=== PATIENT | male | born 1965 | race Caucasian/White ===

== ENCOUNTER 2020-02-28 12:19 | Emergency (ER) | payer OTHER, SELFPAY ==
[2020-02-28] VITALS (7 sets, daily range): BP systolic 107–130; BP diastolic 48–63; PULSE 60–90; RESP 18–24; TEMP 37.4–39.4; O2SAT 91–95; BMI 14.3
--- NOTE | 2020-02-28 12:35 | XR_ITS ---
EXAMINATION: XR CHEST CLINICAL INFORMATION: Covid symptoms. Evaluate for pneumonia. COMPARISON: Prior chest radiographs from 06/17/2018 through 05/22/2019 TECHNIQUE: Frontal view of the chest was obtained. FINDINGS: The cardiomediastinal and hilar contours are within normal limits. The patient is slightly rotated. There is a subtle opacity at the base of the left lung. The pulmonary vasculature is prominent. There is no effusion or pneumothorax. XR/XR chest 1V IMPRESSION: Subtle opacity at the base of the left lung could represent pneumonia in the appropriate clinical setting. No large effusion or pneumothorax.
--- NOTE | 2020-02-28 12:56 | ED.FEVER ---
HPI - Fever General Chief Complaint: Fever Stated Complaint: covid symptoms Time Seen by Provider: 02/28/20 12:32 Source: family Mode of arrival: ambulatory Limitations: language barrier History of Present Illness HPI Narrative: 54 y/o male with history of TBI, epilepsy (last seizure 4-6 weeks ago), presents with his mother with fevers as high as 103 over the the last 2 day. History obtained from his mother - she reports after a small family gathering at their house last weekend patient and mother started developing fevers, cough, headache and fatigue. She states her son's symptoms have been worse than hers. He has had decreased PO intake but no nausea, vomiting or diarrhea. She gave him Advil for his fevers and they would come down. He has not had difficulty breathing but has a junky cough. MD elicited complaint: fever Onset (ago): day(s) (2) Measured temperature: 103 F Context: sick contacts and other(s) with similar symptoms Exacerbating factors: nothing Relieving factors: ibuprofen Associated symptoms: chills, myalgias, headache, nasal congestion and cough Treatments prior to arrival fever: none Related Data Allergies Allergy/AdvReac Type Severity Reaction Status Date / Time No Known Allergies Allergy Unverified 12/27/19 16:42 Review of Systems Review of Systems: Constitutional: + Fever, + Chills ENT/Mouth: No sore throat, No Rhinorrhea, No Swallowing Difficulty Eyes: No Eye Pain, No Swelling, No Redness Cardiovascular: No Chest Pain, No SOB, No Orthopnea, No Edema Respiratory: + Cough, No Sputum, No Wheezing, No dyspnea Gastrointestinal: No Nausea, No Vomiting, No Diarrhea, No abdominal Pain Genitourinary: No Dysuria, No Urinary Frequency, No Hematuria Musculoskeletal: No joint pain, + Myalgias Skin: No Skin Lesions, No rash Neuro: + Weakness, No Numbness, No Dizziness, + Headache Psych: No Anxiety/Panic, No Depression Heme/Lymph: No Bruising, No Lymphadenopathy Endocrine: No Polyuria, No Polydipsia PMFSH Past Medical History Attestation statement: The following information was validated with the patient. Source: unable to obtain Medical History (Updated 02/28/20 @ 20:04 by PEDRO PABLO Navarro) Depressed Epilepsia TBI (traumatic brain injury) Social History Social History Alcohol intake: unknown Smoking Status: Unknown if ever smoked Use of substances other than those prescribed or required for medical reasons: No Advance Directives: No Advance Directives Information Provided: Yes Physical Exam Vital Signs: Vital Signs: Last Vital Signs Temp 99.4 F 02/28/20 16:24 Pulse 60 02/28/20 19:34 Resp 20 02/28/20 19:34 BP 107/48 L 02/28/20 19:34 Pulse Ox 92 02/28/20 19:34 Body Mass Index 14.3 Appearance: Alert. No acute distress. Right arm contracted. Eyes: Pupils equal, round and reactive to light. ENT: Pharynx normal. Neck: Normal inspection. Neck supple. CVS: Normal heart rate and rhythm. Pulses normal. Respiratory: No respiratory distress. Breath sounds coarse throughout. Abdomen: Soft and nontender. +BS x4 Skin: Skin warm and dry. Normal skin color. Normal skin turgor. No rashes. Extremities: No lower extremity edema. Neuro: right sided UE contracture, generalized weakness R>L, follows simple commands Course Course Course Narrative: 54 y/o male with Hx TBI and epilepsy presenting with fever, cough, malaise. Febrile on arrival 101.2 with RR 24. Concerned for sepsis due to COVID-19 infection vs influenza vs CAP. Panculture, IVF bolus, Tylenol ordered as well as inflammatory marker labs for COVID-19. SpO2 93-94% on room air at this time. Will monitor closely. Dispo pending results and improvement. Reevaluation(s) Reevaluation #1: CXR with possible LLL opacity - will cover for CAP with Rocephin and Azithromycin. IVF infusing. Hemodynamically stable and temp improved to 99.3 with Tylenol. Reevaluation #2: Lactic acid 4.7 consistent with organ dysfunction and severe sepsis. IVF bolus was ordered on arrival 30cc/kg. Repeat lactic after IVF resuscitation. SPO2 92-95 on room air, placed on 2L NC for comfort. Reevaluation #3: COVID positive. Spo2 97% on 1L NC. will wean off and monitor on room air. Repeat lactic acid pending. Additional Reevaluation(s): Repeat lactic acid now normal at 0.9. On room air SpO2 remains 92-97%. No respiratory distress. Remains hemodynamically stable. Only ambualtory for very short distances with assist device at home due to TBI and contractures. He does not meet inpatient criteria at this time. He is stable for discharge to the care of his family with strict return precautions if any SOB or difficulty breathing were to ensue. MDM - Fever MDM Narrative Medical decision making narrative: most likely COVID/viral infection Differential Diagnosis Differential diagnosis: Likely cellulitis, fever of unknown origin, community acquired pneumonia, pyelonephritis, viral infection and sepsis Lab Data Result diagrams: 02/28/20 13:24 02/28/20 13:24 Labs: Lab Results 02/28/20 02/28/20 02/28/20 Range/Units 13:23 13:24 13:24 WBC 4.7 L (4.8-10.8) X10*3/uL RBC 4.35 L (4.60-5.80) X10*6/uL Hgb 13.4 L (14.0-18.0) g/dl Hct 40.7 L (42-52) % MCV 93.6 (80-98) fL MCH 30.8 (27.0-33.0) pg MCHC 32.9 (31.0-36.0) g/dl RDW 11.9 (11.0-16.0) % Plt Count 82 L (160-400) X10*3/uL MPV 13.1 H (9.4-12.4) fL Immature Gran % (Auto) 0.2 (0.0-0.4) % Neut % (Auto) 53.7 (45-73) % Lymph % (Auto) 31.1 (20-40) % [place] % (Auto) 15.0 H (2-11) % Eos % (Auto) 0.0 (0-4) % Baso % (Auto) 0.0 (0-2) % Lymph # (Auto) 1.5 (1.2-4.9) X10*3/uL [place] # (Auto) 0.7 (0.1-1.2) X10*3/uL Eos # (Auto) 0.0 (0.0-0.4) X10*3/uL Baso # (Auto) 0.0 (0.0-0.2) X10*3/uL Abs Immat Gran (auto) 0.01 (0.00-0.03) X10*3/uL Absolute Neuts (auto) 2.5 (2.0-8.3) X10*3/uL Absolute Nucleated RBC 0.000 (0.0-0.012) X10*3/uL Nucleated RBC % (auto) 0.0 (0.0-0.2) /100WBC D-Dimer < 200 NG/ML Hold Blue Top SEE NOTE Sodium (135-145) mmol/L Potassium (3.3-5.1) mmol/l Chloride (96-108) mmol/L Carbon Dioxide (22-29) mmol/L Anion Gap (12-20) BUN (9-16) mg/dL Creatinine (0.5-1.4) mg/dL Estim Creat Clear Calc Estimated GFR Random Glucose (60-115) mg/dL Lactic Acid (0.5-2.0) mmol/L Lactic Acid Fup @ 2Hr (0.5-2.0) mmol/L Calcium (8.4-10.2) mg/dL Magnesium (1.6-2.6) mg/dL Total Bilirubin (0.0-1.0) mg/dL Direct Bilirubin (0.0-0.5) mg/dL AST (5-37) U/L ALT (0-40) U/L Alkaline Phosphatase (39-117) U/L Lactate Dehydrogenase (118-273) U/L C-Reactive Protein (< or = 0.50) mg/dL Total Protein (6.5-8.0) g/dL Albumin (3.5-5.0) g/dL Procalcitonin ng/mL Urine Color YELLOW Urine Appearance HAZY Urine pH 5.5 (5.0-8.0) Ur Specific [place] >= 1.030 H (1.005-1.025) Urine Protein NEG (NEG-TRACE) MG/DL Urine Glucose (UA) NEG (NEG) MG/DL Urine Ketones NEG (NEG) MG/DL Urine Blood TRACE (NEG) Urine Nitrite NEG (NEG) Ur Leukocyte Esterase NEG (NEG) Urine RBC 0-2 (0) /HPF Urine WBC 0-2 (0-4) /HPF Ur Squamous Epith Cells NONE /LPF Urine Bacteria NONE /LPF Urine Mucus TRACE /LPF Coronavirus (PCR) (Negative) Influenza Type A (PCR) (Negative) Influenza Type B (PCR) (Negative) RSV RNA Qual (PCR) (Negative) 02/28/20 02/28/20 02/28/20 Range/Units 13:24 13:24 13:25 WBC (4.8-10.8) X10*3/uL RBC (4.60-5.80) X10*6/uL Hgb (14.0-18.0) g/dl Hct (42-52) % MCV (80-98) fL MCH (27.0-33.0) pg MCHC (31.0-36.0) g/dl RDW (11.0-16.0) % Plt Count (160-400) X10*3/uL MPV (9.4-12.4) fL Immature Gran % (Auto) (0.0-0.4) % Neut % (Auto) (45-73) % Lymph % (Auto) (20-40) % [place] % (Auto) (2-11) % Eos % (Auto) (0-4) % Baso % (Auto) (0-2) % Lymph # (Auto) (1.2-4.9) X10*3/uL [place] # (Auto) (0.1-1.2) X10*3/uL Eos # (Auto) (0.0-0.4) X10*3/uL Baso # (Auto) (0.0-0.2) X10*3/uL Abs Immat Gran (auto) (0.00-0.03) X10*3/uL Absolute Neuts (auto) (2.0-8.3) X10*3/uL Absolute Nucleated RBC (0.0-0.012) X10*3/uL Nucleated RBC % (auto) (0.0-0.2) /100WBC D-Dimer NG/ML Hold Blue Top Sodium 142 (135-145) mmol/L Potassium 4.2 (3.3-5.1) mmol/l Chloride 102 (96-108) mmol/L Carbon Dioxide 28 (22-29) mmol/L Anion Gap 16 (12-20) BUN 11 (9-16) mg/dL Creatinine 0.74 (0.5-1.4) mg/dL Estim Creat Clear Calc 70.7 Estimated GFR > 60 Random Glucose 117 H (60-115) mg/dL Lactic Acid 4.7 H* (0.5-2.0) mmol/L Lactic Acid Fup @ 2Hr (0.5-2.0) mmol/L Calcium 8.4 (8.4-10.2) mg/dL Magnesium 1.6 (1.6-2.6) mg/dL Total Bilirubin 0.4 (0.0-1.0) mg/dL Direct Bilirubin < 0.2 (0.0-0.5) mg/dL AST 27 (5-37) U/L ALT 18 (0-40) U/L Alkaline Phosphatase 53 (39-117) U/L Lactate Dehydrogenase 252 (118-273) U/L C-Reactive Protein 3.55 H (< or = 0.50) mg/dL Total Protein 6.3 L (6.5-8.0) g/dL Albumin 3.6 (3.5-5.0) g/dL Procalcitonin 0.04 ng/mL Urine Color Urine Appearance Urine pH (5.0-8.0) Ur Specific [place] (1.005-1.025) Urine Protein (NEG-TRACE) MG/DL Urine Glucose (UA) (NEG) MG/DL Urine Ketones (NEG) MG/DL Urine Blood (NEG) Urine Nitrite (NEG) Ur Leukocyte Esterase (NEG) Urine RBC (0) /HPF Urine WBC (0-4) /HPF Ur Squamous Epith Cells /LPF Urine Bacteria /LPF Urine Mucus /LPF Coronavirus (PCR) (Negative) Influenza Type A (PCR) (Negative) Influenza Type B (PCR) (Negative) RSV RNA Qual (PCR) (Negative) 02/28/20 02/28/20 Range/Units 14:42 18:30 WBC (4.8-10.8) X10*3/uL RBC (4.60-5.80) X10*6/uL Hgb (14.0-18.0) g/dl Hct (42-52) % MCV (80-98) fL MCH (27.0-33.0) pg MCHC (31.0-36.0) g/dl RDW (11.0-16.0) % Plt Count (160-400) X10*3/uL MPV (9.4-12.4) fL Immature Gran % (Auto) (0.0-0.4) % Neut % (Auto) (45-73) % Lymph % (Auto) (20-40) % [place] % (Auto) (2-11) % Eos % (Auto) (0-4) % Baso % (Auto) (0-2) % Lymph # (Auto) (1.2-4.9) X10*3/uL [place] # (Auto) (0.1-1.2) X10*3/uL Eos # (Auto) (0.0-0.4) X10*3/uL Baso # (Auto) (0.0-0.2) X10*3/uL Abs Immat Gran (auto) (0.00-0.03) X10*3/uL Absolute Neuts (auto) (2.0-8.3) X10*3/uL Absolute Nucleated RBC (0.0-0.012) X10*3/uL Nucleated RBC % (auto) (0.0-0.2) /100WBC D-Dimer NG/ML Hold Blue Top Sodium (135-145) mmol/L Potassium (3.3-5.1) mmol/l Chloride (96-108) mmol/L Carbon Dioxide (22-29) mmol/L Anion Gap (12-20) BUN (9-16) mg/dL Creatinine (0.5-1.4) mg/dL Estim Creat Clear Calc Estimated GFR Random Glucose (60-115) mg/dL Lactic Acid (0.5-2.0) mmol/L Lactic Acid Fup @ 2Hr 0.9 (0.5-2.0) mmol/L Calcium (8.4-10.2) mg/dL Magnesium (1.6-2.6) mg/dL Total Bilirubin (0.0-1.0) mg/dL Direct Bilirubin (0.0-0.5) mg/dL AST (5-37) U/L ALT (0-40) U/L Alkaline Phosphatase (39-117) U/L Lactate Dehydrogenase (118-273) U/L C-Reactive Protein (< or = 0.50) mg/dL Total Protein (6.5-8.0) g/dL Albumin (3.5-5.0) g/dL Procalcitonin ng/mL Urine Color Urine Appearance Urine pH (5.0-8.0) Ur Specific [place] (1.005-1.025) Urine Protein (NEG-TRACE) MG/DL Urine Glucose (UA) (NEG) MG/DL Urine Ketones (NEG) MG/DL Urine Blood (NEG) Urine Nitrite (NEG) Ur Leukocyte Esterase (NEG) Urine RBC (0) /HPF Urine WBC (0-4) /HPF Ur Squamous Epith Cells /LPF Urine Bacteria /LPF Urine Mucus /LPF Coronavirus (PCR) POSITIVE A (Negative) Influenza Type A (PCR) NEGATIVE (Negative) Influenza Type B (PCR) NEGATIVE (Negative) RSV RNA Qual (PCR) NEGATIVE (Negative) Critical Care Time Critical Care Time Critical Care Time: Yes Total Critical Care Time: 45 Attestation: I attest to critical care time spent with this patient - frequent bedside re-evaluation. Discharge Plan Discharge Clinical Impression: COVID-19, Severe sepsis Patient Disposition: Home, Self-Care Instructions: COVID-19 (Coronavirus Disease 2019) (ED) Additional Instructions: Your COVID test was POSITIVE today. You had a fever while in the ER but it improved with Tylenol and Ibuprofen. Your other vital signs remained stable. Recommend continued close monitoring of temperature at home and continue to take Tylenol and/or Motrin as needed for fevers. Stay hydrated. Drink plenty of fluids. Take over the counter cold/flu medications as needed for your symptoms. If you develop difficulty breathing, respiratory distress, shortness of breath, chest pain or fever that does not improve with medication call 911 or come back to the ER for further evaluation. Follow up with your doctor next week. Print Language: [place]
[2020-02-28 13:37] LABS: Mean Corpuscular Hemoglobin 30.8 pg (27.0-33.0); Red Cell Distribution Width 11.9 % (11.0-16.0); SCAN SMEAR FLAG 1
[2020-02-28 13:38] LABS: MANUAL DIFF FLAG NO
[2020-02-28 13:39] LABS: Glucose Urine UA NEG (NEG); Leukocyte Esterase Urine NEG (NEG); Nitrite Urine NEG (NEG); PH 5.5 (5.0-8.0); Specific Gravity - Urine >= 1.030 (1.005-1.025); Urine Blood TRACE (NEG); Urine Ketones NEG (NEG); Urine Protein NEG (NEG-TRACE)
[2020-02-28 13:39] LABS: Hematocrit 40.7 % (42-52); Hemoglobin 13.4 g/dl (14.0-18.0); Imm Gran Abs Auto 0.01 X10*3/uL (0.00-0.03); Imm Gran Pct Auto 0.2 % (0.0-0.4); Lymphocytes Absolute Auto 1.5 X10*3/uL (1.2-4.9); Lymphocytes Percent Auto 31.1 % (20-40); Mean Corpuscular HGB Conc 32.9 g/dl (31.0-36.0); Mean Corpuscular Volume 93.6 fL (80-98); Mean Platelet Volume 13.1 fL (9.4-12.4); Monocytes Absolute Auto 0.7 X10*3/uL (0.1-1.2); Neutrophils Absolute Auto 2.5 X10*3/uL (2.0-8.3); Neutrophils Percent Auto 53.7 % (45-73); Red Blood Count 4.35 X10*6/uL (4.60-5.80); White Blood Count 4.7 X10*3/uL (4.8-10.8)
[2020-02-28 13:40] LABS: Appearance Urine HAZY; Color Urine YELLOW
[2020-02-28 13:43] LABS: Platelet Count 82 X10*3/uL (160-400)
[2020-02-28] MEDS: Acetaminophen 325 MG TABLET 975 MG PO (13:43)
[2020-02-28 13:44] LABS: PLT ABN DIST 1
[2020-02-28 13:45] LABS: Mucus Urine TRACE /LPF; RBC Urine 0-2 /HPF (0); WBC Urine 0-2 /HPF (0-4)
[2020-02-28 13:46] LABS: D Dimer < 200 NG/ML
[2020-02-28] MEDS: cefTRIAXone sodium 1 GM in 0.9 % Sodium Chloride 50 ML IV (13:59)
[2020-02-28 14:08] LABS: Alanine Aminotransferase 18 U/L (0-40); Albumin Level 3.6 g/dL (3.5-5.0); Alkaline Phosphatase 53 U/L (39-117); Anion Gap 16 (12-20); Aspartate Amino Transferase 27 U/L (5-37); Bilirubin Direct < 0.2 mg/dL (0.0-0.5); Bilirubin Total 0.4 mg/dL (0.0-1.0); Blood Urea Nitrogen 11 mg/dL (9-16); C Reactive Protein 3.55 mg/dL (< or = 0.50); Calcium 8.4 mg/dL (8.4-10.2); Carbon Dioxide 28 mmol/L (22-29); Chloride 102 mmol/L (96-108); Creatinine Clr Calc Pharmacy 70.7; Estimated Glomerular Filt Rate > 60; Glucose Random 117 mg/dL (60-115); Lactate Dehydrogenase 252 U/L (118-273); Magnesium 1.6 mg/dL (1.6-2.6); Potassium 4.2 mmol/l (3.3-5.1); Sodium 142 mmol/L (135-145); Total Protein 6.3 g/dL (6.5-8.0)
[2020-02-28 14:11] LABS: Lactic Acid 4.7 mmol/L (0.5-2.0)
[2020-02-28 14:23] LABS: Procalcitonin 0.04 ng/mL
[2020-02-28] MEDS: Azithromycin 500 MG in 0.9 % Sodium Chloride 250 ML 125 MG IV (14:30)
[2020-02-28 15:34] LABS: Reflex Lactate? Lactic Acid Added
[2020-02-28] MEDS: Ibuprofen 600 MG TABLET PO (17:33)
[2020-02-28] MEDS: 0.9 % Sodium Chloride 1,000 ML 999 ML IVCONT ×2 (17:33)
[2020-02-28 18:26] LABS: Influenza A PCR NEGATIVE (Negative); Influenza B PCR NEGATIVE (Negative); Resp Syncy Virus RNA Qual PCR NEGATIVE (Negative); SARS COV2 PCR INHOUSE POSITIVE (Negative)
[2020-02-28 18:55] LABS: ~Lactic Acid-LAB USE ONLY 0.9 mmol/L (0.5-2.0)
== END 2020-02-28 20:35 | disposition home or self-care (01) ==
PROVIDERS: Physician Assistant; Emergency Provider Emergency Medicine
DX: U07.1 COVID-19 (principal); R50.9 Fever, unspecified; A41.9 Sepsis, unspecified organism; R65.20 Severe sepsis without septic shock
CPT/HCPCS: 0241U; 36415; 71045; 80048; 80076; 81001; 83605; 83615; 83735; 84145; 85025; 85379; 86140; 87040; 96361; 96365; 96375; 99284; 99291; J0456; J0696

== ENCOUNTER 2020-02-29 18:38 | Inpatient (IN) | payer OTHER, SELFPAY ==
[2020-02-29 18:49] VITALS: BP 115/60; PULSE 79; RESP 12; TEMP 39.3; O2SAT 97; BMI 30.9
--- NOTE | 2020-02-29 19:06 | XR_ITS ---
EXAMINATION: XR CHEST CLINICAL INFORMATION: Shortness of breath COMPARISON: Chest x-ray 02/28/2020 TECHNIQUE: Frontal view of the chest was obtained. FINDINGS: Cardiac silhouette is normal in size. Lungs are adequately aerated. There is no lobar consolidation. No pleural effusion. No pneumothorax. Subtle opacity previously visualized within the left lung base is not replicated on today's radiographs. XR/XR chest 1V IMPRESSION: No lobar consolidation.
--- NOTE | 2020-02-29 19:38 | ED.GENADULT ---
HPI - General Adult General Chief complaint: General Medical Stated complaint: COVID Time Seen by Provider: 02/29/20 19:04 Source: patient, family and EMS Mode of arrival: EMS Limitations: no limitations History of Present Illness HPI narrative: This is a 54-year-old male who brought in by ambulance for difficulty breathing, patient was in the emergency department yesterday and was diagnosed with COVID-19 positive, patient returns today for difficulty breathing and initially found to be hypoxic at 84% on room air and febrile, patient has exposed to COVID positive contact recently. Patient otherwise declined chest pain. In the emergency department patient was placed on non-rebreather mask which improved his O2 saturation into 96%. Related Data Allergies Allergy/AdvReac Type Severity Reaction Status Date / Time No Known Allergies Allergy Unverified 12/27/19 16:42 Review of Systems Review of Systems: All other systems are reviewed and are negative Constitutional: Reports as per HPI and Reports no additional constitutional complaints Eyes: Reports as per HPI and Reports no additional eye complaints Reports system reviewed and no additional complaints, except as documented Cardiovascular: Reports as per HPI and Reports no additional cardiovascular complaints Respiratory: Reports as per HPI and Reports no additional respiratory complaints Gastrointestinal: Reports as per HPI and Reports no additional gastrointestinal complaints Genitourinary: Reports no additional female genitourinary complaints Musculoskeletal: Reports no additional musculoskeletal complaints Skin/Breast: Reports system reviewed and no additional complaints, except as docu Psychiatric: Reports no additional psychiatric complaints Endocrine: Reports no additional endocrine complaints Hematologic/Lymphatic: Reports no additional hematologic/lymphatic complaints Allergic/Immunologic: Reports no additional allergic/immunologic complaints Reports system reviewed and no additional complaints, except as documented and Reports Abnormal speech present FOR[facility] Past Medical History Medical History Coronavirus infection Depressed Epilepsia TBI (traumatic brain injury) Social History Social History Alcohol intake: unknown Smoking Status: Unknown if ever smoked Advance Directives: No Advance Directives Information Provided: Yes Physical Exam Vital Signs: Vital Signs: Last Vital Signs Temp 102.7 F H 02/29/20 18:49 Pulse 79 02/29/20 18:49 Resp 12 02/29/20 18:49 BP 115/60 02/29/20 18:49 Pulse Ox 97 02/29/20 18:49 Body Mass Index 30.9 Vital signs have been reviewed as normal and appeared to be correct. Blood pressure normal. Heart rate normal. Respiration rate normal. Febrile. Hypoxic on room air 84%, improved to 97% with non-rebreather mask.. Appearance: Alert. Oriented X3. No acute distress. Head: Normal external exam. Normocephalic. Atraumatic. No [place] signs noted. No raccoon eyes noted Eyes: PERRLA. EOMI. Conjunctiva and sclera normal. Eyelids normal. ENT: EAC normal. TM's Normal. Pharynx normal. Uvula midline. Moist mucous membranes. No trismus noted. No drooling noted. No muffled voice noted. Neck: Normal inspection. Neck supple. FROM. No adenopathy. Thyroid Normal. No meningeal signs. No neck mass noted. CVS: Normal heart rate and rhythm. Heart sound normal. No murmurs noted. Pulses normal throughout. Respiratory: No respiratory distress. Painless inspiration. Breath sounds normal. No wheezes/rales/rhonchi noted. Chest nontender. No accessory muscle usage noted or decreased air movement noted. Abdomen: Soft and nontender. Bowel sounds normal in all 4 quadrants. No distention noted. No organomegaly noted. No visible injury noted. Back: No CVA tenderness. Full range of motion noted. Skin: Skin warm and dry. Normal skin color. Normal skin turgor. No rashes/lesions/lacerations noted. Extremities: No lower extremity edema. Extremities exhibit normal range of motion. Extremities nontender. Neuro: Oriented X 3. No motor deficit. No sensory deficit. Reflexes normal. Medical Decision Making MDM Narrative Medical decision making narrative: 54-year-old male return to the emergency department for difficulty breathing and becoming hypoxic and febrile, patient was diagnosed yesterday with COVID-19, initially patient had 84% that improved with supplemental oxygen via non-rebreather mask, chest x-ray is not showing additional bacterial pneumonia. Patient requires hospitalization for supplemental oxygenation. Imaging Data Chest x-ray: Radiologist's impression: No lobar consolidation.
[2020-02-29 20:00] VITALS: BP 110/50; PULSE 79; RESP 16
[2020-02-29 20:05] LABS: MANUAL DIFF FLAG NO
[2020-02-29 20:14] LABS: Hematocrit 36.7 % (42-52); Hemoglobin 12.1 g/dl (14.0-18.0); Imm Gran Abs Auto 0.02 X10*3/uL (0.00-0.03); Imm Gran Pct Auto 0.5 % (0.0-0.4); Lymphocytes Absolute Auto 0.9 X10*3/uL (1.2-4.9); Lymphocytes Percent Auto 21.4 % (20-40); Mean Corpuscular Hemoglobin 30.7 pg (27.0-33.0); Mean Corpuscular Volume 93.1 fL (80-98); Mean Platelet Volume 13.9 fL (9.4-12.4); Monocytes Absolute Auto 0.6 X10*3/uL (0.1-1.2); Monocytes Percent Auto 12.9 % (2-11); Neutrophils Absolute Auto 2.8 X10*3/uL (2.0-8.3); Neutrophils Percent Auto 65.2 % (45-73); Red Blood Count 3.94 X10*6/uL (4.60-5.80); Red Cell Distribution Width 11.9 % (11.0-16.0); White Blood Count 4.3 X10*3/uL (4.8-10.8)
[2020-02-29 20:39] LABS: Anion Gap 14 (12-20); Blood Urea Nitrogen 7 mg/dL (9-16); Calcium 7.9 mg/dL (8.4-10.2); Carbon Dioxide 30 mmol/L (22-29); Chloride 100 mmol/L (96-108); Creatinine Clr Calc Pharmacy 134.6; Estimated Glomerular Filt Rate > 60; Glucose Random 112 mg/dL (60-115); Potassium 4.3 mmol/l (3.3-5.1); Sodium 140 mmol/L (135-145)
[2020-02-29 20:43] LABS: Platelet Count 79 X10*3/uL (160-400)
[2020-02-29 21:08] LABS: B Type Natriuretic Peptide 14 pg/mL (<100)
[2020-02-29] MEDS: Acetaminophen 325 MG TABLET 650 MG PO (21:11)
[2020-02-29] MEDS: 0.9 % Sodium Chloride 500 ML 1000 ML IV (21:20)
[2020-02-29 22:00] VITALS: BP 116/57; PULSE 79; RESP 16
--- NOTE | 2020-02-29 23:07 | PC.NURSE ---
PT C/O PAIN TO ABD AREA. AWARE AND MEDICATED PT PER EMAR.
[2020-02-29] MEDS: Morphine Sulfate 2 MG/ML CARTRIDGE 1 MG IVPUSH (23:47)
--- NOTE | 2020-02-29 23:48 | PC.NURSE ---
PT'S IV NEEDED TO BE RE-INSERTED. PT MEDICATED FOR PAIN RATED 8/10.
[2020-03-01] VITALS (11 sets, daily range): BP systolic 99–120; BP diastolic 50–65; PULSE 57–89; RESP 16–20; TEMP 36–38.1; O2SAT 91–100; BMI 29.2
--- NOTE | 2020-03-01 00:54 | PC.NURSE ---
PT RESTING IN STRETCHER, WAKES TO VERBAL STIMULI, RESPIRATIONS EASY, N/L. SKIN W/D. PT ON MONITOR WITH HR 66. PT ON NRB WITH PO 97%. PT DENIES ANY COMPLAINTS AT THIS TIME. PT URINATING IN URINAL WITHOUT DIFFICULTY. PT AWAITING BED ASIGNMENT.
--- NOTE | 2020-03-01 01:45 | PM.IMHP ---
History of Present Illness Date of Service: 03/01/20 Chief Complaint: SOB 54 y/o male with extensive PMHX who presented from home due to SOB. Patient is a poor historian, reports that for the past 2 days has been having worsening difficulty breathing which has been associated with a dry cough. On presentation to the ED patient was noted to spike multiple episodes of fever 101-102, tachypneic, BP 104/52 adn HR of 64. WNC of 4.3, platelet of 79, lactate of 4.7 which normalized after hydration in the ED, CRP of 3.55, covid +. UA pending. Decision for admission given. Patient seen and evaluated at the bedside, laying down in bed in no acute distress. ROS as above otherwise negative. Physical exam positive for RU/RLE contracted, rest of the exam unremarkable. PMHX: 1- biliary pancreatitis 2-Hypoxic respiratory failure 3-cholithiasis 4- seizure disorder 5-TBI with rigth hemiplegia 6-nephrolithiasis 7-Decubitus ulcer 8-Depression 9- Wheelchair bound 10- DJD Psx: cholecystectomy Toxic habits: No hx of alcohol abuse, smoking or IVDA Review of Systems Cardiovascular: Cardiovascular: Reports dyspnea Respiratory: Respiratory: Reports cough and Reports dyspnea PMFSH Medical History Coronavirus infection Depressed Epilepsia TBI (traumatic brain injury) Functional capacity: wheelchair bound Social History Alcohol intake: unknown Smoking Status: Unknown if ever smoked Advance Directives: No Advance Directives Information Provided: Yes Meds Allergies Allergy/AdvReac Type Severity Reaction Status Date / Time No Known Allergies Allergy Unverified 12/27/19 16:42 Home Medications Medication Instructions Recorded Confirmed Type atorvastatin 40 mg PO BEDTIME 02/29/20 02/29/20 History citalopram 20 mg PO QAM 02/29/20 02/29/20 History divalproex 500 mg PO BID 02/29/20 02/29/20 History ergocalciferol (vitamin D2) 1,250 mcg PO QWEEK 02/29/20 02/29/20 History levetiracetam 1,000 mg PO BID 02/29/20 02/29/20 History levetiracetam 250 mg PO BID 02/29/20 02/29/20 History lorazepam 0.5 mg PO DAILY PRN 02/29/20 02/29/20 History zolpidem 0.5 - 1 tab PO BEDTIME PRN 02/29/20 02/29/20 History Physical Exam Vital Signs and Narrative: Vital Signs: Last Vital Signs Temp 102.7 F H 02/29/20 18:49 Pulse 64 03/01/20 00:00 Resp 16 03/01/20 00:00 BP 104/52 L 03/01/20 00:00 Pulse Ox 97 03/01/20 00:00 Body Mass Index 30.9 Const: General: cooperative, comfortable and no acute distress Orientation/consciousness: oriented to person, oriented to place and oriented to time HENMT: Head: Yes normal to inspection Eyes: General: appearance normal, both eyes and all related structures Neck: Yes normal visual inspection Chest: Chest palpation & inspection: normal inspection of the chest Resp: Effort & Inspection: normal respiratory effort Cardio: Jugular venous distension: no JVD Rhythm: regular rhythm Heart sounds: S1 normal heart sound present and S2 normal heart sound present GI: Inspection: Yes normal to inspection Skin: General skin exam: no rashes or lesions noted Neuro: General: oriented to person, oriented to place and oriented to time Results Labs CBC and Chem 7: 02/29/20 19:35 02/29/20 19:35 Labs: Laboratory Results - last 24 hr 02/29/20 02/29/20 02/29/20 19:35 19:35 19:35 MCV 93.1 MCH 30.7 MCHC 33.0 RDW 11.9 Plt Count 79 L MPV 13.9 H Immature Gran % (Auto) 0.5 H Neut % (Auto) 65.2 Lymph % (Auto) 21.4 [place] % (Auto) 12.9 H Eos % (Auto) 0.0 Baso % (Auto) 0.0 Lymph # (Auto) 0.9 L [place] # (Auto) 0.6 Eos # (Auto) 0.0 Baso # (Auto) 0.0 Abs Immat Gran (auto) 0.02 Absolute Neuts (auto) 2.8 Absolute Nucleated RBC 0.000 Nucleated RBC % (auto) 0.0 Anion Gap 14 Estim Creat Clear Calc 134.6 Estimated GFR > 60 Random Glucose 112 Lactic Acid 2.0 Calcium 7.9 L B-Natriuretic Peptide 02/29/20 19:35 MCV MCH MCHC RDW Plt Count MPV Immature Gran % (Auto) Neut % (Auto) Lymph % (Auto) [place] % (Auto) Eos % (Auto) Baso % (Auto) Lymph # (Auto) [place] # (Auto) Eos # (Auto) Baso # (Auto) Abs Immat Gran (auto) Absolute Neuts (auto) Absolute Nucleated RBC Nucleated RBC % (auto) Anion Gap Estim Creat Clear Calc Estimated GFR Random Glucose Lactic Acid Calcium B-Natriuretic Peptide 14 Imaging Radiologist's Impressions: Impressions Chest X-Ray 02/29/20 19:06 IMPRESSION: No lobar consolidation. Assessment and Plan (1) Sepsis: Status: Acute Keep MAP >65 mmHg Continue with IV hydration Continue with O2 therapy as ordered inhaler as needed will not start antbx as there is no other source of infection at present Follow up UA infectious disease consult (2) COVID-19: Status: Acute plan as above (3) Hypoxia: Status: Acute as above (4) Epilepsia: Status: Acute conitnue with AED's as ordered (5) TBI (traumatic brain injury): Status: Acute stable (6) Depressed: Status: Acute continue with escitalopram home dose (7) Hyperlipidemia: Status: Acute continue with statin home dose
--- NOTE | 2020-03-01 01:53 | PC.NURSE ---
HOSPITALIST IN ROOM FOR EVAL. URINE SAMPLE SENT TO LAB FOR EVAL.
[2020-03-01 02:03] LABS: Glucose Urine UA NEG (NEG); Leukocyte Esterase Urine NEG (NEG); Nitrite Urine NEG (NEG); Specific Gravity - Urine 1.015 (1.005-1.025); Urine Blood NEG (NEG); Urine Ketones NEG (NEG); Urine Protein NEG (NEG-TRACE)
[2020-03-01 02:04] LABS: Appearance Urine CLEAR; Color Urine YELLOW
--- NOTE | 2020-03-01 02:41 | PC.NURSE ---
pt resting quietly. PT REMAINS ON MONITOR WITH HR 57. PT DENIES ANY COMPLAINTS AND REQUESTING CAN I GO HOME? PT VERBALIZED UNDERSTANDING OF IMPORTANCE OF STAYING IN THE HOSPITAL. PT IS NO LONGER NAUSEA AND WITHOUT VOMITING IN THE ED. PT REMAINS ON NRB WITH PO 100%. PT IN NAD. PT DENIES ANY COMPLAINTS AND AWAITING TRANSPORT TO THE FLOOR. AWAITING FOR [facility] TO TAKE REPORT.
--- NOTE | 2020-03-01 02:48 | PC.NURSE ---
REPORT GIVEN TO RONDA ACOSTA C. PT AWAITING TRANSPORT TO FLOOR.
[2020-03-01] MEDS: 0.9 % Sodium Chloride 1,000 ML 75 ML IVCONT ×2 (03:47→15:10)
[2020-03-01] MEDS: Heparin Sodium,Porcine 5,000 UNIT/ML VIAL 5000 UNIT SUBCUT ×3 (05:40→21:56)
[2020-03-01 07:41] LABS: MANUAL DIFF FLAG SCAN; Mean Corpuscular HGB Conc 33.3 g/dl (31.0-36.0); Mean Corpuscular Hemoglobin 30.9 pg (27.0-33.0); Mean Corpuscular Volume 92.6 fL (80-98); Neutrophils Percent Auto 33.8 % (45-73); SCAN SMEAR FLAG 1
[2020-03-01 07:43] LABS: Basophils Percent Auto 0.3 % (0-2); Hematocrit 35.1 % (42-52); Hemoglobin 11.7 g/dl (14.0-18.0); Lymphocytes Absolute Auto 2.1 X10*3/uL (1.2-4.9); Lymphocytes Percent Auto 52.7 % (20-40); Mean Platelet Volume 14.1 fL (9.4-12.4); Monocytes Absolute Auto 0.5 X10*3/uL (0.1-1.2); Monocytes Percent Auto 13.2 % (2-11); Neutrophils Absolute Auto 1.3 X10*3/uL (2.0-8.3); Red Blood Count 3.79 X10*6/uL (4.60-5.80)
[2020-03-01 07:57] LABS: PLT ABN DIST 1; Platelet Count 73 X10*3/uL (160-400)
[2020-03-01] MEDS: levETIRAcetam 250 MG TABLET PO ×2 (08:15→21:57)
[2020-03-01] MEDS: 0.9 % Sodium Chloride Flush 3 ML SYRINGE IVFLUSH (08:15)
[2020-03-01] MEDS: levETIRAcetam 1,000 MG TABLET 1000 MG PO ×2 (08:15→21:57)
[2020-03-01] MEDS: Escitalopram Oxalate 10 MG TABLET PO (08:15)
[2020-03-01] MEDS: Divalproex Sodium ER 500 MG TAB.ER.24H PO ×2 (08:15→21:57)
[2020-03-01 08:24] LABS: Anion Gap 11 (12-20); Blood Urea Nitrogen 6 mg/dL (9-16); Calcium 7.8 mg/dL (8.4-10.2); Carbon Dioxide 30 mmol/L (22-29); Chloride 103 mmol/L (96-108); Creatinine Clr Calc Pharmacy 136.9; Estimated Glomerular Filt Rate > 60; Glucose Random 83 mg/dL (60-115); Potassium 3.8 mmol/l (3.3-5.1); Sodium 140 mmol/L (135-145)
--- NOTE | 2020-03-01 13:59 | PC.NURSE ---
1150 PATIENT PLACED ON 15L OXYMIZER. PT DESAT TO 85%. PT PLACED BACK ON NRB NOW SATING 92%
--- NOTE | 2020-03-01 15:03 | W.PM.IDCN ---
History of Present Illness Data of Consult Service Date: 03/01/20 Requesting physician: Morris Decker Primary Care Provider: Unknown Physician HPI Reason for consult: COVID He comes in brought by family He was at a family gathering one week ago and developed cough as well as fever to 103 He tests positive for COVID He is on room air Review of Systems Review of Systems: Yes Unobtainable due to mental condition PMFSH Past Medical History Medical History Coronavirus infection Depressed Epilepsia TBI (traumatic brain injury) Functional capacity: wheelchair bound Social History Social History Household Members: None Housing: House Alcohol intake: unknown Smoking Status: Current every day smoker Tobacco Type: Cigarette Use of substances other than those prescribed or required for medical reasons: No Currently Displaying Signs/Symptoms of Drug Intoxication Withdrawal: No Have you been hit, kicked, punched, or otherwise hurt by someone within the past year? If so, by whom?: No Do you feel safe in your current relationship?: Yes Is there a partner from a previous relationship who is making you feel unsafe now?: No Are you made to feel afraid or neglected: No Advance Directives: No Advance Directives Information Provided: Yes Do you have thoughts of harming others: None Do you have a plan to hurt others: No Plan Recently lost weight without trying: No Meds Allergies Allergy/AdvReac Type Severity Reaction Status Date / Time No Known Allergies Allergy Unverified 12/27/19 16:42 Home Medications Medication Instructions Recorded Confirmed Type atorvastatin 40 mg PO BEDTIME 02/29/20 02/29/20 History citalopram 20 mg PO QAM 02/29/20 02/29/20 History divalproex 500 mg PO BID 02/29/20 02/29/20 History ergocalciferol (vitamin D2) 1,250 mcg PO QWEEK 02/29/20 02/29/20 History levetiracetam 1,000 mg PO BID 02/29/20 02/29/20 History levetiracetam 250 mg PO BID 02/29/20 02/29/20 History lorazepam 0.5 mg PO DAILY PRN 02/29/20 02/29/20 History zolpidem 0.5 - 1 tab PO BEDTIME PRN 02/29/20 02/29/20 History Physical Exam Vital Signs: Vital Signs: Last Vital Signs Temp 99.0 F 03/01/20 12:00 Pulse 72 03/01/20 12:00 Resp 20 03/01/20 12:00 BP 99/62 03/01/20 12:00 Pulse Ox 94 03/01/20 12:00 Body Mass Index 29.2 Const: General: cooperative HENMT: Head: Yes normal to inspection Eyes: General: appearance normal, both eyes and all related structures Resp: Effort & Inspection: normal respiratory effort Cardio: Rate: regular rate Rhythm: regular rhythm GI: Palpation (GI): nontender Extrem: General: Yes normal to inspection Assessment and Plan (1) COVID-19: Start date: 02/23/20 Problem details: He has shortness of breath and saturation 84% with fever but now has saturation of 92-97% on RA today He had episode of hypoxia with fever in ER and had come to ER two days in row so now is admitted Status: Acute No Remdesivir or steroids Monitor If develops oxygen need consider steroids Results Labs CBC & Chem 7: 03/01/20 06:18 03/01/20 06:18 Labs: Short CBC 02/29/20 03/01/20 Range/Units 19:35 06:18 WBC 4.3 L 4.0 L (4.8-10.8) X10*3/uL Hgb 12.1 L 11.7 L (14.0-18.0) g/dl Hct 36.7 L 35.1 L (42-52) % Plt Count 79 L 73 L (160-400) X10*3/uL BMP 02/29/20 03/01/20 19:35 06:18 Sodium 140 140 Potassium 4.3 3.8 Chloride 100 103 Carbon Dioxide 30 H 30 H BUN 7 L 6 L Creatinine 0.73 0.70 Calcium 7.9 L 7.8 L Urine 03/01/20 Range/Units 01:58 Urine Color YELLOW Urine Appearance CLEAR Urine pH 7.0 (5.0-8.0) Ur Specific [place] 1.015 (1.005-1.025) Urine Protein NEG (NEG-TRACE) MG/DL Urine Glucose (UA) NEG (NEG) MG/DL
--- NOTE | 2020-03-01 16:23 | MHC.CM.PN ---
CM spoke to pts mother/HCP, Arely Henriquez ([phone]) via t/c using [employer] (#[id number]). Arely reports the pt lives with her and has [employer] services daily. She reports he is wheel chair bound at baseline. Arely is his HCP and a copy is on file. Arely reports the pt does not have a PCP at this time because she tried to change it and has not been able to get an appt with a new provider. Arely expresses concern that the pt not DC home too soon as she is not feeling well and is his primary rn dermatology. CM assured her she would be contacted when DC was close to discuss any concerns. Arely also reports worrying that the pt is not eating because he told her he was hungry on the phone, she reports someone has to be there when he eats. CM passed concern on to pts nurse. IMM delivered current DC plan is home with resumption of [employer] pending pts mothers ability to care for him Pts mother typically transports him as well but can not if she is not feeling better, he may require ambulance transport
[2020-03-01] MEDS: Acetaminophen 325 MG TABLET 650 MG PO (19:53)
[2020-03-01] MEDS: Atorvastatin Calcium 40 MG TABLET PO (21:57)
[2020-03-02] VITALS (8 sets, daily range): BP systolic 111–143; BP diastolic 56–79; PULSE 87–102; RESP 18–20; TEMP 35.9–38.6; O2SAT 88–96
[2020-03-02] MEDS: 0.9 % Sodium Chloride 1,000 ML 75 ML IVCONT (04:38)
[2020-03-02] MEDS: Heparin Sodium,Porcine 5,000 UNIT/ML VIAL 5000 UNIT SUBCUT (06:22)
[2020-03-02] MEDS: levETIRAcetam 1,000 MG TABLET 1000 MG PO ×2 (07:56→20:05)
[2020-03-02] MEDS: Divalproex Sodium ER 500 MG TAB.ER.24H PO ×2 (07:56→20:05)
[2020-03-02] MEDS: Escitalopram Oxalate 10 MG TABLET PO (07:57)
[2020-03-02] MEDS: 0.9 % Sodium Chloride Flush 3 ML SYRINGE IVFLUSH ×3 (07:57→20:05)
[2020-03-02] MEDS: levETIRAcetam 250 MG TABLET PO ×2 (07:57→20:05)
--- NOTE | 2020-03-02 12:39 | HO.PM.IMPN ---
Subjective Subjective Date of Service: 03/02/20 Interval History: Seen in f/u for covid infection with hypoxia. Still hypoxic but overall better ROS: no fever, no resp distress Physical Exam Vital Signs: Vital Signs: Last Vital Signs Temp 97.8 F 03/02/20 12:00 Pulse 102 H 03/02/20 12:00 Resp 20 03/02/20 12:00 BP 136/66 03/02/20 12:00 Pulse Ox 90 L 03/02/20 12:00 Body Mass Index 29.2 General: Alert Resp: normal resp effort CVS: regular Skin: No rash Neuro: motor grossly intact Psych: flat affect Objective Data Current Medications Generic Name Dose Route Start Last Admin Trade Name Freq PRN Reason Stop Dose Admin Acetaminophen 650 mg 03/01/20 19:36 03/01/20 19:53 Acetaminophen 325 Mg Tablet PO 650 mg Q6H PRN Administration Pain and Fever Atorvastatin Calcium 40 mg 03/01/20 21:00 03/01/20 21:57 Atorvastatin Calcium 40 Mg Tablet PO 40 mg BEDTIME FRANKIE Administration Divalproex Sodium 500 mg 03/01/20 09:00 03/02/20 07:56 Divalproex Sodium Er 500 Mg Tab.Er.24h PO 500 mg BID FRANKIE Administration Ergocalciferol 1,250 mcg 03/08/20 09:00 Ergocalciferol (Vitamin D2) 1,250 Mcg Capsule PO Q7D FRANKIE Escitalopram Oxalate 10 mg 03/01/20 09:00 03/02/20 07:57 Escitalopram Oxalate 10 Mg Tablet PO 10 mg DAILY FRANKIE Administration Heparin Sodium (Porcine) 5,000 unit 03/01/20 06:00 03/02/20 06:22 Heparin Sodium,Porcine 5,000 Unit/Ml Vial SUBCUT 5,000 unit Q8H FRANKIE Administration Levetiracetam 1,000 mg 03/01/20 09:00 03/02/20 07:56 Levetiracetam 1,000 Mg Tablet PO 1,000 mg BID FRANKIE Administration Levetiracetam 250 mg 03/01/20 09:00 03/02/20 07:57 Levetiracetam 250 Mg Tablet PO 250 mg BID FRANKIE Administration Sodium Chloride 3 ml 03/01/20 08:00 03/02/20 07:57 0.9 % Sodium Chloride Flush 3 Ml Syringe IVFLUSH 3 ml QSHIFT FRANKIE Administration Labs CBC & Chem 7: 03/01/20 06:18 03/01/20 06:18 Microbiology Microbiology Results: Microbiology 02/29/20 19:35 Blood - Venous Blood Culture - Preliminary No growth after 24 hours. 02/29/20 19:35 Blood - Venous Blood Culture - Preliminary No growth after 24 hours. Assessment and Plan (1) Sepsis: Status: Acute (2) COVID-19: Problem details: He has shortness of breath and saturation 84% with fever but now has saturation of 92-97% on RA today He had episode of hypoxia with fever in ER and had come to ER two days in row so now is admitted Status: Acute (3) Hypoxia: Status: Acute (4) Epilepsia: Status: Acute (5) TBI (traumatic brain injury): Status: Acute (6) Depressed: Status: Acute (7) Hyperlipidemia: Status: Acute Assessment and Plan: 54/m with TBI, HLD, Epilepsy here with covid with hypoxia. -Add Dexamethasone due to developping hypoxia -Oxgyen as needed, titrate to sat of 90 or greater HLD--Lipitor Epilepsys--Tee Pizarro
[2020-03-02] MEDS: dexAMETHasone sod phosphate 10 MG/ML VIAL 6 MG IVPUSH (15:02)
[2020-03-02] MEDS: Acetaminophen 325 MG TABLET 650 MG PO (15:38)
[2020-03-02] MEDS: Atorvastatin Calcium 40 MG TABLET PO (20:05)
[2020-03-03] VITALS (7 sets, daily range): BP systolic 99–169; BP diastolic 55–74; PULSE 62–108; RESP 18–20; TEMP 36.6–37.4; O2SAT 91–96
--- NOTE | 2020-03-03 | XR_ITS ---
EXAMINATION: XR CHEST CLINICAL INFORMATION: Hypoxia. Question Covid. COMPARISON: None TECHNIQUE: Frontal view of the chest was obtained. FINDINGS: The lungs are well-expanded without acute pneumonic process. Heart size and pulmonary vascularity is normal. No gross bony abnormality seen. XR/XR chest 1V IMPRESSION: Unremarkable chest exam. No change from 02/29/2020
[2020-03-03 07:02] LABS: Hematocrit 35.9 % (42-52); Hemoglobin 11.9 g/dl (14.0-18.0); Mean Corpuscular HGB Conc 33.1 g/dl (31.0-36.0); Mean Corpuscular Hemoglobin 30.6 pg (27.0-33.0); Mean Corpuscular Volume 92.3 fL (80-98); Mean Platelet Volume 13.5 fL (9.4-12.4); Red Blood Count 3.89 X10*6/uL (4.60-5.80); White Blood Count 2.9 X10*3/uL (4.8-10.8)
[2020-03-03 07:03] LABS: Platelet Count 80 X10*3/uL (160-400)
[2020-03-03] MEDS: LORazepam 0.5 MG TABLET PO (07:06)
[2020-03-03] MEDS: Escitalopram Oxalate 10 MG TABLET PO (07:49)
[2020-03-03] MEDS: Divalproex Sodium ER 500 MG TAB.ER.24H PO ×2 (07:49→20:13)
[2020-03-03] MEDS: levETIRAcetam 250 MG TABLET PO ×2 (07:49→20:13)
[2020-03-03] MEDS: 0.9 % Sodium Chloride Flush 3 ML SYRINGE IVFLUSH ×2 (07:49→18:09)
[2020-03-03] MEDS: levETIRAcetam 1,000 MG TABLET 1000 MG PO ×2 (07:49→20:13)
--- NOTE | 2020-03-03 09:03 | MHC.CM.PN ---
Addendum entered by Alesia Silver 03/03/20 13:41: This newspaper writer called the phone # provided. No action is required. Probation will follow up after discharge. Original Note: David received from Jada BOND. Patient is wearing an ankle bracelet. [phone] WANTS CALL BACK@ DC AND WHEN ANKLE BRACELET NEEDS BATTERIES
--- NOTE | 2020-03-03 10:04 | MHC.CM.PN ---
DP DC to Home resumption of [employer] services. Family will transport. If family unable to care for Pt at DC, STR may be required, prior to going home. CM will follow.
--- NOTE | 2020-03-03 10:12 | HO.PM.IMPN ---
Subjective Subjective Date of Service: 03/03/20 Interval History: Seen in f/u for covid infection with hypoxia. Has a temp of 101, this morning and O2 from 85 to 82 on 4 liters, earlier today was 90 to 92 on room air. He looks comfortable with no complaint. ROS: no fever, no resp distress Physical Exam Vital Signs: Vital Signs: Last Vital Signs Temp 98.0 F 03/03/20 07:36 Pulse 74 03/03/20 07:36 Resp 18 03/03/20 07:36 BP 99/56 L 03/03/20 07:36 Pulse Ox 92 03/03/20 07:36 Body Mass Index 29.2 General: Alert, comfortable Resp: normal resp effort CVS: regular Skin: No rash Neuro: motor grossly intact Psych: flat affect Objective Data Current Medications Generic Name Dose Route Start Last Admin Trade Name Freq PRN Reason Stop Dose Admin Acetaminophen 650 mg 03/01/20 19:36 03/02/20 15:38 Acetaminophen 325 Mg Tablet PO 650 mg Q6H PRN Administration Pain and Fever Atorvastatin Calcium 40 mg 03/01/20 21:00 03/02/20 20:05 Atorvastatin Calcium 40 Mg Tablet PO 40 mg BEDTIME FRANKIE Administration Divalproex Sodium 500 mg 03/01/20 09:00 03/03/20 07:49 Divalproex Sodium Er 500 Mg Tab.Er.24h PO 500 mg BID FRANKIE Administration Ergocalciferol 1,250 mcg 03/08/20 09:00 Ergocalciferol (Vitamin D2) 1,250 Mcg Capsule PO Q7D FRANKIE Escitalopram Oxalate 10 mg 03/01/20 09:00 03/03/20 07:49 Escitalopram Oxalate 10 Mg Tablet PO 10 mg DAILY FRANKIE Administration Levetiracetam 1,000 mg 03/01/20 09:00 03/03/20 07:49 Levetiracetam 1,000 Mg Tablet PO 1,000 mg BID FRANKIE Administration Levetiracetam 250 mg 03/01/20 09:00 03/03/20 07:49 Levetiracetam 250 Mg Tablet PO 250 mg BID FRANKIE Administration Lorazepam 0.5 mg 03/03/20 06:34 03/03/20 07:06 Lorazepam 0.5 Mg Tablet PO 0.5 mg DAILY PRN Administration Anxiety Sodium Chloride 3 ml 03/01/20 08:00 03/03/20 07:49 0.9 % Sodium Chloride Flush 3 Ml Syringe IVFLUSH 3 ml QSHIFT FRANKIE Administration Labs CBC & Chem 7: 03/03/20 05:53 03/01/20 06:18 Microbiology Microbiology Results: Microbiology 02/29/20 19:35 Blood - Venous Blood Culture - Preliminary No growth after 48 hours. 02/29/20 19:35 Blood - Venous Blood Culture - Preliminary No growth after 48 hours. Assessment and Plan (1) Sepsis: Status: Acute (2) COVID-19: Status: Acute (3) Hypoxia: Status: Acute (4) Epilepsia: Status: Acute (5) TBI (traumatic brain injury): Status: Acute (6) Depressed: Status: Acute (7) Hyperlipidemia: Status: Acute Assessment and Plan: \54/m with TBI, HLD, Epilepsy here with covid since 02/27 and has persistent fever and now hypoxia. He likely contracted it from family gather aweek earlier -continue Dexamethasone due to developping hypoxia -Remdesevir unlikely to be beneficial nearly a week later--discussed with ID -Oxgyen as needed, titrate to sat of 90 or greater -Will discuss plasma with proxy -check BC, UA, CXR to rule out other sources of fever HLD--Lipitor Epilepsys--Tee Pizarro
[2020-03-03 11:08] LABS: Hematocrit 36.2 % (42-52); Hemoglobin 12.1 g/dl (14.0-18.0); Mean Corpuscular HGB Conc 33.4 g/dl (31.0-36.0); Mean Corpuscular Hemoglobin 30.6 pg (27.0-33.0); Mean Corpuscular Volume 91.4 fL (80-98); Mean Platelet Volume 13.5 fL (9.4-12.4); Red Blood Count 3.96 X10*6/uL (4.60-5.80); Red Cell Distribution Width 11.9 % (11.0-16.0); White Blood Count 3.4 X10*3/uL (4.8-10.8)
[2020-03-03 11:09] LABS: Platelet Count 87 X10*3/uL (160-400)
[2020-03-03 14:16] LABS: Glucose Urine UA NEG (NEG); Leukocyte Esterase Urine NEG (NEG); Nitrite Urine NEG (NEG); PH 6.5 (5.0-8.0); Urine Blood NEG (NEG); Urine Ketones NEG (NEG); Urine Protein NEG (NEG-TRACE)
[2020-03-03 14:18] LABS: Appearance Urine CLEAR; Color Urine YELLOW
[2020-03-03 14:34] LABS: Bacteria Urine TRACE /LPF; Mucus Urine 1+ /LPF; Squamous Epithelial Cell Urine TRACE /LPF
--- NOTE | 2020-03-03 16:39 | PM.IDPN ---
Subjective Subjective Date of Service: 03/03/20 Interval History: He requires more oxygen,now on 5liters suddenly Objective Data Labs CBC & Chem 7: 03/03/20 10:50 03/01/20 06:18 Labs: Laboratory Results - last 24 hr 03/03/20 03/03/20 03/03/20 05:53 10:50 13:57 WBC 2.9 L 3.4 L RBC 3.89 L 3.96 L Hgb 11.9 L 12.1 L Hct 35.9 L 36.2 L MCV 92.3 91.4 MCH 30.6 30.6 MCHC 33.1 33.4 RDW 12.0 11.9 Plt Count 80 L 87 L MPV 13.5 H 13.5 H Absolute Nucleated RBC 0.000 0.000 Nucleated RBC % (auto) 0.0 0.0 Urine Color YELLOW Urine Appearance CLEAR Urine pH 6.5 Ur Specific [place] 1.020 Urine Protein NEG Urine Glucose (UA) NEG Urine Ketones NEG Urine Blood NEG Urine Nitrite NEG Ur Leukocyte Esterase NEG Urine RBC 1-4 Urine WBC 1-4 Ur Squamous Epith Cells TRACE Urine Bacteria TRACE Urine Mucus 1+ Microbiology Microbiology Results: Microbiology 02/29/20 19:35 Blood - Venous Blood Culture - Preliminary No growth after 48 hours. 02/29/20 19:35 Blood - Venous Blood Culture - Preliminary No growth after 48 hours. Physical Exam Vital Signs: Vital Signs: Last Vital Signs Temp 98.7 F 03/03/20 15:36 Pulse 98 03/03/20 15:36 Resp 20 03/03/20 15:36 BP 120/65 03/03/20 15:36 Pulse Ox 94 03/03/20 15:36 Body Mass Index 29.2 Const: General: cooperative Resp: Effort & Inspection: normal respiratory effort Cardio: Rate: regular rate Rhythm: regular rhythm GI: Inspection: Yes normal to inspection Palpation (GI): nontender Assessment and Plan Assessment and plan (1) COVID-19: Status: Acute Assessment and Plan: Consider leg u/s ,r/o PE Time Spent With Patient Time: Total time spent is greater than 50% in coordination of care (as documented) at patient's floor/unit and/or counseling patient: Time with patient: 15 - 24 minutes
[2020-03-03] MEDS: Atorvastatin Calcium 40 MG TABLET PO (20:13)
[2020-03-04] VITALS (17 sets, daily range): BP systolic 90–131; BP diastolic 54–76; PULSE 79–145; RESP 18–20; TEMP 36.4–37.8; O2SAT 91–94
[2020-03-04] MEDS: 0.9 % Sodium Chloride Flush 3 ML SYRINGE IVFLUSH ×4 (00:53→21:06)
--- NOTE | 2020-03-04 06:24 | ECG_ITS ---
Test Reason : rhythm change Blood Pressure : / mmHG Vent. Rate : 119 BPM Atrial Rate : 133 BPM P-R Int : 000 ms QRS Dur : 090 ms QT Int : 292 ms P-R-T Axes : 000 057 -16 degrees QTc Int : 410 ms Atrial fibrillation with rapid ventricular response Nonspecific T wave abnormality Moderate voltage criteria for LVH, may be normal variant Abnormal ECG When compared with ECG of [id number] Atrial fibrillation is new Heart rate has increased Nonspecific T wave abnormality is new Referred By: Uday Womack Electronically Signed By:RAMIRO MARIE MD
[2020-03-04] MEDS: Metoprolol Tartrate 5 MG/5 ML VIAL 2.5 MG IVPUSH (06:46)
--- NOTE | 2020-03-04 06:58 | PC.NURSE ---
PT SINUS RHYTHM ALL NIGHT. NO HX AFIB. AFIB ON THE MONITOR AT 0615 W HR IN 110S, SPIKES TO 130S. EKG SHOWS AFIB W RVR. MD AWARE. 2.5MG IV LOPRESSOR GIVEN. HR DECREASED TO LOW 100S. BPS STABLE. PT IS CONTRACTED IN UPPER EXTREMITIES W TREMORS AT TIMES.
[2020-03-04] MEDS: levETIRAcetam 1,000 MG TABLET 1000 MG PO ×2 (08:36→21:05)
[2020-03-04] MEDS: Divalproex Sodium ER 500 MG TAB.ER.24H PO ×2 (08:36→21:05)
[2020-03-04] MEDS: Escitalopram Oxalate 10 MG TABLET PO (08:36)
[2020-03-04] MEDS: levETIRAcetam 250 MG TABLET PO ×2 (08:36→21:05)
[2020-03-04] MEDS: LORazepam 0.5 MG TABLET PO (09:07)
[2020-03-04] MEDS: dilTIAZem HCL 50 MG/10 ML VIAL IVPUSH (10:23)
[2020-03-04] MEDS: Apixaban 5 MG TABLET PO ×2 (10:36→21:05)
--- NOTE | 2020-03-04 10:38 | PC.NURSE ---
Pt in afib with HR ranging from 140's-160's. This RN notified Dr. Decker and gave 5mg Eliquis per MD order. Second RN, Elizabeth, administered 5mg of Cardizem IV push per MD order. Pt HR sitting in 110-120's and MD notified. IV Cardizem drip to be started per MD order.
[2020-03-04] MEDS: dilTIAZem HCL 125 MG in 0.9 % Sodium Chloride 100 ML IVCONT (11:10)
--- NOTE | 2020-03-04 11:30 | CA_ITS ---
Transthoracic Echocardiogram Patient (Last, First, Middle): Louis Wagoner, Gender: Male Date of : 1965 Age: 54 Procedure Date: 03/04/2020 Procedure Type: Transthoracic Echocardiogram Location: [facility] – [place], [place] Height: 175.26 cm Weight: 89.81 kg BSA: 2.06 m2 Heart Rate: bpm BP: 119 / 71 mmHg [employer] Supervisor: ALFREDO Referring MD: Morris Decker MD Symptoms: new afib Study Quality: Technically Difficult ECG Rhythm: Sinus Conclusions: - Normal left ventricular size and systolic function. - Normal right ventricular cavity size and systolic function. - Limited valvular assessment. Findings Left Ventricle Normal left ventricular size and systolic function. There is mildly increased left ventricular wall thickness. The visually estimated ejection fraction is between 60-65%. Regional wall motion abnormalities can not be excluded due to suboptimal endocardial definition. Diastolic function is normal for age. Right Ventricle Normal right ventricular cavity size and systolic function. Atria The left atrium is normal in size. Aortic Valve The aortic valve was not well visualized. There is no aortic valve stenosis. There is no aortic valve regurgitation. Mitral Valve The mitral valve was not well visualized. There is no mitral valve regurgitation. There is no mitral valve stenosis. Pulmonic Valve The pulmonic valve was not well visualized. Tricuspid Valve The tricuspid valve was not well visualized. There is trace tricuspid valve regurgitation. Tricuspid regurgitation envelope is inadequate for calculation of right ventricular systolic pressure. Great Vessels The aorta was not well visualized. The pulmonary artery was not well visualized. Venous The inferior vena cava was not well visualized. Pericardium/Pleural There is no evidence of pericardial effusion. Prior Study Comparison No significant change compared to prior study dated: 02/01/2015. Measurements 2D Linear Measurements IVSd: 1.10 0.6-0.9/0.6-1.0 cm LVIDd: 3.72 3.9-5.3/4.2-5.9 cm LVIDd Index: 1.81 2.4-3.2/2.2-3.1 cm/m2 LVIDs: 2.83 2.0-3.6 cm LVPWd: 1.14 0.7-1.1 cm LA Diam: 3.90 2.7-3.8/3.0-4.0 cm LAIDs Index: 1.89 1.5-2.3 cm/m2 LV Mass: 166.64 67-162/88-224 g LV Mass Index: 80.89 43-95/49-115 g/m2 Mitral Valve MV Pk E: 0.57 MV PK A: 0.41 MV Decel Time: 222.00 E/A: 1.40 E'Lateral: 9.67 E'Medial: 11.00 E/E' Med: 5.20 E/E' Lat: 5.90 PHT: 65.00 MVA PHT: 3.38 Decel [place]: 2.58 Aortic Valve AoV Pk Richard: 1.05 AoV Mn Richard: 0.78 AoV VTI: 0.21 AoV Pk Grad: 4.00 Aov Mn Grad: 3.00 LVOT LVOT Pk Richard: 0.86 LVOT Mn Richard: 0.56 LVOT VTI: 0.20 LVOT Pk Grad: 3.00 LVOT Mn Grad: 2.00 Diastolic Function MV Pk E: 0.57 MV Pk A: 0.41 E/A: 1.40 E'Medial: 11.00 E/E' Med: 5.20 E' Laterial: 9.67 E/E' Lat: 5.90 Tricuspid Valve TR Pk Richard: 1.46 TR Pk Grad: 9.00 RA Press: 3.00 Updated in Other Vendor System with Status of Final Freddy Lubin MD electronically signed on 03/04/2020 9:16:05 PM with status of Final
[2020-03-04] MEDS: Digoxin 0.5 MG/2 ML AMPUL 0.25 MG IVPUSH (12:27)
--- NOTE | 2020-03-04 13:07 | HO.PM.IMPN ---
Subjective Subjective Date of Service: 03/04/20 Interval History: Seen in f/u for covid related resp failure, this morning went into AFIB with RVR HR up to 140 and given Iv metoprolol. Hypoxia is better Review of Systems Review of Systems: Yes Unobtainable due to mental status Physical Exam Vital Signs: Vital Signs: Last Vital Signs Temp 97.6 F 03/04/20 12:00 Pulse 121 H 03/04/20 12:27 Resp 18 03/04/20 12:00 BP 97/56 L 03/04/20 12:00 Pulse Ox 92 03/04/20 12:00 Body Mass Index 29.2 General: AO, no acute distress Resp: normal resp effort CVS: ireg ireg GI: +BS, NT, no distention Skin: No rash Neuro: motor grossly intact Psych: flat Objective Data Current Medications Generic Name Dose Route Start Last Admin Trade Name Freq PRN Reason Stop Dose Admin Acetaminophen 650 mg 03/01/20 19:36 03/02/20 15:38 Acetaminophen 325 Mg Tablet PO 650 mg Q6H PRN Administration Pain and Fever Apixaban 5 mg 03/04/20 21:00 03/04/20 10:36 Apixaban 5 Mg Tablet PO 5 mg BID FRANKIE Administration Atorvastatin Calcium 40 mg 03/01/20 21:00 03/03/20 20:13 Atorvastatin Calcium 40 Mg Tablet PO 40 mg BEDTIME FRANKIE Administration Divalproex Sodium 500 mg 03/01/20 09:00 03/04/20 08:36 Divalproex Sodium Er 500 Mg Tab.Er.24h PO 500 mg BID FRANKIE Administration Ergocalciferol 1,250 mcg 03/08/20 09:00 Ergocalciferol (Vitamin D2) 1,250 Mcg Capsule PO Q7D FRANKIE Escitalopram Oxalate 10 mg 03/01/20 09:00 03/04/20 08:36 Escitalopram Oxalate 10 Mg Tablet PO 10 mg DAILY FRANKIE Administration Diltiazem HCl 125 mg/ Sodium 125 mls @ 0 mls/hr 03/04/20 10:15 03/04/20 12:09 Chloride IVCONT 7.5 mg/hr .Q0M FRANKIE 7.5 mls/hr Titration Protocol Per Protocol Levetiracetam 1,000 mg 03/01/20 09:00 03/04/20 08:36 Levetiracetam 1,000 Mg Tablet PO 1,000 mg BID FRANKIE Administration Levetiracetam 250 mg 03/01/20 09:00 03/04/20 08:36 Levetiracetam 250 Mg Tablet PO 250 mg BID FRANKIE Administration Lorazepam 0.5 mg 03/03/20 06:34 03/04/20 09:07 Lorazepam 0.5 Mg Tablet PO 0.5 mg DAILY PRN Administration Anxiety Sodium Chloride 3 ml 03/01/20 08:00 03/04/20 08:36 0.9 % Sodium Chloride Flush 3 Ml Syringe IVFLUSH 3 ml QSHIFT FRANKIE Administration Labs CBC & Chem 7: 03/03/20 10:50 03/01/20 06:18 Microbiology Microbiology Results: Microbiology 03/03/20 10:50 Blood - Venous Blood Culture - Preliminary No growth after 24 hours. 03/03/20 10:50 Blood - Venous Blood Culture - Preliminary No growth after 24 hours. 02/29/20 19:35 Blood - Venous Blood Culture - Preliminary No growth after 48 hours. 02/29/20 19:35 Blood - Venous Blood Culture - Preliminary No growth after 48 hours. 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 He likely contracted it from family gather a week earlier -continue Dexamethasone -Remdesevir unlikely to be beneficial nearly a week later--discussed with ID -Received plasma on 03/03 -Oxgyen as needed, titrate to sat of 90 or greater -Discussed with mother on 03/03 New AFIB with RVR--on IV cardizem, add digoxin, cardiology eval, may need echo, check tsh eliquis Thrombocytopenia--? related to covid, stable, monitor HLD--Lipitor Epilepsys--Tee Pizarro
--- NOTE | 2020-03-04 13:52 | PM.CNCAR ---
History of Present Illness History of Present Illness Date of Service: 03/04/20 Requesting physician: Morris Decker Consult reason: atrial fibrillation Chief complaint: COVID/SOB Narrative: 54-year-old gentleman with background of hyperlipidemia, depression, traumatic brain injury and epilepsy who is presenting with COVID-19. He is on treatment for that. We have been consulted for atrial fibrillation with rapid ventricular response. No meaningful history was possible from the patient. he denied any pain but history was very limited. His telemetry is showing atrial fibrillation with rapid ventricular response. He is on Cardizem drip and received digoxin IV dose recently. Review of Systems Review of Systems: Limited [facility] Past Medical History Medical History Coronavirus infection Depressed Epilepsia TBI (traumatic brain injury) Functional capacity: wheelchair bound Social History Social History Household Members: None Housing: House Alcohol intake: unknown Smoking Status: Current every day smoker Tobacco Type: Cigarette Use of substances other than those prescribed or required for medical reasons: No Currently Displaying Signs/Symptoms of Drug Intoxication Withdrawal: No Have you been hit, kicked, punched, or otherwise hurt by someone within the past year? If so, by whom?: No Do you feel safe in your current relationship?: Yes Is there a partner from a previous relationship who is making you feel unsafe now?: No Are you made to feel afraid or neglected: No Advance Directives: No Advance Directives Information Provided: Yes Do you have thoughts of harming others: None Do you have a plan to hurt others: No Plan Recently lost weight without trying: No service: No Current occupational status: disabled Meds Allergies Allergy/AdvReac Type Severity Reaction Status Date / Time No Known Allergies Allergy Unverified 12/27/19 16:42 Home Medications Medication Instructions Recorded Confirmed Type atorvastatin 40 mg PO BEDTIME 02/29/20 02/29/20 History citalopram 20 mg PO QAM 02/29/20 02/29/20 History divalproex 500 mg PO BID 02/29/20 02/29/20 History ergocalciferol (vitamin D2) 1,250 mcg PO QWEEK 02/29/20 02/29/20 History levetiracetam 1,000 mg PO BID 02/29/20 02/29/20 History levetiracetam 250 mg PO BID 02/29/20 02/29/20 History lorazepam 0.5 mg PO DAILY PRN 02/29/20 02/29/20 History zolpidem 0.5 - 1 tab PO BEDTIME PRN 02/29/20 02/29/20 History Physical Exam Vital Signs: Vital Signs: Last Vital Signs Temp 97.6 F 03/04/20 12:00 Pulse 121 H 03/04/20 12:27 Resp 18 03/04/20 12:00 BP 97/56 L 03/04/20 12:00 Pulse Ox 92 03/04/20 12:00 Body Mass Index 29.2 GENERAL APPEARANCE: in no acute distress. HEENT: unremarkable. HEAD: normocephalic, atraumatic. NECK/THYROID: no jugular venous distention. SKIN: no suspicious lesions, warm and dry. HEART: no murmurs, irregular rhythm, tachycardia, S1, S2 normal. LUNGS: clear to auscultation anteriorly. Auscultation was quite difficult due to negative pressure room and significant noise in the room ABDOMEN: normal, bowel sounds present, soft, nontender, nondistended. EXTREMITIES: no edema. PERIPHERAL PULSES: equal. NEUROLOGIC: awake, following simple commands. Results Labs and Meds Result diagrams: 03/03/20 10:50 03/01/20 06:18 Lab results: Laboratory Results - last 24 hr 03/03/20 03/03/20 13:57 20:29 Urine Color YELLOW Urine Appearance CLEAR Urine pH 6.5 Ur Specific [place] 1.020 Urine Protein NEG Urine Glucose (UA) NEG Urine Ketones NEG Urine Blood NEG Urine Nitrite NEG Ur Leukocyte Esterase NEG Urine RBC 1-4 Urine WBC 1-4 Ur Squamous Epith Cells TRACE Urine Bacteria TRACE Urine Mucus 1+ Blood Type A Negative Antibody Screen NEGATIVE Assessment and Plan (1) COVID-19: Problem details: He has no signs of pneumonia,CXR neg He has worsening hypoxia,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 AFib is probably driven by sepsis and infection at this point. His blood pressures are low and are likely low due to sepsis. I will give him some IV fluids. If he has rapid ventricular response then I would load him with 1 mg total of digoxin 250 mcg at a time. He has already received 250 mcg on digoxin. I will continue the Cardizem drip. If he reverts back to sinus rhythm then I will hold his Cardizem and digoxin for now. I would leave on anticoagulation for now. Please check a D-dimer level on him. If his D-dimer is significantly elevated at COVID-19 then I will leave him on anticoagulation for now. Thank you for allowing me to participate in the care of your patient. Please feel free to contact me if you have any questions.
[2020-03-04] MEDS: 0.9 % Sodium Chloride 500 ML IV (14:03)
--- NOTE | 2020-03-04 14:37 | PC.NURSE ---
PATIENTS ASYMPTOMATIC - HR AFIB 120s-130s THIS AM AND STARTED ON CARDIZEM DRIP AT 5MG/HR AT 1110 WITH BP 124/59. AT 1128 PT HR IN 110S WITH BP 90/54. MD MADE AWARE AND ORDERS RECEIVED TO KEEP ON DRIP AT 5MG/HR. AT 1147 PT BP 97/56 WITH HR IN THE 140S, CARDIZEM DRIP TITRATED TO 10MG/HR AND MD AWARE. RECHECK AT 1206 PT BP 91/60 AND HR IN THE 120S, ORDERS RECEIVED TO TITRATE THE CARDIZEM DRIP TO 7.5MG/HR AND TO GIVE IV PUSH DIGOXIN 0.25MG. IV DIGOXIN GIVEN AND PT MAINTAINED ON THE CARDIZEM DRIP. CARDIOLOGY AT BEDSIDE. AT 1354 PT CONVERTED TO NSR, HR IN THE 80S WITH BP OF 96/54, ORDERS RECEIVED TO D/C CARDIZEM DRIP AND BOLUS NS 500ML. WILL CONTINUE TO MONITOR AT THIS TIME.
[2020-03-04 18:13] LABS: D Dimer 327 NG/ML
[2020-03-04] MEDS: Atorvastatin Calcium 40 MG TABLET PO (21:05)
[2020-03-05] VITALS: BP 127/58; PULSE 105; RESP 20; TEMP 37.7; O2SAT 94
[2020-03-05] MEDS: Acetaminophen 325 MG TABLET 650 MG PO ×2 (01:06→17:38)
[2020-03-05 03:06] VITALS: BP 122/58; PULSE 96; RESP 20; TEMP 36.5; O2SAT 96
[2020-03-05] MEDS: levETIRAcetam 1,000 MG TABLET 1000 MG PO ×2 (07:54→20:18)
[2020-03-05] MEDS: Divalproex Sodium ER 500 MG TAB.ER.24H PO ×2 (07:54→20:18)
[2020-03-05] MEDS: Escitalopram Oxalate 10 MG TABLET PO (07:54)
[2020-03-05] MEDS: 0.9 % Sodium Chloride Flush 3 ML SYRINGE IVFLUSH ×3 (07:54→20:18)
[2020-03-05] MEDS: Apixaban 5 MG TABLET PO ×2 (07:54→20:18)
[2020-03-05] MEDS: levETIRAcetam 250 MG TABLET PO ×2 (07:54→20:18)
[2020-03-05 08:00] VITALS: BP 118/77; PULSE 89; RESP 20; TEMP 36.2; O2SAT 93
--- NOTE | 2020-03-05 10:48 | HO.PM.IMPN ---
Subjective Subjective Date of Service: 03/05/20 Interval History: Seen in follow up for covid related resp failure, hypoxia, and AFIB with RVR. He is is sinus rythm, no fever. Oxygen saturation is improving. ROS: no fever, no sob, no cough Physical Exam Vital Signs: Vital Signs: Last Vital Signs Temp 97.2 F 03/05/20 08:00 Pulse 89 03/05/20 08:00 Resp 20 03/05/20 08:00 BP 118/77 03/05/20 08:00 Pulse Ox 93 03/05/20 08:00 Body Mass Index 29.2 General: AO, no acute distress Resp: normal resp effort CVS: ireg ireg GI: +BS, NT, no distention Skin: No rash Neuro: motor grossly intact Psych: flat Objective Data Current Medications Generic Name Dose Route Start Last Admin Trade Name Freq PRN Reason Stop Dose Admin Acetaminophen 650 mg 03/01/20 19:36 03/05/20 01:06 Acetaminophen 325 Mg Tablet PO 650 mg Q6H PRN Administration Pain and Fever Apixaban 5 mg 03/04/20 21:00 03/05/20 07:54 Apixaban 5 Mg Tablet PO 5 mg BID FRANKIE Administration Atorvastatin Calcium 40 mg 03/01/20 21:00 03/04/20 21:05 Atorvastatin Calcium 40 Mg Tablet PO 40 mg BEDTIME FRANKIE Administration Divalproex Sodium 500 mg 03/01/20 09:00 03/05/20 07:54 Divalproex Sodium Er 500 Mg Tab.Er.24h PO 500 mg BID FRANKIE Administration Ergocalciferol 1,250 mcg 03/08/20 09:00 Ergocalciferol (Vitamin D2) 1,250 Mcg Capsule PO Q7D FRANKIE Escitalopram Oxalate 10 mg 03/01/20 09:00 03/05/20 07:54 Escitalopram Oxalate 10 Mg Tablet PO 10 mg DAILY FRANKIE Administration Levetiracetam 1,000 mg 03/01/20 09:00 03/05/20 07:54 Levetiracetam 1,000 Mg Tablet PO 1,000 mg BID FRANKIE Administration Levetiracetam 250 mg 03/01/20 09:00 03/05/20 07:54 Levetiracetam 250 Mg Tablet PO 250 mg BID FRANKIE Administration Lorazepam 0.5 mg 03/03/20 06:34 03/04/20 09:07 Lorazepam 0.5 Mg Tablet PO 0.5 mg DAILY PRN Administration Anxiety Sodium Chloride 3 ml 03/01/20 08:00 03/05/20 07:54 0.9 % Sodium Chloride Flush 3 Ml Syringe IVFLUSH 3 ml QSHIFT FRANKIE Administration Labs CBC & Chem 7: 03/03/20 10:50 03/01/20 06:18 Microbiology Microbiology Results: Microbiology 03/03/20 10:50 Blood - Venous Blood Culture - Preliminary No growth after 24 hours. 03/03/20 10:50 Blood - Venous Blood Culture - Preliminary No growth after 24 hours. 02/29/20 19:35 Blood - Venous Blood Culture - Preliminary No growth after 48 hours. 02/29/20 19:35 Blood - Venous Blood Culture - Preliminary No growth after 48 hours. 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 He likely contracted it from family gather a week earlier -continue Dexamethasone for 10 days total -Remdesevir unlikely to be beneficial nearly a week later--discussed with ID -Received plasma on 03/03 -Oxgyen as needed, titrate to sat of 90 or greater--better today -Discuss with mother on routine basis New AFIB with RVR--on 03/04.. treated with IV cardizem, a dose of dig, then converted to sinus and remain so..Cardiology advises no anticoagulation due to minial CHADs score, so will dc eliquis Thrombocytopenia--? related to covid, stable, monitor HLD--Lipitor Epilepsys--Tee Pizarro
--- NOTE | 2020-03-05 11:36 | MHC.CM.PN ---
Per ROUNDS discussion, Patient is not yet medically cleared for dc (Covid (+). The goal is for Patient to return home with his Mother and [employer] services. CM will continue to follow for dc planning and to monitor for need to adjust dc plan.
[2020-03-05 11:45] VITALS: BP 118/65; PULSE 95; RESP 22; TEMP 36.2; O2SAT 93
[2020-03-05 15:20] VITALS: BP 109/61; PULSE 100; RESP 18; TEMP 37.2; O2SAT 94
[2020-03-05 20:00] VITALS: BP 119/56; PULSE 101; RESP 20; TEMP 37.3; O2SAT 95
[2020-03-05] MEDS: Atorvastatin Calcium 40 MG TABLET PO (20:18)
[2020-03-06] VITALS (7 sets, daily range): BP systolic 98–124; BP diastolic 55–61; PULSE 74–105; RESP 16–22; TEMP 35.9–37.4; O2SAT 90–94
[2020-03-06] MEDS: levETIRAcetam 250 MG TABLET PO ×2 (08:07→20:57)
[2020-03-06] MEDS: Apixaban 5 MG TABLET PO (08:07)
[2020-03-06] MEDS: Divalproex Sodium ER 500 MG TAB.ER.24H PO ×2 (08:07→20:57)
[2020-03-06] MEDS: Escitalopram Oxalate 10 MG TABLET PO (08:08)
[2020-03-06] MEDS: levETIRAcetam 1,000 MG TABLET 1000 MG PO ×2 (08:08→20:57)
[2020-03-06] MEDS: 0.9 % Sodium Chloride Flush 3 ML SYRINGE IVFLUSH ×3 (08:08→20:57)
--- NOTE | 2020-03-06 11:26 | HO.PM.IMPN ---
Subjective Subjective Date of Service: 03/06/20 Interval History: sob Cardiovascular Cardiovascular: Reports no additional cardiovascular complaints Gastrointestinal Gastrointestinal: Reports no additional gastrointestinal complaints Physical Exam Vital Signs: Vital Signs: Last Vital Signs Temp 97 F 03/06/20 03:15 Pulse 83 03/06/20 08:00 Resp 20 03/06/20 08:00 BP 98/55 L 03/06/20 08:00 Pulse Ox 94 03/06/20 08:00 Body Mass Index 29.2 General: lethargic, no acute distress Resp: CTA bilateral CVS: S1,S2,RRR GI: soft, non tender, non distended Neuro: motor grossly intact Psych: appropriate affect Objective Data Current Medications Generic Name Dose Route Start Last Admin Trade Name Freq PRN Reason Stop Dose Admin Acetaminophen 650 mg 03/01/20 19:36 03/05/20 17:38 Acetaminophen 325 Mg Tablet PO 650 mg Q6H PRN Administration Pain and Fever Atorvastatin Calcium 40 mg 03/01/20 21:00 03/05/20 20:18 Atorvastatin Calcium 40 Mg Tablet PO 40 mg BEDTIME FRANKIE Administration Divalproex Sodium 500 mg 03/01/20 09:00 03/06/20 08:07 Divalproex Sodium Er 500 Mg Tab.Er.24h PO 500 mg BID FRANKIE Administration Ergocalciferol 1,250 mcg 03/08/20 09:00 Ergocalciferol (Vitamin D2) 1,250 Mcg Capsule PO Q7D [facility] Escitalopram Oxalate 10 mg 03/01/20 09:00 03/06/20 08:08 Escitalopram Oxalate 10 Mg Tablet PO 10 mg DAILY FRANKIE Administration Levetiracetam 1,000 mg 03/01/20 09:00 03/06/20 08:08 Levetiracetam 1,000 Mg Tablet PO 1,000 mg BID FRANKIE Administration Levetiracetam 250 mg 03/01/20 09:00 03/06/20 08:07 Levetiracetam 250 Mg Tablet PO 250 mg BID FRANKIE Administration Lorazepam 0.5 mg 03/03/20 06:34 03/04/20 09:07 Lorazepam 0.5 Mg Tablet PO 0.5 mg DAILY PRN Administration Anxiety Sodium Chloride 3 ml 03/01/20 08:00 03/06/20 08:08 0.9 % Sodium Chloride Flush 3 Ml Syringe IVFLUSH 3 ml QSHIFT FRANKIE Administration Labs CBC & Chem 7: 03/03/20 10:50 03/01/20 06:18 Microbiology Microbiology Results: Microbiology 02/29/20 19:35 Blood - Venous Blood Culture - Final No growth after 5 days. 02/29/20 19:35 Blood - Venous Blood Culture - Final No growth after 5 days. 03/03/20 10:50 Blood - Venous Blood Culture - Preliminary No growth after 48 hours. 03/03/20 10:50 Blood - Venous Blood Culture - Preliminary No growth after 48 hours. 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 He likely contracted it from family gather a week earlier -continue Dexamethasone for 10 days total -Remdesevir unlikely to be beneficial nearly a week later--discussed with ID -Received plasma on 03/03 -Oxgyen as needed, titrate to sat of 90 or greater New AFIB with RVR--on 03/04.. treated with IV cardizem, a dose of dig, then converted to sinus and remain so..Cardiology advises no anticoagulation due to minial CHADs score, will dc eliquis Thrombocytopenia--? related to covid, stable, monitor, has baseline low plts, maybe med related HLD--Lipitor Epilepsys--Tee Pizarro
[2020-03-06] MEDS: Atorvastatin Calcium 40 MG TABLET PO (20:57)
[2020-03-06] MEDS: LORazepam 0.5 MG TABLET PO (23:03)
[2020-03-07] VITALS (7 sets, daily range): BP systolic 96–119; BP diastolic 51–61; PULSE 78–91; RESP 18–20; TEMP 36.1–37.2; O2SAT 92–96
[2020-03-07] MEDS: dexAMETHasone sod phosphate 4 MG/ML VIAL 6 MG IVPUSH (08:39)
[2020-03-07] MEDS: levETIRAcetam 1,000 MG TABLET 1000 MG PO ×2 (08:40→20:37)
[2020-03-07] MEDS: Divalproex Sodium ER 500 MG TAB.ER.24H PO ×2 (08:40→20:37)
[2020-03-07] MEDS: levETIRAcetam 250 MG TABLET PO ×2 (08:40→20:37)
[2020-03-07] MEDS: 0.9 % Sodium Chloride Flush 3 ML SYRINGE IVFLUSH ×3 (08:40→20:37)
[2020-03-07] MEDS: Escitalopram Oxalate 10 MG TABLET PO (08:40)
--- NOTE | 2020-03-07 10:31 | HO.PM.IMPN ---
Subjective Subjective Date of Service: 03/07/20 Interval History: no new complaints Cardiovascular Cardiovascular: Reports no additional cardiovascular complaints Respiratory Respiratory: Reports no additional respiratory complaints Physical Exam Vital Signs: Vital Signs: Last Vital Signs Temp 97.9 F 03/07/20 07:47 Pulse 78 03/07/20 07:47 Resp 18 03/07/20 07:47 BP 111/59 L 03/07/20 07:47 Pulse Ox 93 03/07/20 07:47 Body Mass Index 29.2 General: no acute distress Resp: CTA bilateral CVS: S1,S2,RRR GI: soft, non tender, non distended Neuro: motor grossly intact Psych: impaired insight Objective Data Current Medications Generic Name Dose Route Start Last Admin Trade Name Freq PRN Reason Stop Dose Admin Acetaminophen 650 mg 03/01/20 19:36 03/05/20 17:38 Acetaminophen 325 Mg Tablet PO 650 mg Q6H PRN Administration Pain and Fever Atorvastatin Calcium 40 mg 03/01/20 21:00 03/06/20 20:57 Atorvastatin Calcium 40 Mg Tablet PO 40 mg BEDTIME FRANKIE Administration Dexamethasone Sodium Phosphate 6 mg 03/07/20 09:00 03/07/20 08:39 Dexamethasone Sod Phosphate 4 Mg/Ml Vial IVPUSH 6 mg DAILY FRANKIE Administration Divalproex Sodium 500 mg 03/01/20 09:00 03/07/20 08:40 Divalproex Sodium Er 500 Mg Tab.Er.24h PO 500 mg BID FRANKIE Administration Ergocalciferol 1,250 mcg 03/08/20 09:00 Ergocalciferol (Vitamin D2) 1,250 Mcg Capsule PO Q7D FRANKIE Escitalopram Oxalate 10 mg 03/01/20 09:00 03/07/20 08:40 Escitalopram Oxalate 10 Mg Tablet PO 10 mg DAILY FRANKIE Administration Levetiracetam 1,000 mg 03/01/20 09:00 03/07/20 08:40 Levetiracetam 1,000 Mg Tablet PO 1,000 mg BID FRANKIE Administration Levetiracetam 250 mg 03/01/20 09:00 03/07/20 08:40 Levetiracetam 250 Mg Tablet PO 250 mg BID FRANKIE Administration Lorazepam 0.5 mg 03/03/20 06:34 03/06/20 23:03 Lorazepam 0.5 Mg Tablet PO 0.5 mg DAILY PRN Administration Anxiety Sodium Chloride 3 ml 03/01/20 08:00 03/07/20 08:40 0.9 % Sodium Chloride Flush 3 Ml Syringe IVFLUSH 3 ml QSHIFT FRANKIE Administration Labs CBC & Chem 7: 03/03/20 10:50 03/01/20 06:18 Microbiology Microbiology Results: Microbiology 02/29/20 19:35 Blood - Venous Blood Culture - Final No growth after 5 days. 02/29/20 19:35 Blood - Venous Blood Culture - Final No growth after 5 days. 03/03/20 10:50 Blood - Venous Blood Culture - Preliminary No growth after 48 hours. 03/03/20 10:50 Blood - Venous Blood Culture - Preliminary No growth after 48 hours. 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 He likely contracted it from family gather a week earlier -continue Dexamethasone for 10 days total, today is day 2 -Remdesevir unlikely to be beneficial nearly a week later--discussed with ID -Received plasma on 03/03 -Oxgyen as needed, titrate to sat of 90 or greater New AFIB with RVR--on 03/04.. treated with IV cardizem, a dose of dig, then converted to sinus and remain so..Cardiology advises no anticoagulation due to minial CHADs score, will dc eliquis Thrombocytopenia--? related to covid, stable, monitor, has baseline low plts, maybe med related HLD--Lipitor Epilepsys--Tee Pizarro
--- NOTE | 2020-03-07 13:01 | MHC.CM.PN ---
Per ROUNDS discussion, Patient may be ready for dc over the weekend. Patient lives with his Mother/Subscription Agent and he has a FINISH PAINTER, both of whom are experiencing illness themselves.It is important to Patient/Mother to go to [facility] in the [place] area and they are in agreement to SNF referrals being made in this area. IMM addressed and CM will continue to follow for dc planning.
[2020-03-07] MEDS: LORazepam 0.5 MG TABLET PO (20:37)
[2020-03-07] MEDS: Atorvastatin Calcium 40 MG TABLET PO (20:37)
[2020-03-08] MEDS: Acetaminophen 325 MG TABLET 650 MG PO ×2 (02:42→11:00)
[2020-03-08 04:00] VITALS: BP 114/58; PULSE 62; RESP 18; TEMP 36.8; O2SAT 93
[2020-03-08] MEDS: Escitalopram Oxalate 10 MG TABLET PO (07:50)
[2020-03-08] MEDS: dexAMETHasone sod phosphate 4 MG/ML VIAL 6 MG IVPUSH (07:50)
[2020-03-08] MEDS: 0.9 % Sodium Chloride Flush 3 ML SYRINGE IVFLUSH ×3 (07:50→20:12)
[2020-03-08] MEDS: Divalproex Sodium ER 500 MG TAB.ER.24H PO ×2 (07:50→20:12)
[2020-03-08] MEDS: levETIRAcetam 250 MG TABLET PO ×2 (07:50→20:12)
[2020-03-08] MEDS: levETIRAcetam 1,000 MG TABLET 1000 MG PO ×2 (07:50→20:12)
[2020-03-08] MEDS: Ergocalciferol (Vitamin D2) 1,250 MCG CAPSULE 1250 MCG PO (07:52)
[2020-03-08 08:00] VITALS: BP 123/59; PULSE 74; RESP 18; TEMP 36.5; O2SAT 97
--- NOTE | 2020-03-08 10:13 | HO.PM.IMPN ---
Subjective Subjective Date of Service: 03/08/20 Interval History: no complaints Cardiovascular Cardiovascular: Reports no additional cardiovascular complaints Gastrointestinal Gastrointestinal: Reports no additional gastrointestinal complaints Physical Exam Vital Signs: Vital Signs: Last Vital Signs Temp 97.7 F 03/08/20 08:00 Pulse 74 03/08/20 08:00 Resp 18 03/08/20 08:00 BP 123/59 L 03/08/20 08:00 Pulse Ox 97 03/08/20 08:00 Body Mass Index 29.2 General: Alert, no acute distress Resp: CTA bilateral CVS: S1,S2,RRR GI: soft, non tender, non distended Neuro: motor grossly intact Psych: impaired insight Objective Data Current Medications Generic Name Dose Route Start Last Admin Trade Name Freq PRN Reason Stop Dose Admin Acetaminophen 650 mg 03/01/20 19:36 03/08/20 02:42 Acetaminophen 325 Mg Tablet PO 650 mg Q6H PRN Administration Pain and Fever Atorvastatin Calcium 40 mg 03/01/20 21:00 03/07/20 20:37 Atorvastatin Calcium 40 Mg Tablet PO 40 mg BEDTIME FRANKIE Administration Dexamethasone Sodium Phosphate 6 mg 03/07/20 09:00 03/08/20 07:50 Dexamethasone Sod Phosphate 4 Mg/Ml Vial IVPUSH 6 mg DAILY FRANKIE Administration Divalproex Sodium 500 mg 03/01/20 09:00 03/08/20 07:50 Divalproex Sodium Er 500 Mg Tab.Er.24h PO 500 mg BID FRANKIE Administration Ergocalciferol 1,250 mcg 03/08/20 09:00 03/08/20 07:52 Ergocalciferol (Vitamin D2) 1,250 Mcg Capsule PO 1,250 mcg Q7D FRANKIE Administration Escitalopram Oxalate 10 mg 03/01/20 09:00 03/08/20 07:50 Escitalopram Oxalate 10 Mg Tablet PO 10 mg DAILY FRANKIE Administration Levetiracetam 1,000 mg 03/01/20 09:00 03/08/20 07:50 Levetiracetam 1,000 Mg Tablet PO 1,000 mg BID FRANKIE Administration Levetiracetam 250 mg 03/01/20 09:00 03/08/20 07:50 Levetiracetam 250 Mg Tablet PO 250 mg BID FRANKIE Administration Sodium Chloride 3 ml 03/01/20 08:00 03/08/20 07:50 0.9 % Sodium Chloride Flush 3 Ml Syringe IVFLUSH 3 ml QSHIFT FRANKIE Administration Labs CBC & Chem 7: 03/03/20 10:50 03/01/20 06:18 Microbiology Microbiology Results: Microbiology 02/29/20 19:35 Blood - Venous Blood Culture - Final No growth after 5 days. 02/29/20 19:35 Blood - Venous Blood Culture - Final No growth after 5 days. 03/03/20 10:50 Blood - Venous Blood Culture - Preliminary No growth after 48 hours. 03/03/20 10:50 Blood - Venous Blood Culture - Preliminary No growth after 48 hours. 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 He likely contracted it from family gather a week earlier -continue Dexamethasone for 10 days total, today is day 3 -Remdesevir unlikely to be beneficial nearly a week later--discussed with ID -Received plasma on 03/03 -Oxgyen as needed, titrate to sat of 90 or greater New AFIB with RVR--on 03/04.. treated with IV cardizem, a dose of dig, then converted to sinus and remain so..Cardiology advises no anticoagulation due to minial CHADs score, dced eliquis Thrombocytopenia--? related to covid, stable, monitor, has baseline low plts, maybe med related HLD--Lipitor Epilepsys--Tee Pizarro
[2020-03-08 11:33] VITALS: BP 117/64; PULSE 75; RESP 18; TEMP 36.4; O2SAT 94
[2020-03-08 16:00] VITALS: BP 145/70; PULSE 115; RESP 18; TEMP 36.5; O2SAT 95
[2020-03-08 20:00] VITALS: BP 143/58; PULSE 73; RESP 18; TEMP 36.6; O2SAT 90
[2020-03-08] MEDS: Atorvastatin Calcium 40 MG TABLET PO (20:12)
[2020-03-08] MEDS: LORazepam 2 MG/ML VIAL 1 MG IVPUSH (22:05)
[2020-03-09] VITALS (7 sets, daily range): BP systolic 104–140; BP diastolic 52–84; PULSE 67–88; RESP 16–20; TEMP 36.1–36.9; O2SAT 91–96
[2020-03-09 07:37] LABS: Glucose, Whole Blood 110 mg/dL (60-115)
[2020-03-09] MEDS: Divalproex Sodium ER 500 MG TAB.ER.24H PO ×2 (09:58→20:05)
[2020-03-09] MEDS: levETIRAcetam 250 MG TABLET PO ×2 (09:58→20:06)
[2020-03-09] MEDS: Escitalopram Oxalate 10 MG TABLET PO (09:58)
[2020-03-09] MEDS: 0.9 % Sodium Chloride Flush 3 ML SYRINGE IVFLUSH ×3 (09:58→20:06)
[2020-03-09] MEDS: dexAMETHasone sod phosphate 4 MG/ML VIAL 6 MG IVPUSH (09:58)
[2020-03-09] MEDS: levETIRAcetam 1,000 MG TABLET 1000 MG PO ×2 (09:58→20:05)
[2020-03-09 11:09] LABS: Glucose, Whole Blood 114 mg/dL (60-115)
--- NOTE | 2020-03-09 12:23 | HO.PM.IMPN ---
Subjective Subjective Date of Service: 03/09/20 Interval History: improved Cardiovascular Cardiovascular: Reports no additional cardiovascular complaints Respiratory Respiratory: Reports no additional respiratory complaints Physical Exam Vital Signs: Vital Signs: Last Vital Signs Temp 96.9 F 03/09/20 08:00 Pulse 88 03/09/20 08:00 Resp 18 03/09/20 08:00 BP 104/64 03/09/20 08:00 Pulse Ox 91 L 03/09/20 08:00 Body Mass Index 29.2 General: Alert, no acute distress Resp: CTA bilateral CVS: S1,S2,RRR GI: soft, non tender, non distended Neuro: motor grossly intact Psych: appropriate affect Objective Data Current Medications Generic Name Dose Route Start Last Admin Trade Name Freq PRN Reason Stop Dose Admin Acetaminophen 650 mg 03/01/20 19:36 03/08/20 11:00 Acetaminophen 325 Mg Tablet PO 650 mg Q6H PRN Administration Pain and Fever Atorvastatin Calcium 40 mg 03/01/20 21:00 03/08/20 20:12 Atorvastatin Calcium 40 Mg Tablet PO 40 mg BEDTIME FRANKIE Administration Dexamethasone Sodium Phosphate 6 mg 03/07/20 09:00 03/09/20 09:58 Dexamethasone Sod Phosphate 4 Mg/Ml Vial IVPUSH 6 mg DAILY FRANKIE Administration Divalproex Sodium 500 mg 03/01/20 09:00 03/09/20 09:58 Divalproex Sodium Er 500 Mg Tab.Er.24h PO 500 mg BID FRANKIE Administration Ergocalciferol 1,250 mcg 03/08/20 09:00 03/08/20 07:52 Ergocalciferol (Vitamin D2) 1,250 Mcg Capsule PO 1,250 mcg Q7D FRANKIE Administration Escitalopram Oxalate 10 mg 03/01/20 09:00 03/09/20 09:58 Escitalopram Oxalate 10 Mg Tablet PO 10 mg DAILY FRANKIE Administration Levetiracetam 1,000 mg 03/01/20 09:00 03/09/20 09:58 Levetiracetam 1,000 Mg Tablet PO 1,000 mg BID FRANKIE Administration Levetiracetam 250 mg 03/01/20 09:00 03/09/20 09:58 Levetiracetam 250 Mg Tablet PO 250 mg BID FRANKIE Administration Sodium Chloride 3 ml 03/01/20 08:00 03/09/20 09:58 0.9 % Sodium Chloride Flush 3 Ml Syringe IVFLUSH 3 ml QSHIFT FRANKIE Administration Labs CBC & Chem 7: 03/03/20 10:50 03/01/20 06:18 Microbiology Microbiology Results: Microbiology 03/03/20 10:50 Blood - Venous Blood Culture - Final No growth after 5 days. 03/03/20 10:50 Blood - Venous Blood Culture - Final No growth after 5 days. 02/29/20 19:35 Blood - Venous Blood Culture - Final No growth after 5 days. 02/29/20 19:35 Blood - Venous Blood Culture - Final No growth after 5 days. 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 He likely contracted it from family gather a week earlier -continue Dexamethasone for 10 days total, today is day 4 now on room air, planning for dc snf vs home New AFIB with RVR--on 03/04.. treated with IV cardizem, a dose of dig, then converted to sinus and remain so..Cardiology advises no anticoagulation due to minial CHADs score, dced eliquis Thrombocytopenia--? related to covid, stable, monitor, has baseline low plts, maybe med related HLD--Lipitor Epilepsys--Tee Pizarro
--- NOTE | 2020-03-09 13:03 | MHC.CM.PN ---
Per progress notes, pts mother and MELT ROOM OPERATOR are both ill. Pts mother requesting that pt go to a [facility] in the [facility]. Referrals were sent to all local SNFs contracted with pts insurance however all have declined the referral. CM attempted to contact pts mother, Arely ([phone]) to discuss broadening the search area. Call was placed with the assistance of [employer] truck driving instructor (#[id number]) however call goes to . CM will continue to try to reach Arely to discuss referrals,
--- NOTE | 2020-03-09 14:04 | MHC.CM.PN ---
CM attempted to contact pts mother, Arely ([phone]), call to . CM will continue to try to reach her. Several more referrals placed for STR based on pts insurance, thus far no bed offers, search area broadened further.
[2020-03-09 15:42] LABS: Glucose, Whole Blood 171 mg/dL (60-115)
[2020-03-09] MEDS: Atorvastatin Calcium 40 MG TABLET PO (20:05)
[2020-03-10] VITALS (7 sets, daily range): BP systolic 100–146; BP diastolic 55–75; PULSE 55–100; RESP 16–20; TEMP 36.6–37.3; O2SAT 91–95
[2020-03-10] MEDS: dexAMETHasone sod phosphate 4 MG/ML VIAL 6 MG IVPUSH (08:15)
[2020-03-10] MEDS: Escitalopram Oxalate 10 MG TABLET PO (08:15)
[2020-03-10] MEDS: Divalproex Sodium ER 500 MG TAB.ER.24H PO ×2 (08:15→20:14)
[2020-03-10] MEDS: levETIRAcetam 250 MG TABLET PO ×2 (08:15→20:14)
[2020-03-10] MEDS: levETIRAcetam 1,000 MG TABLET 1000 MG PO ×2 (08:15→20:14)
[2020-03-10] MEDS: 0.9 % Sodium Chloride Flush 3 ML SYRINGE IVFLUSH ×3 (08:16→20:15)
--- NOTE | 2020-03-10 11:38 | MHC.CM.PN ---
STR that appears likely to turn into LTC is the goal for dc.Ongoing SNF search has produced 26 denials thus far. CM will continue the SNF search (many snfs have admission freezes).
--- NOTE | 2020-03-10 14:10 | HO.PM.IMPN ---
Subjective Subjective Date of Service: 03/10/20 Interval History: seen and examined no new events ROS gen - denies pain respiratory - no distress Physical Exam Vital Signs: Vital Signs: Last Vital Signs Temp 97.8 F 03/10/20 12:00 Pulse 77 03/10/20 12:00 Resp 18 03/10/20 12:00 BP 107/55 L 03/10/20 12:00 Pulse Ox 91 L 03/10/20 12:00 Body Mass Index 29.2 General - no acute distress, appears comfortable Cardiovascular - regular rate and rhythm, S1-S2 Lungs - normal respiratory effort, clear to auscultation bilaterally, no wheezing Abdomen - soft, nontender, no rebound or guarding Extremities - no edema bilaterally Neuro - awake and alert, Objective Data Current Medications Generic Name Dose Route Start Last Admin Trade Name Freq PRN Reason Stop Dose Admin Acetaminophen 650 mg 03/01/20 19:36 03/08/20 11:00 Acetaminophen 325 Mg Tablet PO 650 mg Q6H PRN Administration Pain and Fever Atorvastatin Calcium 40 mg 03/01/20 21:00 03/09/20 20:05 Atorvastatin Calcium 40 Mg Tablet PO 40 mg BEDTIME FRANKIE Administration Dexamethasone Sodium Phosphate 6 mg 03/07/20 09:00 03/10/20 08:15 Dexamethasone Sod Phosphate 4 Mg/Ml Vial IVPUSH 6 mg DAILY FRANKIE Administration Divalproex Sodium 500 mg 03/01/20 09:00 03/10/20 08:15 Divalproex Sodium Er 500 Mg Tab.Er.24h PO 500 mg BID FRANKIE Administration Ergocalciferol 1,250 mcg 03/08/20 09:00 03/08/20 07:52 Ergocalciferol (Vitamin D2) 1,250 Mcg Capsule PO 1,250 mcg Q7D FRANKIE Administration Escitalopram Oxalate 10 mg 03/01/20 09:00 03/10/20 08:15 Escitalopram Oxalate 10 Mg Tablet PO 10 mg DAILY FRANKIE Administration Levetiracetam 1,000 mg 03/01/20 09:00 03/10/20 08:15 Levetiracetam 1,000 Mg Tablet PO 1,000 mg BID FRANKEI Administration Levetiracetam 250 mg 03/01/20 09:00 03/10/20 08:15 Levetiracetam 250 Mg Tablet PO 250 mg BID FRANKIE Administration Sodium Chloride 3 ml 03/01/20 08:00 03/10/20 08:16 0.9 % Sodium Chloride Flush 3 Ml Syringe IVFLUSH 3 ml QSHIFT FRANKIE Administration Labs CBC & Chem 7: 03/03/20 10:50 03/01/20 06:18 Microbiology Microbiology Results: Microbiology 03/03/20 10:50 Blood - Venous Blood Culture - Final No growth after 5 days. 03/03/20 10:50 Blood - Venous Blood Culture - Final No growth after 5 days. 02/29/20 19:35 Blood - Venous Blood Culture - Final No growth after 5 days. 02/29/20 19:35 Blood - Venous Blood Culture - Final No growth after 5 days. Assessment and Plan (1) COVID-19: Status: Acute Assessment and Plan: This is a 54 yo M with a history of TBI who is admitted for: 1. COVID 19 causing acute resp. failure with hypoxia hypoxia, now resolved complete 10 d course of decadron -- currently / completed plasma remdesisivr deemed unlikely to benefit ID on board 2. New on set A. Fib rvr treated with cardizem gtt + dig and converted to NSR was initially on oac, but this was stopped per cardiology recommendations 3. 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 Seizures continue depakote / keppra Full Code DVT pptx, mechanical due to thrombcytoepnia Medically clear for discharge - pending placement
[2020-03-10] MEDS: Atorvastatin Calcium 40 MG TABLET PO (20:14)
[2020-03-11] VITALS (8 sets, daily range): BP systolic 94–155; BP diastolic 58–94; PULSE 67–90; RESP 16–19; TEMP 36.1–37.3; O2SAT 92–96
[2020-03-11] MEDS: levETIRAcetam 1,000 MG TABLET 1000 MG PO ×2 (07:32→20:54)
[2020-03-11] MEDS: Divalproex Sodium ER 500 MG TAB.ER.24H PO ×2 (07:32→20:54)
[2020-03-11] MEDS: levETIRAcetam 250 MG TABLET PO ×2 (07:32→20:54)
[2020-03-11] MEDS: dexAMETHasone sod phosphate 4 MG/ML VIAL 6 MG IVPUSH (07:33)
[2020-03-11] MEDS: Escitalopram Oxalate 10 MG TABLET PO (07:33)
[2020-03-11] MEDS: 0.9 % Sodium Chloride Flush 3 ML SYRINGE IVFLUSH ×2 (07:35→16:21)
--- NOTE | 2020-03-11 13:04 | MHC.CM.PN ---
SNF bed search has been extended out 50 miles and CM will continue to follow for dc planning.
--- NOTE | 2020-03-11 15:26 | HO.PM.IMPN ---
Subjective Subjective Date of Service: 03/11/20 Interval History: seen and examined no new events reported pending placement ROS gen - denies pain respiratory - no distress Physical Exam Vital Signs: Vital Signs: Last Vital Signs Temp 98.1 F 03/11/20 12:00 Pulse 85 03/11/20 12:12 Resp 19 03/11/20 12:00 BP 117/64 03/11/20 12:12 Pulse Ox 92 03/11/20 12:12 Body Mass Index 29.2 Const: Other: General - no acute distress, appears comfortable Cardiovascular - regular rate and rhythm, S1-S2 Lungs - normal respiratory effort, clear to auscultation bilaterally, no wheezing Abdomen - soft, nontender, no rebound or guarding Extremities - no edema bilaterally Neuro - awake and alert Objective Data Current Medications Generic Name Dose Route Start Last Admin Trade Name Freq PRN Reason Stop Dose Admin Acetaminophen 650 mg 03/01/20 19:36 03/08/20 11:00 Acetaminophen 325 Mg Tablet PO 650 mg Q6H PRN Administration Pain and Fever Atorvastatin Calcium 40 mg 03/01/20 21:00 03/10/20 20:14 Atorvastatin Calcium 40 Mg Tablet PO 40 mg BEDTIME FRANKIE Administration Dexamethasone Sodium Phosphate 6 mg 03/07/20 09:00 03/11/20 07:33 Dexamethasone Sod Phosphate 4 Mg/Ml Vial IVPUSH 03/16/20 09:01 6 mg DAILY FRANKIE Administration Divalproex Sodium 500 mg 03/01/20 09:00 03/11/20 07:32 Divalproex Sodium Er 500 Mg Tab.Er.24h PO 500 mg BID FRANKIE Administration Ergocalciferol 1,250 mcg 03/08/20 09:00 03/08/20 07:52 Ergocalciferol (Vitamin D2) 1,250 Mcg Capsule PO 1,250 mcg Q7D FRANKIE Administration Escitalopram Oxalate 10 mg 03/01/20 09:00 03/11/20 07:33 Escitalopram Oxalate 10 Mg Tablet PO 10 mg DAILY FRANKIE Administration Levetiracetam 1,000 mg 03/01/20 09:00 03/11/20 07:32 Levetiracetam 1,000 Mg Tablet PO 1,000 mg BID FRANKIE Administration Levetiracetam 250 mg 03/01/20 09:00 03/11/20 07:32 Levetiracetam 250 Mg Tablet PO 250 mg BID FRANKIE Administration Sodium Chloride 3 ml 03/01/20 08:00 03/11/20 07:35 0.9 % Sodium Chloride Flush 3 Ml Syringe IVFLUSH 3 ml QSHIFT FRANKIE Administration Labs CBC & Chem 7: 03/03/20 10:50 03/01/20 06:18 Microbiology Microbiology Results: Microbiology 03/03/20 10:50 Blood - Venous Blood Culture - Final No growth after 5 days. 03/03/20 10:50 Blood - Venous Blood Culture - Final No growth after 5 days. 02/29/20 19:35 Blood - Venous Blood Culture - Final No growth after 5 days. 02/29/20 19:35 Blood - Venous Blood Culture - Final No growth after 5 days. Assessment and Plan (1) COVID-19: Status: Acute Assessment and Plan: This is a 54 yo M with a history of TBI who is admitted for: 1. COVID 19 causing acute resp. failure with hypoxia hypoxia resolved complete 10 d course of decadron -- currently 08/18 completed plasma remdesisivr deemed unlikely to benefit ID on board remains stabloe 2. New on set A. Fib rvr treated with cardizem gtt + dig and converted to NSR was initially on oac, but this was stopped per cardiology recommendations 3. 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 Seizures continue depakote / keppra Full Code DVT pptx, mechanical due to thrombcytoepnia Medically clear for discharge - pending placement (family unable to care for him at home at this time).
[2020-03-11] MEDS: Atorvastatin Calcium 40 MG TABLET PO (20:53)
[2020-03-12] VITALS (7 sets, daily range): BP systolic 99–117; BP diastolic 55–85; PULSE 76–105; RESP 17–18; TEMP 36.2–37.4; O2SAT 91–98
[2020-03-12] MEDS: 0.9 % Sodium Chloride Flush 3 ML SYRINGE IVFLUSH ×4 (00:50→23:46)
[2020-03-12] MEDS: levETIRAcetam 250 MG TABLET PO ×2 (08:18→20:22)
[2020-03-12] MEDS: Divalproex Sodium ER 500 MG TAB.ER.24H PO ×2 (08:18→20:22)
[2020-03-12] MEDS: levETIRAcetam 1,000 MG TABLET 1000 MG PO ×2 (08:18→20:22)
[2020-03-12] MEDS: Escitalopram Oxalate 10 MG TABLET PO (08:18)
[2020-03-12] MEDS: dexAMETHasone sod phosphate 4 MG/ML VIAL 6 MG IVPUSH (08:18)
--- NOTE | 2020-03-12 14:08 | MHC.CM.PN ---
currently there are no bed offers. an additional ref. was made to [facility] today. there are also several referrals sent yesterday that are a farther distance that have not yet responded in allscripts.
--- NOTE | 2020-03-12 14:32 | MHC.CM.PN ---
currently there are no bed offers. an additional ref. was made to [facility] today. there are also several referrals sent yesterday that are a farther distance that have not yet responded in allscripts. lastly, a call was made to [facility] in an effort to speak c a critical care clinical nurse specialist (community navigation person). at this time i am waiting for a call back. cm to cont. to follow.
--- NOTE | 2020-03-12 15:51 | HO.PM.IMPN ---
Subjective Subjective Date of Service: 03/12/20 Interval History: seen and examined no new issues reported Physical Exam Vital Signs: Vital Signs: Last Vital Signs Temp 99.4 F 03/12/20 11:59 Pulse 96 03/12/20 11:59 Resp 18 03/12/20 11:59 BP 105/77 03/12/20 11:59 Pulse Ox 91 L 03/12/20 11:59 Body Mass Index 29.2 Const: Other: General - no acute distress, appears comfortable Cardiovascular - regular rate and rhythm, S1-S2 Lungs - normal respiratory effort, clear to auscultation bilaterally, no wheezing Abdomen - soft, nontender, no rebound or guarding Extremities - no edema bilaterally Neuro - awake and alert Objective Data Current Medications Generic Name Dose Route Start Last Admin Trade Name Freq PRN Reason Stop Dose Admin Acetaminophen 650 mg 03/01/20 19:36 03/08/20 11:00 Acetaminophen 325 Mg Tablet PO 650 mg Q6H PRN Administration Pain and Fever Atorvastatin Calcium 40 mg 03/01/20 21:00 03/11/20 20:53 Atorvastatin Calcium 40 Mg Tablet PO 40 mg BEDTIME FRANKIE Administration Dexamethasone Sodium Phosphate 6 mg 03/07/20 09:00 03/12/20 08:18 Dexamethasone Sod Phosphate 4 Mg/Ml Vial IVPUSH 03/16/20 09:01 6 mg DAILY FRANKIE Administration Divalproex Sodium 500 mg 03/01/20 09:00 03/12/20 08:18 Divalproex Sodium Er 500 Mg Tab.Er.24h PO 500 mg BID FRANKIE Administration Ergocalciferol 1,250 mcg 03/08/20 09:00 03/08/20 07:52 Ergocalciferol (Vitamin D2) 1,250 Mcg Capsule PO 1,250 mcg Q7D FRANKIE Administration Escitalopram Oxalate 10 mg 03/01/20 09:00 03/12/20 08:18 Escitalopram Oxalate 10 Mg Tablet PO 10 mg DAILY FRANKIE Administration Levetiracetam 1,000 mg 03/01/20 09:00 03/12/20 08:18 Levetiracetam 1,000 Mg Tablet PO 1,000 mg BID FRANKIE Administration Levetiracetam 250 mg 03/01/20 09:00 03/12/20 08:18 Levetiracetam 250 Mg Tablet PO 250 mg BID FRANKIE Administration Sodium Chloride 3 ml 03/01/20 08:00 12/02/20 08:19 0.9 % Sodium Chloride Flush 3 Ml Syringe IVFLUSH 3 ml QSHIFT FRANKIE Administration Labs CBC & Chem 7: 03/03/20 10:50 03/01/20 06:18 Microbiology Microbiology Results: Microbiology 03/03/20 10:50 Blood - Venous Blood Culture - Final No growth after 5 days. 03/03/20 10:50 Blood - Venous Blood Culture - Final No growth after 5 days. 02/29/20 19:35 Blood - Venous Blood Culture - Final No growth after 5 days. 02/29/20 19:35 Blood - Venous Blood Culture - Final No growth after 5 days. Assessment and Plan (1) COVID-19: Status: Acute Assessment and Plan: This is a 54 yo M with a history of TBI who is admitted for: 1. COVID 19 causing acute resp. failure with hypoxia hypoxia resolved complete 10 d course of decadron -- currently 09/18 completed plasma remdesisivr deemed unlikely to benefit ID on board remains stable 2. New on set A. Fib rvr treated with cardizem gtt + dig and converted to NSR was initially on oac, but this was stopped per cardiology recommendations 3. 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 Seizures continue depakote / keppra Full Code DVT pptx, mechanical due to thrombcytoepnia Medically clear for discharge - pending placement (family unable to care for him at home at this time).
[2020-03-12] MEDS: Atorvastatin Calcium 40 MG TABLET PO (20:22)
[2020-03-13 03:00] VITALS: BP 116/64; PULSE 74; RESP 17; TEMP 37.2; O2SAT 97
[2020-03-13 07:40] VITALS: BP 116/58; PULSE 78; RESP 18; TEMP 36.4; O2SAT 98
[2020-03-13] MEDS: 0.9 % Sodium Chloride Flush 3 ML SYRINGE IVFLUSH ×3 (09:19→22:06)
[2020-03-13] MEDS: dexAMETHasone sod phosphate 4 MG/ML VIAL 6 MG IVPUSH (09:19)
[2020-03-13] MEDS: Divalproex Sodium ER 500 MG TAB.ER.24H PO ×2 (09:19→22:06)
[2020-03-13] MEDS: levETIRAcetam 1,000 MG TABLET 1000 MG PO ×2 (09:19→22:06)
[2020-03-13] MEDS: Escitalopram Oxalate 10 MG TABLET PO (09:19)
[2020-03-13] MEDS: levETIRAcetam 250 MG TABLET PO ×2 (09:19→22:06)
[2020-03-13 12:00] VITALS: BP 132/55; PULSE 92; RESP 18; TEMP 36.2; O2SAT 92
--- NOTE | 2020-03-13 14:45 | MHC.CM.PN ---
SILVIO received a call from pts [facility] reproductive healthcare assistant, Daliaye Arredondo this morning asking for an update on pts dispo plan. CM explained barriers to placement. Dalia reported she would reach out to her team members to determine if they had any facilities to recommend. She indicated she would call this lyric writer back. Nuris from [facility] ([phone]) was updated on pts disposition and challenges with placement. SILVIO returned a call to pts commanding officer homicide squad, SAM Austin ([phone]) and updated her on pts dispo plan and explained that a facility has not yet been found. SAM Austin asks that she be updated when a SNF is found as pt is supposed to be on GPS monitoring that has been suspended while he is hospitalized. pts referral extended to a 200 mile radius.
[2020-03-13 16:00] VITALS: BP 125/55; PULSE 85; RESP 17; TEMP 37.1; O2SAT 94
--- NOTE | 2020-03-13 18:21 | P.PNIM_ITS ---
Subjective Subjective Date of Service: 03/13/20 Interval History: seen and examined eating breakfast, denies any complaints Physical Exam 2 Vital Signs: Vital Signs: Last Vital Signs Temp 98.8 F 03/13/20 16:00 Pulse 85 03/13/20 16:00 Resp 17 03/13/20 16:00 BP 125/55 L 03/13/20 16:00 Pulse Ox 94 03/13/20 16:00 Body Mass Index 29.2 Const: Other: General - no acute distress, appears comfortable Cardiovascular - regular rate and rhythm, S1-S2 Lungs - normal respiratory effort, clear to auscultation bilaterally, no wheezing Abdomen - soft, nontender, no rebound or guarding Extremities - no edema bilaterally Neuro - awake and alert Objective Data Current Medications Generic Name Dose Route Start Last Admin Trade Name Freq PRN Reason Stop Dose Admin Acetaminophen 650 mg 03/01/20 19:36 03/08/20 11:00 Acetaminophen 325 Mg Tablet PO 650 mg Q6H PRN Administration Pain and Fever Atorvastatin Calcium 40 mg 03/01/20 21:00 03/12/20 20:22 Atorvastatin Calcium 40 Mg Tablet PO 40 mg BEDTIME FRANKIE Administration Dexamethasone Sodium Phosphate 6 mg 03/07/20 09:00 03/13/20 09:19 Dexamethasone Sod Phosphate 4 Mg/Ml Vial IVPUSH 03/16/20 09:01 6 mg DAILY FRANKIE Administration Divalproex Sodium 500 mg 03/01/20 09:00 03/13/20 09:19 Divalproex Sodium Er 500 Mg Tab.Er.24h PO 500 mg BID FRANKIE Administration Ergocalciferol 1,250 mcg 03/08/20 09:00 03/08/20 07:52 Ergocalciferol (Vitamin D2) 1,250 Mcg Capsule PO 1,250 mcg Q7D FRANKIE Administration Escitalopram Oxalate 10 mg 03/01/20 09:00 03/13/20 09:19 Escitalopram Oxalate 10 Mg Tablet PO 10 mg DAILY FRANKIE Administration Levetiracetam 1,000 mg 03/01/20 09:00 03/13/20 09:19 Levetiracetam 1,000 Mg Tablet PO 1,000 mg BID FRANKIE Administration Levetiracetam 250 mg 03/01/20 09:00 03/13/20 09:19 Levetiracetam 250 Mg Tablet PO 250 mg BID FRANKIE Administration Sodium Chloride 3 ml 03/01/20 08:00 03/13/20 16:06 0.9 % Sodium Chloride Flush 3 Ml Syringe IVFLUSH 3 ml QSHIFT FRANKIE Administration Labs CBC & Chem 7: 03/03/20 10:50 03/01/20 06:18 Microbiology Microbiology Results: Microbiology 03/03/20 10:50 Blood - Venous Blood Culture - Final No growth after 5 days. 03/03/20 10:50 Blood - Venous Blood Culture - Final No growth after 5 days. 02/29/20 19:35 Blood - Venous Blood Culture - Final No growth after 5 days. 02/29/20 19:35 Blood - Venous Blood Culture - Final No growth after 5 days. Assessment and Plan (1) COVID-19: Status: Acute Assessment and Plan: This is a 54 yo M with a history of TBI who is admitted for: 1. COVID 19 causing acute resp. failure with hypoxia hypoxia resolved complete 10 d course of decadron -- currently 10/18 completed plasma remdesisivr deemed unlikely to benefit ID on board remains stable 2. New on set A. Fib rvr treated with cardizem gtt + dig and converted to NSR was initially on oac, but this was stopped per cardiology recommendations 3. 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 Seizures continue depakote / keppra Full Code DVT pptx, mechanical due to thrombcytoepnia Medically clear for discharge - pending placement (family unable to care for him at home at this time).
[2020-03-13 19:45] VITALS: BP 107/55; PULSE 81; RESP 18; TEMP 37.5; O2SAT 93
[2020-03-13] MEDS: Atorvastatin Calcium 40 MG TABLET PO (22:06)
[2020-03-14] VITALS (7 sets, daily range): BP systolic 100–123; BP diastolic 50–75; PULSE 68–94; RESP 18; TEMP 36.2–37.3; O2SAT 93–97
[2020-03-14] MEDS: levETIRAcetam 250 MG TABLET PO ×2 (09:46→20:30)
[2020-03-14] MEDS: Divalproex Sodium ER 500 MG TAB.ER.24H PO ×2 (09:46→20:30)
[2020-03-14] MEDS: Escitalopram Oxalate 10 MG TABLET PO (09:46)
[2020-03-14] MEDS: levETIRAcetam 1,000 MG TABLET 1000 MG PO ×2 (09:46→20:30)
[2020-03-14] MEDS: dexAMETHasone sod phosphate 4 MG/ML VIAL 6 MG IVPUSH (09:46)
[2020-03-14] MEDS: 0.9 % Sodium Chloride Flush 3 ML SYRINGE IVFLUSH ×3 (09:47→20:30)
--- NOTE | 2020-03-14 16:59 | HO.PM.IMPN ---
Subjective Subjective Date of Service: 03/14/20 Interval History: seen and examined no issues Physical Exam Vital Signs: Vital Signs: Last Vital Signs Temp 98.4 F 03/14/20 15:56 Pulse 84 03/14/20 15:56 Resp 18 03/14/20 15:56 BP 100/50 L 03/14/20 15:56 Pulse Ox 93 03/14/20 15:56 Body Mass Index 29.2 Const: Other: General - no acute distress, appears comfortable Cardiovascular - regular rate and rhythm, S1-S2 Lungs - normal respiratory effort, clear to auscultation bilaterally, no wheezing Abdomen - soft, nontender, no rebound or guarding Extremities - no edema bilaterally Neuro - awake and alert Objective Data Current Medications Generic Name Dose Route Start Last Admin Trade Name Freq PRN Reason Stop Dose Admin Acetaminophen 650 mg 03/01/20 19:36 03/08/20 11:00 Acetaminophen 325 Mg Tablet PO 650 mg Q6H PRN Administration Pain and Fever Atorvastatin Calcium 40 mg 03/01/20 21:00 03/13/20 22:06 Atorvastatin Calcium 40 Mg Tablet PO 40 mg BEDTIME FRANKIE Administration Dexamethasone Sodium Phosphate 6 mg 03/07/20 09:00 03/14/20 09:46 Dexamethasone Sod Phosphate 4 Mg/Ml Vial IVPUSH 03/16/20 09:01 6 mg DAILY FRANKIE Administration Divalproex Sodium 500 mg 03/01/20 09:00 03/14/20 09:46 Divalproex Sodium Er 500 Mg Tab.Er.24h PO 500 mg BID FRANKIE Administration Ergocalciferol 1,250 mcg 03/08/20 09:00 03/08/20 07:52 Ergocalciferol (Vitamin D2) 1,250 Mcg Capsule PO 1,250 mcg Q7D FRANKIE Administration Escitalopram Oxalate 10 mg 03/01/20 09:00 03/14/20 09:46 Escitalopram Oxalate 10 Mg Tablet PO 10 mg DAILY FRANKIE Administration Levetiracetam 1,000 mg 03/01/20 09:00 03/14/20 09:46 Levetiracetam 1,000 Mg Tablet PO 1,000 mg BID FRANKIE Administration Levetiracetam 250 mg 03/01/20 09:00 03/14/20 09:46 Levetiracetam 250 Mg Tablet PO 250 mg BID FRANKIE Administration Sodium Chloride 3 ml 03/01/20 08:00 03/14/20 09:47 0.9 % Sodium Chloride Flush 3 Ml Syringe IVFLUSH 3 ml QSHIFT FRANKIE Administration Labs CBC & Chem 7: 03/03/20 10:50 03/01/20 06:18 Microbiology Microbiology Results: Microbiology 03/03/20 10:50 Blood - Venous Blood Culture - Final No growth after 5 days. 03/03/20 10:50 Blood - Venous Blood Culture - Final No growth after 5 days. 02/29/20 19:35 Blood - Venous Blood Culture - Final No growth after 5 days. 02/29/20 19:35 Blood - Venous Blood Culture - Final No growth after 5 days. Assessment and Plan (1) COVID-19: Status: Acute Assessment and Plan: This is a 54 yo M with a history of TBI who is admitted for: 1. COVID 19 causing acute resp. failure with hypoxia hypoxia resolved complete 10 d course of decadron -- currently 11/18 completed plasma remdesisivr deemed unlikely to benefit ID on board remains stable 2. New on set A. Fib rvr treated with cardizem gtt + dig and converted to NSR was initially on oac, but this was stopped per cardiology recommendations 3. 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 Seizures continue depakote / keppra Full Code DVT pptx, mechanical due to thrombcytoepnia Medically clear for discharge - pending placement (family unable to care for him at home at this time).
[2020-03-14] MEDS: Atorvastatin Calcium 40 MG TABLET PO (20:30)
[2020-03-15] VITALS: BP 136/90; PULSE 70; RESP 16; TEMP 36.5; O2SAT 93
[2020-03-15 03:44] VITALS: BP 139/63; PULSE 76; RESP 18; TEMP 36.6; O2SAT 95
[2020-03-15 07:31] VITALS: BP 127/65; PULSE 80; RESP 18; TEMP 36.7; O2SAT 96
[2020-03-15] MEDS: dexAMETHasone sod phosphate 4 MG/ML VIAL 6 MG IVPUSH (07:55)
[2020-03-15] MEDS: levETIRAcetam 250 MG TABLET PO (07:55)
[2020-03-15] MEDS: Escitalopram Oxalate 10 MG TABLET PO (07:55)
[2020-03-15] MEDS: levETIRAcetam 1,000 MG TABLET 1000 MG PO (07:55)
[2020-03-15] MEDS: Divalproex Sodium ER 500 MG TAB.ER.24H PO (07:56)
[2020-03-15] MEDS: 0.9 % Sodium Chloride Flush 3 ML SYRINGE IVFLUSH (07:56)
[2020-03-15] MEDS: Ergocalciferol (Vitamin D2) 1,250 MCG CAPSULE 1250 MCG PO (07:57)
[2020-03-15 11:07] VITALS: BP 113/53; PULSE 90; RESP 20; TEMP 37.1; O2SAT 94
--- NOTE | 2020-03-15 11:25 | MHC.CM.PN ---
CM received a T/C from pts mother and niece. pts mother, Arely, reported she was told the pt was going to a STR in [place] and he cannot because he will get into trouble with his intelligence officer. Cm explained that the SNF was in [place] and that the PO had been in contact and was agreeable to the placement. She reported she still wanted to take him home as she and the pts SANDING MACHINE OPERATOR were both feeling better and would be able to provide his care. DC tiime of 1500 hours was agreed upon and pt will be transported home via [facility]. CM message left for PO Austin [phone] as well as CCA [phone]
--- NOTE | 2020-03-15 13:31 | P.DS_ITS ---
DS: Providers Provider Date of admission: 03/01/20 01:44 Primary care physician: Unknown Physician Consults: 03/01/20 01:56 Consult to Infectious Diseases Routine Consulting Provider: Infectious Disease Reason for consultation: covid 19 Has provider been notified: No 03/04/20 06:39 Consult to Cardiology Routine Consulting Provider: Rony Tucker Reason for consultation: a fib Has provider been notified: No DS: Diagnosis Discharge Diagnosis (1) COVID-19: Status: Acute (2) PAF (paroxysmal atrial fibrillation): Status: Acute (3) Acute respiratory failure with hypoxia: Status: Acute DS: Medications Discharge Medications Home Medications: Home Medications Medication Instructions Recorded Confirmed atorvastatin 40 mg PO BEDTIME 02/29/20 02/29/20 citalopram 20 mg PO QAM 02/29/20 02/29/20 divalproex 500 mg PO BID 02/29/20 02/29/20 ergocalciferol (vitamin D2) 1,250 mcg PO QWEEK 02/29/20 02/29/20 levetiracetam 1,000 mg PO BID 02/29/20 02/29/20 levetiracetam 250 mg PO BID 02/29/20 02/29/20 lorazepam 0.5 mg PO DAILY PRN 02/29/20 02/29/20 zolpidem 0.5 - 1 tab PO BEDTIME PRN 02/29/20 02/29/20 DS: Summary Hospital Course Hospital Course: Patient was started on supplemental oxygen and Decadron for his COVID-19 pneumonia. Id was consulted and he was deemed not to have any benefit from remdesivir. Fortunately patient is condition improved quickly and he was off oxygen rather fast. He will be discharged home to complete few more days of Decadron at home. His hospital course was further complicated by new onset atrial fibrillation with rapid ventricular response. Fortunately this was short-lived and quickly he went into normal sinus rhythm with Cardizem plus digoxin. Cardiology was consulted and his anticoagulation was discontinued due to a low Kartik Vasc score and short duration of atrial fibrillation rapid ventricular response. Initially the plan was for the patient to go to short-term rehab as he was unable to care for him at home but ultimately family decided upon taking him with home with services. Time Spent with Patient Time attestation: Total time spent providing and/or coordinating discharge services: Physical Exam Vital Signs: Vital Signs: Last Vital Signs Temp 98.8 F 03/15/20 11:07 Pulse 90 03/15/20 11:07 Resp 20 03/15/20 11:07 BP 113/53 L 03/15/20 11:07 Pulse Ox 94 03/15/20 11:07 Body Mass Index 29.2 Const: Other: General - no acute distress, appears comfortable Cardiovascular - regular rate and rhythm, S1-S2 Lungs - normal respiratory effort, clear to auscultation bilaterally, no wheezing Abdomen - soft, nontender, no rebound or guarding Extremities - no edema bilaterally Neuro - awake and alert DS: Data Data Completed and Pending Labs on day of discharge: Laboratory Last Values WBC 3.4 X10*3/uL (4.8-10.8) L 03/03/20 10:50 RBC 3.96 X10*6/uL (4.60-5.80) L 03/03/20 10:50 Hgb 12.1 g/dl (14.0-18.0) L 03/03/20 10:50 Hct 36.2 % (42-52) L 03/03/20 10:50 MCV 91.4 fL (80-98) 03/03/20 10:50 MCH 30.6 pg (27.0-33.0) 03/03/20 10:50 MCHC 33.4 g/dl (31.0-36.0) 03/03/20 10:50 RDW 11.9 % (11.0-16.0) 03/03/20 10:50 Plt Count 87 X10*3/uL (160-400) L 03/03/20 10:50 MPV 13.5 fL (9.4-12.4) H 03/03/20 10:50 Immature Gran % (Auto) 0.0 % (0.0-0.4) 03/01/20 06:18 Neut % (Auto) 33.8 % (45-73) L 03/01/20 06:18 Lymph % (Auto) 52.7 % (20-40) H 03/01/20 06:18 [place] % (Auto) 13.2 % (2-11) H 03/01/20 06:18 Eos % (Auto) 0.0 % (0-4) 03/01/20 06:18 Baso % (Auto) 0.3 % (0-2) 03/01/20 06:18 Lymph # (Auto) 2.1 X10*3/uL (1.2-4.9) 03/01/20 06:18 [place] # (Auto) 0.5 X10*3/uL (0.1-1.2) 03/01/20 06:18 Eos # (Auto) 0.0 X10*3/uL (0.0-0.4) 03/01/20 06:18 Baso # (Auto) 0.0 X10*3/uL (0.0-0.2) 03/01/20 06:18 Abs Immat Gran (auto) 0.00 X10*3/uL (0.00-0.03) 03/01/20 06:18 Absolute Neuts (auto) 1.3 X10*3/uL (2.0-8.3) L 03/01/20 06:18 Absolute Nucleated RBC 0.000 X10*3/uL (0.0-0.012) 03/03/20 10:50 Nucleated RBC % (auto) 0.0 /100WBC (0.0-0.2) 03/03/20 10:50 Smear Tech's Comments Not Reportable 03/01/20 06:18 D-Dimer 327 NG/ML 03/04/20 17:32 Sodium 140 mmol/L (135-145) 03/01/20 06:18 Potassium 3.8 mmol/l (3.3-5.1) 03/01/20 06:18 Chloride 103 mmol/L (96-108) 03/01/20 06:18 Carbon Dioxide 30 mmol/L (22-29) H 03/01/20 06:18 Anion Gap 11 (12-20) L 03/01/20 06:18 BUN 6 mg/dL (9-16) L 03/01/20 06:18 Creatinine 0.70 mg/dL (0.5-1.4) 03/01/20 06:18 Estim Creat Clear Calc 136.9 03/01/20 06:18 Estimated GFR > 60 03/01/20 06:18 POC Glucose 171 mg/dL (60-115) H 03/09/20 15:34 Random Glucose 83 mg/dL (60-115) 03/01/20 06:18 Lactic Acid 2.0 mmol/L (0.5-2.0) 02/29/20 19:35 Calcium 7.8 mg/dL (8.4-10.2) L 03/01/20 06:18 B-Natriuretic Peptide 14 pg/mL (<100) 02/29/20 19:35 Urine Color YELLOW 03/03/20 13:57 Urine Appearance CLEAR 03/03/20 13:57 Urine pH 6.5 (5.0-8.0) 03/03/20 13:57 Ur Specific [place] 1.020 (1.005-1.025) 03/03/20 13:57 Urine Protein NEG MG/DL (NEG-TRACE) 03/03/20 13:57 Urine Glucose (UA) NEG MG/DL (NEG) 03/03/20 13:57 Urine Ketones NEG MG/DL (NEG) 03/03/20 13:57 Urine Blood NEG (NEG) 03/03/20 13:57 Urine Nitrite NEG (NEG) 03/03/20 13:57 Ur Leukocyte Esterase NEG (NEG) 03/03/20 13:57 Urine RBC 1-4 /HPF (0) 03/03/20 13:57 Urine WBC 1-4 /HPF (0-4) 03/03/20 13:57 Ur Squamous Epith Cells TRACE /LPF 03/03/20 13:57 Urine Bacteria TRACE /LPF 03/03/20 13:57 Urine Mucus 1+ /LPF 03/03/20 13:57 Blood Type A Negative 03/03/20 20:29 Antibody Screen NEGATIVE 03/03/20 20:29 Discharge Plan Discharge Patient Disposition: Home Health Service Referrals: Physician,Unknown [Primary Care Provider] - Discharge Medications: Continued atorvastatin 40 mg tablet 40 mg PO BEDTIME RF: 0 citalopram 20 mg tablet 20 mg PO QAM RF: 0 lorazepam 0.5 mg tablet 0.5 mg PO DAILY PRN (Reason: Anxiety) RF: 0 levetiracetam 250 mg tablet 250 mg PO BID RF: 0 divalproex 500 mg tablet extended release 24 hr 500 mg PO BID RF: 0 ergocalciferol (vitamin D2) 1,250 mcg (50,000 unit) capsule 1,250 mcg PO QWEEK RF: 0 zolpidem 10 mg tablet 0.5 - 1 tab PO BEDTIME PRN (Reason: Insomnia) RF: 0 levetiracetam 1,000 mg tablet 1,000 mg PO BID RF: 0 Discharge Orders: Discharge Order (Routine); Ordered 03/15/20 Ordered By: Archie Cedeño Diet: advance to usual diet Activity on Discharge: As tolerated Discharge Date/Time: 03/15/20 16:01 Visit Report Forms: Patient Portal Discharge page Care Plan Goals: To stay healthy and out of the hospital. Health Concerns: COVID 19 Plan of Treatment: Completed treatement in hospital
[2020-03-15 15:24] VITALS: BP 124/61; PULSE 79; RESP 18; TEMP 36.2; O2SAT 93
== END 2020-03-15 16:01 | disposition home health service (06) | DRG 871 ==
LOC: HO.ED 19:46 → HO.IMC 03-01 02:08
PROVIDERS: Internal Medicine; Admitting Provider Internal Medicine; Emergency Provider Emergency Medicine; Visit Provider Family Medicine
DX: A41.9 Sepsis, unspecified organism (principal); U07.1 COVID-19; J96.01 Acute respiratory failure with hypoxia; G40.109 Localization-related (focal) (partial) symptomatic epilepsy and epileptic syndromes with simple partial seizures, not intractable, without status epilepticus; F17.210 Nicotine dependence, cigarettes, uncomplicated; Z71.6 Tobacco abuse counseling; F32.9 Major depressive disorder, single episode, unspecified; I48.0 Paroxysmal atrial fibrillation; E78.5 Hyperlipidemia, unspecified; D69.6 Thrombocytopenia, unspecified; Z87.820 Personal history of traumatic brain injury; Z79.899 Other long term (current) drug therapy
CPT/HCPCS: 0241U; 36415; 71045; 80048; 80076; 81001; 81003; 82947; 83605; 83615; 83735; 83880; 84145; 85025; 85027; 85379; 86140; 86850; 86900; 86901; 87040; 93005; 93306; 96361; 96365; 96374; 96375; 97110; 97163; 97530; 99284; 99285; 99291; J0456; J0696; J1100; J1160; J2060; J2270

== ENCOUNTER 2020-07-09 10:48 | Outpatient (REF) | payer OTHER, SELFPAY ==
--- NOTE | ~2020-07-09 | XR_ITS ---
EXAMINATION: XR KNEE, LEFT CLINICAL INFORMATION: Pain in the left knee COMPARISON: None TECHNIQUE: Three views of the left knee. FINDINGS: No fracture or subluxation. Mild medial compartment joint space narrowing. Patella cyrus. Tricompartmental marginal osteophytes are present, most prominent at the medial and lateral compartments. There are multiple intra-articular bodies identified. Adjacent to the medial femoral condyle there is a 1.2 cm calcified density. Along the posterior joint line medially there is a 1.4 cm calcified density. There is also likely a smaller density more inferiorly. No joint effusion. XR/XR knee LT 3V IMPRESSION: No acute abnormality. Moderate tricompartmental degenerative changes. Multiple intra-articular bodies.
[2020-07-13 15:06] LABS: Levetiracetam Keppra 11.4 mcg/mL (12.0-46.0)
== END 2020-07-09 10:49 | disposition home or self-care (01) ==
LOC: HO.LAB 10:48
PROVIDERS: PCP Internal Medicine; Visit Provider Internal Medicine
DX: E55.9 Vitamin D deficiency, unspecified (principal); M25.562 Pain in left knee; E78.00 Pure hypercholesterolemia, unspecified; I10 Essential (primary) hypertension; G40.909 Epilepsy, unspecified, not intractable, without status epilepticus
CPT/HCPCS: 36415; 73562; 80177

== ENCOUNTER 2020-08-04 08:11 | Outpatient (REF) | payer OTHER, SELFPAY ==
--- NOTE | ~2020-08-04 | XR_ITS ---
EXAMINATION: XR KNEE AP STANDING CLINICAL INFORMATION: Pain COMPARISON: Previous left knee x-ray June 2020 and right knee x-ray January 2017 TECHNIQUE: AP bilateral standing view of the knees was obtained. FINDINGS: Right: Bone alignment is normal. There is medial femoral tibial joint space narrowing. Left: There is valgus angulation. The left patella appears higher than the right. There is arthritis at the femoral tibial joints with joint space narrowing and osteophyte formation. There are ossifications projecting over the medial knee joint questionable for intra-articular loose bodies. XR/XR knee standing BI IMPRESSION: Bilateral knee arthritis, left greater than right.
== END 2020-08-04 08:12 | disposition home or self-care (01) ==
LOC: HO.HOSX 08:11
PROVIDERS: Visit Provider Orthopaedic Surgery
DX: M17.12 Unilateral primary osteoarthritis, left knee (principal); M25.562 Pain in left knee; Z87.820 Personal history of traumatic brain injury
CPT/HCPCS: 20610; 73565; 99202; J1100

== ENCOUNTER 2021-01-15 07:44 | Outpatient (REF) | payer OTHER, SELFPAY ==
[2021-01-15 08:08] LABS: MANUAL DIFF FLAG NO
[2021-01-15 08:58] LABS: Basophils Absolute Auto 0.1 X10*3/uL (0.0-0.2); Basophils Percent Auto 0.7 % (0-2); Eosinophils Absolute Auto 0.1 X10*3/uL (0.0-0.4); Eosinophils Percent Auto 0.9 % (0-4); Hematocrit 40.3 % (42-52); Hemoglobin 13.3 g/dl (14.0-18.0); Imm Gran Abs Auto 0.02 X10*3/uL (0.00-0.03); Imm Gran Pct Auto 0.3 % (0.0-0.4); Lymphocytes Absolute Auto 3.4 X10*3/uL (1.2-4.9); Lymphocytes Percent Auto 50.6 % (20-40); Mean Corpuscular Hemoglobin 30.1 pg (27.0-33.0); Mean Corpuscular Volume 91.2 fL (80-98); Mean Platelet Volume 12.6 fL (9.4-12.4); Monocytes Absolute Auto 0.6 X10*3/uL (0.1-1.2); Monocytes Percent Auto 9.5 % (2-11); Neutrophils Absolute Auto 2.6 X10*3/uL (2.0-8.3); Platelet Count 169 X10*3/uL (160-400); Red Blood Count 4.42 X10*6/uL (4.60-5.80); Red Cell Distribution Width 12.2 % (11.0-16.0); White Blood Count 6.8 X10*3/uL (4.8-10.8)
[2021-01-15 09:22] LABS: Appearance Urine CLEAR; Color Urine YELLOW; Glucose Urine UA NEG (NEG); Leukocyte Esterase Urine NEG (NEG); Nitrite Urine NEG (NEG); Specific Gravity - Urine 1.025 (1.005-1.025); Urine Blood NEG (NEG); Urine Ketones 5 MG/DL (NEG); Urine Protein NEG (NEG-TRACE)
[2021-01-15 09:27] LABS: Valproate 84.5 mcg/mL (50.0-100.0)
[2021-01-15 09:30] LABS: Alanine Aminotransferase 14 U/L (0-40); Albumin Level 3.7 g/dL (3.5-5.0); Alkaline Phosphatase 68 U/L (39-117); Anion Gap 9 (12-20); Aspartate Amino Transferase 14 U/L (5-37); Bilirubin Total 0.4 mg/dL (0.0-1.0); Blood Urea Nitrogen 14 mg/dL (9-16); Calcium 8.9 mg/dL (8.4-10.2); Carbon Dioxide 29 mmol/L (22-29); Chloride 107 mmol/L (96-108); Cholesterol 162 mg/dL; Estimated Glomerular Filt Rate > 60; Glucose Fasting 122 mg/dL (60-99); HDL Cholesterol 40 mg/dL; LDL Cholesterol Calculated 80 mg/dl; Potassium 3.8 mmol/L (3.3-5.1); Sodium 141 mmol/L (135-145); Total Protein 6.2 g/dL (6.5-8.0); Triglycerides 210 mg/dL
[2021-01-15 09:38] LABS: TSH reflex Free T4 2.52 uIU/mL (0.32-4.0); Vitamin D 25-OH Total 29.4 ng/mL (>30)
== END 2021-01-15 07:45 | disposition home or self-care (01) ==
LOC: HO.LAB 07:44
PROVIDERS: PCP Internal Medicine; Visit Provider Internal Medicine
DX: I10 Essential (primary) hypertension (principal); E78.00 Pure hypercholesterolemia, unspecified; G40.909 Epilepsy, unspecified, not intractable, without status epilepticus; E55.9 Vitamin D deficiency, unspecified
CPT/HCPCS: 36415; 80053; 80061; 80164; 80177; 81003; 82306; 84443; 85025

== ENCOUNTER 2021-03-26 12:00 | Outpatient (RCR) | payer OTHER, SELFPAY ==
--- NOTE | 2021-02-24 16:12 | MHC.PT.EP ---
[facility] [place] Office [place] Office [place] Office [address] Keri Haddad [address] [phone] F: [phone] F: [phone] F: [phone] F: [phone] Physical Therapy Plan of Care Date of Evaluation: Date of Surgery: Diagnosis: unilateral primary OA, L knee Assessment: 55 y/o referred to PT with primary OA of L knee. Of note, pt has PMH significant for TBI, CVA with R hemiparesis, and epilepsy. At baseline, he has been w/c dependent for one year of insidious onset due to unsteadiness/balance and pain. 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 CUrrently reports knee pain limiting ability for transfers and ADL's. Examination shows tone of B HS, decreased R hip flexor/quad/hip ER strength, decreased knee extension B (due to tight HS and ?tone), min A bed mobility, poor standing balance, impulsive, and pain. Recommend PT 2x/week for 5 weeks to address impairments, implement HEP, and optimize functional mobility. Frequency and Duration: The patient will be seen 2x/week for 5 weeks Short Term Goals: 1. I with HEP 2. Demonstrate stativ standing balnace to 30 sec 3. Improve L knee extension to 10 degrees Corrosion Control Engineer Goals: 5 weeks 1. I with HEP and self management of sx 2. Demonstrate CGA for transfers 3. Ambulate with min A for >300' with knee pain < 3/10 Treatment Plan: Modalities to reduce pain, spasms and effusion. Manual therapy to restore motion and function. Therapeutic exercise to improve strength and flexibility. Neuromuscular re-education for posture and balance. Therapeutic activities to return to functional activities of daily living. Electronically signed by: Rossy Berg PT Please sign and return to therapist. Thank you for your referral.
--- NOTE | 2021-04-14 09:24 | MHC.PT.DC ---
[facility] [place] Office [place] [employer] Office [place] Office [address]addad [address] [phone] F: [phone] F: [phone] F: [phone] F: [phone] Physical Therapy Discharge Report Diagnosis: unilateral primary OA, L knee Date of Surgery: Date of Evaluation: 02/24/21 Date of Discharge: 04/14/21 Treatments to Date: 6 Cancellations to Date: 0 No Shows to Date: 0 Discharge Status: Independent with HEP Discharge Summary: D/c to I HEP with assistance from EPIC MANAGER. He has made some progress with improved standing balance and ambulating 139' with RW showing improved endrance as well, however he does require close spv. Electronically signed by: Rossy Berg PT Please sign and return to therapist. Thank you for your referral.
== END 2021-04-14 09:26 | disposition home or self-care (01) ==
LOC: HO.PT 12:00
PROVIDERS: PCP Internal Medicine; Visit Provider Internal Medicine
DX: M17.12 Unilateral primary osteoarthritis, left knee (principal)
CPT/HCPCS: 97110; 97112; 97116; 97162; 97530

== ENCOUNTER 2021-08-21 17:10 | Inpatient (IN) | payer OTHER, SELFPAY ==
--- NOTE | ~2021-08-21 | XR_ITS ---
EXAMINATION: XR CHEST CLINICAL INFORMATION: Shortness of breath, COVID positive. COMPARISON: 03/03/2020 chest radiograph. TECHNIQUE: 2 views of the chest were obtained. FINDINGS: No significant abnormality is noted involving the heart, lungs, mediastinum, bony thorax or soft tissues. XR/XR chest 2V IMPRESSION: No acute cardiopulmonary process.
[2021-08-21 17:24] VITALS: BP 133/77; PULSE 110; RESP 22; TEMP 36.6; O2SAT 97; BMI 28.1
[2021-08-21 21:27] VITALS: BP 113/57; PULSE 97; RESP 18; TEMP 37.2; O2SAT 92
--- NOTE | 2021-08-21 21:44 | ECG_ITS ---
Test Reason : SOB Blood Pressure : / mmHG Vent. Rate : 089 BPM Atrial Rate : 089 BPM P-R Int : 144 ms QRS Dur : 076 ms QT Int : 350 ms P-R-T Axes : 067 053 028 degrees QTc Int : 425 ms Normal sinus rhythm Normal ECG When compared with ECG of 04-MAR-2020 06:28, Sinus rhythm has replaced Atrial fibrillation Nonspecific T wave abnormality, improved in Inferior leads Nonspecific T wave abnormality no longer evident in Anterior leads Referred By: Katarina Walls Electronically Signed By:ERIC SR MD
--- NOTE | 2021-08-21 21:53 | ED.URI ---
HPI - URI/Sore Throat General Chief Complaint: Upper Respiratory Symptoms Stated Complaint: COVID + Time Seen by Provider: 08/21/21 21:44 Source: patient, family (Mother) and production tech Mode of arrival: ambulatory History of Present Illness HPI Narrative: 55-year-old male with 2 days of cough, fever and shortness of breath and noted to be COVID-19 positive home. Otherwise patient denies any nausea, vomiting, diarrhea has no other acute complaints. Related Data Home Medications Medication Instructions Recorded Confirmed citalopram 20 mg tablet 20 mg PO QAM 02/29/20 05/18/21 divalproex 500 mg tablet,extended 500 mg PO BID 02/29/20 05/18/21 release 24 hr levetiracetam 1,000 mg tablet 1,000 mg PO BID 02/29/20 05/18/21 levetiracetam 250 mg tablet 250 mg PO BID 02/29/20 05/18/21 lorazepam 0.5 mg tablet 0.5 mg PO DAILY PRN 02/29/20 05/18/21 zolpidem 10 mg tablet 0.5 - 1 tab PO BEDTIME PRN 02/29/20 05/18/21 ofloxacin 0.3 % eye drops 1 drp OPHTHALMIC (EYE) QID ml 07/16/20 05/18/21 prednisolone acetate 1 % eye 1 drp OPHTHALMIC (EYE) QID ml 07/16/20 05/18/21 drops,suspension miscellaneous medical supply ea MISCELLANEOUS 07/18/20 05/18/21 Previous Rx's Medication Instructions Recorded WHEELCHAIR #1 ea 07/22/20 ergocalciferol (vitamin D2) 1,250 1,250 mcg PO QWEEK 90 Days #13 cap 10/14/20 mcg (50,000 unit) capsule WHEELCHAIR #1 ea 01/14/21 [facility] Bed #1 ea 01/22/21 chair, wheel (Wheel chair) #1 ea 02/23/21 atorvastatin 40 mg tablet 40 mg PO BEDTIME 90 Days #90 tab 04/08/21 dextromethorphan-guaifenesin 10 10 ml PO Q6H PRN 30 Days #1200 ml 05/18/21 mg-100 mg/5 mL oral liquid loratadine 10 mg tablet 10 mg PO DAILY PRN 30 Days #30 tab 05/18/21 Allergies Allergy/AdvReac Type Severity Reaction Status Date / Time No Known Allergies Allergy Verified 05/18/21 13:38 Review of Systems Review of Systems: Pertinent positives and negatives as stated in HPI 10 point review of systems otherwise negative PMFSH Past Medical History Source: nursing notes reviewed Medical History Anxiety Coronavirus infection Depression Epilepsy History of traumatic brain injury Insomnia Left knee pain Postsurgical retinal scar of left eye Primary osteoarthritis of left knee Pure hypercholesterolemia TBI (traumatic brain injury) Vitamin D deficiency Family History Family History Mother Seizures Other No significant past surgical history Social History Social History Household Members: None Housing: House Alcohol intake: never Patient Tobacco Use Status: Former Tobacco user Second Hand Smoke Exposure: Yes Advance Directives: No Advance Directives Information Provided: Yes service: No Current occupational status: disabled Physical Exam Vital Signs: Vital Signs: Last Vital Signs Temp 98.9 F 08/21/21 21:27 Pulse 97 08/21/21 21:27 Resp 18 08/21/21 21:27 BP 113/57 L 08/21/21 21:27 Pulse Ox 90 L 08/21/21 22:00 BMI result Body Mass Index 28.1 VITAL SIGNS: Reviewed. GENERAL: Well developed, well nourished, in no acute distress. HEAD: Normocephalic/atraumatic EYES: PERRLA, EOMI EARS: Ext canals without abnormality, TMs non-bulging and non-erythematous NOSE: Nares patent bilateral OROPHARYNX: no oral lesions noted, posterior pharynx clear and non-erythematous without noted tonsillar enlargement/erythema/exudates NECK: Supple, no adenopathy LUNGS: Normal breath sounds, no wheeze/rhonchi/rales, no tachypnea. SpO2<90> range appears to 90-92% maximum. CARDIOVASCULAR: Regular rate and rhythm without noted murmurs, no JVD or lower extremity edema. ABDOMEN: Soft, non-tender, non-distended with bowel sounds. SKIN: Inspection of the skin reveals no rashes NEUROLOGIC: Alert and oriented x3. Strength and sensation to light touch were grossly intact x 4. Course Course Course Narrative: 55-year-old male with history and clinical presentation most consistent with viral syndrome and noted be COVID-19 positive. Patient is also noted to be mildly hypoxic and no evidence to suggest asthma exacerbation as a contributing factor. Review of chest x-ray without acute abnormalities, will obtain basic labs, EKG and discuss the case with inpatient hospitalist who accepts admission. MDM - URI/Sore Throat Lab Data Result diagrams: 08/21/21 22:49 08/21/21 22:49 Labs: Lab Results 08/21/21 08/21/21 08/21/21 Range/Units 22:49 22:49 22:49 WBC 7.9 (4.8-10.8) X10*3/uL RBC 4.19 L (4.60-5.80) X10*6/uL Hgb 12.8 L (14.0-18.0) g/dl Hct 37.6 L (42.0-52.0) % MCV 89.7 (80.0-98.0) fL MCH 30.5 (27.0-33.0) pg MCHC 34.0 (31.0-36.0) g/dl RDW 12.8 (11.0-16.0) % Plt Count 152 L (160-400) X10*3/uL MPV 11.9 (9.4-12.4) fL Immature Gran % (Auto) 0.3 (0.0-0.4) % Neut % (Auto) 44.1 L (45-73) % Lymph % (Auto) 37.8 (20-40) % [place] % (Auto) 16.6 H (2-11) % Eos % (Auto) 0.8 (0-4) % Baso % (Auto) 0.4 (0-2) % Lymph # (Auto) 3.0 (1.2-4.9) X10*3/uL [place] # (Auto) 1.3 H (0.1-1.2) X10*3/uL Eos # (Auto) 0.1 (0.0-0.4) X10*3/uL Baso # (Auto) 0.0 (0.0-0.2) X10*3/uL Abs Immat Gran (auto) 0.02 (0.00-0.03) X10*3/uL Absolute Neuts (auto) 3.5 (2.0-8.3) x10*3/uL Absolute Nucleated RBC 0.000 (0.0-0.012) X10*3/uL Nucleated RBC % (auto) 0.0 (0.0-0.2) /100WBC PT 12.2 (9.9-13.0) SEC INR 1.1 (0.9-1.1) Sodium 138 (135-145) mmol/L Potassium 4.2 (3.3-5.1) mmol/L Chloride 101 (96-108) mmol/L Carbon Dioxide 30 H (22-29) mmol/L Anion Gap 11 L (12-20) BUN 12 (9-16) mg/dL Creatinine 0.80 (0.5-1.4) mg/dL Estim Creat Clear Calc 112.6 Estimated GFR > 60 Random Glucose 108 (60-115) mg/dL Calcium 9.2 (8.4-10.2) mg/dL Total Bilirubin 0.4 (0.0-1.0) mg/dL AST 28 D (5-37) U/L ALT 22 (0-40) U/L Alkaline Phosphatase 70 (39-117) U/L Total Protein 6.6 (6.5-8.0) g/dL Albumin 3.6 (3.5-5.0) g/dL ECG Data Attestation: I personally reviewed and interpreted this ECG as follows: Prior ECG tracings: available for review Interpretation: NSR, HR-89, no STEMI, SC/QRS/QTC are within normal limits. Discharge Plan Discharge Clinical Impression: Lab test positive for detection of COVID-19 virus, PAF (paroxysmal atrial fibrillation), Epilepsy, TBI (traumatic brain injury), Hypoxia Patient Disposition: Admitted As Inpatient
[2021-08-21 22:00] VITALS: O2SAT 90
--- NOTE | 2021-08-21 22:16 | PC.NURSE ---
Moved Pt from EMC1 to ED Bed 16. Per , plan for admission. Placed on monitor technician, pulse oximeter, and oxygen via nasal cannula at 2lpm. Room air saturation at 90-92%. COVID+ per production helper. Louis is greek speaking, and has baseline difficulty answering some questions. Pt's mother is also a patient in the ED at this time and is coherent and able to speak for this patient as needed. aware of this. Call prudence within reach, Joe BOND to resume care of patient.
[2021-08-21 22:54] LABS: MANUAL DIFF FLAG NO
[2021-08-21 22:55] LABS: Basophils Percent Auto 0.4 % (0-2); Eosinophils Absolute Auto 0.1 X10*3/uL (0.0-0.4); Eosinophils Percent Auto 0.8 % (0-4); Hematocrit 37.6 % (42.0-52.0); Hemoglobin 12.8 g/dl (14.0-18.0); Imm Gran Abs Auto 0.02 X10*3/uL (0.00-0.03); Imm Gran Pct Auto 0.3 % (0.0-0.4); Lymphocytes Percent Auto 37.8 % (20-40); Mean Corpuscular Hemoglobin 30.5 pg (27.0-33.0); Mean Corpuscular Volume 89.7 fL (80.0-98.0); Mean Platelet Volume 11.9 fL (9.4-12.4); Monocytes Absolute Auto 1.3 X10*3/uL (0.1-1.2); Monocytes Percent Auto 16.6 % (2-11); Neutrophils Absolute Auto 3.5 x10*3/uL (2.0-8.3); Neutrophils Percent Auto 44.1 % (45-73); Platelet Count 152 X10*3/uL (160-400); Red Blood Count 4.19 X10*6/uL (4.60-5.80); Red Cell Distribution Width 12.8 % (11.0-16.0); White Blood Count 7.9 X10*3/uL (4.8-10.8)
[2021-08-21 23:00] LABS: INTERNATIONAL NORM RATIO 1.1 (0.9-1.1); Prothrombin Time 12.2 SEC (9.9-13.0)
[2021-08-21 23:16] LABS: Alanine Aminotransferase 22 U/L (0-40); Albumin Level 3.6 g/dL (3.5-5.0); Alkaline Phosphatase 70 U/L (39-117); Anion Gap 11 (12-20); Aspartate Amino Transferase 28 U/L (5-37); Bilirubin Total 0.4 mg/dL (0.0-1.0); Blood Urea Nitrogen 12 mg/dL (9-16); Calcium 9.2 mg/dL (8.4-10.2); Carbon Dioxide 30 mmol/L (22-29); Chloride 101 mmol/L (96-108); Creatinine Clr Calc Pharmacy 112.6; Estimated Glomerular Filt Rate > 60; Glucose Random 108 mg/dL (60-115); Potassium 4.2 mmol/L (3.3-5.1); Sodium 138 mmol/L (135-145); Total Protein 6.6 g/dL (6.5-8.0)
--- NOTE | 2021-08-21 23:43 | P.HPHOSP_ITS ---
History of Present Illness Date of Service: 08/21/21 Chief Complaint: SOB 55-year-old male with a past medical history of anxiety, depression, history of traumatic brain injury, epilepsy, knee osteoarthritis, vitamin D deficiency presented to the hospital with a chief complaint of fever and shortness of breath. Patient is a poor historian. Will be response to the commands. Most of the history obtained from the records and ER staff. I tried to reach the patient's mother but unable to reach over the phone. Reportedly patient has been having cough and fever associated shortness of breath for 2 days at home. Denies any sputum production. Noted to be COVID-19 positive. ; subsequently brought into the hospital for further evaluation. Patient lying in the bed comfortably, spoke to the RN at bedside; Review of all other systems is limited ER course: Per ER team patient noted to be COVID-19 positive. Saturating 90% on room air; chest x-ray showed no acute findings; placed on supplemental oxygen. Admitted to the hospital for further management. [facility] Medical History Anxiety Coronavirus infection Depression Epilepsy History of traumatic brain injury Insomnia Left knee pain Postsurgical retinal scar of left eye Primary osteoarthritis of left knee Pure hypercholesterolemia TBI (traumatic brain injury) Vitamin D deficiency Family History Mother Seizures Other No significant past surgical history Social History Household Members: None Housing: House Alcohol intake: never Patient Tobacco Use Status: Former Tobacco user Second Hand Smoke Exposure: Yes Advance Directives: No Advance Directives Information Provided: Yes service: No Current occupational status: disabled Meds Allergies Allergy/AdvReac Type Severity Reaction Status Date / Time No Known Allergies Allergy Verified 05/18/21 13:38 Home Medications Medication Instructions Recorded Confirmed Last Taken Type citalopram 20 mg tablet 20 mg PO QAM 02/29/20 05/18/21 Unknown History divalproex 500 mg tablet,extended 500 mg PO BID 02/29/20 05/18/21 Unknown History release 24 hr levetiracetam 1,000 mg tablet 1,000 mg PO BID 02/29/20 05/18/21 Unknown History levetiracetam 250 mg tablet 250 mg PO BID 02/29/20 05/18/21 Unknown History lorazepam 0.5 mg tablet 0.5 mg PO DAILY PRN 02/29/20 05/18/21 Unknown History zolpidem 10 mg tablet 0.5 - 1 tab PO BEDTIME PRN 02/29/20 05/18/21 Unknown History ofloxacin 0.3 % eye drops 1 drp OPHTHALMIC (EYE) QID ml 07/16/20 05/18/21 Unknown History prednisolone acetate 1 % eye 1 drp OPHTHALMIC (EYE) QID ml 07/16/20 05/18/21 Unknown History drops,suspension miscellaneous medical supply ea MISCELLANEOUS 07/18/20 05/18/21 Unknown History Physical Exam Vital Signs and Narrative: Vital Signs: Last Vital Signs Temp 98.9 F 08/21/21 21:27 Pulse 97 08/21/21 21:27 Resp 18 08/21/21 21:27 BP 113/57 L 08/21/21 21:27 Pulse Ox 90 L 08/21/21 22:00 BMI result Body Mass Index 28.1 Gen: Appears be in no acute distress HEENT: NCAT, Moist mucosa. Pulmonary: Coarse breath sounds CVS: Normal S1-S2 Abdomen: BS+, Soft, Nontender Extremities: Warm well perfused Neuro: Alert and awake. Results Labs CBC and Chem 7: 08/21/21 22:49 08/21/21 22:49 Labs: Laboratory Results - last 24 hr 08/21/21 08/21/21 08/21/21 22:49 22:49 22:49 MCV 89.7 MCH 30.5 MCHC 34.0 RDW 12.8 Plt Count 152 L MPV 11.9 Immature Gran % (Auto) 0.3 Neut % (Auto) 44.1 L Lymph % (Auto) 37.8 [place] % (Auto) 16.6 H Eos % (Auto) 0.8 Baso % (Auto) 0.4 Lymph # (Auto) 3.0 [place] # (Auto) 1.3 H Eos # (Auto) 0.1 Baso # (Auto) 0.0 Abs Immat Gran (auto) 0.02 Absolute Neuts (auto) 3.5 Absolute Nucleated RBC 0.000 Nucleated RBC % (auto) 0.0 PT 12.2 INR 1.1 Anion Gap 11 L Estim Creat Clear Calc 112.6 Estimated GFR > 60 Random Glucose 108 Calcium 9.2 Total Bilirubin 0.4 AST 28 D ALT 22 Alkaline Phosphatase 70 Total Protein 6.6 Albumin 3.6 Imaging Radiologist's Impressions: Impressions Chest X-Ray 08/21/21 17:47 IMPRESSION: No acute cardiopulmonary process. Assessment and Plan (1) Lab test positive for detection of COVID-19 virus: Status: Acute (2) Hypoxia: Status: Acute Plan 55-year-old male with a past medical history of anxiety, depression, history of traumatic brain injury, epilepsy, knee osteoarthritis, vitamin D deficiency presented to the hospital with a chief complaint of fever and shortness of breath. Noted to have following COVID-19 positive: Patient was mildly hypoxic to 90% on room air. Placed on supplemental oxygen. Decadron. ID consult. History of hyperlipidemia: Continue home statin History of seizures: Continue home Depakote, Keppra History of anxiety/depression: Continue home Ativan/citalopram DVT prophylaxis: Lovenox Code status: Presumed full code. I tried to reach the patient's mother-not reachable. Left voice message. Quality Stroke Does the patient have a stroke diagnosis?: No VTE Prior VTE?: No VTE Risk Level:: Medical - moderate - high VTE Device Contraindication: Treatment Not Indicated VTE Drug Contraindication: N/A - Med Ordered
[2021-08-22] VITALS (9 sets, daily range): BP systolic 95–116; BP diastolic 54–69; PULSE 75–91; RESP 12–20; TEMP 36.7; O2SAT 89–99
[2021-08-22] MEDS: Enoxaparin Sodium 40 MG/0.4 ML SYRINGE SUBCUT (03:08)
[2021-08-22 06:56] LABS: MANUAL DIFF FLAG NO
[2021-08-22 07:03] LABS: Basophils Percent Auto 0.5 % (0-2); Eosinophils Absolute Auto 0.1 X10*3/uL (0.0-0.4); Eosinophils Percent Auto 0.9 % (0-4); Hematocrit 38.3 % (42.0-52.0); Hemoglobin 12.8 g/dl (14.0-18.0); Imm Gran Abs Auto 0.01 X10*3/uL (0.00-0.03); Imm Gran Pct Auto 0.2 % (0.0-0.4); Lymphocytes Absolute Auto 2.4 X10*3/uL (1.2-4.9); Lymphocytes Percent Auto 42.9 % (20-40); Mean Corpuscular HGB Conc 33.4 g/dl (31.0-36.0); Mean Corpuscular Hemoglobin 30.2 pg (27.0-33.0); Mean Corpuscular Volume 90.3 fL (80.0-98.0); Mean Platelet Volume 12.3 fL (9.4-12.4); Monocytes Absolute Auto 0.9 X10*3/uL (0.1-1.2); Monocytes Percent Auto 16.1 % (2-11); Neutrophils Absolute Auto 2.2 x10*3/uL (2.0-8.3); Neutrophils Percent Auto 39.4 % (45-73); Platelet Count 147 X10*3/uL (160-400); Red Blood Count 4.24 X10*6/uL (4.60-5.80); Red Cell Distribution Width 12.8 % (11.0-16.0); White Blood Count 5.7 X10*3/uL (4.8-10.8)
[2021-08-22 07:24] LABS: Glucose, Whole Blood 102 mg/dL (60-115)
[2021-08-22 07:32] LABS: Anion Gap 12 (12-20); Blood Urea Nitrogen 11 mg/dL (9-16); Calcium 9.1 mg/dL (8.4-10.2); Carbon Dioxide 30 mmol/L (22-29); Chloride 105 mmol/L (96-108); Creatinine Clr Calc Pharmacy 128.7; Estimated Glomerular Filt Rate > 60; Glucose Random 114 mg/dL (60-115); Potassium 3.8 mmol/L (3.3-5.1); Sodium 143 mmol/L (135-145)
[2021-08-22] MEDS: 0.9 % Sodium Chloride Flush 3 ML SYRINGE IVFLUSH ×2 (08:27→18:02)
[2021-08-22 08:35] LABS: COVID-19 Test Positive (Negative)
--- NOTE | 2021-08-22 09:35 | P.PNIM_ITS ---
Subjective Subjective Date of Service: 08/22/21 Interval History: cc: sob interval history:no changes Cardiovascular Cardiovascular: Reports no additional cardiovascular complaints Gastrointestinal Gastrointestinal: Reports no additional gastrointestinal complaints Physical Exam Vital Signs: Vital Signs: Last Vital Signs Temp 98.9 F 08/21/21 21:27 Pulse 75 08/22/21 08:25 Resp 20 08/22/21 08:25 BP 100/65 08/22/21 08:25 Pulse Ox 98 08/22/21 08:25 BMI result Body Mass Index 28.1 General: no acute distress Resp: Crackles bilateral, no accessory muscles used CVS: S1,S2,RRR GI: soft, non tender, non distended Neuro: motor grossly intact, alert Psych: impaired insight Objective Data Active Medications Acetaminophen (Acetaminophen 325 Mg Tablet) 650 mg PO Q6H PRN PRN Reason: Pain, Mild (Pain Scale 1-3) Dexamethasone Sodium Phosphate (Dexamethasone Sod Phosphate 4 Mg/Ml Vial) 6 mg IVPUSH DAILY [facility] Divalproex Sodium (Divalproex Sodium Er 500 Mg Tab.Er.24h) 500 mg PO DAILY [facility] Divalproex Sodium (Divalproex Sodium Er 500 Mg Tab.Er.24h) 1,000 mg PO BEDTIME [facility] Enoxaparin Sodium (Enoxaparin Sodium 40 Mg/0.4 Ml Syringe) 40 mg SUBCUT Q24H [facility] Last Admin: 08/22/21 03:08 Dose: 40 mg Documented by: WESLEY Levetiracetam (Levetiracetam 1,000 Mg Tablet) 1,000 mg PO BID [facility] Melatonin (Melatonin 3 Mg Tablet) 6 mg PO BEDTIME PRN PRN Reason: Insomnia Morphine Sulfate (Morphine Sulfate 4 Mg/Ml Cartridge) 1 mg IVPUSH Q4H PRN; Protocol PRN Reason: Pain, SOB Senna (Sennosides 8.6 Mg Tablet) 17.2 mg PO BEDTIME PRN PRN Reason: Constipation Sodium Chloride (0.9 % Sodium Chloride Flush 3 Ml Syringe) 3 ml IVFLUSH QSHIFT [facility] Last Admin: 08/22/21 08:27 Dose: 3 ml Documented by: ROGE Labs CBC & Chem 7: 08/22/21 06:39 08/22/21 06:39 Labs: Laboratory Results - last 24 hr 05/13/22 05/13/22 05/13/22 22:49 22:49 22:49 MCV 89.7 MCH 30.5 MCHC 34.0 RDW 12.8 Plt Count 152 L MPV 11.9 Immature Gran % (Auto) 0.3 Neut % (Auto) 44.1 L Lymph % (Auto) 37.8 Real % (Auto) 16.6 H Eos % (Auto) 0.8 Baso % (Auto) 0.4 Lymph # (Auto) 3.0 Real # (Auto) 1.3 H Eos # (Auto) 0.1 Baso # (Auto) 0.0 Abs Immat Gran (auto) 0.02 Absolute Neuts (auto) 3.5 Absolute Nucleated RBC 0.000 Nucleated RBC % (auto) 0.0 PT 12.2 INR 1.1 Anion Gap 11 L Estim Creat Clear Calc 112.6 Estimated GFR > 60 POC Glucose Random Glucose 108 Calcium 9.2 Total Bilirubin 0.4 AST 28 D ALT 22 Alkaline Phosphatase 70 Total Protein 6.6 Albumin 3.6 COVID-19 (JODY) COVID-19 [employer] 08/22/21 08/22/21 08/22/21 06:39 06:39 07:20 MCV 90.3 MCH 30.2 MCHC 33.4 RDW 12.8 Plt Count 147 L MPV 12.3 Immature Gran % (Auto) 0.2 Neut % (Auto) 39.4 L Lymph % (Auto) 42.9 H Real % (Auto) 16.1 H Eos % (Auto) 0.9 Baso % (Auto) 0.5 Lymph # (Auto) 2.4 Real # (Auto) 0.9 Eos # (Auto) 0.1 Baso # (Auto) 0.0 Abs Immat Gran (auto) 0.01 Absolute Neuts (auto) 2.2 Absolute Nucleated RBC 0.000 Nucleated RBC % (auto) 0.0 PT INR Anion Gap 12 Estim Creat Clear Calc 128.7 Estimated GFR > 60 POC Glucose 102 Random Glucose 114 Calcium 9.1 Total Bilirubin AST ALT Alkaline Phosphatase Total Protein Albumin COVID-19 (JODY) COVID-19 [employer] 08/22/21 08:23 MCV MCH MCHC RDW Plt Count MPV Immature Gran % (Auto) Neut % (Auto) Lymph % (Auto) Real % (Auto) Eos % (Auto) Baso % (Auto) Lymph # (Auto) Real # (Auto) Eos # (Auto) Baso # (Auto) Abs Immat Gran (auto) Absolute Neuts (auto) Absolute Nucleated RBC Nucleated RBC % (auto) PT INR Anion Gap Estim Creat Clear Calc Estimated GFR POC Glucose Random Glucose Calcium Total Bilirubin AST ALT Alkaline Phosphatase Total Protein Albumin COVID-19 (JODY) Positive A COVID-19 Clin Com See Note Assessment and Plan (1) Hypoxia: Status: Acute Plan 55M presented with sob acute hypoxic respiratory failure due to covid infection wean o2 as tolerated decadron day 2 ID eval 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
[2021-08-22] MEDS: dexAMETHasone sod phosphate 4 MG/ML VIAL 6 MG IVPUSH (10:29)
--- NOTE | 2021-08-22 10:32 | PC.NURSE ---
pt difficult to understand with garbled speech. currently resting in bed with eyes closed. pt with no complaints, NAD at this time. pt medicated per MAR
[2021-08-22] MEDS: Divalproex Sodium ER 500 MG TAB.ER.24H PO (11:48)
[2021-08-22] MEDS: levETIRAcetam 1,000 MG TABLET 1000 MG PO ×2 (11:49→20:23)
[2021-08-22] MEDS: Escitalopram Oxalate 10 MG TABLET PO (11:49)
--- NOTE | 2021-08-22 11:53 | PC.NURSE ---
spoke with pts mother with [facility] sole stapler welt. mother is liberian speaking only. per mother, pt takes his pills whole with water/juice but needs the pills to be placed in his mouth one at a time. medicated pt with AM medication without difficulty
--- NOTE | 2021-08-22 15:09 | MHC.CM.PN ---
pt in ed with yuli called with ian and spoke with his marley groves with whom he lives she explins that he has diabetes nurse hrs his nephew is his diabetes nurse and will be theone transporting him home he is vax with j&j no booster he has [facility] quartewrly visits with an rn..she does not believe he has a hcp pts pcp is neftali
--- NOTE | 2021-08-22 16:04 | PC.NURSE ---
[place] cath placed on pt
--- NOTE | 2021-08-22 17:38 | PC.NURSE ---
MILTON MCCLURE will be pts ride home when ready for D/C
--- NOTE | 2021-08-22 17:55 | PC.NURSE ---
pt incontinent of large amount of liquid and semi-formed stool. pts cleaned up, bed linens changed.
--- NOTE | 2021-08-22 17:56 | PC.NURSE ---
PT WITH ANKLE MONITOR pts nephew dropped off station cashier for ankle monitor which magnetically attaches to the bottom of the monitor. if light red- needs charging, if light green, fully charged.
[2021-08-22] MEDS: levETIRAcetam 250 MG TABLET PO (20:23)
[2021-08-22] MEDS: Atorvastatin Calcium 40 MG TABLET PO (20:23)
[2021-08-22] MEDS: Divalproex Sodium ER 500 MG TAB.ER.24H 1000 MG PO (20:23)
--- NOTE | 2021-08-22 20:59 | PC.NURSE ---
I assumed nursing care of Louis at 1900. Since that time he has been awake, alert, sitting upright in bed. He makes eye contact with RN and is able to indicate yes or no verbally when asked questions. I assisted Louis with his PM PO meds. He requires assistance putting one pill at a time in his mouth and assistance with water to swallow the pill. He did this without difficulty. He denies pain. Respirations are non-labored, no cyanosis, room air sats are WNL. Skin pink/warm/dry. Louis is awaiting a bed assignment and nods yes that he understands this. We will continue to monitor Louis.
--- NOTE | 2021-08-22 23:21 | P.CNID_ITS ---
History of Present Illness Data of Consult Service Date: 08/22/21 Requesting physician: Ja Mora Primary Care Provider: Unknown Physician HPI Reason for consult: COVID He presents to hospital with shortness of breath and cough for last two days. He has oxygen 92 percent and now on 2 liters. He is positive for COVID. Review of Systems Review of Systems: Yes all other systems are reviewed and are negative PMFSH Past Medical History Medical History Anxiety Coronavirus infection Depression Epilepsy History of traumatic brain injury Insomnia Left knee pain Postsurgical retinal scar of left eye Primary osteoarthritis of left knee Pure hypercholesterolemia TBI (traumatic brain injury) Vitamin D deficiency Family History Family History Mother Seizures Other No significant past surgical history Family history: reviewed and not pertinent Social History Social History Household Members: Unknown / Unable to assess Housing: Unknown / Unable to assess Unable to assess alcohol history related to: Unable to respond Alcohol intake: never Patient Tobacco Use Status: Former Tobacco user Second Hand Smoke Exposure: Yes service: No Current occupational status: disabled Meds Allergies Allergy/AdvReac Type Severity Reaction Status Date / Time No Known Allergies Allergy Verified 05/18/21 13:38 Active Medications: Current Medications Acetaminophen (Acetaminophen 325 Mg Tablet) 650 mg PO Q6H PRN PRN Reason: Pain, Mild (Pain Scale 1-3) Atorvastatin Calcium (Atorvastatin Calcium 40 Mg Tablet) 40 mg PO BEDTIME [facility] Last Admin: 08/22/21 20:23 Dose: 40 mg Documented by: Dexamethasone Sodium Phosphate (Dexamethasone Sod Phosphate 4 Mg/Ml Vial) 6 mg IVPUSH DAILY [facility] Last Admin: 08/22/21 10:29 Dose: 6 mg Documented by: Divalproex Sodium (Divalproex Sodium Er 500 Mg Tab.Er.24h) 500 mg PO DAILY [facility] Last Admin: 08/22/21 11:48 Dose: 500 mg Documented by: Divalproex Sodium (Divalproex Sodium Er 500 Mg Tab.Er.24h) 1,000 mg PO BEDTIME [facility] Last Admin: 08/22/21 20:23 Dose: 1,000 mg Documented by: Enoxaparin Sodium (Enoxaparin Sodium 40 Mg/0.4 Ml Syringe) 40 mg SUBCUT Q24H [facility] Last Admin: 08/22/21 03:08 Dose: 40 mg Documented by: Ergocalciferol (Ergocalciferol (Vitamin D2) 1,250 Mcg Capsule) 1,250 mcg PO Fr [facility] Escitalopram Oxalate (Escitalopram Oxalate 10 Mg Tablet) 10 mg PO DAILY [facility] Last Admin: 08/22/21 11:49 Dose: 10 mg Documented by: Levetiracetam (Levetiracetam 250 Mg Tablet) 250 mg PO BEDTIME [facility] Last Admin: 08/22/21 20:23 Dose: 250 mg Documented by: Levetiracetam (Levetiracetam 1,000 Mg Tablet) 1,000 mg PO BID [facility] Last Admin: 08/22/21 20:23 Dose: 1,000 mg Documented by: Levetiracetam (Levetiracetam 500 Mg Tablet) 500 mg PO DAILY [facility] Loratadine (Loratadine 10 Mg Tablet) 10 mg PO DAILY PRN PRN Reason: allergy symptoms/cough Morphine Sulfate (Morphine Sulfate 4 Mg/Ml Cartridge) 1 mg IVPUSH Q4H PRN; Protocol PRN Reason: Pain, SOB Senna (Sennosides 8.6 Mg Tablet) 17.2 mg PO BEDTIME PRN PRN Reason: Constipation Sodium Chloride (0.9 % Sodium Chloride Flush 3 Ml Syringe) 3 ml IVFLUSH QSHIFT [facility] Last Admin: 08/22/21 18:02 Dose: 3 ml Documented by: Zolpidem Tartrate (Zolpidem Tartrate 5 Mg Tablet) 5 - 10 mg PO BEDTIME PRN PRN Reason: Insomnia Home Medications Medication Instructions Recorded Confirmed Last Taken Type citalopram 20 mg tablet 20 mg PO QAM 02/29/20 08/22/21 Unknown History divalproex 500 mg tablet,extended 500 mg PO DAILY 02/29/20 08/22/21 Unknown History release 24 hr levetiracetam 1,000 mg tablet 1,000 mg PO BID 02/29/20 08/22/21 Unknown History levetiracetam 250 mg tablet 250 mg PO BEDTIME 02/29/20 08/22/21 Unknown History zolpidem 10 mg tablet 0.5 - 1 tab PO BEDTIME PRN 02/29/20 08/22/21 Unknown History ofloxacin 0.3 % eye drops 1 drp OPHTHALMIC (EYE) QID ml 07/16/20 08/22/21 Unknown History divalproex 500 mg tablet,extended 1,000 mg PO BEDTIME 08/22/21 08/22/21 Unknown History release 24 hr levetiracetam 250 mg tablet 500 mg PO DAILY 08/22/21 08/22/21 Unknown History Physical Exam Vital Signs: Vital Signs: Last Vital Signs Temp 98.1 F 08/22/21 21:17 Pulse 90 08/22/21 21:17 Resp 16 08/22/21 21:17 BP 112/61 08/22/21 21:17 Pulse Ox 92 08/22/21 21:17 BMI result Body Mass Index 28.1 Const: General: cooperative HEENT: Head: Yes normal to inspection Resp: Effort & Inspection: normal respiratory effort Cardio: Rate: regular rate Rhythm: regular rhythm GI: Palpation (GI): Soft to palpation and nontender Results Labs CBC & Chem 7: 08/25/21 06:44 08/25/21 06:44 Labs: Short CBC 08/22/21 Range/Units 06:39 WBC 5.7 (4.8-10.8) X10*3/uL Hgb 12.8 L (14.0-18.0) g/dl Hct 38.3 L (42.0-52.0) % Plt Count 147 L (160-400) X10*3/uL BMP 08/22/21 06:39 Sodium 143 Potassium 3.8 Chloride 105 Carbon Dioxide 30 H BUN 11 Creatinine 0.70 Calcium 9.1 Assessment and Plan (1) Lab test positive for detection of COVID-19 virus: Status: Acute (2) Hypoxia: Status: Acute He has illness 2-3 days He has hypoxia Plan Remdesivir until no longer hypoxic. Dexamethaosne Oxygen as needed
[2021-08-23] VITALS (9 sets, daily range): BP systolic 85–130; BP diastolic 56–81; PULSE 66–81; RESP 9–20; TEMP 35.6–37.1; O2SAT 92–98
[2021-08-23] MEDS: Enoxaparin Sodium 40 MG/0.4 ML SYRINGE SUBCUT (00:16)
[2021-08-23 07:10] LABS: Hematocrit 39.9 % (42.0-52.0); Hemoglobin 13.3 g/dl (14.0-18.0); Mean Corpuscular HGB Conc 33.3 g/dl (31.0-36.0); Mean Corpuscular Volume 89.9 fL (80.0-98.0); Mean Platelet Volume 12.8 fL (9.4-12.4); Platelet Count 166 X10*3/uL (160-400); Red Blood Count 4.44 X10*6/uL (4.60-5.80); Red Cell Distribution Width 12.1 % (11.0-16.0); White Blood Count 6.3 X10*3/uL (4.8-10.8)
[2021-08-23 07:38] LABS: Anion Gap 12 (12-20); Blood Urea Nitrogen 17 mg/dL (9-16); C Reactive Protein 3.33 mg/dL (< or = 0.50); Calcium 9.3 mg/dL (8.4-10.2); Carbon Dioxide 29 mmol/L (22-29); Chloride 103 mmol/L (96-108); Creatinine Clr Calc Pharmacy 132.5; Estimated Glomerular Filt Rate > 60; Glucose Fasting 126 mg/dL (60-99); Potassium 4.4 mmol/L (3.3-5.1); Sodium 140 mmol/L (135-145)
[2021-08-23] MEDS: Divalproex Sodium ER 500 MG TAB.ER.24H PO (09:56)
[2021-08-23] MEDS: levETIRAcetam 1,000 MG TABLET 1000 MG PO ×2 (09:56→21:15)
[2021-08-23] MEDS: dexAMETHasone sod phosphate 4 MG/ML VIAL 6 MG IVPUSH (09:56)
[2021-08-23] MEDS: Escitalopram Oxalate 10 MG TABLET PO (09:56)
[2021-08-23] MEDS: 0.9 % Sodium Chloride Flush 3 ML SYRINGE IVFLUSH (09:57)
--- NOTE | 2021-08-23 10:05 | HO.PM.IMPN ---
Subjective Subjective Date of Service: 08/23/21 Interval History: cc: sob interval history: cough, sob, not too bad Cardiovascular Cardiovascular: Reports no additional cardiovascular complaints Respiratory Respiratory: Reports no additional respiratory complaints Physical Exam Vital Signs: Vital Signs: Last Vital Signs Temp 97.5 F 08/23/21 07:22 Pulse 78 08/23/21 07:22 Resp 9 L 08/23/21 07:22 BP 99/66 08/23/21 07:22 Pulse Ox 93 08/23/21 07:22 BMI result Body Mass Index 28.1 General:? no acute distress Resp:? Crackles bilateral, no accessory muscles used CVS: S1,S2,RRR GI: soft, non tender, non distended Neuro:? motor grossly intact, alert Psych: impaired insight? Objective Data Active Medications Acetaminophen (Acetaminophen 325 Mg Tablet) 650 mg PO Q6H PRN PRN Reason: Pain, Mild (Pain Scale 1-3) Atorvastatin Calcium (Atorvastatin Calcium 40 Mg Tablet) 40 mg PO BEDTIME [facility] Last Admin: 08/22/21 20:23 Dose: 40 mg Documented by: LAUREL Dexamethasone Sodium Phosphate (Dexamethasone Sod Phosphate 4 Mg/Ml Vial) 6 mg IVPUSH DAILY [facility] Last Admin: 08/23/21 09:56 Dose: 6 mg Documented by: JAMAL Divalproex Sodium (Divalproex Sodium Er 500 Mg Tab.Er.24h) 500 mg PO DAILY [facility] Last Admin: 08/23/21 09:56 Dose: 500 mg Documented by: JAMAL Divalproex Sodium (Divalproex Sodium Er 500 Mg Tab.Er.24h) 1,000 mg PO BEDTIME [facility] Last Admin: 08/22/21 20:23 Dose: 1,000 mg Documented by: LAUREL Enoxaparin Sodium (Enoxaparin Sodium 40 Mg/0.4 Ml Syringe) 40 mg SUBCUT Q24H [facility] Last Admin: 08/23/21 00:16 Dose: 40 mg Documented by: VICENTE Ergocalciferol (Ergocalciferol (Vitamin D2) 1,250 Mcg Capsule) 1,250 mcg PO [facility] Escitalopram Oxalate (Escitalopram Oxalate 10 Mg Tablet) 10 mg PO DAILY [facility] Last Admin: 08/23/21 09:56 Dose: 10 mg Documented by: JAMAL Levetiracetam (Levetiracetam 250 Mg Tablet) 250 mg PO BEDTIME [facility] Last Admin: 08/22/21 20:23 Dose: 250 mg Documented by: LAUREL Levetiracetam (Levetiracetam 1,000 Mg Tablet) 1,000 mg PO BID [facility] Last Admin: 08/23/21 09:56 Dose: 1,000 mg Documented by: JAMAL Levetiracetam (Levetiracetam 500 Mg Tablet) 500 mg PO DAILY [facility] Loratadine (Loratadine 10 Mg Tablet) 10 mg PO DAILY PRN PRN Reason: allergy symptoms/cough Morphine Sulfate (Morphine Sulfate 4 Mg/Ml Cartridge) 1 mg IVPUSH Q4H PRN; Protocol PRN Reason: Pain, SOB Senna (Sennosides 8.6 Mg Tablet) 17.2 mg PO BEDTIME PRN PRN Reason: Constipation Sodium Chloride (0.9 % Sodium Chloride Flush 3 Ml Syringe) 3 ml IVFLUSH QSHIFT [facility] Last Admin: 08/23/21 09:57 Dose: 3 ml Documented by: JAMAL Zolpidem Tartrate (Zolpidem Tartrate 5 Mg Tablet) 5 - 10 mg PO BEDTIME PRN PRN Reason: Insomnia Labs CBC & Chem 7: 08/23/21 05:32 08/23/21 05:32 Labs: Laboratory Results - last 24 hr 08/23/21 08/23/21 05:32 05:32 MCV 89.9 MCH 30.0 MCHC 33.3 RDW 12.1 Plt Count 166 MPV 12.8 H Absolute Nucleated RBC 0.000 Nucleated RBC % (auto) 0.0 Anion Gap 12 Estim Creat Clear Calc 132.5 Estimated GFR > 60 Fasting Glucose 126 H Calcium 9.3 C-Reactive Protein 3.33 H Assessment and Plan (1) Hypoxia: Status: Acute Plan 55M presented with sob acute hypoxic respiratory failure due to covid infection wean o2 as tolerated decadron day 3 ID appreciated, added remdisivir day 1 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
[2021-08-23] MEDS: Remdesivir 200 MG in 0.9 % Sodium Chloride 210 ML 105 MG IV (11:49)
--- NOTE | 2021-08-23 12:20 | PC.NURSE ---
pt arrives to overflow. pt has court ordered ankle bracelet on- placed on telex operator and security notified. pt has antiviral running and external cath in place. pt denies complaints at this time. awaiting pulse ox wires from main ed
[2021-08-23 12:45] LABS: Glucose, Whole Blood 166 mg/dL (60-115)
[2021-08-23] MEDS: levETIRAcetam 500 MG TABLET PO (13:27)
[2021-08-23 18:15] LABS: Glucose, Whole Blood 204 mg/dL (60-115)
[2021-08-23 21:00] LABS: Glucose, Whole Blood 160 mg/dL (60-115)
[2021-08-23] MEDS: Divalproex Sodium ER 500 MG TAB.ER.24H 1000 MG PO (21:14)
[2021-08-23] MEDS: Atorvastatin Calcium 40 MG TABLET PO (21:15)
[2021-08-23] MEDS: levETIRAcetam 250 MG TABLET PO (21:15)
[2021-08-24 00:02] VITALS: BP 110/52; PULSE 78; RESP 12; O2SAT 92
[2021-08-24] MEDS: 0.9 % Sodium Chloride Flush 3 ML SYRINGE IVFLUSH ×4 (00:26→22:55)
[2021-08-24] MEDS: Enoxaparin Sodium 40 MG/0.4 ML SYRINGE SUBCUT ×2 (00:28→22:52)
[2021-08-24 02:00] VITALS: O2SAT 91
[2021-08-24 04:08] VITALS: BP 103/49; PULSE 65; RESP 13; TEMP 36.4; O2SAT 93
--- NOTE | 2021-08-24 05:15 | PC.NURSE ---
Shift eval - 11p-5a - Patient alert, calm, denies pain. Answers simple questions - slow/delayed speech. Vitals stable, denies SOB. Weaned oxygen off patient. 02sat maintaining around 90-91%. Patient using urinal. Tolerated snack - assist feed.
--- NOTE | 2021-08-24 07:56 | PC.NURSE ---
Assumed care 11p-5a - Patient tolerating NG tube - suction canister marked at 11pm - 200ml green output noted & documented. Patient denies abd pain or nausea. Vitals stable. HR 70's - SR. IV fluids infusing as ordered. Patient A & O X4
[2021-08-24] MEDS: levETIRAcetam 500 MG TABLET PO (08:38)
[2021-08-24] MEDS: dexAMETHasone sod phosphate 4 MG/ML VIAL 6 MG IVPUSH (08:38)
[2021-08-24] MEDS: levETIRAcetam 1,000 MG TABLET 1000 MG PO ×2 (08:38→22:53)
[2021-08-24] MEDS: Escitalopram Oxalate 10 MG TABLET PO (08:38)
[2021-08-24] MEDS: Divalproex Sodium ER 500 MG TAB.ER.24H PO (08:39)
--- NOTE | 2021-08-24 11:34 | HO.PM.IMPN ---
Subjective Subjective Date of Service: 08/24/21 Interval History: cc: sob interval history:no complaints Cardiovascular Cardiovascular: Reports no additional cardiovascular complaints Respiratory Respiratory: Reports no additional respiratory complaints Physical Exam Vital Signs: Vital Signs: Last Vital Signs Temp 97.5 F 08/24/21 04:08 Pulse 65 08/24/21 04:08 Resp 13 08/24/21 04:08 BP 103/49 L 08/24/21 04:08 Pulse Ox 93 08/24/21 04:08 BMI result Body Mass Index 28.1 General:? no acute distress Resp:? Crackles bilateral, no accessory muscles used CVS: S1,S2,RRR GI: soft, non tender, non distended Neuro:? motor grossly intact, alert Psych: impaired insight? Objective Data Active Medications Acetaminophen (Acetaminophen 325 Mg Tablet) 650 mg PO Q6H PRN PRN Reason: Pain, Mild (Pain Scale 1-3) Atorvastatin Calcium (Atorvastatin Calcium 40 Mg Tablet) 40 mg PO BEDTIME [facility] Last Admin: 08/23/21 21:15 Dose: 40 mg Documented by: OLGA Dexamethasone Sodium Phosphate (Dexamethasone Sod Phosphate 4 Mg/Ml Vial) 6 mg IVPUSH DAILY [facility] Last Admin: 08/24/21 08:38 Dose: 6 mg Documented by: TRISHA Divalproex Sodium (Divalproex Sodium Er 500 Mg Tab.Er.24h) 500 mg PO DAILY [facility] Last Admin: 08/24/21 08:39 Dose: 500 mg Documented by: TRISHA Divalproex Sodium (Divalproex Sodium Er 500 Mg Tab.Er.24h) 1,000 mg PO BEDTIME [facility] Last Admin: 08/23/21 21:14 Dose: 1,000 mg Documented by: OLGA Enoxaparin Sodium (Enoxaparin Sodium 40 Mg/0.4 Ml Syringe) 40 mg SUBCUT Q24H [facility] Last Admin: 08/24/21 00:28 Dose: 40 mg Documented by: RAMAN Ergocalciferol (Ergocalciferol (Vitamin D2) 1,250 Mcg Capsule) 1,250 mcg PO [facility] Escitalopram Oxalate (Escitalopram Oxalate 10 Mg Tablet) 10 mg PO DAILY [facility] Last Admin: 08/24/21 08:38 Dose: 10 mg Documented by: TRISHA Remdesivir 100 mg/ Sodium (Chloride) 230 mls @ 115 mls/hr IV Q24H [facility] Stop: 08/27/21 12:59 Levetiracetam (Levetiracetam 250 Mg Tablet) 250 mg PO BEDTIME [facility] Last Admin: 08/23/21 21:15 Dose: 250 mg Documented by: OLGA Levetiracetam (Levetiracetam 1,000 Mg Tablet) 1,000 mg PO BID [facility] Last Admin: 08/24/21 08:38 Dose: 1,000 mg Documented by: TRISHA Levetiracetam (Levetiracetam 500 Mg Tablet) 500 mg PO DAILY [facility] Last Admin: 08/24/21 08:38 Dose: 500 mg Documented by: TRISHA Loratadine (Loratadine 10 Mg Tablet) 10 mg PO DAILY PRN PRN Reason: allergy symptoms/cough Morphine Sulfate (Morphine Sulfate 4 Mg/Ml Cartridge) 1 mg IVPUSH Q4H PRN; Protocol PRN Reason: Pain, SOB Senna (Sennosides 8.6 Mg Tablet) 17.2 mg PO BEDTIME PRN PRN Reason: Constipation Sodium Chloride (0.9 % Sodium Chloride Flush 3 Ml Syringe) 3 ml IVFLUSH QSHIFT [facility] Last Admin: 08/24/21 08:39 Dose: 3 ml Documented by: TRISHA Zolpidem Tartrate (Zolpidem Tartrate 5 Mg Tablet) 5 - 10 mg PO BEDTIME PRN PRN Reason: Insomnia Labs CBC & Chem 7: 08/23/21 05:32 08/23/21 05:32 Labs: Laboratory Results - last 24 hr 08/23/21 08/23/21 08/23/21 12:42 18:11 20:53 POC Glucose 166 H 204 H 160 H Assessment and Plan (1) Hypoxia: Status: Acute Plan 55M presented with sob acute hypoxic respiratory failure due to covid infection now on room air decadron day 4 ID appreciated, remdisivir day 2 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
--- NOTE | 2021-08-24 12:04 | MHC.SL.SWA ---
Speech Pathologist Impression: Oropharyngeal dysphagia Risk of Aspiration Due to: Neurological Condition History of Pneumonia Dysphasia Diet Status: Downgrade solids to chopped consistency Liquid Consistency and Strategies for Safe Swallow: Liquid Intake Recommendation: Thin Liquid Intake Strategies: Small Sips No Straws Solid Food Consistency: Dietary Recommendations: Chopped/Advanced (NDD3) Additional Modifications to Solid Foods: Patient seen for bedside dysphagia evaluation while in the ED overflow area. No clinical signs of aspiration with trials of solids and liquids. Recommend CHOPPED/ADVANCED (NDD3) solids for ease of mastication and THIN liquids (NO STRAWS). As previously noted by RN, patient takes pills whole with liquid, one at a time placed in his mouth and swallowed. Patient requires total 1:1 assistance feeding for all PO intake. Aspiration precautions. MESH WORKER will continue to follow. Updated MD, RN, RD via [employer] Message. Diet order in [employer] updated by MESH WORKER. Oral Medication Intake: Whole with Liquid Please contact the pharmacy regarding appropriate crushable or liquid drug formulations that are available whenever modified delivery is recommended. Compensatory Strategies and Precautions to be Taken for Safe Swallow: Sitting Upright (90 deg) No Straw Small Bites and Sips Alternate Liquids/Solids Rate of Ingestion Change Oral Check Avoid Specific Foods Supervision While Eating and Drinking for Safe Swallow: Total Assistance (1:1) Foods to Avoid: Tough, difficult to chew solids Swallowing Recommended Treatments: Compens. Strategy Educat. Recommendation for Speech: Inpatient Speech Therapy Comment: Patient w/ hx dysphagia. MESH WORKER will continue to follow. Frequency/Duration: M-F while inpatient Date Range for Service Req: Timeline to reassess: Education Teacher Clinican/Clinical Fellow: No Supervisory Statement: I have reviewed and agree with the student/clinical fellow's documentation: N/A Speech Language Pathologist: Laurita Fitzpatrick M.A., CCC-MESH WORKER
[2021-08-24] MEDS: Remdesivir 100 MG in 0.9 % Sodium Chloride 230 ML 115 MG IV (13:36)
[2021-08-24 18:25] VITALS: PULSE 72; RESP 14; TEMP 36.4; O2SAT 94
[2021-08-24 20:00] VITALS: BP 135/72; PULSE 76; RESP 18; TEMP 37.4; O2SAT 92
[2021-08-24] MEDS: Atorvastatin Calcium 40 MG TABLET PO (20:55)
[2021-08-24] MEDS: levETIRAcetam 250 MG TABLET PO (22:53)
[2021-08-24] MEDS: Divalproex Sodium ER 500 MG TAB.ER.24H 1000 MG PO (22:53)
[2021-08-25] VITALS (7 sets, daily range): BP systolic 94–132; BP diastolic 54–69; PULSE 70–81; RESP 18–20; TEMP 36.1–37.3; O2SAT 92–97; BMI 28.6
[2021-08-25 07:26] LABS: Hematocrit 38.2 % (42.0-52.0); Hemoglobin 12.7 g/dl (14.0-18.0); Mean Corpuscular HGB Conc 33.2 g/dl (31.0-36.0); Mean Corpuscular Volume 90.1 fL (80.0-98.0); Mean Platelet Volume 12.9 fL (9.4-12.4); Platelet Count 211 X10*3/uL (160-400); Red Blood Count 4.24 X10*6/uL (4.60-5.80); Red Cell Distribution Width 12.3 % (11.0-16.0); White Blood Count 9.7 X10*3/uL (4.8-10.8)
[2021-08-25 07:46] LABS: Alanine Aminotransferase 22 U/L (0-40); Albumin Level 3.3 g/dL (3.5-5.0); Alkaline Phosphatase 60 U/L (39-117); Anion Gap 12 (12-20); Aspartate Amino Transferase 17 U/L (5-37); Bilirubin Direct < 0.2 mg/dL (0.0-0.5); Bilirubin Total 0.3 mg/dL (0.0-1.0); Blood Urea Nitrogen 17 mg/dL (9-16); Carbon Dioxide 27 mmol/L (22-29); Chloride 107 mmol/L (96-108); Creatinine Clr Calc Pharmacy 137.6; Estimated Glomerular Filt Rate > 60; Glucose Fasting 106 mg/dL (60-99); Sodium 142 mmol/L (135-145); Total Protein 5.9 g/dL (6.5-8.0)
[2021-08-25] MEDS: Remdesivir 100 MG in 0.9 % Sodium Chloride 230 ML 115 MG IV (09:37)
[2021-08-25] MEDS: 0.9 % Sodium Chloride Flush 3 ML SYRINGE IVFLUSH (09:38)
[2021-08-25] MEDS: Divalproex Sodium ER 500 MG TAB.ER.24H PO (09:39)
[2021-08-25] MEDS: dexAMETHasone sod phosphate 4 MG/ML VIAL 6 MG IVPUSH (09:39)
[2021-08-25] MEDS: levETIRAcetam 1,000 MG TABLET 1000 MG PO (09:39)
[2021-08-25] MEDS: levETIRAcetam 500 MG TABLET PO (09:39)
[2021-08-25] MEDS: Escitalopram Oxalate 10 MG TABLET PO (09:39)
--- NOTE | 2021-08-25 10:47 | P.PNIM_ITS ---
Subjective Subjective Date of Service: 08/25/21 Interval History: cc: sob interval history:no complaints Cardiovascular Cardiovascular: Reports no additional cardiovascular complaints Respiratory Respiratory: Reports no additional respiratory complaints Physical Exam Vital Signs: Vital Signs: Last Vital Signs Temp 97.0 F 08/25/21 08:00 Pulse 70 08/25/21 08:00 Resp 19 08/25/21 08:00 BP 127/62 08/25/21 08:00 Pulse Ox 94 08/25/21 08:00 BMI result Body Mass Index 28.6 General:? no acute distress Resp:? Crackles bilateral, no accessory muscles used CVS: S1,S2,RRR GI: soft, non tender, non distended Neuro:? motor grossly intact, alert Psych: impaired insight? Objective Data Active Medications Acetaminophen (Acetaminophen 325 Mg Tablet) 650 mg PO Q6H PRN PRN Reason: Pain, Mild (Pain Scale 1-3) Atorvastatin Calcium (Atorvastatin Calcium 40 Mg Tablet) 40 mg PO BEDTIME [facility] Last Admin: 08/24/21 20:55 Dose: 40 mg Documented by: SABINE Dexamethasone Sodium Phosphate (Dexamethasone Sod Phosphate 4 Mg/Ml Vial) 6 mg IVPUSH DAILY [facility] Last Admin: 08/25/21 09:39 Dose: 6 mg Documented by: ROHIT Divalproex Sodium (Divalproex Sodium Er 500 Mg Tab.Er.24h) 500 mg PO DAILY [facility] Last Admin: 08/25/21 09:39 Dose: 500 mg Documented by: ROHIT Divalproex Sodium (Divalproex Sodium Er 500 Mg Tab.Er.24h) 1,000 mg PO BEDTIME [facility] Last Admin: 08/24/21 22:53 Dose: 1,000 mg Documented by: SABINE Enoxaparin Sodium (Enoxaparin Sodium 40 Mg/0.4 Ml Syringe) 40 mg SUBCUT Q24H [facility] Last Admin: 08/24/21 22:52 Dose: 40 mg Documented by: OVIDIO Ergocalciferol (Ergocalciferol (Vitamin D2) 1,250 Mcg Capsule) 1,250 mcg PO [facility] Escitalopram Oxalate (Escitalopram Oxalate 10 Mg Tablet) 10 mg PO DAILY [facility] Last Admin: 08/25/21 09:39 Dose: 10 mg Documented by: ROHIT Remdesivir 100 mg/ Sodium (Chloride) 230 mls @ 115 mls/hr IV Q24H [facility] Stop: 08/27/21 12:59 Last Admin: 08/25/21 09:37 Dose: 115 mls/hr Documented by: ROHIT Levetiracetam (Levetiracetam 250 Mg Tablet) 250 mg PO BEDTIME [facility] Last Admin: 08/24/21 22:53 Dose: 250 mg Documented by: SABINE Levetiracetam (Levetiracetam 1,000 Mg Tablet) 1,000 mg PO BID [facility] Last Admin: 08/25/21 09:39 Dose: 1,000 mg Documented by: ROHIT Levetiracetam (Levetiracetam 500 Mg Tablet) 500 mg PO DAILY [facility] Last Admin: 08/25/21 09:39 Dose: 500 mg Documented by: ROHIT Loratadine (Loratadine 10 Mg Tablet) 10 mg PO DAILY PRN PRN Reason: allergy symptoms/cough Morphine Sulfate (Morphine Sulfate 4 Mg/Ml Cartridge) 1 mg IVPUSH Q4H PRN; Protocol PRN Reason: Pain, SOB Senna (Sennosides 8.6 Mg Tablet) 17.2 mg PO BEDTIME PRN PRN Reason: Constipation Sodium Chloride (0.9 % Sodium Chloride Flush 3 Ml Syringe) 3 ml IVFLUSH QSHIFT [facility] Last Admin: 08/25/21 09:38 Dose: 3 ml Documented by: ROHIT Zolpidem Tartrate (Zolpidem Tartrate 5 Mg Tablet) 5 - 10 mg PO BEDTIME PRN PRN Reason: Insomnia Labs CBC & Chem 7: 08/25/21 06:44 08/25/21 06:44 Labs: Laboratory Results - last 24 hr 08/25/21 08/25/21 06:44 06:44 MCV 90.1 MCH 30.0 MCHC 33.2 RDW 12.3 Plt Count 211 D MPV 12.9 H Absolute Nucleated RBC 0.000 Nucleated RBC % (auto) 0.0 Anion Gap 12 Estim Creat Clear Calc 137.6 Estimated GFR > 60 Fasting Glucose 106 H Calcium 9.0 Total Bilirubin 0.3 Direct Bilirubin < 0.2 AST 17 ALT 22 Alkaline Phosphatase 60 Total Protein 5.9 L Albumin 3.3 L Assessment and Plan (1) Hypoxia: Status: Acute Plan 55M presented with sob acute hypoxic respiratory failure due to covid infection now on room air decadron day 5 ID appreciated, remdisivir day 3 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
[2021-08-25] MEDS: levETIRAcetam Oral Soln 500 MG/5 ML 1000 MG PO (21:23)
[2021-08-25] MEDS: Divalproex Sodium Sprinkles 125 MG CAP.DR.SPR 1000 MG PO (21:24)
[2021-08-25] MEDS: Atorvastatin Calcium 40 MG TABLET PO (21:26)
[2021-08-25] MEDS: Enoxaparin Sodium 40 MG/0.4 ML SYRINGE SUBCUT (23:29)
[2021-08-26 04:00] VITALS: BP 122/61; PULSE 76; RESP 18; TEMP 37.1; O2SAT 94
[2021-08-26 07:13] LABS: Hematocrit 39.3 % (42.0-52.0); Hemoglobin 13.4 g/dl (14.0-18.0); Mean Corpuscular HGB Conc 34.1 g/dl (31.0-36.0); Mean Corpuscular Hemoglobin 30.2 pg (27.0-33.0); Mean Corpuscular Volume 88.7 fL (80.0-98.0); Mean Platelet Volume 12.7 fL (9.4-12.4); Platelet Count 220 X10*3/uL (160-400); Red Blood Count 4.43 X10*6/uL (4.60-5.80); Red Cell Distribution Width 12.6 % (11.0-16.0); White Blood Count 11.9 X10*3/uL (4.8-10.8)
[2021-08-26 07:44] LABS: Anion Gap 13 (12-20); Blood Urea Nitrogen 19 mg/dL (9-16); C Reactive Protein 0.44 mg/dL (< or = 0.50); Calcium 9.4 mg/dL (8.4-10.2); Carbon Dioxide 29 mmol/L (22-29); Chloride 104 mmol/L (96-108); Creatinine Clr Calc Pharmacy 124.4; Estimated Glomerular Filt Rate > 60; Glucose Fasting 109 mg/dL (60-99); Potassium 4.3 mmol/L (3.3-5.1); Sodium 142 mmol/L (135-145)
[2021-08-26 07:47] VITALS: BP 135/74; PULSE 78; RESP 18; TEMP 37.1; O2SAT 98
[2021-08-26] MEDS: Escitalopram Oxalate 10 MG TABLET PO (08:13)
[2021-08-26] MEDS: Divalproex Sodium Sprinkles 125 MG CAP.DR.SPR 500 MG PO (08:14)
[2021-08-26] MEDS: levETIRAcetam Oral Soln 500 MG/5 ML PO (08:18)
[2021-08-26] MEDS: levETIRAcetam Oral Soln 500 MG/5 ML 1000 MG PO (08:18)
[2021-08-26 11:22] VITALS: BP 118/63; PULSE 74; RESP 18; TEMP 36.7; O2SAT 96
--- NOTE | 2021-08-26 12:24 | MHC.CM.PN ---
Addendum entered by Alesia Silver 08/26/21 15:26: [facility] will provide Home PT. [facility] has authorized the home PT. Mandeep/ALVERTO was called to provide transportation. He will come in to receive the discharge instructions at 5:30pm. Pts nurse has been notified of the 5:30pm belt picker. Original Note: IMM 08/26/21 DX Covid+ He will discharge today to home. has ordered a PT eval. Spoke with Patients Mother Arely VIA PHONE using [employer]. She was told that the patient will discharge later today. PT eval will assess safety. If patient qualifies for services, CM will set up. She verbalized understanding of messege. She provided contact info for Mandeep/nephew/MANNEQUIN MOLDER. Mandeep will provide transportation home.
--- NOTE | 2021-08-26 12:32 | MHC.SL.SWA ---
Speech Pathologist Impression: Oropharyngeal dysphagia Risk of Aspiration Due to: Neurological Condition History of Pneumonia Dysphasia Diet Status: Patient w/ hx dysphagia. Liquid Consistency and Strategies for Safe Swallow: Liquid Intake Recommendation: Thin Liquid Intake Strategies: Small Sips Solid Food Consistency: Dietary Recommendations: Chopped/Advanced (NDD3) Additional Modifications to Solid Foods: Pt requires assistance during all meals, monitor Pt for impulsivity if drinking from straw. Do not leave Pt with straw and drinks due to impulsivity, risk of aspiration. Oral Medication Intake: Whole with Liquid Please contact the pharmacy regarding appropriate crushable or liquid drug formulations that are available whenever modified delivery is recommended. Compensatory Strategies and Precautions to be Taken for Safe Swallow: Sitting Upright (90 deg) Liquids from Spoon Small Bites and Sips Alternate Liquids/Solids Supervision While Eating and Drinking for Safe Swallow: Total Assistance (1:1) Foods to Avoid: Tough, difficult to chew solids Swallowing Recommended Treatments: Compens. Strategy Educat. Recommendation for Speech: Inpatient Speech Therapy Comment: Patient requires total 1:1 assistance feeding and aspiration precautions. Frequency/Duration: M-F while inpatient Date Range for Service Req: Timeline to reassess: Lehr Operator Clinican/Clinical Fellow: No Supervisory Statement: I have reviewed and agree with the student/clinical fellow's documentation: N/A Speech Language Pathologist: Laurita Fitzpatrick M.A., CCC-FAMILY SUPPORT SPECIALIST
--- NOTE | 2021-08-26 12:47 | P.DS_ITS ---
DS: Providers Provider Date of Service: 08/26/21 Date of admission: 08/21/21 23:40 Primary care physician: Juan Garcia MD Consults: 08/22/21 05:47 Consult to Infectious Diseases Routine Consulting Provider: Estelita Sue Reason for consultation: covid positive DS: Diagnosis Discharge Diagnosis (1) Lab test positive for detection of COVID-19 virus: Status: Acute (2) Acute respiratory failure with hypoxia: Status: Acute DS: Summary Hospital Course Hospital Course: Admission note HPI 55-year-old male with a past medical history of anxiety, depression, history of traumatic brain injury, epilepsy, knee osteoarthritis, vitamin D deficiency presented to the hospital with a chief complaint of fever and shortness of breath.? Patient is a poor historian.? Will be response to the commands.? Most of the history obtained from the records and ER staff.? I tried to reach the patient's mother but unable to reach over the phone.? Reportedly patient has been having cough and fever associated shortness of breath for 2 days at home.? Denies any sputum production.? Noted to be COVID-19 positive. ; subsequently brought into the hospital for fur ther evaluation. Per ER team patient noted to be COVID-19 positive.? Saturating 90% on room air; chest x-ray showed no acute findings; placed on supplemental oxygen.? Admitted to the hospital for further management. Hospital course The patient was admitted for hypoxia and positive COVID testing. Treated with IV steroids and evaluated by infectious disease specialist who recommended starting IV remdesivir. The patient improved significantly over the course of hospital stay as he was weaned off the oxygen and participated with physical therapy. Evaluated by speech therapist as well who recommended chopped advanced diet and assistance during all meals. Continue dexamethasone for 5 more days Chopped NDD 3 diet with clear liquids and full assistance with the food. Time Spent with Patient Time attestation: Total time spent providing and/or coordinating discharge services: Discharge coordination time: Greater than 30 minutes Quality: Safe Use of Opioids Does Pt have an Active Cancer Diagnosis on the Problem List?: No Quality: Stroke Does the patient have a stroke diagnosis?: No Physical Exam Vital Signs: Vital Signs: Last Vital Signs Temp 98.1 F 08/26/21 11:22 Pulse 74 08/26/21 11:22 Resp 18 05/18/22 11:22 BP 118/63 08/26/21 11:22 Pulse Ox 96 08/26/21 11:22 BMI result Body Mass Index 28.6 Const: Other: Constitutional : Alert, not in distress Neck : Normal inspection, Supple Cardiovascular : RRR, no JVP, no lower extremity edema Respiratory : fair bilateral air entry, no crackles, wheezes or rhonchi Gastrointestinal: soft, lax, Normal bowel sounds, Non tender Skin : Warm, Dry Neurological : Alert ,No focal deficit , CN 2-12 within normal DS: Data Data Completed and Pending Completed studies during hospitalization [Text1]: Procedures Transfusion of Nonautologous Frozen Plasma into Peripheral Vein, Percutaneous Approach (03/01/20) Labs on day of discharge: Laboratory Results - last 24 hr 08/26/21 08/26/21 06:45 06:45 WBC 11.9 H RBC 4.43 L Hgb 13.4 L Hct 39.3 L MCV 88.7 MCH 30.2 MCHC 34.1 RDW 12.6 Plt Count 220 MPV 12.7 H Absolute Nucleated RBC 0.000 Nucleated RBC % (auto) 0.0 Sodium 142 Potassium 4.3 Chloride 104 Carbon Dioxide 29 Anion Gap 13 BUN 19 H Creatinine 0.73 Estim Creat Clear Calc 124.4 Estimated GFR > 60 Fasting Glucose 109 H Calcium 9.4 C-Reactive Protein 0.44 Discharge Plan Discharge Patient Disposition: Home Health Service Discharge Diagnosis: COVID-19 infection Referrals: [facility] [Outside] - 1 Week Juan Garcia MD [Primary Care Provider] - 1 Week Discharge Medications: New dexamethasone 6 mg tablet 6 mg PO DAILY Qty: 5 0RF Continued (DME) WHEELCHAIR See Rx Instructions .Route .MEDSUPPLY Qty: 1 0RF Rx Instructions: As directed (DME) Electric Hospital Bed See Rx Instructions .Route .MEDSUPPLY Qty: 1 0RF Rx Instructions: As directed (DME) Wheel chair Kit See Rx Instructions .Route Qty: 1 0RF Rx Instructions: As directed; needs large 20' wheel chair, put on 20 lbs. atorvastatin 40 mg tablet 40 mg PO BEDTIME 90 Days Qty: 90 1RF citalopram 20 mg tablet 20 mg PO QAM 0RF levetiracetam 250 mg tablet 250 mg PO BEDTIME 0RF divalproex 500 mg tablet extended release 24 hr 500 mg PO DAILY 0RF zolpidem 10 mg tablet 0.5 - 1 tab PO BEDTIME PRN (Reason: Insomnia) 0RF levetiracetam 1,000 mg tablet 1,000 mg PO BID 0RF levetiracetam 250 mg tablet 500 mg PO DAILY 0RF divalproex 500 mg tablet extended release 24 hr 1,000 mg PO BEDTIME 0RF (DME) WHEELCHAIR large See Rx Instructions .Route .MEDSUPPLY Qty: 1 0RF Rx Instructions: As directed ergocalciferol (vitamin D2) 1,250 mcg (50,000 unit) capsule 1,250 mcg PO QWEEK 90 Days Qty: 13 3RF ofloxacin 0.3 % drops 1 drp ophthalmic (eye) QID 0RF loratadine 10 mg tablet 10 mg PO DAILY PRN (Reason: allergy symptoms/cough) 30 Days Qty: 30 5RF Discharge Orders: Discharge Order (Routine); Ordered 08/26/21 Ordered By: Juliet Noland Diet: advance to usual diet Activity on Discharge: As tolerated Stand Alone Forms: Patient Portal Discharge page Care Plan Goals: Read below Health Concerns: Read below Plan of Treatment: Read below Assessment: you were admitted to the hospital for evaluation of difficulty breathing found to have COVID-19 infection with low oxygen level. Evaluated by infectious disease specialist and treated with IV steroids and antiviral medication rem desivir with good response as you were weaned off the oxygen. Evaluated by physical therapy team. Continue dexamethasone for 5 more days.
[2021-08-26 13:05] VITALS: BP 118/63; PULSE 74; O2SAT 96
--- NOTE | 2021-08-26 13:58 | P.F2F_ITS ---
Service Date Service Date: 08/26/21 Encounter Date of encounter: 08/26/21 Reasons for Services Signs and symptoms assessed: physical deconditioning Reason for physical therapy: home safety and mobility and therapeutic exercises Homebound: Leaving the home is medically contraindicated at this time without the asist of a device and/or another person due th the listed conditions above and below. Reason homebound: unsteady gait / fall risk Certification: Based on the above findings, I certify that this patient is confined to the home and needs intermittent intermediate care, physical therapy and/or speech therapy, or continues to need occupational therapy. The patient is under my care, and I have initiated the establishment of the plan of care. The patient will be followed by a physician who will periodically review the plan of care.
[2021-08-26 15:08] VITALS: BP 125/66; PULSE 91; RESP 17; TEMP 36.3; O2SAT 95
== END 2021-08-26 18:00 | disposition home health service (06) | DRG 179 ==
LOC: HO.ED 21:58 → HO.EDOVER 23:46 → HO.IMC 08-24 18:23
PROVIDERS: Internal Medicine; Admitting Provider Hospitalist; Emergency Provider Student in an Organized Health Care Education/Training Program; PCP Internal Medicine; Visit Provider Student in an Organized Health Care Education/Training Program
DX: U07.1 COVID-19 (principal); I48.0 Paroxysmal atrial fibrillation; G40.909 Epilepsy, unspecified, not intractable, without status epilepticus; E78.5 Hyperlipidemia, unspecified; F41.9 Anxiety disorder, unspecified; F32.A Depression, unspecified; Z87.820 Personal history of traumatic brain injury; Z87.891 Personal history of nicotine dependence; Z79.899 Other long term (current) drug therapy
CPT/HCPCS: 36415; 71046; 80048; 80053; 80076; 82947; 85025; 85027; 85610; 86140; 87635; 92526; 92610; 93005; 97162; 99284; 99291; J0248; J1100; J1650

== ENCOUNTER 2022-05-12 07:58 | Outpatient (REF) | payer OTHER, SELFPAY ==
[2022-05-12 08:09] LABS: MANUAL DIFF FLAG NO
[2022-05-12 08:37] LABS: Basophils Absolute Auto 0.1 X10*3/uL (0.0-0.2); Basophils Percent Auto 0.7 % (0-2); Eosinophils Absolute Auto 0.1 X10*3/uL (0.0-0.4); Hematocrit 39.4 % (42.0-52.0); Hemoglobin 13.3 g/dl (14.0-18.0); Imm Gran Abs Auto 0.03 X10*3/uL (0.00-0.03); Imm Gran Pct Auto 0.4 % (0.0-0.4); Lymphocytes Absolute Auto 4.6 X10*3/uL (1.2-4.9); Lymphocytes Percent Auto 55.5 % (20-40); Mean Corpuscular HGB Conc 33.8 g/dl (31.0-36.0); Mean Corpuscular Hemoglobin 30.2 pg (27.0-33.0); Mean Corpuscular Volume 89.5 fL (80.0-98.0); Mean Platelet Volume 12.1 fL (9.4-12.4); Monocytes Absolute Auto 0.8 X10*3/uL (0.1-1.2); Neutrophils Absolute Auto 2.8 x10*3/uL (2.0-8.3); Neutrophils Percent Auto 33.4 % (45-73); Platelet Count 176 X10*3/uL (160-400); Red Cell Distribution Width 12.1 % (11.0-16.0); White Blood Count 8.3 X10*3/uL (4.8-10.8)
[2022-05-12 08:52] LABS: Valproate 90.4 mcg/mL (50.0-100.0)
[2022-05-12 09:06] LABS: Alanine Aminotransferase 19 U/L (0-40); Albumin Level 3.6 g/dL (3.5-5.0); Alkaline Phosphatase 65 U/L (39-117); Anion Gap 14 (12-20); Aspartate Amino Transferase 17 U/L (5-37); Bilirubin Total 0.4 mg/dL (0.0-1.0); Blood Urea Nitrogen 20 mg/dL (9-16); Carbon Dioxide 25 mmol/L (22-29); Chloride 108 mmol/L (96-108); Cholesterol 145 mg/dL; Estimated Glomerular Filt Rate > 60; Glucose Fasting 111 mg/dL (60-99); HDL Cholesterol 37 mg/dL; LDL Cholesterol Calculated 77 mg/dl; Potassium 4.2 mmol/L (3.3-5.1); Sodium 143 mmol/L (135-145); Total Protein 5.9 g/dL (6.5-8.0); Triglycerides 156 mg/dL
[2022-05-12 09:22] LABS: TSH reflex Free T4 3.39 uIU/mL (0.32-4.0); Vitamin D 25-OH Total 28.4 ng/mL (>30)
[2022-05-16 19:29] LABS: Levetiracetam Keppra 26.2 mcg/mL (6.0-46.0)
== END 2022-05-12 07:59 | disposition home or self-care (01) ==
LOC: HO.LAB 07:58
PROVIDERS: Visit Provider Internal Medicine
DX: G40.909 Epilepsy, unspecified, not intractable, without status epilepticus (principal); E55.9 Vitamin D deficiency, unspecified; E78.00 Pure hypercholesterolemia, unspecified; I10 Essential (primary) hypertension; Z79.899 Other long term (current) drug therapy
CPT/HCPCS: 36415; 80053; 80061; 80164; 80177; 82306; 84443; 85025

== ENCOUNTER 2022-09-14 08:52 | Outpatient (REF) | payer OTHER, SELFPAY ==
[2022-09-14 09:44] LABS: Estimated Average Glucose 126 mg/dL
[2022-09-14 09:46] LABS: Valproate 82.3 mcg/mL (50.0-100.0)
[2022-09-14 09:50] LABS: Alanine Aminotransferase 27 U/L (0-40); Albumin Level 3.8 g/dL (3.5-5.0); Alkaline Phosphatase 64 U/L (39-117); Anion Gap 11 (12-20); Aspartate Amino Transferase 25 U/L (5-37); Bilirubin Total 0.4 mg/dL (0.0-1.0); Blood Urea Nitrogen 16 mg/dL (9-16); Calcium 9.4 mg/dL (8.4-10.2); Carbon Dioxide 30 mmol/L (22-29); Chloride 107 mmol/L (96-108); Cholesterol 162 mg/dL; Estimated Glomerular Filt Rate > 60; Glucose Fasting 109 mg/dL (60-99); HDL Cholesterol 41 mg/dL; LDL Cholesterol Calculated 68 mg/dl; Potassium 4.4 mmol/L (3.3-5.1); Sodium 144 mmol/L (135-145); Total Protein 6.3 g/dL (6.5-8.0); Triglycerides 268 mg/dL
== END 2022-09-14 08:53 | disposition home or self-care (01) ==
LOC: HO.LAB 08:52
PROVIDERS: PCP Internal Medicine; Visit Provider Internal Medicine
DX: G40.909 Epilepsy, unspecified, not intractable, without status epilepticus (principal); R73.9 Hyperglycemia, unspecified; E78.00 Pure hypercholesterolemia, unspecified; Z79.899 Other long term (current) drug therapy
CPT/HCPCS: 36415; 80053; 80061; 80164; 80177; 83036

== ENCOUNTER 2022-12-06 18:19 | Emergency (ER) | payer OTHER, SELFPAY ==
--- NOTE | ~2022-12-06 | CT_ITS ---
EXAMINATION: CT ABDOMEN AND PELVIS WITHOUT CONTRAST CLINICAL INFORMATION: Right lower quadrant pain COMPARISON: None available. TECHNIQUE: Multidetector volumetric imaging was performed from the superior aspect of the liver through the pubic symphysis. Sagittal and coronal reformatted images were obtained on the technologist's workstation. This CT examination was performed using dose optimization techniques as appropriate, variously including the following: *Automated exposure control *Adjustment of mA and/or kV according to patient size (this includes techniques or standardized protocols for targeted exams where dose is matched to indication/reason for exam; i.e. extremities or head) *Use of iterative reconstruction technique DLP: 991 mGy-cm FINDINGS: LUNG BASES: The visualized lung bases are unremarkable. LIVER, GALLBLADDER, AND BILIARY TREE: The liver is normal in size, shape, and attenuation. No focal hepatic lesion or biliary ductal dilatation is present. The gallbladder is unremarkable with no evidence of radiopaque gallstones, gallbladder wall thickening, or obvious pericholecystic inflammatory changes. PANCREAS: Unremarkable. SPLEEN: Unremarkable. ADRENAL GLANDS: Unremarkable. KIDNEYS AND URETERS: Duplicated right collecting system. Several nonobstructive small stones lower pole the left kidney. The renal stones are similar in size and number to the CAT scan of 05/22/2019. Largest stone measuring about 4 mm. No ureteral calculi and no hydronephrosis. BLADDER: Unremarkable. GASTROINTESTINAL TRACT: The small and large bowel are unremarkable. The appendix is nonvisualized. ABDOMINAL WALL: No significant hernia is appreciated. LYMPH NODES: Normal. VASCULAR: Unremarkable. PELVIC VISCERA: Unremarkable. OSSEOUS STRUCTURES: Unremarkable. CT/CT abdomen pelvis wo IV con IMPRESSION: 1. No acute findings in the abdomen or pelvis. 2. Duplicated right collecting system. Several nonobstructive small stones lower pole the left kidney. No ureteral calculi and no hydronephrosis. Fleischner guidelines were followed.
--- NOTE | ~2022-12-06 | XR_ITS ---
EXAMINATION: PORTABLE CHEST 1 VIEW CLINICAL INFORMATION: low o2. COMPARISON: 08/21/2021. TECHNIQUE: Portable frontal view of the chest was obtained. FINDINGS: The lungs are well expanded. No focal infiltrate, effusion, edema, or pneumothorax. Cardiac and mediastinal silhouettes are within normal limits for technique. No acute bony abnormality seen with chronic deformity to the left clavicle again noted. XR/XR chest 1V IMPRESSION: No evidence of acute disease.
--- NOTE | 2022-12-06 18:20 | ED.GENADULT ---
HPI - General Adult General Chief complaint: Abdominal Pain Stated complaint: abdominal pain Time Seen by Provider: 12/06/22 20:31 Source: patient and family Mode of arrival: ambulatory History of Present Illness HPI narrative: 56-year-old male presents with 2 days mid abdominal/suprapubic pain this been associated with dysuria but he denies any nausea, vomiting, fever, chills this continued to have bowel movements. Related Data Home Medications Medication Instructions Recorded Confirmed divalproex 500 mg tablet,extended 500 mg PO DAILY 02/29/20 09/29/22 release 24 hr levetiracetam 1,000 mg tablet 1,000 mg PO BID 02/29/20 09/29/22 levetiracetam 250 mg tablet 250 mg PO BEDTIME 02/29/20 09/29/22 zolpidem 10 mg tablet 0.5 - 1 tab PO BEDTIME PRN Insomnia 02/29/20 09/29/22 divalproex 500 mg tablet,extended 1,000 mg PO BEDTIME 08/22/21 09/29/22 release 24 hr levetiracetam 250 mg tablet 500 mg PO DAILY 08/22/21 09/29/22 pyridoxine (vitamin B6) 100 mg 100 mg PO DAILY 01/25/22 09/29/22 tablet Previous Rx's Medication Instructions Recorded WHEELCHAIR #1 ea 07/22/20 WHEELCHAIR #1 ea 01/14/21 [facility] Bed #1 ea 01/22/21 chair, wheel (Wheel chair) #1 ea 02/23/21 dexamethasone 6 mg tablet 6 mg PO DAILY #5 tabs 08/26/21 sennosides 8.6 mg tablet (Senna 8.6 mg PO BEDTIME PRN constipation 05/31/22 Lax) 90 days #90 tabs atorvastatin 40 mg tablet 40 mg PO BEDTIME 90 days #90 tabs 08/31/22 ergocalciferol (vitamin D2) 1,250 1,250 mcg PO QWEEK 90 days #13 caps 09/15/22 mcg (50,000 unit) capsule MANUAL WHEELCHAIR (large) #1 ea 09/29/22 loratadine 10 mg tablet 10 mg PO DAILY PRN allergy 11/19/22 symptoms/cough 30 days #30 tabs citalopram 20 mg tablet 20 mg PO QAM 90 days #90 tabs 11/29/22 phenazopyridine 100 mg tablet 100 mg PO TID 6 doses #6 tabs 12/06/22 Allergies Allergy/AdvReac Type Severity Reaction Status Date / Time No Known Allergies Allergy Verified 09/29/22 14:04 Review of Systems Review of Systems: Pertinent positives and negatives as stated in [facility] Past Medical History Source: nursing notes reviewed Medical History Anxiety Coronavirus infection Depression Epilepsy History of traumatic brain injury Impaired fasting glucose Insomnia Left knee pain Mixed hyperlipidemia PAF (paroxysmal atrial fibrillation) Postsurgical retinal scar of left eye Primary osteoarthritis of left knee Pure hypercholesterolemia TBI (traumatic brain injury) Vitamin D deficiency Family History Family History Mother Seizures Other No significant past surgical history Social History Social History Household Members: Unknown / Unable to assess Housing: Apartment Alcohol intake: current Alcohol intake frequency: does not drink Patient Tobacco Use Status: Current everyday Tobacco user Cigarettes Per Day: 3 Second Hand Smoke Exposure: Yes Advance Directives: No Advance Directives Information Provided: Yes service: No Current occupational status: disabled Cognitive needs: Yes Hearing needs: No Vision needs: Yes Physical Exam ED Vital Signs: Vital Signs - 24 hr 12/06/22 18:51 12/06/22 20:00 12/06/22 22:17 Temperature 98.3 F 98.4 F 98 F Pulse Rate 80 74 73 Respiratory Rate 16 18 20 Blood Pressure 102/65 101/71 126/66 Pulse Oximetry 91 L 96 97 Oxygen Delivery Method Room Air Nasal Cannula Nasal Cannula Oxygen Flow Rate 2 2 12/06/22 23:43 Temperature 98.2 F Pulse Rate 77 Respiratory Rate 18 Blood Pressure 124/67 Pulse Oximetry 97 Oxygen Delivery Method Room Air Oxygen Flow Rate BMI result Body Mass Index 30.1 VITAL SIGNS: Reviewed. GENERAL: Well developed, well nourished, in no acute distress. HEAD: Normocephalic/atraumatic EYES: PERRLA, EOMI EARS: Ext canals without abnormality NOSE: Nares patent bilateral OROPHARYNX: no oral lesions noted, posterior pharynx clear NECK: Supple, no adenopathy LUNGS: Normal breath sounds. No adventitious sounds or accessory muscle use. SpO2<96> CARDIOVASCULAR: Regular rate and rhythm without noted murmurs ABDOMEN: Soft, non-tender, non-distended with bowel sounds. MUSCULOSKELETAL: No tenderness, deformities, or effusions noted on gross inspection. EXTREMITIES: No cyanosis, clubbing or edema. SKIN: Inspection of the skin reveals no rashes NEUROLOGIC: Alert and oriented x 3. Strength and sensation to light touch were grossly intact x 4. Course Course Course Narrative: This is an RME: Additional HPI, ROS, PE not included below will be deferred to primary provider. 56 year old male presenting with abdominal pain and pain with urinary that began 5 days ago. Patient says pain is 11/10. Plan: labs, urine Medical Decision Making Medical Decision Making MDM Narrative: 56-year-old male with history and clinical presentation, DDX: UTI, urinary tension, renal colic felt to be less likely, have no concerns for SBO or diverticulitis. Patient was able to pass urine and bladder scan demonstrates a PVR of 162. However on review of the urinalysis there is no evidence of UTI or hematuria raising concerned that this may actually be more for renal colic or less likely appendicitis given the fact the patient is afebrile and there is no leukocytosis but will proceed with a noncontrast CT of the abdomen and pelvis. I have reviewed all other investigations, hematologic indices do not demonstrate any leukocytosis or left shift, platelet count although low is roughly similar to prior, there is no anemia. Chemistry indices are grossly within normal limits as there is no WALKER or electrolyte derangements. Liver enzymes are within normal limits with the exception of a mild bump in the AST. Chest x-ray negative for infiltrate and otherwise my interpretation is in agreement with radiology's impression. Signed out to Dr Bateman - CT scan (r/o renal colic or appendicitis) -I received sign-out from Dr. Walls -my interpretation of CT scan, no ureterolithiasis -patient does have renal stones. It is possible that patient may have passed a stone causing the pain. -patient complaining of ongoing pressure. Patient was bladder scanned again, patient has less than 130 mL of urine in the bladder. No need for straight cathing -for discomfort, patient will be going home with phenazopyridine Differential Diagnosis Differential Diagnoses: The differential diagnosis associated with the presentation includes Please see the discussion above Admission/Observation Consideration of admission/observation: Escalation of care including admission/observation considered Please see the discussion above Lab Data MDM Lab Attestation statement: I reviewed the patient's lab results. Please see the discussion above 12/06/22 18:36 12/06/22 18:36 Labs: Lab Results 12/06/22 12/06/22 12/06/22 Range/Units 18:36 18:36 19:35 WBC 7.8 (4.8-10.8) X10*3/uL RBC 4.61 (4.60-5.80) X10*6/uL Hgb 14.2 (14.0-18.0) g/dl Hct 41.4 L (42.0-52.0) % MCV 89.8 (80.0-98.0) fL MCH 30.8 (27.0-33.0) pg MCHC 34.3 (31.0-36.0) g/dl RDW 12.0 (11.0-16.0) % Plt Count 134 L (160-400) X10*3/uL MPV 13.3 H (9.4-12.4) fL Immature Gran % (Auto) 0.4 (0.0-0.4) % Neut % (Auto) 36.2 L (45-73) % Lymph % (Auto) 53.7 H (20-40) % [place] % (Auto) 7.7 (2-11) % Eos % (Auto) 1.0 (0-4) % Baso % (Auto) 1.0 (0-2) % Lymph # (Auto) 4.2 (1.2-4.9) X10*3/uL [place] # (Auto) 0.6 (0.1-1.2) X10*3/uL Eos # (Auto) 0.1 (0.0-0.4) X10*3/uL Baso # (Auto) 0.1 (0.0-0.2) X10*3/uL Abs Immat Gran (auto) 0.03 (0.00-0.03) X10*3/uL Absolute Neuts (auto) 2.8 (2.0-8.3) x10*3/uL Absolute Nucleated RBC 0.000 (0.0-0.012) X10*3/uL Nucleated RBC % (auto) 0.0 (0.0-0.2) /100WBC Smear Tech's Comments VERIFIED Sodium 141 (135-145) mmol/L Potassium 3.9 (3.3-5.1) mmol/L Chloride 106 (96-108) mmol/L Carbon Dioxide 25 (22-29) mmol/L Anion Gap 14 (12-20) BUN 9 (9-16) mg/dL Creatinine 0.79 (0.5-1.4) mg/dL Estim Creat Clear Calc 123.8 Estimated GFR > 60 Random Glucose 142 H (60-115) mg/dL Calcium 9.2 (8.4-10.2) mg/dL Magnesium 1.7 (1.6-2.6) mg/dL Total Bilirubin 0.3 (0.0-1.0) mg/dL AST 41 H (5-37) U/L ALT 31 (0-40) U/L Alkaline Phosphatase 66 (39-117) U/L Total Protein 6.9 (6.5-8.0) g/dL Albumin 3.8 (3.5-5.0) g/dL Urine Color Urine Appearance Urine pH (5.0-9.0) Ur Specific [place] (1.005-1.025) Urine Protein (Neg-Trace) mg/dL Urine Glucose (UA) (Negative) mg/dL Urine Ketones (Negative) mg/dL Urine Blood (Negative) Urine Nitrite (Negative) Ur Leukocyte Esterase (Negative) COVID-19 (JODY) Negative (Negative) COVID-19 Clin Com See Note 12/06/22 Range/Units 21:00 WBC (4.8-10.8) X10*3/uL RBC (4.60-5.80) X10*6/uL Hgb (14.0-18.0) g/dl Hct (42.0-52.0) % MCV (80.0-98.0) fL MCH (27.0-33.0) pg MCHC (31.0-36.0) g/dl RDW (11.0-16.0) % Plt Count (160-400) X10*3/uL MPV (9.4-12.4) fL Immature Gran % (Auto) (0.0-0.4) % Neut % (Auto) (45-73) % Lymph % (Auto) (20-40) % [place] % (Auto) (2-11) % Eos % (Auto) (0-4) % Baso % (Auto) (0-2) % Lymph # (Auto) (1.2-4.9) X10*3/uL [place] # (Auto) (0.1-1.2) X10*3/uL Eos # (Auto) (0.0-0.4) X10*3/uL Baso # (Auto) (0.0-0.2) X10*3/uL Abs Immat Gran (auto) (0.00-0.03) X10*3/uL Absolute Neuts (auto) (2.0-8.3) x10*3/uL Absolute Nucleated RBC (0.0-0.012) X10*3/uL Nucleated RBC % (auto) (0.0-0.2) /100WBC Smear Tech's Comments Sodium (135-145) mmol/L Potassium (3.3-5.1) mmol/L Chloride (96-108) mmol/L Carbon Dioxide (22-29) mmol/L Anion Gap (12-20) BUN (9-16) mg/dL Creatinine (0.5-1.4) mg/dL Estim Creat Clear Calc Estimated GFR Random Glucose (60-115) mg/dL Calcium (8.4-10.2) mg/dL Magnesium (1.6-2.6) mg/dL Total Bilirubin (0.0-1.0) mg/dL AST (5-37) U/L ALT (0-40) U/L Alkaline Phosphatase (39-117) U/L Total Protein (6.5-8.0) g/dL Albumin (3.5-5.0) g/dL Urine Color Yellow Urine Appearance Clear Urine pH 7.5 (5.0-9.0) Ur Specific [place] 1.010 (1.005-1.025) Urine Protein Negative (Neg-Trace) mg/dL Urine Glucose (UA) Negative (Negative) mg/dL Urine Ketones Negative (Negative) mg/dL Urine Blood Negative (Negative) Urine Nitrite Negative (Negative) Ur Leukocyte Esterase Negative (Negative) COVID-19 (JODY) (Negative) COVID-19 Clin Com Radiology Impression Discussion of test interpretation with radiology: I have reviewed the radiologist's reading. Radiologist Impression: Please see the discussion above FINDINGS: LUNG BASES: The visualized lung bases are unremarkable.? LIVER, GALLBLADDER, AND BILIARY TREE: The liver is normal in size, shape, and attenuation. No focal hepatic lesion or biliary ductal dilatation is present. The gallbladder is unremarkable with no evidence of radiopaque gallstones, gallbladder wall thickening, or obvious pericholecystic inflammatory changes.? PANCREAS: Unremarkable.? SPLEEN: Unremarkable.? ADRENAL GLANDS: Unremarkable.? KIDNEYS AND URETERS: Duplicated right collecting system. Several nonobstructive small stones lower pole the left kidney. The renal stones are similar in size and number to the CAT scan of 05/22/2019. Largest stone measuring about 4 mm. No ureteral calculi and no hydronephrosis.? BLADDER: Unremarkable.? GASTROINTESTINAL TRACT: The small and large bowel are unremarkable. The appendix is nonvisualized.? ABDOMINAL WALL: No significant hernia is appreciated.? LYMPH NODES: Normal. VASCULAR: Unremarkable. PELVIC VISCERA: Unremarkable.? OSSEOUS STRUCTURES: Unremarkable.? CT/CT abdomen pelvis wo IV con IMPRESSION: 1.? No acute findings in the abdomen or pelvis. 2.? Duplicated right collecting system. Several nonobstructive small stones lower pole the left kidney. No ureteral calculi and no hydronephrosis. ? Fleischner guidelines were followed. External Record Review External record reviewed: Outpatient record, Prior outpatient labs and Prior outpatient radiology Discharge Plan Discharge Clinical Impression: Suprapubic pain, Dysuria Patient Disposition: Home, Self-Care Instructions: Enlarged Prostate (BPH) (ED) Additional Instructions: 1. Reanudar todos los medicamentos caseros seg?n lo recetado. 2. Le merrill remitido para un seguimiento con urolog?a debido a vera agrandamiento de la pr?stata. 3. Seguimiento con el proveedor de atenci?n primaria en los pr?ximos 1 o 2 d?as. Regrese a la kim de emergencias si los s?ntomas empeoran. 1. Resume all home medications as prescribed. 2. You have been given a referral to follow-up with urology regarding your enlarged prostate. 3. Follow-up with primary care provider in the next 1-2 days. Return to the ER for any worsening symptoms. Prescriptions: New phenazopyridine 100 mg tablet 100 mg PO TID Qty: 6 0RF No Action (DME) WHEELCHAIR See Rx Instructions .Route .MEDSUPPLY Qty: 1 0RF Rx Instructions: As directed (DME) Electric Hospital Bed See Rx Instructions .Route .MEDSUPPLY Qty: 1 0RF Rx Instructions: As directed (DME) Wheel chair Kit See Rx Instructions .Route Qty: 1 0RF Rx Instructions: As directed; needs large 20' wheel chair, put on 20 lbs. atorvastatin 40 mg tablet 40 mg PO BEDTIME 90 Days Qty: 90 1RF ergocalciferol (vitamin D2) 1,250 mcg (50,000 unit) capsule 1,250 mcg PO QWEEK 90 Days Qty: 13 3RF loratadine 10 mg tablet 10 mg PO DAILY PRN (Reason: allergy symptoms/cough) 30 Days Qty: 30 5RF citalopram 20 mg tablet 20 mg PO QAM 90 Days Qty: 90 1RF levetiracetam 250 mg tablet 250 mg PO BEDTIME divalproex 500 mg tablet extended release 24 hr 500 mg PO DAILY zolpidem 10 mg tablet 0.5 - 1 tab PO BEDTIME PRN (Reason: Insomnia) levetiracetam 1,000 mg tablet 1,000 mg PO BID levetiracetam 250 mg tablet 500 mg PO DAILY divalproex 500 mg tablet extended release 24 hr 1,000 mg PO BEDTIME dexamethasone 6 mg tablet 6 mg PO DAILY Qty: 5 0RF (DME) WHEELCHAIR large See Rx Instructions .Route .MEDSUPPLY Qty: 1 0RF Rx Instructions: As directed pyridoxine (vitamin B6) 100 mg tablet 100 mg PO DAILY sennosides [Senna Lax] 8.6 mg tablet 8.6 mg PO BEDTIME PRN (Reason: constipation) 90 Days Qty: 90 3RF (DME) MANUAL WHEELCHAIR (large) See Rx Instructions .Route .MEDSUPPLY Qty: 1 0RF Rx Instructions: As directed Referrals: Tyra Connelly MD [Physician] - Print Language: Trinidadian
[2022-12-06 18:51] VITALS: BP 102/65; PULSE 80; RESP 16; TEMP 36.8; O2SAT 91; BMI 30.1
[2022-12-06 19:04] LABS: Alanine Aminotransferase 31 U/L (0-40); Albumin Level 3.8 g/dL (3.5-5.0); Alkaline Phosphatase 66 U/L (39-117); Anion Gap 14 (12-20); Aspartate Amino Transferase 41 U/L (5-37); Bilirubin Total 0.3 mg/dL (0.0-1.0); Blood Urea Nitrogen 9 mg/dL (9-16); Calcium 9.2 mg/dL (8.4-10.2); Carbon Dioxide 25 mmol/L (22-29); Chloride 106 mmol/L (96-108); Creatinine Clr Calc Pharmacy 123.8; Estimated Glomerular Filt Rate > 60; Glucose Random 142 mg/dL (60-115); Magnesium 1.7 mg/dL (1.6-2.6); Potassium 3.9 mmol/L (3.3-5.1); Sodium 141 mmol/L (135-145); Total Protein 6.9 g/dL (6.5-8.0)
[2022-12-06 19:27] LABS: Basophils Absolute Auto 0.1 X10*3/uL (0.0-0.2); Eosinophils Absolute Auto 0.1 X10*3/uL (0.0-0.4); Hematocrit 41.4 % (42.0-52.0); Hemoglobin 14.2 g/dl (14.0-18.0); Imm Gran Abs Auto 0.03 X10*3/uL (0.00-0.03); Imm Gran Pct Auto 0.4 % (0.0-0.4); Lymphocytes Absolute Auto 4.2 X10*3/uL (1.2-4.9); Lymphocytes Percent Auto 53.7 % (20-40); MANUAL DIFF FLAG SCAN; Mean Corpuscular HGB Conc 34.3 g/dl (31.0-36.0); Mean Corpuscular Hemoglobin 30.8 pg (27.0-33.0); Mean Corpuscular Volume 89.8 fL (80.0-98.0); Mean Platelet Volume 13.3 fL (9.4-12.4); Monocytes Absolute Auto 0.6 X10*3/uL (0.1-1.2); Monocytes Percent Auto 7.7 % (2-11); Neutrophils Absolute Auto 2.8 x10*3/uL (2.0-8.3); Neutrophils Percent Auto 36.2 % (45-73); PLT CLUMP 1; Red Blood Count 4.61 X10*6/uL (4.60-5.80); SCAN SMEAR FLAG 1
[2022-12-06 19:31] LABS: Platelet Count 134 X10*3/uL (160-400); SLIDE REVIEW VERIFIED; White Blood Count 7.8 X10*3/uL (4.8-10.8)
[2022-12-06 20:00] VITALS: BP 101/71; PULSE 74; RESP 18; TEMP 36.9; O2SAT 96
[2022-12-06 20:07] LABS: COVID-19 Test Negative (Negative); IDNOW Serial# 08D9AD1C
[2022-12-06 21:13] LABS: Appearance Urine Clear; Color Urine Yellow; Glucose Urine UA Negative (Negative); Leukocyte Esterase Urine Negative (Negative); Nitrite Urine Negative (Negative); PH 7.5 (5.0-9.0); Urine Blood Negative (Negative); Urine Ketones Negative (Negative); Urine Protein Negative (Neg-Trace)
[2022-12-06 22:17] VITALS: BP 126/66; PULSE 73; RESP 20; TEMP 36.6; O2SAT 97
--- NOTE | 2022-12-06 22:51 | MHC.EDTECH ---
PATIENT WAS INCONTINENT OF URINE ,ALSO VOID IN THE URINAL 200 ML ,CARE GIVEN ,BEDDING CHANGE ,PT RESTING QUIETLY IN BED .
[2022-12-06 23:43] VITALS: BP 124/67; PULSE 77; RESP 18; TEMP 36.8; O2SAT 97
== END 2022-12-07 00:30 | disposition home or self-care (01) ==
PROVIDERS: Physician Assistant; Emergency Provider Emergency Medicine
DX: R10.31 Right lower quadrant pain (principal); R30.0 Dysuria; F17.210 Nicotine dependence, cigarettes, uncomplicated; Z20.822 Contact with and (suspected) exposure to COVID-19; Z20.828 Contact with and (suspected) exposure to other viral communicable diseases; Z79.899 Other long term (current) drug therapy; Z71.6 Tobacco abuse counseling
CPT/HCPCS: 36415; 51798; 71045; 74176; 80053; 81003; 83735; 85025; 87635; 99284

== ENCOUNTER 2023-03-08 13:47 | Outpatient (AMB) | payer OTHER, SELFPAY ==
--- NOTE | 2023-03-08 13:48 | MHC.PC.OV ---
Vital Signs 03/08/23 13:49 Height 5 ft 10 in BMI Reason not done Patient refused/unable BP 110/62 Blood Pressure Location Lt brachial Position Sitting Pulse 87 Pulse Source Pulse Oximeter Pulse Oximetry (%) 94 Oxygen Delivery Method Room Air Intake Visit Reasons: 4M. F/U-Hyperlipidemia/Epilepsy Intake Note: Patient is here to follow up on hyperlipidemia/epilepsy Label Fuser Tender Required: No Allergies No Known Allergies Allergy (Verified 03/08/23 13:59) Medication List - Last Reconciled 03/08/23 by CHRIST Kahn atorvastatin 40 mg PO BEDTIME 90 days chair, wheel (Wheel chair) As directed; needs large 20' wheel chair, put on 20 lbs. citalopram 20 mg PO QAM 90 days dexamethasone 6 mg PO DAILY divalproex ER 500 mg PO DAILY divalproex ER 1,000 mg PO BEDTIME [Electric Hospital Bed As directed] ergocalciferol (vitamin D2) 1,250 mcg PO QWEEK 90 days levetiracetam 250 mg PO BEDTIME levetiracetam 1,000 mg PO BID levetiracetam 500 mg PO DAILY loratadine 10 mg PO DAILY PRN 30 days [MANUAL WHEELCHAIR (large) As directed] phenazopyridine 100 mg PO TID 6 doses pyridoxine (vitamin B6) 100 mg PO DAILY sennosides (Senna Lax) 8.6 mg PO BEDTIME PRN 90 days [WHEELCHAIR As directed] [WHEELCHAIR As directed] zolpidem 0.5 - 1 tabs PO BEDTIME PRN Tobacco use date assessed: 03/08/23 Dental Screening Dental Screen Date: 03/08/23 Did you have a dental visit in the last 12 months?: Yes Did you have a dental problem in the last 6 months where you did not have access to dental care?: No Was dental information given to patient?: Patient has dentist HPI 4M. F/U-Hyperlipidemia/Epilepsy HPI Details Patient is a 57-year-old male who presents today for a routine follow-up. Patient of Dr. Garcia, last visit 09/2022. Medical history significant for hyperlipidemia, insomnia, anxiety, depression, epilepsy-followed by [facility] Neurology-reports last seizure 1 month ago, impaired fasting glucose, dysphagia-patient reports intermittent cough with liquids and solid foods for long time now - he has referral for barium swallow and speech therapist-will follow-up on this-did not have this done. Reports compliance with medications. Patient was encouraged to complete his blood work that was ordered by his PCP at the last office visit. Patient is accompanied by his [id number] who helps with Iraqi interpretation. [facility] Medical History COVID-19 Impaired fasting glucose Mixed hyperlipidemia Postsurgical retinal scar of left eye Depression Anxiety Insomnia Vitamin D deficiency History of traumatic brain injury Primary osteoarthritis of left knee Left knee pain Epilepsy Pure hypercholesterolemia PAF (paroxysmal atrial fibrillation) Coronavirus infection TBI (traumatic brain injury) Family History Mother Seizures Other No significant past surgical history Social History Household Members: Unknown / Unable to assess Housing: Apartment Alcohol intake: current Alcohol intake frequency: does not drink Comment: PT SLEEPING Patient Tobacco Use Status: Current everyday Tobacco user Cigarettes Per Day: 3 Second Hand Smoke Exposure: Yes service: No Current occupational status: disabled Cognitive needs: Yes Hearing needs: No Vision needs: Yes Questionnaire Thrive Questionnaire Date Thrive assessed: 09/29/22 AUDIT C Alcohol Use Questionnaire (AUDIT-C) 1. How often do you have a drink containing alcohol?: Never 2. How many drinks containing alcohol do you have on a typical day when you are drinking?: 1 or 2 3. How often do you have six or more drinks on one occasion?: Never Total Score: 0 Score Reviewed/Action Taken: No GIBRAN-7 AMB Questionnaire GIBRAN-7 Date GIBRAN - 7 assessed: 09/29/22 Feeling nervous, anxious, or on edge: 0 = Not at all Not being able to stop or control worryin = Not at all Worrying too much about different things: 0 = Not at all Trouble relaxin = Not at all Being so restless that it is hard to sit still: 0 = Not at all Becoming easily annoyed or irritable: 0 = Not at all Feeling afraid as if something awful might happen: 0 = Not at all Total GIBRAN-7 score (0-4 normal; 5-9 mild; 10-14 moderate; 15-21 severe): 0 Source: Developed by Drs. Nelson Krueger, Aida Lance, Bernardo Palma and colleagues, with an educational farida from [employer]. GIBRAN-7 Assessment Billing GIBRAN-7 Assessment Tool: GIBRAN-7 Assessment 94125 Review of Systems Const Reports as per HPI, Denies body aches, Denies chills, Denies fever(s) and Denies headache(s) ENT Denies dizziness, Denies otalgia, Denies headache(s), Denies nasal discharge, Denies sinus pain and Denies sore throat Card Denies chest pain, Denies edema, Denies lightheadedness and Denies dyspnea Resp Reports as per HPI, Reports cough, Denies dyspnea and Denies wheezing GI Denies abdominal pain Musc Denies myalgias Neuro Denies dizziness and Denies headache(s) Aller/Immun Denies wheezing Physical exam (Primary Care) Vital Signs: Last Vital Signs Pulse 87 03/08/23 13:49 BP 110/62 03/08/23 13:49 Pulse Ox 94 03/08/23 13:49 Oxygen Delivery Method Room Air 03/08/23 13:49 Tobacco/Smoking Status: Tobacco use Status Tobacco use date assessed 03/08/23 03/08/23 13:57 Patient Tobacco Use Status Current everyday Tobacco 03/08/23 13:57 Thrive Assessment: Date of Thrive Assessment Date Thrive assessed 09/29/22 03/08/23 13:57 Const Other: In wheelchair General: cooperative and no acute distress HENMT Head: Yes normocephalic and Yes atraumatic Throat: Yes posterior oropharynx normal Eyes General: appearance normal, both eyes and all related structures Neck Neck: Yes normal visual inspection and Yes full ROM Resp Effort & Inspection: normal respiratory effort and able to speak in complete sentences Auscultation: clear to auscultation bilaterally, no crackles, no rales, no rhonchi and no wheezes Cardio Rate: regular rate Rhythm: regular rhythm Heart sounds: S1 normal heart sound present and S2 normal heart sound present GI Auscultation: normal bowel sounds Neuro Other: Right-sided hemiparesis Extrem General: Yes full ROM and No edema Office Procedures Flu Questionnaire Does the patient have a severe egg allergy?: No Does the patient have severe life threatening allergies?: No Does the patient have a fever or illness today?: No Has the patient ever had Guillain-[place] Syndrome?: No Has the patient ever had any past reaction to a flu shot?: No Immunizations flu vacc [id number] 6mos up(PF) 60 mcg(15 mcgx4)/0.5 mL IM syringe Performing Provider: CHRIST Khan Performing Location: [facility] Administered by: AMAYA Huynh on 03/08/23 14:25 Dose Route Admin Location Dispensed Lot Number Expiration Date NDC Security Flex Utility Officer 0.5 mL IM Left Deltoid 0.5 mL [id number] 10/09/23 03696-831-18 [employer] VIS Given Date VIS Provided VIS Publication Date 03/08/23 Single Vaccine 20 Eligibility Eligibility Date Funding Source Not [facility] Eligible 03/08/23 Private Assessment and Plan Assessment & Plan (1) Impaired fasting glucose: Code(s): R73.01 - Impaired fasting glucose Plan: A1c 6.0 09/2022 Continue low-carbohydrate diet Patient has A1c blood work ordered by his PCP (2) Dysphagia: Code(s): R13.10 - Dysphagia, unspecified Qualifiers: Dysphagia type: unspecified Qualified Code(s): R13.10 - Dysphagia, unspecified Plan: Will follow-up on barium swallow and speech therapy referral (3) Mixed hyperlipidemia: Code(s): E78.2 - Mixed hyperlipidemia Plan: LDL 68, triglycerides 268 09/2022 Continue atorvastatin Patient was encouraged to complete his blood work Low-cholesterol diet (4) Epilepsy: Code(s): G40.909 - Epilepsy, unspecified, not intractable, without status epilepticus Qualifiers: Epilepsy type: unspecified Intractability: not intractable Status epilepticus: without status epilepticus Qualified Code(s): G40.909 - Epilepsy, unspecified, not intractable, without status epilepticus Plan: Continue to follow-up with [facility]rology Continue current treatment as prescribed by Neurology Patient was encouraged to complete his blood work Plan Follow-up with PCP in 4 months Orders: Orders Influenza [id number] Immunization Today Z23 - Encounter for immunization Coding Level of Care Code Est Pt Level 3 (52016) Diagnoses Impaired fasting glucose R73.01 Dysphagia, unspecified type R13.10 Dysphagia type: unspecified Mixed hyperlipidemia E78.2 Nonintractable epilepsy without status epilepticus, unspecified epilepsy type G40.909 Epilepsy type: unspecified Intractability: not intractable Status epilepticus: without status epilepticus Additional Codes GIBRAN-7 Assessment Billing - GIBRAN-7 Assessment Tool: GIBRAN-7 Assessment 65698 ([id number])
[2023-03-08 13:49] VITALS: BP 110/62; PULSE 87; O2SAT 94
== END 2023-03-08 14:19 | disposition home or self-care (01) ==
PROVIDERS: Visit Provider Nurse Practitioner Family
DX: R73.01 Impaired fasting glucose (principal); R13.10 Dysphagia, unspecified; E78.2 Mixed hyperlipidemia; G40.909 Epilepsy, unspecified, not intractable, without status epilepticus; Z23 Encounter for immunization
CPT/HCPCS: 90471; 90686; 99213

== ENCOUNTER 2023-03-11 09:02 | Outpatient (REF) | payer OTHER, SELFPAY ==
[2023-03-11 09:43] LABS: MANUAL DIFF FLAG NO
[2023-03-11 09:50] LABS: Basophils Absolute Auto 0.1 X10*3/uL (0.0-0.2); Basophils Percent Auto 0.7 % (0-2); Eosinophils Absolute Auto 0.1 X10*3/uL (0.0-0.4); Eosinophils Percent Auto 1.6 % (0-4); Hematocrit 42.6 % (42.0-52.0); Hemoglobin 14.2 g/dl (14.0-18.0); Imm Gran Abs Auto 0.03 X10*3/uL (0.00-0.03); Imm Gran Pct Auto 0.4 % (0.0-0.4); Lymphocytes Absolute Auto 3.8 X10*3/uL (1.2-4.9); Lymphocytes Percent Auto 51.4 % (20-40); Mean Corpuscular HGB Conc 33.3 g/dl (31.0-36.0); Mean Corpuscular Hemoglobin 30.6 pg (27.0-33.0); Mean Corpuscular Volume 91.8 fL (80.0-98.0); Mean Platelet Volume 12.4 fL (9.4-12.4); Monocytes Absolute Auto 0.6 X10*3/uL (0.1-1.2); Monocytes Percent Auto 8.6 % (2-11); Neutrophils Absolute Auto 2.8 x10*3/uL (2.0-8.3); Neutrophils Percent Auto 37.3 % (45-73); Platelet Count 169 X10*3/uL (160-400); Red Blood Count 4.64 X10*6/uL (4.60-5.80); Red Cell Distribution Width 12.5 % (11.0-16.0); White Blood Count 7.4 X10*3/uL (4.8-10.8)
[2023-03-11 10:02] LABS: Estimated Average Glucose 126 mg/dL
[2023-03-11 10:53] LABS: Appearance Urine Clear; Color Urine Dark Yellow; Glucose Urine UA Negative (Negative); Leukocyte Esterase Urine Negative (Negative); Nitrite Urine Negative (Negative); PH 5.5 (5.0-9.0); Specific Gravity - Urine 1.025 (1.005-1.025); Urine Blood Negative (Negative); Urine Ketones Trace mg/dL (Negative); Urine Protein Negative (Neg-Trace)
[2023-03-11 10:54] LABS: Alanine Aminotransferase 26 U/L (0-40); Albumin Level 3.8 g/dL (3.5-5.0); Alkaline Phosphatase 66 U/L (39-117); Anion Gap 10 (12-20); Aspartate Amino Transferase 25 U/L (5-37); Bilirubin Total 0.4 mg/dL (0.0-1.0); Blood Urea Nitrogen 13 mg/dL (9-16); Calcium 9.3 mg/dL (8.4-10.2); Carbon Dioxide 30 mmol/L (22-29); Chloride 107 mmol/L (96-108); Cholesterol 156 mg/dL (<200); Estimated Glomerular Filt Rate > 60; Glucose Fasting 114 mg/dL (60-99); HDL Cholesterol 44 mg/dL (>40); LDL Cholesterol Calculated 61 mg/dL (<100); Potassium 4.6 mmol/L (3.3-5.1); Sodium 142 mmol/L (135-145); Total Protein 6.6 g/dL (6.5-8.0); Triglycerides 255 mg/dL (<150)
[2023-03-11 11:00] LABS: TSH reflex Free T4 3.93 uIU/mL (0.32-4.0); Vitamin D 25-OH Total 33.4 ng/mL (>30)
[2023-03-11 11:17] LABS: Creatinine Urine 219.81 mg/dL; Microalbum/Creatinine Ratio Ur 6.8 ug/mg cr (<30)
[2023-03-14 20:13] LABS: Levetiracetam Keppra 23.3 mcg/mL (6.0-46.0)
== END 2023-03-11 09:03 | disposition home or self-care (01) ==
LOC: HO.LAB 09:02
PROVIDERS: PCP Internal Medicine; Visit Provider Internal Medicine
DX: I10 Essential (primary) hypertension (principal); R30.0 Dysuria; E55.9 Vitamin D deficiency, unspecified; E78.00 Pure hypercholesterolemia, unspecified; G40.909 Epilepsy, unspecified, not intractable, without status epilepticus; E11.9 Type 2 diabetes mellitus without complications; Z79.899 Other long term (current) drug therapy
CPT/HCPCS: 36415; 80053; 80061; 80164; 80177; 81003; 82043; 82306; 82570; 83036; 84443; 85025

== ENCOUNTER 2023-04-27 14:28 | Outpatient (REF) | payer OTHER, SELFPAY ==
--- NOTE | ~2023-04-27 | FL_ITS ---
EXAMINATION: Modified Barium Swallows CLINICAL INFORMATION: Dysphagia COMPARISON: None TECHNIQUE: Modified barium swallow was performed under lateral fluoroscopy with patient in standing position. Different consistency of barium was administered by the speech therapist. Examination was recorded in the fluoroscopy department. FINDINGS: Aspiration was seen with thin and nectar thick liquids. No aspiration or penetration was seen with honey thick liquid and regular texture solid. FLUOROSCOPY TIME: 2 minutes 9 seconds Number of Spot Images: 1 DOSE AREA PRODUCT: 1290 uGy-m2 (microgray-meter squared) FL/FL barium swallow modified IMPRESSION: Aspiration was seen with thin and nectar thick liquids. No aspiration or penetration was seen with honey thick liquid and regular texture solid. Refer to the dedicated speech therapy report for further clarification This procedure was performed by Abdulaziz Avery PA-C, and supervised by Dr. Roberts
--- NOTE | 2023-05-09 13:50 | MHC.SL.IMP ---
Date of Plan of Treatment: 04/27/23 Onset of Symptoms/Illness: 04/27/14 Date Treatment Started: 04/27/23 Admitting Diagnosis: R13.10 Dysphagia, unspecified Primary Speech & Language Diagnosis: R13.12 Oropharyngeal Phase Dysphagia Reason for Today's Visit: 15043 Modified Barium Swallow Study Pre-evaluation Dietary Consistencies: Regular Pre-evaluation Liquid Consistency: Thin Pre-evaluation Medication Administration: Whole with Liquid Medical History: Reason for Study: Hx dysphagia Referring Physician: Juan Garcia MD Evaluating Clinician: Laurita Fitzpatrick MA, CCC-CLINIC PHYSICIAN Study Number: 1 Patient Name: Louis Wagoner Status: Outpatient, Wheelchair Age: 57 Gender: Male Medical History Medical History COVID-19 Impaired fasting glucose Mixed hyperlipidemia Postsurgical retinal scar of left eye Depression Anxiety Insomnia Vitamin D deficiency History of traumatic brain injury Primary osteoarthritis of left knee Left knee pain Epilepsy Pure hypercholesterolemia PAF (paroxysmal atrial fibrillation) Coronavirus infection TBI (traumatic brain injury) Current (pre-evaluation) Intake/Diet: Route: PO Diet Grade: Regular Liquid Consistencies: Thin Pre-Study Functional Oral Intake Scale (FOIS): 7- Total oral intake with no restrictions Pain: None reported at time of study SUBJECTIVE: Pt is a 57 year old male with past medical history significant for traumatic brain injury and epilepsy. Pt complains of having trouble swallowing. Pt describes ?feeling like something is stuck? in his throat and reports having an intermittent cough with both solids and liquids. He has extensive history of dysphagia and had been seen by a speech pathologist when previously hospitalized in August 2021 for acute hypoxic respiratory failure due to COVID19 infection. At the time the speech pathologist noted prolonged oral phase and recommended a chopped diet with thin liquids. Pt was seen by speech pathologists prior to this years ago in 2014 and was recommended thickened liquids. Pt is here today for a modified barium swallow study to evaluate the extent of his dysphagia and to provide dietary recommendations. Food and Liquid Trials: Oral Impairment: Lip Closure: Did not test Oral Impairment: Tongue Control During Bolus Hold: Did not test Oral Impairment: Bolus Preparation/Mastication: 2=Disorganized chewing/mashing with solid pieces of bolus Oral Impairment: Bolus Transport/Lingual Motion: 2=Slowed tongue motion Oral Impairment: Oral Residue: 2=Residue collection on oral structures Oral Impairment:Initiation of Pharyngeal Swallow: 3=Bolus head in pyriforms Pharyngeal Impairment: Soft Palate Elevation: 0=No bolus between soft palate (SP)/pharyngeal wall (PW) Pharyngeal Impairment: Laryngeal Elevation: 1=Partial thyroid cartilage/arytenoids to epiglottic petiole movement Pharyngeal Impairment: Anterior Hyoid Excursion: 1=Partial anterior movement Pharyngeal Impairment: Epiglottic Movement: 1=Partial inversion Pharyngeal Impairment: Laryngeal Vestibular Closure:: 2=None: No inversion Pharyngeal Impairment: Pharyngeal Stripping Wave: 0=Present: complete Pharyngeal Impairment: Pharyngeal Contraction: Did not test Pharyngeal Impairment: Pharyngoesophageal Segment Openin=Partial distention/partial duration: partial obstruction of flow Pharyngeal Impairment: Tongue Base (TB) Retraction: 2=Narrow column of contrast/air between TB and posterior PW Pharyngeal Impairment: Pharyngeal Residue: 3=Majority of contrast within or on pharyngeal structures Pharyngeal Impairment: Esophageal Clearance Upright Position: Did not test Impressions and Recommendations OBJECTIVE: Time-out: performed at 14:45 Evaluation Start: 14:30; Stop: 14:40 Patient Positioning: Seated 70-90 degrees Viewing Planes: LATERAL ONLY Contrast: MBSImP? Standardized Protocol using commercially prepared, standardized Barium viscosities, including: Varibar? THIN LIQUID (40% w/v, <15 cps) , Varibar? NECTAR (40% w/v, <150-450 cps) , Varibar? THIN HONEY (40% w/v, <800-1800 cps) , 1/2 Shortbread Cookie (1 x1 x.25 ) [facility] [id number] [facility] Results: Lip closure for intraoral bolus containment could not be assessed due to logistical reasons not related to physiologic impairment. Tongue control during bolus hold could not be assessed due to logistical reasons not related to physiologic impairment. Bolus preparation and mastication demonstrated disorganized chewing/mashing with solid pieces of the bolus unchewed. Bolus transport/lingual motion was with slowed tongue motion. Oral residue was a collection on oral structures. Initiation of the pharyngeal swallow occurred when the bolus head was in the pyriform sinuses. Soft palate elevation resulted in no bolus between the soft palate and the pharyngeal wall. Laryngeal elevation was decreased, with partial superior movement of the thyroid cartilage/partial approximation of the arytenoids to the epiglottic petiole. Anterior hyoid excursion demonstrated partial anterior movement. Epiglottic movement resulted in partial inversion. Laryngeal vestibular closure was absent, resulting in a wide column of air/contrast within the laryngeal vestibule at the height of the swallow. Pharyngeal stripping wave was present and complete. Pharyngeal contraction could not be determined due to logistical reasons not related to physiologic impairment. Pharyngoesophageal segment opening demonstrated partial distension/partial duration, with partial obstruction of bolus flow. Tongue base retraction allowed a narrow column of contrast or air between the retracted tongue base and the posterior pharyngeal wall. Pharyngeal residue was the majority of contrast within or on pharyngeal structures. Esophageal clearance in the upright position could not be assessed due to logistical reasons not related to physiologic impairment. Oral Impairment Score: 9 (absence of score, component 1component 2) Pharyngeal Impairment Score: 11 (absence of score, component 13) Esophageal Impairment Score: --- (absence of score, component 17) Laryngeal Penetration and Aspiration: Both Penetration and Aspiration were observed in today's study. Puree entered the airway, remained above the vocal folds, and was ejected from the airway. [place]-thick, Thin Contrast entered the airway, passed below the vocal folds, and no effort were made to eject. ASSESSMENT: This exam was performed by the speech pathologist and the radiologist. Pt was seated upright for lateral view only. Pt trialed thin liquids, nectar thick liquids, honey thick liquids, pureed solids, and regular texture solids. Unable to visualize labial seal with imaging. Posterior lingual motion for bolus transport was mildly slowed. Mastication was also slowed and disorganized, with piece meal deglutition. There was mild residue coating the tongue with liquids and semi-solid (puree), which mostly cleared on subsequent swallow. Increased oral residuals on regular texture solid, with pt swallowing 2-3 times per bite in order to clear the bolus. Pharyngeal swallow trigger was delayed, initiated as the bolus head reached the pyriform sinuses. There was no nasopharyngeal reflux. Incomplete laryngeal elevation with partial epiglottic inversion resulting in episodes of penetration and aspiration. There was aspiration on trial of thin liquid. A trace amount of contrast entered the airway and passed below the vocal folds during the swallow. Pt did not elicit a spontaneous cough in response to aspiration event. There was also qian aspiration with nectar thick liquid. A wide column of contrast entered the airway during the swallow and passed below the vocal folds. Again pt did not elicit a protective cough. With intake of semi-solid, there was penetration above the vocal folds. Puree consistency mixed with thin media in the valleculae and subsequently entered the airway, but spontaneously cleared. No aspiration or penetration with honey thick liquid and regular texture solid. Noted mild pharyngeal residue on the tongue base, in the valleculae, and in the pyriform sinuses with intake of liquids and semi-solid. Significant retention with solids. Multiple dry swallows reduced pharyngeal residue. Additional bites of puree notably mostly cleared residuals. Liquid Intake Recommendation: Honey Thick Liquid Intake Strategies: Small Sips, No Straws Dietary Recommendations: Chopped/Advanced (NDD3) Medication Administration: Crushed with Puree Please contact the pharmacy regarding appropriate crushable or liquid drug formulations that are available whenever modified delivery is recommended. Compensatory Strategies Recommended: Sitting Upright (90 deg), Double Swallow, No Straw. Small Bites and Sips, Rate of Ingestion Change, Avoid Specific Foods Supervision during eating and or drinking: Total Supervision (1:1) Recommended Treatments: Compens. Strategy Educat. Recommendation for Speech Therapy: Outpatient Speech Therapy Speech Therapy through [facility] Text Comment: Intake Recommendations: Route: PO Diet Grade: Chopped/Advanced Solids- Refer to National Dysphagia Diet Level III Liquid Consistencies: Honey Post-Study Functional Oral Intake Scale (FOIS): 5- Total oral intake of multiple consistencies requiring special preparation Pt displays moderate oropharyngeal dysphagia. Oral phase is mildly delayed, characterized by disorganized chewing and slowed lingual movements. Pharyngeal swallow trigger is significantly delayed. Incomplete laryngeal elevation and partial epiglottic inversion, with contrast entering the airway as a result. There was silent aspiration on thin liquid and nectar thick liquid with no protective cough elicited. There was penetration with puree above the level of the vocal folds, which subsequently cleared. Significant pharyngeal retention with regular texture solid. Pt was able to reduce residuals with multiple dry swallows and additional bites of purees. Pt is recommended a modified diet to maximize safety- CHOPPED/ADVANCED (NDD3) solids with HONEY THICK LIQUIDS. The following strategies are recommended to minimize the risk of aspiration and to promote oral and pharyngeal clearance: -Avoid mixed textures (i.e. thin broth soup with solid ingredients) and foods which are hard, dry, or sticky -Moisten and soften food with sauces/gravies which are at least honey thick in consistency and blended in well with the food -Take small bites of food, chew food well -Follow each bite and sip with 1-2 dry swallows to promote oral and pharyngeal clearance -Clear oral cavity before taking more bites -Maintain upright 90 degree position while eating and drinking and for at least 60 minutes afterwards -Take small, individual sips of liquid -Avoid the use of straws -Avoid taking quick, sequential sips Pt is recommended dysphagia treatment with a speech pathologist to trial pharyngeal strengthening exercises and for further education in regards to the MBSS results, recommended dietary textures, and recommended behavioral strategies. Suggested Referrals: The patient might benefit from a referral to: Pulmonology Indication for Referral: Hx aspiration Nutrition Services Indication for Referral: Risk of dehydration with thickened liquids Therapy Recommendations: Therapy will be continued Frequency per Week: 1 Number of Weeks: 4 The following compensatory strategies and/or therapeutic exercises will be part of the upcoming therapy/management plan: Honey-thick Liquid Bolus Volume Change Rate of Ingestion Change Additional Swallow(s) per Bolus Fpc Goals: ? The patient and/or family will participate in further education for swallowing goals. Short Term Goals: ? Education - The patient, caregiver will verbalize/demonstrate understanding of the results of this evaluation, the above recommendations, and the swallowing guidelines. Frequency/Duration: 1x weekly x 4 weeks Date Range for Service Requested: Timeline to reassess: 3 months Clinician - Supplemental, Miscellaneous Communication: It is important to note MBSS objective studies are snapshots in time and Patient function might vary with factors such as time of day or concomitant medical conditions. For this reason, the final treatment plan for this patient should rest with their medical care team. Additional recommendations should be considered with the totality of the Patient in mind. Thank for the opportunity to participate in the care of this patient. If you have any questions about the content of this report, please contact the [facility] at [facility]. Education: Education regarding findings from today's study and plans for therapy were provided to Patient only through Verbal Instruction. Understanding was expressed by the Patient only. Fishing Manager Clinician/Clinical Fellow: No Supervisory Statement: N/A Speech Language Pathologist: Laurita Fitzpatrick M.A., CCC-CLINIC PHYSICIAN
== END 2023-04-27 14:29 | disposition home or self-care (01) ==
LOC: HO.XRAY 14:28
PROVIDERS: PCP Internal Medicine; Visit Provider Internal Medicine
DX: R13.12 Dysphagia, oropharyngeal phase (principal)
CPT/HCPCS: 74230; 92611

== ENCOUNTER → 2023-04-27 14:33 | Outpatient (BNV) | payer OTHER, SELFPAY | PROVIDERS: PCP Internal Medicine; Visit Provider Radiology Diagnostic Radiology | DX: R13.10 Dysphagia, unspecified (principal) | CPT/HCPCS: 74230 ==

== ENCOUNTER 2023-07-08 13:19 | Outpatient (AMB) | payer OTHER, SELFPAY ==
--- NOTE | 2023-07-08 13:31 | MHC.PC.OV ---
Vital Signs 07/08/23 13:33 Height 5 ft 10 in BMI Reason not done Patient refused/unable BP 112/64 Blood Pressure Location Lt brachial Position Sitting Pulse 80 Pulse Source Pulse Oximeter Pulse Oximetry (%) 97 Oxygen Delivery Method Room Air Intake Visit Reasons: HLD, IFG Intake Note: Patient is here to follow up on HLD, IFG. High Climber Required: Yes High Climber Language: Building Stonecutter Name: Arely (mother) Information Interpreted: non-clinical & clinical Detective [place]: Present Accompanied by: Mother Allergies No Known Allergies Allergy (Verified 07/08/23 14:24) Medication List - Last Reconciled 07/08/23 by Juan Garcia MD atorvastatin 40 mg PO BEDTIME 90 days chair, wheel (Wheel chair) As directed; needs large 20' wheel chair, put on 20 lbs. citalopram 20 mg PO QAM 90 days dexamethasone 6 mg PO DAILY divalproex ER 500 mg PO DAILY divalproex ER 1,000 mg PO BEDTIME [Electric Hospital Bed As directed] ergocalciferol (vitamin D2) 1,250 mcg PO QWEEK 90 days levetiracetam 1,000 mg PO BID levetiracetam 500 mg PO DAILY loratadine 10 mg PO DAILY PRN 30 days [MANUAL WHEELCHAIR (large) As directed] phenazopyridine 100 mg PO TID 6 doses pyridoxine (vitamin B6) 100 mg PO DAILY sennosides (Senna Lax) 8.6 mg PO BEDTIME PRN 90 days [WHEELCHAIR As directed] [WHEELCHAIR As directed] zolpidem 0.5 - 1 tabs PO BEDTIME PRN Tobacco use date assessed: 07/08/23 Dental Screening Dental Screen Date: 07/08/23 Did you have a dental visit in the last 12 months?: Yes Did you have a dental problem in the last 6 months where you did not have access to dental care?: No Was dental information given to patient?: Patient has dentist HPI HLD, IFG HPI Details Patient comes in today for his follow up visit - is accompanied as usual by his mother His mother states that patient has been doing okay Was just reportedly seen by [facility] for follow up of his epilepsy last week and was advised that everything was okay Patient denies any headaches or dizziness He denies any chest pains, no increased SOB No nausea/vomiting, no abdominal pain No change in bowel habits noted He had her follow up labs done back in March 2023 - to discuss his results FORMERLY [facility], [facility]1983 Medical History COVID-19 Impaired fasting glucose Mixed hyperlipidemia Postsurgical retinal scar of left eye Depression Anxiety Insomnia Vitamin D deficiency History of traumatic brain injury Primary osteoarthritis of left knee Left knee pain Epilepsy Pure hypercholesterolemia PAF (paroxysmal atrial fibrillation) Coronavirus infection TBI (traumatic brain injury) Surgical History History of cholecystectomy Family History Mother Seizures Other No significant past surgical history Social History Household Members: Unknown / Unable to assess Housing: Apartment Alcohol intake: current Alcohol intake frequency: does not drink Comment: PT SLEEPING Patient Tobacco Use Status: Current everyday Tobacco user Tobacco use type: Cigarette Cigarette Packs Per Day: 0.5 Cigarettes Per Day: 4 e-Cigarette/Vaping Use: Never Used Second Hand Smoke Exposure: Yes service: No Current occupational status: disabled Cognitive needs: Yes (wheelchair) Hearing needs: No Vision needs: Yes (glasses) Questionnaire PHQ-9 Over the last 2 weeks, how often have you been bothered by any of the following problems? 1. Little interest or pleasure in doing things: not at all 2. Feeling down, depressed, or hopeless: not at all 3. Trouble falling or staying asleep, or sleeping too much: not at all 4. Feeling tired or having little energy: not at all 5. Poor appetite or overeating: not at all 6. Feeling bad about yourself - or that you are a failure or have let yourself or your family down: not at all 7. Trouble concentrating on things, such as reading the newspaper or watching television: not at all 8. Moving or speaking so slowly that other people could have noticed. Or the opposite - being so fidgety or restless that you have been moving around a lot more than usual: not at all 9. Thoughts that you would be better off or of hurting yourself in some way: not at all Total score: 0 Depression Screening Interpretation: Negative Depression Screening Done: Yes 39076 - PHQ-9 Billing: Yes Source: Developed by Drs. Nelson Krueger, Bernardo Antunez and colleagues, with an educational farida from [employer]. Thrive Questionnaire Date Thrive assessed: 07/08/23 I am a: Patient What is your living situation today?: I have a steady place to live Within the past 12 months, did the food you bought not last and you didn't have the money to get more?: Never true Within the past 12 months, did you worry whether your food would run out before you got money to buy more?: Never true Do you have trouble paying for medicines?: No Do you have trouble getting transportation to medical appointments?: No Do you have trouble paying your heating and electricity bill?: No Do you have trouble taking care of your child, family member or friend?: No Do you have trouble with day-to-day activities such as bathing, preparing meals, shopping, managing finances, etc.?: No Are you currently unemployed and looking for a job?: No Are you interested in more education?: No Currently or been in a relationship where the following occur: no concerns reported THRIVE Score: 0 AUDIT C Alcohol Use Questionnaire (AUDIT-C) 1. How often do you have a drink containing alcohol?: Never Total Score: 0 Score Reviewed/Action Taken: Yes GIBRAN-7 AMB Questionnaire GIBRAN-7 Date GIBRAN - 7 assessed: 07/08/23 Feeling nervous, anxious, or on edge: 0 = Not at all Not being able to stop or control worryin = Not at all Worrying too much about different things: 0 = Not at all Trouble relaxin = Not at all Being so restless that it is hard to sit still: 0 = Not at all Becoming easily annoyed or irritable: 0 = Not at all Feeling afraid as if something awful might happen: 0 = Not at all Total GIBRAN-7 score (0-4 normal; 5-9 mild; 10-14 moderate; 15-21 severe): 0 Source: Developed by Aida Domingo Kurt Kroenke and colleagues, with an educational farida from [employer] Review of Systems Const Denies chills, Denies fatigue, Denies fever(s) and Denies headache(s) ENT Denies dysphagia, Denies dizziness, Denies otalgia, Denies headache(s), Denies odynophagia and Denies sore throat Card Denies chest pain, Denies palpitations and Denies dyspnea Resp Denies chest congestion, Denies cough, Denies dyspnea and Denies wheezing GI Denies abdominal pain, Reports constipation (on and off), Denies dysphagia, Denies heartburn, Denies diarrhea, Denies nausea, Denies odynophagia and Denies vomiting Denies dysuria, Denies nocturia and Denies urinary frequency Musc Denies arthralgias Skin/Breast Denies rash Neuro Denies dizziness, Denies headache(s), Reports convulsions (on and off but none recently) and Denies seizure-like activity Endo Denies fatigue and Denies palpitations Aller/Immun Denies wheezing Physical exam (Primary Care) Vital Signs: Last Vital Signs Pulse 80 07/08/23 13:33 BP 112/64 07/08/23 13:33 Pulse Ox 97 07/08/23 13:33 Oxygen Delivery Method Room Air 07/08/23 13:33 Tobacco/Smoking Status: Tobacco use Status Tobacco use date assessed 07/08/23 07/08/23 13:46 Patient Tobacco Use Status Current everyday Tobacco 07/08/23 13:46 Tobacco use type Cigarette 07/08/23 13:46 e-Cigarette/Vaping Use Never Used 07/08/23 13:46 PHQ-9: PHQ-9 Score PHQ-9: Total score 0 07/08/23 13:46 Depression Screening Interpretation: Negative Thrive Assessment: Date of Thrive Assessment Date Thrive assessed 07/08/23 07/08/23 13:46 Currently or been in a relationship where the following occur: no concerns reported Const General: no acute distress and alert Limitations: wheelchair HENMT Ears: TM's normal bilaterally and EAC's normal Throat: Yes posterior oropharynx normal and Yes tonsils normal (no TP congestion noted) Neck Neck: Yes no lymphadenopathy and Yes supple Resp Auscultation: clear to auscultation bilaterally, no rales and no wheezes Cardio Rate: regular rate Rhythm: regular rhythm Heart sounds: no murmurs GI Palpation (GI): Soft to palpation and nontender Auscultation: normal bowel sounds Neuro Other: (+) 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; speech slurred (baseline) Extrem General: Yes no clubbing, cyanosis or edema Results AMB Hemoglobin A1c AMB Hemoglobin A1c 6.1 % Last Edit by AMAAY Saeed on 07/08/23 13:47 Results Reviewed Results Reviewed: Laboratory Last Values Hgb A1c (Clinic) 6.1 % (4.0-6.0) H 07/08/23 13:31 Laboratory Tests 03/11/23 03/11/23 03/11/23 09:06 09:06 09:40 WBC 7.4 Hgb 14.2 Hct 42.6 Plt Count 169 D Sodium 142 Potassium 4.6 Creatinine 0.68 Estimated GFR > 60 Fasting Glucose 114 H Hgb A1c (Clinic) Hemoglobin A1c % Calcium 9.3 AST 25 ALT 26 Triglycerides 255 H Cholesterol 156 LDL Cholesterol, Calc 61 HDL Cholesterol 44 25-OH Vitamin D Total 33.4 Ur Specific [place] 1.025 Urine Protein Negative Urine Glucose (UA) Negative Urine Blood Negative Urine Nitrite Negative Ur Leukocyte Esterase Negative Microalb/Creat Ratio Valproic Acid Levetiracetam 03/11/23 03/11/23 07/08/23 09:40 Unknown 13:31 WBC Hgb Hct Plt Count Sodium Potassium Creatinine Estimated GFR Fasting Glucose Hgb A1c (Clinic) 6.1 H Hemoglobin A1c % 6.0 Calcium AST ALT Triglycerides Cholesterol LDL Cholesterol, Calc HDL Cholesterol 25-OH Vitamin D Total Ur Specific [place] Urine Protein Urine Glucose (UA) Urine Blood Urine Nitrite Ur Leukocyte Esterase Microalb/Creat Ratio 6.8 Valproic Acid 86.0 Levetiracetam 23.3 Assessment and Plan Assessment & Plan (1) Mixed hyperlipidemia: Code(s): E78.2 - Mixed hyperlipidemia Plan: Results of his labs done back in March 2023 reviewed and discussed with patient and his mother Reinforced low cholesterol diet Continue Atorvastatin 40 mg QD Will recheck his labs and fasting lipids in 4 months for follow up (2) Impaired fasting glucose: Code(s): R73.01 - Impaired fasting glucose Plan: In-office HgbA1c done today is at 6.1%; his HgbA1c was at 6.2% on his labs back in March 2023 Reinforced low calorie/low carb diet Advised that he needs to keep his HgbA1c at 6.0% or less so we would not necessarily have to start him on any Rx for his blood sugar (3) Vitamin D deficiency: Code(s): E55.9 - Vitamin D deficiency, unspecified Plan: Continue Vitamin D2 35198 units once a week Will recheck his Vitamin D level in 4 months (4) Epilepsy: Code(s): G40.909 - Epilepsy, unspecified, not intractable, without status epilepticus Qualifiers: Epilepsy type: unspecified Intractability: not intractable Status epilepticus: without status epilepticus Qualified Code(s): G40.909 - Epilepsy, unspecified, not intractable, without status epilepticus Plan: Continue Levetiracetam 1000 mg + 250 mg BID and Divalproex ER 500 mg BID Follow up with [facility] as scheduled - was reported;y seen last week and advised that he is okay (5) History of traumatic brain injury: Code(s): Z87.820 - Personal history of traumatic brain injury Plan: Occurred years ago, with residual neurologic deficits (hemiparesis) and slurred speech (6) Dysphagia: Code(s): R13.10 - Dysphagia, unspecified Qualifiers: Dysphagia type: unspecified Qualified Code(s): R13.10 - Dysphagia, unspecified Plan: His modified barium swallow done in April 2023 revealed (+) aspiration was seen with thin and nectar thick liquids. No aspiration or penetration was seen with honey thick liquid and regular texture solids He has been referred to Speech and Hearing for further recommendations regarding this (7) Primary osteoarthritis of left knee: Code(s): M17.12 - Unilateral primary osteoarthritis, left knee Plan: X-rays of the left knee done back in September 2018 revealed tricompartmental degenerative arthrosis primarily involving the medial and lateral compartments Follow up with orthopedics as scheduled\ (8) Constipation: Code(s): K59.00 - Constipation, unspecified Qualifiers: Constipation type: unspecified constipation type Qualified Code(s): K59.00 - Constipation, unspecified Plan: Encouraged increased oral fluids and dietary fiber Continue Senna 8.6 mg 1 to 2 tablets Q HS PRN (9) Insomnia: Code(s): G47.00 - Insomnia, unspecified Qualifiers: Insomnia type: unspecified Qualified Code(s): G47.00 - Insomnia, unspecified Plan: Sleep hygiene reinforced Continue Zolpidem 10 mg 1/2 to 1 tablet Q HS PRN (10) Anxiety: Code(s): F41.9 - Anxiety disorder, unspecified Plan: Was on Lorazepam in the past but this was discontinued by psychiatry recently Is on Citalopram 20 mg QD, which also helps with his anxiety (11) Depression: Code(s): F32.9 - Major depressive disorder, single episode, unspecified Qualifiers: Depression Type: unspecified Qualified Code(s): F32.9 - Major depressive disorder, single episode, unspecified Plan: Continue Citalopram 20 mg QD and Divalproex ER 500 mg BID Follow up with psychiatry as scheduled Plan Follow up in 4 months Orders: Orders AMB Hemoglobin A1c Today R73.01 - Impaired fasting glucose Complete Blood Count Auto Diff 4 Months D64.9 - Anemia, unspecified Comprehensive [place]offey. Panel Fast 4 Months E78.00 - Pure hypercholesterolemia, unspecified TSH reflex Free T4 4 Months E78.00 - Pure hypercholesterolemia, unspecified UA CC w/rflx Micro + Cult 4 Months R30.0 - Dysuria Microalbumin, Random (w Creat) 4 Months E11.9 - Type 2 diabetes mellitus without complications Valproate 4 Months G40.909 - Epilepsy, unspecified, not intractable, without status epilepticus Lipid Panel 4 Months E78.00 - Pure hypercholesterolemia, unspecified Levetiracetam Keppra 4 Months G40.909 - Epilepsy, unspecified, not intractable, without status epilepticus Vitamin D 25-OH Total 4 Months E55.9 - Vitamin D deficiency, unspecified Hemoglobin A1c 4 Months R73.01 - Impaired fasting glucose Coding Level of Care Code Est Pt Level 4 (26207) Diagnoses Mixed hyperlipidemia E78.2 Impaired fasting glucose R73.01 Vitamin D deficiency E55.9 Nonintractable epilepsy without status epilepticus, unspecified epilepsy type G40.909 Epilepsy type: unspecified Intractability: not intractable Status epilepticus: without status epilepticus History of traumatic brain injury Z87.820 Dysphagia, unspecified type R13.10 Dysphagia type: unspecified Primary osteoarthritis of left knee M17.12 Constipation, unspecified constipation type K59.00 Constipation type: unspecified constipation type Insomnia, unspecified type G47.00 Insomnia type: unspecified Anxiety F41.9 Depression, unspecified depression type F32.9 Depression Type: unspecified
[2023-07-08 13:33] VITALS: BP 112/64; PULSE 80; O2SAT 97
== END 2023-07-08 14:30 | disposition home or self-care (01) ==
PROVIDERS: Visit Provider Internal Medicine
DX: E78.2 Mixed hyperlipidemia (principal); R73.01 Impaired fasting glucose; E55.9 Vitamin D deficiency, unspecified; G40.909 Epilepsy, unspecified, not intractable, without status epilepticus; Z87.820 Personal history of traumatic brain injury; R13.10 Dysphagia, unspecified; M17.12 Unilateral primary osteoarthritis, left knee; K59.00 Constipation, unspecified; G47.00 Insomnia, unspecified; F41.9 Anxiety disorder, unspecified; F32.9 Major depressive disorder, single episode, unspecified
CPT/HCPCS: 83036; 99214

== ENCOUNTER 2023-08-31 10:12 | Emergency (ER) | payer OTHER, SELFPAY ==
--- NOTE | ~2023-08-31 | XR_ITS ---
EXAMINATION: XR ANKLE, LEFT CLINICAL INFORMATION: Left ankle injury and pain COMPARISON: Left ankle x-ray on 12/17/2015 TECHNIQUE: AP, lateral, and mortise views of the left ankle. FINDINGS: BONES: Bony structures are intact. There is no focal bone destruction or periosteal reaction seen. JOINTS: Alignment of joints is normal. SOFT TISSUE: Soft tissue swelling is seen in lateral left ankle. No radiopaque foreign body or abnormal air collection is seen. XR/XR ankle LT min 3V IMPRESSION: 1. Interval development of lateral left ankle soft tissue swelling. 2. No fracture or dislocation or signs of osteomyelitis are found. 3. Interval resolution of the tiny dorsal calcaneal spur.
[2023-08-31 10:19] VITALS: BP 112/50; PULSE 85; RESP 16; TEMP 37.2; O2SAT 94; BMI 31.6
--- NOTE | 2023-08-31 11:36 | ED_ITS ---
HPI - General Adult General Chief complaint: Extremity Injury, Lower Stated complaint: fall couple days ago, ankle pain Time Seen by Provider: 08/31/23 11:36 Source: patient and cryolite recovery operator (all interactions with this patient were facilitated by an [facility] wire bound box machine operator) Mode of arrival: wheelchair Limitations: language barrier (all interactions with this patient were facilitated by an [facility] wire bound box machine operator) History of Present Illness ED Provider: Nathalie Patrick PA-C HPI narrative: Patient is a 57 year old assigned male at with a history of TBI (with permanent deficit), epilepsy, and anxiety presenting to the emergency department today with left ankle pain. Patient states that he tripped while trying to stand up from his wheel chair 5 days ago and rolled his left ankle. Patient denies any head strike or loss of consciousness with the incident. Patient denies any dizziness, lightheadedness, abdominal pain, nausea, vomiting, fever, chills, blurry vision, double vision, loss of vision, chest pain, difficulty breathing, shortness of breath, back pain, night sweats, pain with urination, increased urinary frequency, increased urinary urgency, blood in his urine or stool, syncope or a near syncopal episode, bowel incontinence, bladder incontinence, bowel retention, bladder retention, or any other complaints at this time. Onset (ago): day(s) (5) Location: left and lower extremity Radiation: non-radiation Severity: mild Severity scale (1-10): 3 Quality: aching and dull Pain Consistency: constant Relieving factors: none Exacerbating factors: none Associated symptoms: denies other symptoms Treatments prior to arrival: none Related Data Home Medications ?Medication ?Instructions ?Recorded ?Confirmed divalproex 500 mg tablet,extended 500 mg PO DAILY 02/29/20 07/08/23 release 24 hr levetiracetam 1,000 mg tablet 1,000 mg PO BID 02/29/20 07/08/23 zolpidem 10 mg tablet 0.5 - 1 tab PO BEDTIME PRN Insomnia 02/29/20 07/08/23 divalproex 500 mg tablet,extended 1,000 mg PO BEDTIME 08/22/21 07/08/23 release 24 hr levetiracetam 250 mg tablet 500 mg PO DAILY 08/22/21 07/08/23 pyridoxine (vitamin B6) 100 mg 100 mg PO DAILY 01/25/22 07/08/23 tablet Previous Rx's ?Medication ?Instructions ?Recorded WHEELCHAIR #1 ea 07/22/20 WHEELCHAIR #1 ea 01/14/21 [facility] Bed #1 ea 01/22/21 chair, wheel (Wheel chair) #1 ea 02/23/21 dexamethasone 6 mg tablet 6 mg PO DAILY #5 tabs 08/26/21 sennosides 8.6 mg tablet (Senna 8.6 mg PO BEDTIME PRN constipation 05/31/22 Lax) 90 days #90 tabs MANUAL WHEELCHAIR (large) #1 ea 09/29/22 phenazopyridine 100 mg tablet 100 mg PO TID 6 doses #6 tabs 12/06/22 loratadine 10 mg tablet 10 mg PO DAILY PRN allergy 05/18/23 symptoms/cough 30 days #30 tabs citalopram 20 mg tablet 20 mg PO QAM 90 days #90 tabs 05/25/23 ergocalciferol (vitamin D2) 1,250 1,250 mcg PO QWEEK 90 days #13 caps 08/17/23 mcg (50,000 unit) capsule atorvastatin 40 mg tablet 40 mg PO BEDTIME 90 days #90 tabs 08/23/23 Allergies Allergy/AdvReac Type Severity Reaction Status Date / Time No Known Allergies Allergy Verified 08/31/23 10:23 Review of Systems Constitutional: Constitutional: Reports no additional constitutional complaints, Denies chills, Denies fever(s) and Denies night sweats Eyes: Eyes: Reports no additional eye complaints, Denies blurry vision, Denies change in vision, Denies diplopia, Denies eye discharge, Denies loss of vision and Denies eye pain ENT: Denies dizziness Cardiovascular: Cardiovascular: Reports no additional cardiovascular complaints, Denies chest pain, Denies lightheadedness, Denies Loss of Consciousness and Denies dyspnea Respiratory: Respiratory: Reports no additional respiratory complaints and Denies dyspnea Gastrointestinal: Gastrointestinal: Reports no additional gastrointestinal complaints, Denies abdominal pain, Denies melena, Denies hematochezia, Denies change in bowel habits and Denies change in stool character Genitourinary: Genitourinary: Reports no additional male genitourinary complaints, Denies hematuria, Denies oliguria, Denies difficulty urinating, Denies dysuria, Denies urinary frequency, Denies urinary hesitancy, Denies urinary incontinence and Denies urinary urgency Musculoskeletal: Musculoskeletal: Reports no additional musculoskeletal complaints, Denies numbness and Denies tingling Comments: left ankle pain Neurologic: Denies dizziness, Denies loss of vision, Denies numbness and Denies tingling Psychiatric: Psychiatric: Reports no additional psychiatric complaints Endocrine: Endocrine: Reports no additional endocrine complaints Hematologic/Lymphatic: Hematologic/Lymphatic: Reports no additional hematologic/lymphatic complaints Allergic/Immunologic: Allergic/Immunologic: Reports no additional allergic/immunologic complaints [facility] Past Medical History Attestation statement: The following information was validated with the patient. Source: old records reviewed and nursing notes reviewed Medical History COVID-19 Impaired fasting glucose Mixed hyperlipidemia Postsurgical retinal scar of left eye Depression Anxiety Insomnia Vitamin D deficiency History of traumatic brain injury Primary osteoarthritis of left knee Left knee pain Epilepsy Pure hypercholesterolemia PAF (paroxysmal atrial fibrillation) Coronavirus infection TBI (traumatic brain injury) Surgical History History of cholecystectomy Family History Family History Mother Seizures Other No significant past surgical history Social History Social History Household Members: Unknown / Unable to assess Housing: Apartment Alcohol intake: current Alcohol intake frequency: does not drink Comment: PT SLEEPING Patient Tobacco Use Status: Current everyday Tobacco user Tobacco use type: Cigarette Cigarette Packs Per Day: 0.5 Cigarettes Per Day: 4 e-Cigarette/Vaping Use: Never Used Second Hand Smoke Exposure: Yes Advance Directives: No Advance Directives Information Provided: No service: No Current occupational status: disabled Cognitive needs: Yes (wheelchair) Hearing needs: No Vision needs: Yes (glasses) Physical Exam ED Vital Signs: Vital Signs - 24 hr 08/31/23 10:19 08/31/23 12:05 08/31/23 12:07 Temperature 98.9 F 97.0 F 97.0 F Pulse Rate 85 77 77 Respiratory Rate 16 20 20 Blood Pressure 112/50 L 93/56 L 93/56 L Pulse Oximetry 94 95 95 Oxygen Delivery Method Room Air Room Air Room Air BMI result Body Mass Index 31.6 Const General: cooperative, no acute distress, alert and awake Nutritional Appearance: well nourished Orientation/consciousness: patient oriented x3 Limitations: no limitations HENMT Head: Yes normal to inspection and Yes atraumatic Ears: hearing grossly normal bilaterally and external ears normal General nose exam: Normal external nose present, no nasal discharge noted and no epistaxis Face and sinus: Yes normal facial exam, No abrasion and No laceration Mouth: Normal oral and palatal mucosa present, no drooling and no muffled voice Eyes General: appearance normal, both eyes and all related structures Periorbital: periorbital findings normal Eyelids: Yes eyelids normal Conjunctivae: conjunctivae normal Pupils: Equal, round and reactive pupils present EOM: EOMs intact bilaterally Neck Neck: Yes normal visual inspection, Yes full ROM and Yes no lymphadenopathy Chest Chest palpation & inspection: normal inspection of the chest Resp Effort & Inspection: normal respiratory effort and able to speak in complete sentences GI Inspection: Yes normal to inspection Neuro Other: has permanent deficit secondary to a previous TBI, this is unchanged for the patient. General: patient oriented x3 Cranial nerves: Yes Equal, round and reactive pupils present Cognition (Neuro): normal cognition Extrem Other: has permanent deficit secondary to a previous TBI, this is unchanged for the patient. Minimal swelling present to the left ankle. General: Yes capillary refill normal Psych Appearance: grossly normal Mental Status: mental status grossly normal Affect: normal affect Attitude: cooperative Thought process: Normal thought process present Thought content: Normal thought content present Insight: Good insight present (Psych) Medical Decision Making Medical Decision Making MDM Narrative: Patient is a 57 year old assigned male at with a history of TBI with perma nent deficit, anxiety, and epilepsy presenting to the emergency department today with left ankle pain. Patient's physical exam was as noted in the physical exam portion of this note. Patient's left ankle x-ray showed no acute process. I explained my physical exam findings as well as all test results to the patient. I answered all questions asked by the patient. I stressed the importance of the patient taking his medication as prescribed. I stressed the importance of the patient following up with his primary care provider. I stressed the importance of the patient returning to the emergency department immediately if his symptoms were to worsen or if he were to develop any dizziness, shortness of breath, difficulty breathing, chest pain, blurry vision, loss of vision, nausea, vomiting, abdominal pain, fever, chills, back pain, or any other complaints. Patient verbalized agreement and understanding with this treatment plan and discharge. Differential Diagnosis Differential Diagnoses: The differential diagnosis associated with the presentation includes Ankle sprain Ankle strain Ankle fracture Ankle pain Admission/Observation Consideration of admission/observation: Escalation of care including admission/observation considered Patient would have been admitted to the hospital had his work up had any findings where hospital admission was appropriate and his clinical presentation warranted hospital admission. Independent Interpretation I performed an independent interpretation of an: Plain X-Ray Interpretation: My interpretation is in agreement with the radiologist's impression of this imaging study. EXAMINATION: XR ANKLE, LEFT CLINICAL INFORMATION: Left ankle injury and pain COMPARISON: Left ankle x-ray on 12/17/2015 TECHNIQUE: AP, lateral, and mortise views of the left ankle. FINDINGS: BONES: Bony structures are intact. There is no focal bone destruction or periosteal reaction seen. JOINTS: Alignment of joints is normal. SOFT TISSUE: Soft tissue swelling is seen in lateral left ankle. No radiopaque foreign body or abnormal air collection is seen. XR/XR ankle LT min 3V IMPRESSION: 1. Interval development of lateral left ankle soft tissue swelling. 2. No fracture or dislocation or signs of osteomyelitis are found. 3. Interval resolution of the tiny dorsal calcaneal spur. Dictated By: Lois Zaragoza Signed By: Electronically signed by Lois Zaragoza 08/31/23 4187 Radiology Impression Discussion of test interpretation with radiology: I have reviewed the radiologist's reading. Discharge Plan Discharge Clinical Impression: Ankle sprain Patient Disposition: Home, Self-Care Instructions: Ankle Sprain (DC) Additional Instructions: Follow up with your primary care provider. Return to the emergency department immediately if your symptoms worsen or if you develop any dizziness, shortness of breath, difficulty breathing, chest pain, blurry vision, loss of vision, nausea, vomiting, abdominal pain, fever, chills, back pain, or any other complaints. Prescriptions: No Action (DME) WHEELCHAIR See Rx Instructions .Route .MEDSUPPLY Qty: 1 0RF Rx Instructions: As directed (DME) Electric Hospital Bed See Rx Instructions .Route .MEDSUPPLY Qty: 1 0RF Rx Instructions: As directed (DME) Wheel chair Kit See Rx Instructions .Route Qty: 1 0RF Rx Instructions: As directed; needs large 20' wheel chair, put on 20 lbs. loratadine 10 mg tablet 10 mg PO DAILY PRN (Reason: allergy symptoms/cough) 30 Days Qty: 30 5RF citalopram 20 mg tablet 20 mg PO QAM 90 Days Qty: 90 1RF ergocalciferol (vitamin D2) 1,250 mcg (50,000 unit) capsule 1,250 mcg PO QWEEK 90 Days Qty: 13 4RF atorvastatin 40 mg tablet 40 mg PO BEDTIME 90 Days Qty: 90 1RF divalproex 500 mg tablet extended release 24 hr 500 mg PO DAILY zolpidem 10 mg tablet 0.5 - 1 tab PO BEDTIME PRN (Reason: Insomnia) levetiracetam 1,000 mg tablet 1,000 mg PO BID levetiracetam 250 mg tablet 500 mg PO DAILY divalproex 500 mg tablet extended release 24 hr 1,000 mg PO BEDTIME dexamethasone 6 mg tablet 6 mg PO DAILY Qty: 5 0RF phenazopyridine 100 mg tablet 100 mg PO TID Qty: 6 0RF (DME) WHEELCHAIR large See Rx Instructions .Route .MEDSUPPLY Qty: 1 0RF Rx Instructions: As directed pyridoxine (vitamin B6) 100 mg tablet 100 mg PO DAILY sennosides [Senna Lax] 8.6 mg tablet 8.6 mg PO BEDTIME PRN (Reason: constipation) 90 Days Qty: 90 3RF (DME) MANUAL WHEELCHAIR (large) See Rx Instructions .Route .MEDSUPPLY Qty: 1 0RF Rx Instructions: As directed Referrals: [facility] [place] Family Medicine [Provider Group] (Call to establish and follow up with a primary care provider. If you already have a primary care provider, please follow up with them.) [facility] – [place] [facility] [Provider Group] [facility] – [place] [facility] [Provider Group] Interventions: ED Discharge Assessment Last Done: 08/31/23 12:07 Discharge Date/Time: 08/31/23 12:08 Print Language: Gabonese
[2023-08-31 12:05] VITALS: BP 93/56; PULSE 77; RESP 20; TEMP 36.1; O2SAT 95
[2023-08-31 12:07] VITALS: BP 93/56; PULSE 77; RESP 20; TEMP 36.1; O2SAT 95
== END 2023-08-31 12:08 | disposition home or self-care (01) ==
PROVIDERS: Emergency Provider Emergency Medicine
DX: S93.402A Sprain of unspecified ligament of left ankle, initial encounter (principal); W18.40XA Slipping, tripping and stumbling without falling, unspecified, initial encounter; Y93.89 Activity, other specified; Y92.9 Unspecified place or not applicable; Y99.9 Unspecified external cause status; M25.572 Pain in left ankle and joints of left foot
CPT/HCPCS: 73610; 99283

== ENCOUNTER 2023-11-04 08:43 | Outpatient (REF) | payer OTHER, SELFPAY ==
[2023-11-04 09:08] LABS: MANUAL DIFF FLAG NO
[2023-11-04 09:30] LABS: Basophils Absolute Auto 0.1 X10*3/uL (0.0-0.2); Basophils Percent Auto 0.7 % (0-2); Eosinophils Absolute Auto 0.1 X10*3/uL (0.0-0.4); Eosinophils Percent Auto 1.2 % (0-4); Hematocrit 42.3 % (42.0-52.0); Hemoglobin 14.2 g/dl (14.0-18.0); Imm Gran Abs Auto 0.02 X10*3/uL (0.00-0.03); Imm Gran Pct Auto 0.3 % (0.0-0.4); Lymphocytes Absolute Auto 4.4 X10*3/uL (1.2-4.9); Lymphocytes Percent Auto 58.3 % (20-40); Mean Corpuscular HGB Conc 33.6 g/dl (31.0-36.0); Mean Corpuscular Hemoglobin 30.7 pg (27.0-33.0); Mean Corpuscular Volume 91.6 fL (80.0-98.0); Mean Platelet Volume 12.5 fL (9.4-12.4); Monocytes Absolute Auto 0.6 X10*3/uL (0.1-1.2); Monocytes Percent Auto 7.5 % (2-11); Neutrophils Absolute Auto 2.4 x10*3/uL (2.0-8.3); Platelet Count 177 X10*3/uL (160-400); Red Blood Count 4.62 X10*6/uL (4.60-5.80); Red Cell Distribution Width 12.2 % (11.0-16.0); White Blood Count 7.6 X10*3/uL (4.8-10.8)
[2023-11-04 10:06] LABS: Estimated Average Glucose 128 mg/dL; Hemoglobin A1C 160.3463 umol/L; Hemoglobin A1c % 6.1 % (<6.0)
[2023-11-04 10:20] LABS: Valproate 81.6 mcg/mL (50.0-100.0)
[2023-11-04 10:25] LABS: Alanine Aminotransferase 24 U/L (0-40); Albumin Level 3.8 g/dL (3.5-5.0); Alkaline Phosphatase 76 U/L (39-117); Anion Gap 12 (12-20); Aspartate Amino Transferase 22 U/L (5-37); Bilirubin Total 0.4 mg/dL (0.0-1.0); Blood Urea Nitrogen 12 mg/dL (9-16); Calcium 8.9 mg/dL (8.4-10.2); Carbon Dioxide 27 mmol/L (22-29); Chloride 107 mmol/L (96-108); Cholesterol 162 mg/dL (<200); Estimated Glomerular Filt Rate > 60; Glucose Fasting 104 mg/dL (60-99); HDL Cholesterol 42 mg/dL (>40); LDL Cholesterol Calculated 63 mg/dL (<100); Potassium 4.2 mmol/L (3.3-5.1); Sodium 142 mmol/L (135-145); Total Protein 6.5 g/dL (6.5-8.0); Triglycerides 285 mg/dL (<150)
[2023-11-04 10:44] LABS: TSH reflex Free T4 2.27 uIU/mL (0.32-4.0); Vitamin D 25-OH Total 36.4 ng/mL (>30)
[2023-11-08 19:03] LABS: Levetiracetam Keppra 25.7 mcg/mL (6.0-46.0)
== END 2023-11-04 08:44 | disposition home or self-care (01) ==
LOC: HO.LAB 08:43
PROVIDERS: PCP Internal Medicine; Visit Provider Internal Medicine
DX: D64.9 Anemia, unspecified (principal); G40.909 Epilepsy, unspecified, not intractable, without status epilepticus; E78.00 Pure hypercholesterolemia, unspecified; E55.9 Vitamin D deficiency, unspecified; R73.01 Impaired fasting glucose
CPT/HCPCS: 36415; 80053; 80061; 80164; 80177; 82306; 83036; 84443; 85025

== ENCOUNTER 2023-11-07 13:45 | Outpatient (AMB) | payer OTHER, SELFPAY ==
[2023-11-07 13:48] VITALS: BP 98/62; PULSE 75; O2SAT 96
--- NOTE | 2023-11-07 13:48 | A.OFFPC_ITS ---
Vital Signs 11/07/23 13:48 Height 5 ft 10 in BMI Reason not done Patient refused/unable BP 98/62 Blood Pressure Location Lt brachial Position Sitting Pulse 75 Pulse Source Pulse Oximeter Pulse Oximetry (%) 96 Oxygen Delivery Method Room Air Intake Visit Reasons: 4 Month F/U Surgical Pathologist Required: No Allergies No Known Allergies Allergy (Verified 11/07/23 14:05) Medication List - Last Reconciled 11/07/23 by Juan Garcia MD atorvastatin 40 mg PO BEDTIME 90 days chair, wheel (Wheel chair) As directed; needs large 20' wheel chair, put on 20 lbs. citalopram 20 mg PO QAM 90 days dexamethasone 6 mg PO DAILY divalproex ER 500 mg PO DAILY divalproex ER 1,000 mg PO BEDTIME [Electric Hospital Bed As directed] ergocalciferol (vitamin D2) 1,250 mcg PO QWEEK 90 days levetiracetam 1,000 mg PO BID levetiracetam 500 mg PO DAILY loratadine 10 mg PO DAILY PRN 30 days [MANUAL WHEELCHAIR (large) As directed] phenazopyridine 100 mg PO TID 6 doses pyridoxine (vitamin B6) 100 mg PO DAILY sennosides (Senna Lax) 8.6 mg PO BEDTIME PRN 90 days [WHEELCHAIR As directed] [WHEELCHAIR As directed] zolpidem 0.5 - 1 tabs PO BEDTIME PRN Tobacco use date assessed: 07/08/23 Dental Screening Dental Screen Date: 07/08/23 Did you have a dental visit in the last 12 months?: No Did you have a dental problem in the last 6 months where you did not have access to dental care?: No HPI 4 Month F/U HPI Details Patient comes in today for his follow up visit - is accompanied by his brother today His brother states that patient has been doing and feeling okay lately except for a recurrent pain/discomfort in his left ear Patient denies any headaches or dizziness; denies any fever or sore throat He denies any chest pains, no increased SOB No nausea/vomiting, no abdominal pain No change in bowel habits noted He continues to follow up with [facility] for his epilepsy; reportedly had a seizure episode about 1 month ago and has not had any seizures since He had his follow up labs done a few days ago - to discuss his results [facility] Medical History COVID-19 Impaired fasting glucose Mixed hyperlipidemia Postsurgical retinal scar of left eye Depression Anxiety Insomnia Vitamin D deficiency History of traumatic brain injury Primary osteoarthritis of left knee Left knee pain Epilepsy Pure hypercholesterolemia PAF (paroxysmal atrial fibrillation) Coronavirus infection TBI (traumatic brain injury) Surgical History History of cholecystectomy Family History Mother Seizures Other No significant past surgical history Social History Household Members: Unknown / Unable to assess Housing: Apartment Alcohol intake: current Alcohol intake frequency: does not drink Comment: PT SLEEPING Patient Tobacco Use Status: Current everyday Tobacco user Tobacco use type: Cigarette Cigarette Packs Per Day: 0.5 Cigarettes Per Day: 4 e-Cigarette/Vaping Use: Never Used Second Hand Smoke Exposure: Yes service: No Current occupational status: disabled Cognitive needs: Yes (wheelchair) Hearing needs: No Vision needs: Yes (glasses) Questionnaire PHQ-9 Over the last 2 weeks, how often have you been bothered by any of the following problems? 1. Little interest or pleasure in doing things: not at all 2. Feeling down, depressed, or hopeless: not at all 3. Trouble falling or staying asleep, or sleeping too much: not at all 4. Feeling tired or having little energy: not at all 5. Poor appetite or overeating: not at all 6. Feeling bad about yourself - or that you are a failure or have let yourself or your family down: not at all 7. Trouble concentrating on things, such as reading the newspaper or watching television: not at all 8. Moving or speaking so slowly that other people could have noticed. Or the opposite - being so fidgety or restless that you have been moving around a lot more than usual: not at all 9. Thoughts that you would be better off or of hurting yourself in some way: not at all Total score: 0 Depression Screening Interpretation: Negative Depression Screening Done: Yes 63129 - PHQ-9 Billing: Yes Source: Developed by Drs. Nelson Krueger, Aida Lance, Bernardo Palma and colleagues, with an educational farida from [employer]. Thrive Questionnaire Date Thrive assessed: 07/08/23 AUDIT C Alcohol Use Questionnaire (AUDIT-C) 1. How often do you have a drink containing alcohol?: Never 3. How often do you have six or more drinks on one occasion?: Never Total Score: 0 Score Reviewed/Action Taken: Yes GIBRAN-7 AMB Questionnaire GIBRAN-7 Date GIBRAN - 7 assessed: 07/08/23 Source: Developed by Drs. Nelson Krueger, Bernardo Antunez and colleagues, with an educational farida from [employer]. Review of Systems Const Denies chills, Denies fatigue, Denies fever(s) and Denies headache(s) ENT Denies dysphagia, Denies dizziness, Denies ear discharge, Reports otalgia (on and off in the left ear recently), Denies headache(s), Denies neck pain, Denies odynophagia and Denies sore throat Card Denies chest pain, Denies palpitations and Denies dyspnea Resp Denies chest congestion, Denies cough, Denies dyspnea and Denies wheezing GI Denies abdominal pain, Reports constipation (on and off), Denies dysphagia, Denies heartburn, Denies diarrhea, Denies nausea, Denies odynophagia and Denies vomiting Denies dysuria, Denies nocturia and Denies urinary frequency Musc Denies back pain, Denies arthralgias and Denies neck pain Skin/Breast Denies rash Neuro Denies dizziness, Denies headache(s), Reports convulsions (on and off; none recently) and Denies seizure-like activity Endo Denies fatigue and Denies palpitations Aller/Immun Denies wheezing Physical exam (Primary Care) Vital Signs: Last Vital Signs Pulse 75 11/07/23 13:48 BP 98/62 11/07/23 13:48 Pulse Ox 96 11/07/23 13:48 Oxygen Delivery Method Room Air 11/07/23 13:48 Tobacco/Smoking Status: Tobacco use Status Tobacco use date assessed 07/08/23 11/07/23 13:48 Patient Tobacco Use Status Current everyday Tobacco 11/07/23 13:48 Tobacco use type Cigarette 11/07/23 13:48 e-Cigarette/Vaping Use Never Used 11/07/23 13:48 PHQ-9: PHQ-9 Score PHQ-9: Total score 0 11/07/23 13:55 Depression Screening Interpretation: Negative Thrive Assessment: Date of Thrive Assessment Date Thrive assessed 07/08/23 11/07/23 13:48 Const General: no acute distress and alert Limitations: wheelchair HENMT Ears: TM's normal bilaterally and EAC's normal Throat: Yes posterior oropharynx normal and Yes tonsils normal (no TP congestion noted) Neck Neck: Yes no lymphadenopathy and Yes supple Thyroid: Thyroid normal Resp Auscultation: clear to auscultation bilaterally, no rales and no wheezes Cardio Rate: regular rate Rhythm: regular rhythm Heart sounds: no murmurs GI Palpation (GI): Soft to palpation and nontender Auscultation: normal bowel sounds General: Yes no CVA tenderness Back/Spine/Pelvis Back: no CVA tenderness Thoracic/Lumbar Spine: No lumbar spinal tenderness Skin Rashes: no rashes Neuro Other: (+) 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; speech slurred (baseline) Extrem General: Yes no clubbing, cyanosis or edema Results Reviewed Results Reviewed: Laboratory Tests 11/04/23 09:06 WBC 7.6 Hgb 14.2 Hct 42.3 Plt Count 177 Sodium 142 Potassium 4.2 Creatinine 0.63 Estimated GFR > 60 Fasting Glucose 104 H Hemoglobin A1c % 6.1 H Calcium 8.9 AST 22 ALT 24 Triglycerides 285 H Cholesterol 162 LDL Cholesterol, Calc 63 HDL Cholesterol 42 25-OH Vitamin D Total 36.4 TSH 2.27 Valproic Acid 81.6 Assessment and Plan Assessment & Plan (1) Mixed hyperlipidemia: Code(s): E78.2 - Mixed hyperlipidemia Plan: Results of his labs done a few days ago reviewed and discussed with patient and his mother Reinforced low cholesterol diet Continue Atorvastatin 40 mg QD Will recheck his labs and fasting lipids in 4 months for follow up (2) Impaired fasting glucose: Code(s): R73.01 - Impaired fasting glucose Plan: His HgbA1c was at 6.1% on his labs done a few days ago; in-office HgbA1c was previously at 6.1% Reinforced low calorie/low carb diet Advised that he needs to keep his HgbA1c at 6.0% or less if he wishes to avoid being started on Rx for his blood sugar (3) Vitamin D deficiency: Code(s): E55.9 - Vitamin D deficiency, unspecified Plan: Continue Vitamin D2 46896 units once a week Will recheck his Vitamin D level in 4 months for follow up (4) Epilepsy: Code(s): G40.909 - Epilepsy, unspecified, not intractable, without status epilepticus Qualifiers: Epilepsy type: unspecified Intractability: not intractable Status epilepticus: without status epilepticus Qualified Code(s): G40.909 - Epilepsy, unspecified, not intractable, without status epilepticus Plan: Continue Levetiracetam 1000 mg + 250 mg BID and Divalproex ER 500 mg BID Follow up with [facility] as scheduled (5) History of traumatic brain injury: Code(s): Z87.820 - Personal history of traumatic brain injury Plan: Occurred years ago, with residual neurologic deficits (hemiparesis) and slurred speech (6) Dysphagia: Code(s): R13.10 - Dysphagia, unspecified Qualifiers: Dysphagia type: unspecified Qualified Code(s): R13.10 - Dysphagia, unspecified Plan: His modified barium swallow done in April 2023 revealed (+) aspiration was seen with thin and nectar thick liquids. No aspiration or penetration was seen with honey thick liquid and regular texture solids He is following up with Speech and Hearing for further recommendations regarding this (7) Left ear pain: Code(s): H92.02 - Otalgia, left ear Plan: Patient is advised that his left ear exam in the office today is normal but exam is limited as we are not able to see past the eardrum He would like to get a referral to have his ear checked out further to help explain his recurrent ear symptoms Will refer him to ENT for further evaluation and management (8) Primary osteoarthritis of left knee: Code(s): M17.12 - Unilateral primary osteoarthritis, left knee Plan: X-rays of the left knee done back in September 2018 revealed tricompartmental degenerative arthrosis primarily involving the medial and lateral compartments Follow up with orthopedics as scheduled (9) Constipation: Code(s): K59.00 - Constipation, unspecified Qualifiers: Constipation type: unspecified constipation type Qualified Code(s): K59.00 - Constipation, unspecified Plan: Encouraged increased oral fluids and dietary fiber Continue Senna 8.6 mg 1 to 2 tablets Q HS PRN (10) Insomnia: Code(s): G47.00 - Insomnia, unspecified Qualifiers: Insomnia type: unspecified Qualified Code(s): G47.00 - Insomnia, u nspecified Plan: Sleep hygiene reinforced Continue Zolpidem 10 mg 1/2 to 1 tablet Q HS PRN (11) Anxiety: Code(s): F41.9 - Anxiety disorder, unspecified Plan: He was on Lorazepam in the past but this was discontinued by psychiatry He is also on Citalopram 20 mg QD, which also helps with his anxiety (12) Depression: Code(s): F32.9 - Major depressive disorder, single episode, unspecified Qualifiers: Depression Type: unspecified Qualified Code(s): F32.9 - Major depres sive disorder, single episode, unspecified Plan: Continue Citalopram 20 mg QD and Divalproex ER 500 mg BID Follow up with psychiatry as scheduled Plan Follow up in 4 months Orders: Orders Comprehensive [place]. Panel Fast 4 Months E78.00 - Pure hypercholesterolemia, unspecified Lipid Panel 4 Months E78.00 - Pure hypercholesterolemia, unspecified UA CC w/rflx Micro + Cult 4 Months R30.0 - Dysuria Vitamin D 25-OH Total 4 Months E55.9 - Vitamin D deficiency, unspecified Complete Blood Count Auto Diff 4 Months D64.9 - Anemia, unspecified Hemoglobin A1c 4 Months R73.01 - Impaired fasting glucose Levetiracetam Keppra 4 Months G40.909 - Epilepsy, unspecified, not intractable, without status epilepticus TSH reflex Free T4 4 Months E78.00 - Pure hypercholesterolemia, unspecified Referrals Ear/Nose/Throat Referral H92.02 - Otalgia, left ear Coding Level of Care Code Est Pt Level 4 (82532) Diagnoses Mixed hyperlipidemia E78.2 Impaired fasting glucose R73.01 Vitamin D deficiency E55.9 Nonintractable epilepsy without status epilepticus, unspecified epilepsy type G40.909 Epilepsy type: unspecified Intractability: not intractable Status epilepticus: without status epilepticus History of traumatic brain injury Z87.820 Dysphagia, unspecified type R13.10 Dysphagia type: unspecified Left ear pain H92.02 Primary osteoarthritis of left knee M17.12 Constipation, unspecified constipation type K59.00 Constipation type: unspecified constipation type Insomnia, unspecified type G47.00 Insomnia type: unspecified Anxiety F41.9 Depression, unspecified depression type F32.9 Depression Type: unspecified
== END 2023-11-07 14:18 | disposition home or self-care (01) ==
PROVIDERS: PCP Internal Medicine; Visit Provider Internal Medicine
DX: E78.2 Mixed hyperlipidemia (principal); R73.01 Impaired fasting glucose; E55.9 Vitamin D deficiency, unspecified; G40.909 Epilepsy, unspecified, not intractable, without status epilepticus; Z87.820 Personal history of traumatic brain injury; R13.10 Dysphagia, unspecified; H92.02 Otalgia, left ear; M17.12 Unilateral primary osteoarthritis, left knee; K59.00 Constipation, unspecified; G47.00 Insomnia, unspecified; F41.9 Anxiety disorder, unspecified
CPT/HCPCS: 99214

== ENCOUNTER 2024-03-05 15:02 | Outpatient (AMB) | payer OTHER, SELFPAY ==
[2024-03-05 15:17] VITALS: BP 122/86; PULSE 91; O2SAT 95
--- NOTE | 2024-03-05 15:17 | MHC.PC.OV ---
Vital Signs 03/05/24 15:17 Height 5 ft 10 in BMI Reason not done Patient refused/unable BP 122/86 Blood Pressure Location Lt brachial Position Sitting Pulse 91 Pulse Source Pulse Oximeter Pulse Oximetry (%) 95 Oxygen Delivery Method Room Air Intake Visit Reasons: HTN, CVA, hyperlipidemia, epilepsy, IFG Remedial Project Manager Required: No Accompanied by: Self / Same As Patient Allergies No Known Allergies Allergy (Verified 03/05/24 16:04) Medication List - Last Reconciled 03/05/24 by Juan Garcia MD atorvastatin 40 mg PO BEDTIME 90 days chair, wheel (Wheel chair) As directed; needs large 20' wheel chair, put on 20 lbs. citalopram 20 mg PO QAM 90 days dexamethasone 6 mg PO DAILY diazepam 2 mg PO TID divalproex ER 500 mg PO DAILY divalproex ER 1,000 mg PO BEDTIME [Electric Hospital Bed As directed] ergocalciferol (vitamin D2) 1,250 mcg PO QWEEK 90 days levetiracetam 1,000 mg PO BID levetiracetam 500 mg PO DAILY loratadine 10 mg PO DAILY PRN [MANUAL WHEELCHAIR (large) As directed] phenazopyridine 100 mg PO TID 6 doses pyridoxine (vitamin B6) 100 mg PO DAILY risperidone mg PO sennosides (Senna Lax) 8.6 mg PO BEDTIME PRN 90 days [WHEELCHAIR As directed] [WHEELCHAIR As directed] zolpidem 0.5 - 1 tabs PO BEDTIME PRN zolpidem 5 mg PO BEDTIME PRN Tobacco use date assessed: 03/05/24 Dental Screening Dental Screen Date: 03/05/24 Did you have a dental visit in the last 12 months?: Yes Did you have a dental problem in the last 6 months where you did not have access to dental care?: No Was dental information given to patient?: Patient has dentist HPI HTN, CVA, hyperlipidemia, epilepsy, IFG HPI Details Patient comes in today for his follow up visit - is accompanied by his brother today His brother states that patient has been doing and feeling okay lately except for a recurrent pain/discomfort in his left ear He was referred previously to ENT for further evaluation of his recurrent left ear symptoms but states that his appointment with ENT is not until 06/26/2024 Patient denies any headaches or dizziness; denies any fever or sore throat He denies any chest pains, no increased SOB No nausea/vomiting, no abdominal pain No change in bowel habits noted He reportedly had 6 to 7 seizure episodes since December 2023 He was seeing and following up with neurology at [facility] previously but states that his current neurologist is moving out of state and [place] would [place] [facility] [place] and needs to get a referral for this He also has a slightly raised lesion on his right upper nasal area externally - his brother suspects that this may be from his eyeglasses Patient states that the lesion does not itch or hurt He w as not able to get his follow up labs done prior to his appointment today - will try to get them done [facility] Medical History COVID-19 Impaired fasting glucose Mixed hyperlipidemia Postsurgical retinal scar of left eye Depression Anxiety Insomnia Vitamin D deficiency History of traumatic brain injury Primary osteoarthritis of left knee Left knee pain Epilepsy Pure hypercholesterolemia PAF (paroxysmal atrial fibrillation) Coronavirus infection TBI (traumatic brain injury) Surgical History History of cholecystectomy Family History Mother Seizures Other No significant past surgical history Social History Household Members: Unknown / Unable to assess Housing: Apartment Alcohol intake: current Alcohol intake frequency: does not drink Comment: PT SLEEPING Patient Tobacco Use Status: Current everyday Tobacco user Tobacco use type: Cigarette Cigarette Packs Per Day: 0.5 Cigarettes Per Day: 4 e-Cigarette/Vaping Use: Never Used Second Hand Smoke Exposure: Yes service: No Current occupational status: disabled Cognitive needs: Yes (wheelchair) Hearing needs: No Vision needs: Yes (glasses) Questionnaire PHQ-9 Over the last 2 weeks, how often have you been bothered by any of the following problems? 1. Little interest or pleasure in doing things: not at all 2. Feeling down, depressed, or hopeless: not at all 3. Trouble falling or staying asleep, or sleeping too much: not at all 4. Feeling tired or having little energy: not at all 5. Poor appetite or overeating: not at all 6. Feeling bad about yourself - or that you are a failure or have let yourself or your family down: not at all 7. Trouble concentrating on things, such as reading the newspaper or watching television: not at all 8. Moving or speaking so slowly that other people could have noticed. Or the opposite - being so fidgety or restless that you have been moving around a lot more than usual: not at all 9. Thoughts that you would be better off or of hurting yourself in some way: not at all Total score: 0 Depression Screening Interpretation: Negative Depression Screening Done: Yes 05345 - PHQ-9 Billing: Yes Source: Developed by Drs. Nelson Krueger, Aida Lance, Bernardo Palma and colleagues, with an educational farida from [employer]. Thrive Questionnaire Date Thrive assessed: 03/05/24 I am a: Patient What is your living situation today?: I have a steady place to live Within the past 12 months, did the food you bought not last and you didn't have the money to get more?: Never true Within the past 12 months, did you worry whether your food would run out before you got money to buy more?: Never true Do you have trouble paying for medicines?: No Do you have trouble getting transportation to medical appointments?: No Do you have trouble paying your heating and electricity bill?: No Do you have trouble taking care of your child, family member or friend?: No Do you have trouble with day-to-day activities such as bathing, preparing meals, shopping, managing finances, etc.?: No Are you currently unemployed and looking for a job?: No Are you interested in more education?: No Please select the resources that you would like help with: None Currently or been in a relationship where the following occur: No concerns reported THRIVE Score: 0 AUDIT C Alcohol Use Questionnaire (AUDIT-C) 1. How often do you have a drink containing alcohol?: Never 3. How often do you have six or more drinks on one occasion?: Never Total Score: 0 Score Reviewed/Action Taken: Yes GIBRAN-7 AMB Questionnaire GIBRAN-7 Date GIBRAN - 7 assessed: 03/05/24 Feeling nervous, anxious, or on edge: 0 = Not at all Not being able to stop or control worryin = Not at all Worrying too much about different things: 0 = Not at all Trouble relaxin = Not at all Being so restless that it is hard to sit still: 0 = Not at all Becoming easily annoyed or irritable: 0 = Not at all Feeling afraid as if something awful might happen: 0 = Not at all Total GIBRAN-7 score (0-4 normal; 5-9 mild; 10-14 moderate; 15-21 severe): 0 Source: Developed by Drs. Nelson Krueger, Aida Lance, Bernardo Palma and colleagues, with an educational farida from [employer]. Review of Systems Const Denies chills, Denies fatigue, Denies fever(s) and Denies headache(s) ENT Denies dysphagia, Denies dizziness, Denies ear discharge, Reports otalgia (on and off in the left ear recently), Denies headache(s), Denies neck pain, Denies odynophagia and Denies sore throat Card Denies chest pain, Denies palpitations and Denies dyspnea Resp Denies chest congestion, Denies cough and Denies dyspnea GI Denies abdominal pain, Reports constipation (on and off), Denies dysphagia, Denies heartburn, Denies diarrhea, Denies nausea, Denies odynophagia and Denies vomiting Denies dysuria, Denies nocturia and Denies urinary frequency Musc Denies back pain, Denies arthralgias and Denies neck pain Skin/Breast Details: (+) slightly raised hyperpigmented lesion on the right side of the upper nose Denies rash Neuro Denies dizziness, Denies headache(s), Reports convulsions (recurrent lately) and Denies seizure-like activity Endo Denies fatigue and Denies palpitations Physical exam (Primary Care) Vital Signs: Last Vital Signs Pulse 91 03/05/24 15:17 BP 122/86 03/05/24 15:17 Pulse Ox 95 03/05/24 15:17 Oxygen Delivery Method Room Air 03/05/24 15:17 Tobacco/Smoking Status: Tobacco use Status Tobacco use date assessed 03/05/24 03/05/24 15:24 Patient Tobacco Use Status Current everyday Tobacco 03/05/24 15:24 Tobacco use type Cigarette 03/05/24 15:24 e-Cigarette/Vaping Use Never Used 03/05/24 15:24 PHQ-9: PHQ-9 Score PHQ-9: Total score 0 03/05/24 16:07 Depression Screening Interpretation: Negative Thrive Assessment: Date of Thrive Assessment Date Thrive assessed 03/05/24 03/05/24 15:24 Currently or been in a relationship where the following occur: No concerns reported Const General: no acute distress and alert Limitations: wheelchair HENMT Ears: TM's normal bilaterally and EAC's normal Throat: Yes posterior oropharynx normal and Yes tonsils normal (no TP congestion noted) Neck Neck: Yes no lymphadenopathy and Yes supple Thyroid: Thyroid normal Resp Auscultation: clear to auscultation bilaterally, no rales and no wheezes Cardio Rate: regular rate Rhythm: regular rhythm Heart sounds: no murmurs GI Palpation (GI): Soft to palpation and nontender Auscultation: normal bowel sounds General: Yes no CVA tenderness Back/Spine/Pelvis Back: no CVA tenderness Thoracic/Lumbar Spine: No lumbar spinal tenderness Skin Other: (+) slightly raised hyperpigmented lesion on the right side of the upper nose Rashes: no rashes Neuro Other: (+) 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; speech slurred (baseline) Extrem General: Yes no clubbing, cyanosis or edema Coding Level of Care Code Est Pt Level 4 (42538) Complex EM visit Add On G2211 Diagnoses Nonintractable epilepsy without status epilepticus, unspecified epilepsy type G40.909 Epilepsy type: unspecified Intractability: not intractable Status epilepticus: without status epilepticus History of traumatic brain injury Z87.820 Lesion of skin of nose L98.9 Mixed hyperlipidemia E78.2 Impaired fasting glucose R73.01 Vitamin D deficiency E55.9 Dysphagia, unspecified type R13.10 Dysphagia type: unspecified Left ear pain H92.02 Primary osteoarthritis of left knee M17.12 Constipation, unspecified constipation type K59.00 Constipation type: unspecified constipation type Insomnia, unspecified type G47.00 Insomnia type: unspecified Anxiety F41.9 Depression, unspecified depression type F32.9 Depression Type: unspecified Additional Codes PHQ-9 - 16361 - PHQ-9 Billing: Yes ([id number]) Assessment & Plan Assessment & Plan (1) Epilepsy: Code(s): G40.909 - Epilepsy, unspecified, not intractable, without status epilepticus Category: Medical Qualifiers: Epilepsy type: unspecified Intractability: not intractable Status epilepticus: without status epilepticus Qualified Code(s): G40.909 - Epilepsy, unspecified, not intractable, without status epilepticus Plan: Recurrent lately Continue Levetiracetam 1500 mg BID and Divalproex ER 500 mg in AM and 1000 mg Q HS He used to see neurology at [facility] for his epilepsy but states that his neurologist is moving out of state and he would like to switch over her [place] [facility] [place] - referral done (2) History of traumatic brain injury: Code(s): Z87.820 - Personal history of traumatic brain injury Category: Medical Plan: His TBI occurred years ago, with residual neurologic deficits (hemiparesis) and slurred speech (3) Lesion of skin of nose: Code(s): L98.9 - Disorder of the skin and subcutaneous tissue, unspecified Category: Medical Plan: Will refer him to dermatology for further evaluation and management (4) Mixed hyperlipidemia: Code(s): E78.2 - Mixed hyperlipidemia Category: Medical Plan: He was not able to get his follow up labs done prior to his appointment today - states that he will try to get them done CHRIS Reinforced low cholesterol diet Continue Atorvastatin 40 mg QD Will recheck his labs and fasting lipids in 4 months for follow up (5) Impaired fasting glucose: Code(s): R73.01 - Impaired fasting glucose Category: Medical Plan: His HgbA1c was at 6.1% when last checked a few months ago; in-office HgbA1c was previously also at 6.1% Reinforced low calorie/low carb diet Advised that he needs to keep his HgbA1c at 6.0% or less if he wishes to avoid being started on Rx for his blood sugar (6) Vitamin D deficiency: Code(s): E55.9 - Vitamin D deficiency, unspecified Category: Medical Plan: Continue Vitamin D2 03707 units once a week (7) Dysphagia: Code(s): R13.10 - Dysphagia, unspecified Category: Medical Qualifiers: Dysphagia type: unspecified Qualified Code(s): R13.10 - Dysphagia, unspecified Plan: His modified barium swallow done in April 2023 revealed (+) aspiration was seen with thin and nectar thick liquids. No aspiration or penetration was seen with honey thick liquid and regular texture solids He is following up with Speech and Hearing for further recommendations regarding this (8) Left ear pain: Code(s): H92.02 - Otalgia, left ear Category: Medical Plan: He was previously referred to ENT for further evaluation of his chronic ear symptoms - he is scheduled to be seen in June 2024 (9) Primary osteoarthritis of left knee: Code(s): M17.12 - Unilateral primary osteoarthritis, left knee Category: Medical Plan: X-rays of the left knee done back in September 2018 revealed tricompartmental degenerative arthrosis primarily involving the medial and lateral compartments Follow up with orthopedics as scheduled (10) Constipation: Code(s): K59.00 - Constipation, unspecified Category: Medical Qualifiers: Constipation type: unspecified constipation type Qualified Code(s): K59.00 - Constipation, unspecified Plan: He is encouraged again on increased oral fluids and dietary fiber Continue Senna 8.6 mg 1 to 2 tablets Q HS PRN (11) Insomnia: Code(s): G47.00 - Insomnia, unspecified Category: Medical Qualifiers: Insomnia type: unspecified Qualified Code(s): G47.00 - Insomnia, unspecified Plan: Sleep hygiene reinforced Continue Zolpidem 10 mg 1/2 to 1 tablet Q HS PRN (12) Anxiety: Code(s): F41.9 - Anxiety disorder, unspecified Category: Medical Plan: He was on Lorazepam in the past but this was discontinued by psychiatry He is also on Citalopram 20 mg QD, which also helps with his anxiety (13) Depression: Code(s): F32.9 - Major depressive disorder, single episode, unspecified Category: Medical Qualifiers: Depression Type: unspecified Qualified Code(s): F32.9 - Major depressive disorder, single episode, unspecified Plan: Continue Citalopram 20 mg QD and Divalproex ER 500 mg BID Follow up with psychiatry as scheduled Plan Follow up in 4 months Orders: Orders Complete Blood Count Auto Diff 4 Months D64.9 - Anemia, unspecified Comprehensive [place]. Panel Fast 4 Months E78.00 - Pure hypercholesterolemia, unspecified Levetiracetam Keppra 4 Months G40.909 - Epilepsy, unspecified, not intractable, without status epilepticus Lipid Panel 4 Months E78.00 - Pure hypercholesterolemia, unspecified Referrals Neurology Referral G40.909 - Epilepsy, unspecified, not intractable, without status epilepticus Dermatology Referral L98.9 - Disorder of the skin and subcutaneous tissue, unspecified
== END 2024-03-05 16:15 | disposition home or self-care (01) ==
PROVIDERS: PCP Internal Medicine; Visit Provider Internal Medicine
DX: G40.909 Epilepsy, unspecified, not intractable, without status epilepticus (principal); Z87.820 Personal history of traumatic brain injury; L98.9 Disorder of the skin and subcutaneous tissue, unspecified; E78.2 Mixed hyperlipidemia; R73.01 Impaired fasting glucose; E55.9 Vitamin D deficiency, unspecified; R13.10 Dysphagia, unspecified; H92.02 Otalgia, left ear; M17.12 Unilateral primary osteoarthritis, left knee; K59.00 Constipation, unspecified; G47.00 Insomnia, unspecified; F41.9 Anxiety disorder, unspecified; F32.9 Major depressive disorder, single episode, unspecified

== ENCOUNTER → 2024-03-05 15:02 | Outpatient (BNVA) | payer OTHER, SELFPAY | PROVIDERS: PCP Internal Medicine; Visit Provider Internal Medicine | DX: G40.909 Epilepsy, unspecified, not intractable, without status epilepticus (principal); L98.9 Disorder of the skin and subcutaneous tissue, unspecified; E78.2 Mixed hyperlipidemia; R73.01 Impaired fasting glucose; E55.9 Vitamin D deficiency, unspecified; R13.10 Dysphagia, unspecified; H92.02 Otalgia, left ear; M17.12 Unilateral primary osteoarthritis, left knee; K59.00 Constipation, unspecified; G47.00 Insomnia, unspecified; F41.9 Anxiety disorder, unspecified; F32.9 Major depressive disorder, single episode, unspecified; Z87.820 Personal history of traumatic brain injury | CPT/HCPCS: 96127; 99212 ==

== ENCOUNTER 2024-03-19 11:22 | Outpatient (REF) | payer OTHER, SELFPAY ==
[2024-03-19 12:02] LABS: MANUAL DIFF FLAG NO
[2024-03-19 12:37] LABS: Basophils Percent Auto 0.6 % (0-2); Eosinophils Absolute Auto 0.1 X10*3/uL (0.0-0.4); Eosinophils Percent Auto 1.4 % (0-4); Hematocrit 41.2 % (42.0-52.0); Hemoglobin 14.3 g/dl (14.0-18.0); Imm Gran Abs Auto 0.02 X10*3/uL (0.00-0.03); Imm Gran Pct Auto 0.3 % (0.0-0.4); Lymphocytes Absolute Auto 3.4 X10*3/uL (1.2-4.9); Lymphocytes Percent Auto 51.5 % (20-40); Mean Corpuscular HGB Conc 34.7 g/dl (31.0-36.0); Mean Corpuscular Hemoglobin 31.6 pg (27.0-33.0); Mean Corpuscular Volume 90.9 fL (80.0-98.0); Mean Platelet Volume 12.5 fL (9.4-12.4); Monocytes Absolute Auto 0.6 X10*3/uL (0.1-1.2); Monocytes Percent Auto 8.3 % (2-11); Neutrophils Absolute Auto 2.5 x10*3/uL (2.0-8.3); Neutrophils Percent Auto 37.9 % (45-73); Platelet Count 177 X10*3/uL (160-400); Red Blood Count 4.53 X10*6/uL (4.60-5.80); Red Cell Distribution Width 12.4 % (11.0-16.0); White Blood Count 6.7 X10*3/uL (4.8-10.8)
[2024-03-19 12:48] LABS: Estimated Average Glucose 146 mg/dL; Hemoglobin A1C 174.8755 umol/L; Hemoglobin A1c % 6.7 % (<6.0); Total Hemoglobin (HGBA1C) 3555.4491 umol/L
[2024-03-19 13:20] LABS: Alanine Aminotransferase 31 U/L (0-40); Albumin Level 3.6 g/dL (3.5-5.0); Alkaline Phosphatase 65 U/L (39-117); Anion Gap 8 (12-20); Aspartate Amino Transferase 40 U/L (5-37); Bilirubin Total 0.4 mg/dL (0.0-1.0); Blood Urea Nitrogen 10 mg/dL (9-16); Calcium 8.8 mg/dL (8.4-10.2); Carbon Dioxide 28 mmol/L (22-29); Chloride 109 mmol/L (96-108); Cholesterol 155 mg/dL (<200); Estimated Glomerular Filt Rate > 60; Glucose Fasting 117 mg/dL (60-99); HDL Cholesterol 39 mg/dL (>40); LDL Cholesterol Calculated 69 mg/dL (<100); Potassium 3.9 mmol/L (3.3-5.1); Sodium 141 mmol/L (135-145); Total Protein 6.2 g/dL (6.5-8.0); Triglycerides 239 mg/dL (<150)
[2024-03-19 13:37] LABS: TSH reflex Free T4 2.08 uIU/mL (0.32-4.0); Vitamin D 25-OH Total 37.3 ng/mL (>30)
[2024-03-22 19:19] LABS: Levetiracetam Keppra 22.6 mcg/mL (6.0-46.0)
== END 2024-03-19 11:23 | disposition home or self-care (01) ==
LOC: HO.LAB 11:22
PROVIDERS: PCP Internal Medicine; Visit Provider Internal Medicine
DX: E78.00 Pure hypercholesterolemia, unspecified (principal); D64.9 Anemia, unspecified; E55.9 Vitamin D deficiency, unspecified; R73.01 Impaired fasting glucose; G40.909 Epilepsy, unspecified, not intractable, without status epilepticus; R30.0 Dysuria
CPT/HCPCS: 36415; 80053; 80061; 80177; 82306; 83036; 84443; 85025

== ENCOUNTER 2024-05-12 21:42 | Inpatient (IN) | payer OTHER, SELFPAY ==
--- NOTE | 2024-05-12 | ECG_ITS ---
Test Reason : TACHYCARDIA Blood Pressure : */* mmHG Vent. Rate : 121 BPM Atrial Rate : 121 BPM P-R Int : 140 ms QRS Dur : 78 ms QT Int : 304 ms P-R-T Axes : 60 51 17 degrees QTcB Int : 431 ms Sinus tachycardia Nonspecific ST and T wave abnormality Abnormal ECG When compared with ECG of 21-Aug-2021 22:26, Nonspecific T wave abnormality now evident in Anterolateral leads Referred By: Generic ED Physician Electronically Signed By: TAHIRA POMPA
--- NOTE | ~2024-05-12 | XR_ITS ---
CLINICAL HISTORY: hYpoxemia 1 view chest x-ray Comparison: 12/06/2022 Findings: There is consolidation in the right lung base, possible pneumonia, subsegmental atelectasis, or scarring. Normal size heart. No acute fracture. IMPRESSION: 1. Right basilar consolidation, differential considerations noted. This document has been electronically signed by: Abner Patterson MD on 05/13/2024 07:04:51
--- NOTE | ~2024-05-12 | CT_ITS ---
CLINICAL HISTORY: fever, unknown source CT abdomen and pelvis with contrast Comparison: CT/REG/SR - CT ABDOMEN PELVIS WO IV CON - 12/06/22 22:58 EDT Findings: Bilateral basilar patchy lung opacities, right greater than left. There are also calcifications within the right lower lobe lung parenchyma. Gallbladder is absent. The liver, kidneys, spleen, pancreas and adrenal glands are unremarkable. No ureteral stones. There is a few nonobstructing renal calculi in the lower pole of the left kidney. No bowel obstruction, pneumoperitoneum, or pneumatosis. Pelvic contents unremarkable. Appendix not visualized. No lytic or blastic bone lesions. IMPRESSION: Bilateral patchy basilar lung opacities right greater than left which could be pneumonia or aspiration. This document has been electronically signed by: Billy Little MD on 05/13/2024 00:39:21
--- NOTE | ~2024-05-12 | US_ITS ---
EXAMINATION: US LOWER EXTREMITY VEINS LIMITED FOLLOW UP LEFT HISTORY: L LE Edema, Please Assess Any DVT COMPARISON: There are no prior studies for comparison. TECHNIQUE: Duplex and color Doppler sonographic examination of the deep venous system of the left lower extremity was performed. FINDINGS: The common femoral, superficial femoral, and popliteal veins are patent demonstrating normal compressibility, spontaneous flow, and augmentation. There is a normal color and spectral Doppler waveform appearance of the visualized deep venous system above the knee. The posterior tibial and peroneal veins are patent. US/US venous duplex LE LT IMPRESSION: No evidence of acute DVT in the left lower extremity. Electronically signed by: Nelson Soto MD 05/14/2024 09:03 AM [facility]
--- NOTE | ~2024-05-12 | CT_ITS ---
CLINICAL HISTORY: fever unknown source CT chest with contrast Comparison: None Findings: The heart size is normal. The visualized thyroid and mediastinum are unremarkable. Areas of consolidation in both lung bases, right greater than left. There also punctate calcifications within the right lower lobe lung parenchyma. The visualized upper abdomen is unremarkable. The bones are intact. IMPRESSION: 1. Bilateral lower lobe consolidation, right greater than left concerning for pneumonia or aspiration. This document has been electronically signed by: Billy Little MD on 05/13/2024 00:39:58
--- NOTE | ~2024-05-12 | FL_ITS ---
EXAMINATION: Modified Barium Swallow CLINICAL INFORMATION: Dysphagia COMPARISON: None TECHNIQUE: Modified barium swallow was performed under lateral fluoroscopy with patient in standing position. Barium mixed with solids and liquids of different consistencies was administered by the speech pathologist. Examination was recorded in the fluoroscopy suite. FINDINGS: Laryngeal penetration was seen with multiple consistencies of liquid barium. One episode of tracheal aspiration was observed. FLUOROSCOPY TIME: 4 minutes Number of Spot Images: N/A DOSE AREA PRODUCT: 1702 uGy-m2 (microgray-meter squared) FL/FL Modified Barium Swallow IMPRESSION: 1. Laryngeal penetration was seen with multiple consistencies of liquid barium. Tracheal aspiration was seen on subsequent swallow. Refer to the speech therapy report for further clarification This procedure was performed by Abdulaziz Avery PA-C, and supervised by Dr. Roberts Electronically signed by: Krishna Roberts MD 05/16/2024 03:30 PM [facility]
[2024-05-12 21:48] VITALS: BP 110/58; BP 110/61; PULSE 122; PULSE 150; RESP 17; TEMP 39.9; O2SAT 85; O2SAT 88; BMI 28.8
[2024-05-12 22:07] LABS: MANUAL DIFF FLAG NO
[2024-05-12 22:09] LABS: Basophils Percent Auto 0.2 % (0-2); Hematocrit 35.9 % (42.0-52.0); Hemoglobin 12.6 g/dl (14.0-18.0); Imm Gran Abs Auto 0.03 X10*3/uL (0.00-0.03); Imm Gran Pct Auto 0.3 % (0.0-0.4); Lymphocytes Absolute Auto 1.3 X10*3/uL (1.2-4.9); Lymphocytes Percent Auto 14.6 % (20-40); Mean Corpuscular HGB Conc 35.1 g/dl (31.0-36.0); Mean Corpuscular Hemoglobin 31.4 pg (27.0-33.0); Mean Corpuscular Volume 89.5 fL (80.0-98.0); Mean Platelet Volume 12.3 fL (9.4-12.4); Monocytes Absolute Auto 0.7 X10*3/uL (0.1-1.2); Monocytes Percent Auto 7.2 % (2-11); Neutrophils Percent Auto 77.7 % (45-73); Platelet Count 134 X10*3/uL (160-400); Red Blood Count 4.01 X10*6/uL (4.60-5.80); Red Cell Distribution Width 12.4 % (11.0-16.0)
[2024-05-12 22:13] LABS: Venous Blood Gas Refer to POC result
[2024-05-12 22:15] LABS: VBG Base Excess 6.4 mmol/L; VBG HCO3 31 mmol/L (22-26); VBG pCO2 44 mmHg; VBG pH 7.44 (7.32-7.43); VBG pO2 31 mmHg
--- NOTE | 2024-05-12 22:21 | PC.NURSE ---
pt biba from home, a&ox3, pt has hx of tbi, is dependent of care at baseline. pt reporting x3 days of n/v/d, pt at home nurse took oral temp of 103. pt feels hot to touch. pt has right sided deficits from previous tbi. on arrival, pt 85% on room air, pt placed on 3L nc, sating 95%. 18G placed in left ac, 20G right hand, labs obtained. provider aware of bp vitals. sepsis alert called at 2200.
--- NOTE | 2024-05-12 22:26 | ED_ITS ---
HPI - Nausea/Vomiting/Diarrhea General Chief complaint: Nausea/Vomiting/Diarrhea Stated complaint: diarrhea hx 3days, seizures, possible sepsis alert Time Seen by Provider: 05/12/24 21:58 History of Present Illness ED Provider: Ezequiel Hatch MD HPI Narrative: [age] male with history of TBI comes from home he has had nausea vomiting and diarrhea liquidy all day yesterday. No fever until today. Patient is a limited historian himself but denies any rash fall or injury. Brother at bedside reports a mild dry cough. Related Data Home Medications ?Medication ?Instructions ?Recorded ?Confirmed divalproex 500 mg tablet,extended 500 mg PO DAILY 02/29/20 05/13/24 release 24 hr levetiracetam 1,000 mg tablet 1,000 mg PO BID 02/29/20 05/13/24 divalproex 500 mg tablet,extended 1,000 mg PO BEDTIME 08/22/21 05/13/24 release 24 hr pyridoxine (vitamin B6) 100 mg 100 mg PO DAILY 01/25/22 05/13/24 tablet diazepam 2 mg tablet 2 mg PO TID 03/05/24 05/13/24 buspirone 5 mg tablet 5 mg PO BID anxiety 05/13/24 05/13/24 citalopram 20 mg tablet 20 mg PO DAILY 05/13/24 05/13/24 ergocalciferol (vitamin D2) 1,250 1,250 mcg PO WE@0900 05/13/24 05/13/24 mcg (50,000 unit) capsule trazodone 50 mg tablet 50 mg PO BEDTIME PRN Sleep 05/13/24 05/13/24 Previous Rx's ?Medication ?Instructions ?Recorded WHEELCHAIR #1 ea 07/22/20 WHEELCHAIR #1 ea 01/14/21 [facility] Bed #1 ea 01/22/21 chair, wheel (Wheel chair) #1 ea 02/23/21 sennosides 8.6 mg tablet (Senna 8.6 mg PO BEDTIME PRN constipation 05/31/22 Lax) 90 days #90 tabs MANUAL WHEELCHAIR (large) #1 ea 09/29/22 atorvastatin 40 mg tablet 40 mg PO BEDTIME 90 days #90 tabs 02/16/24 loratadine 10 mg tablet 10 mg PO DAILY PRN Allergy 05/13/24 Symptoms #90 tabs Allergies Allergy/AdvReac Type Severity Reaction Status Date / Time No Known Allergies Allergy Verified 05/12/24 21:52 PMFSH Past Medical History Medical History COVID-19 Impaired fasting glucose Mixed hyperlipidemia Postsurgical retinal scar of left eye Depression Anxiety Insomnia Vitamin D deficiency History of traumatic brain injury Primary osteoarthritis of left knee Left knee pain Epilepsy Pure hypercholesterolemia PAF (paroxysmal atrial fibrillation) Coronavirus infection TBI (traumatic brain injury) Surgical History History of cholecystectomy Family History Family History Mother Seizures Other No significant past surgical history Social History Social History Household Members: Family Housing: House Alcohol intake: current Alcohol intake frequency: does not drink Comment: PT SLEEPING Patient Tobacco Use Status: Never used Tobacco Tobacco use type: Cigarette Cigarette Packs Per Day: 0.5 Cigarettes Per Day: 4 e-Cigarette/Vaping Use: Never Used Second Hand Smoke Exposure: Yes service: No Current occupational status: disabled Cognitive needs: Yes (wheelchair) Hearing needs: No Vision needs: Yes (glasses) Physical Exam 2 Vital Signs: Vital Signs: Last Vital Signs Temp 98.4 F 05/13/24 20:54 Pulse 60 05/13/24 20:54 Resp 12 05/13/24 20:54 BP 108/61 05/13/24 20:54 Pulse Ox 97 05/13/24 20:54 O2 Del Method Room Air 05/13/24 20:54 O2 Flow Rate 2 05/13/24 08:27 BMI result Body Mass Index 28.8 Const: Other: EXAM: Gen: Alert, awake, Chronic deficits secondary to TBI including right upper extremity contracture discordant gaze Head: Atraumatic Eyes: Anicteric, Normal conjunctiva. ENT: Moist mucosa, no pallor. Neck: Supple. Respiratory: Breathing comfortably, No distress.Clear to auscultation bilaterally, symmetric chest expansion, No wheeze, rales, ronchi. Cardiovascular: Regular rate and rhythm. No murmurs or rub. Well perfused periphery, warm extremities. No edema. Abdominal: Soft, no objective distension. No palpable masses or obvious organomegaly. minimal diffuse abdominal tenderness, no guarding, no rebound tenderness or other peritoneal findings. : No flank tenderness. Neuro: Alert. Gross movement of all extremities intact. Vital signs: See flowsheet Medications Administered Generic Name Dose Route Start Last Admin Trade Name Freq PRN Reason Stop Dose Admin Diazepam 1 mg 05/13/24 10:00 05/13/24 18:03 Diazepam 10 Mg/2 Ml Cartridge IVPUSH 1 mg Q8H FRANKIE Administration Divalproex Sodium 1,000 mg 05/13/24 21:00 05/13/24 20:03 Divalproex Sodium Sprinkles 125 Mg Cap. PO Not Given BEDTIME FRANKIE Enoxaparin Sodium 40 mg 05/13/24 09:00 05/13/24 09:47 Enoxaparin Sodium 40 Mg/0.4 Ml Syringe SUBCUT 40 mg DAILY FRANKIE Administration Furosemide 40 mg 05/13/24 09:00 05/13/24 09:48 Furosemide 40 Mg/4 Ml Vial IVPUSH Not Given DAILY FRANKIE Protocol Piperacillin Sod/Tazobactam 100 mls @ 200 mls/hr 05/13/24 02:00 05/13/24 20:23 Sod 4.5 gm/ Sodium Chloride IV Infused Q6H FRANKIE Infusion Norepinephrine Bitartrate 8 mg in 250 mls @ 0 mls/hr 05/13/24 07:00 05/13/24 19:40 Levophed IVCONT 0 mcg/kg/min .Q0M FRANKIE 0 mls/hr Titration Protocol Per Protocol Levetiracetam 1,000 mg in 100 mls @ 400 mls/hr 05/13/24 11:00 05/13/24 11:08 Keppra IV Infused Q12H FRANKIE Infusion Valproic Acid 500 mg/ Dextrose 55 mls @ 55 mls/hr 05/13/24 21:00 05/13/24 20:48 IV 55 mls/hr BID FRANKIE Administration Sodium Chloride 3 ml 05/13/24 08:00 05/13/24 15:06 0.9 % Sodium Chloride Flush 3 Ml Syringe IVFLUSH 3 ml QSHIFT FRANKIE Administration Discontinued Medications Generic Name Dose Route Start Last Admin Trade Name Freq PRN Reason Stop Dose Admin Acetaminophen 975 mg 05/12/24 23:01 05/12/24 23:10 Acetaminophen 325 Mg Tablet PO 05/12/24 23:02 975 mg ONCE ONE Administration Ceftriaxone Sodium 1 gm 05/12/24 22:39 05/12/24 22:47 Ceftriaxone Sodium 1 Gm Vial IVPUSH 05/12/24 22:40 1 gm ONCE ONE Administration Divalproex Sodium 1,000 mg 05/13/24 01:45 05/13/24 02:24 Divalproex Sodium Er 500 Mg Tab.Er.24h PO 1,000 mg BEDTIME FRANKIE Administration Furosemide 40 mg 05/13/24 07:00 05/13/24 07:31 Furosemide 40 Mg/4 Ml Vial IVPUSH 05/13/24 07:01 40 mg ONCE ONE Administration Protocol Sodium Chloride 1,000 mls @ 999 mls/hr 05/12/24 22:45 05/12/24 23:45 Ns IV 05/12/24 23:45 Infused .Q1H1M FRANKIE Infusion Sodium Chloride 1,000 mls @ 999 mls/hr 05/12/24 23:00 05/13/24 00:15 Ns IV 05/13/24 00:00 Infused .Q1H1M FRANKIE Infusion Sodium Chloride 2,733 mls @ 2,733 mls/hr 05/13/24 01:01 05/13/24 02:07 Ns 30 ml/kg infuse over 1 hr (2733 ml) 05/13/24 02:00 Infused IV Infusion .Q1H STA Albumin Human 100 mls @ 100 mls/hr 05/13/24 05:30 05/13/24 06:19 Kedbumin 25 % IV 05/13/24 07:29 Not Given Q1H FRANKIE Albumin Human 50 mls @ 100 mls/hr 05/13/24 06:15 05/13/24 09:04 Kedbumin 25 % IV 05/13/24 08:14 Infused Q30M FRANKIE Infusion Magnesium Sulfate 2 gm in 50 mls @ 25 mls/hr 05/13/24 06:36 05/13/24 09:04 Magnesium Sulfate/H2o IV 05/13/24 08:35 Infused ONCE ONE Infusion Magnesium Sulfate 2 gm in 50 mls @ 25 mls/hr 05/13/24 06:59 05/13/24 07:06 Magnesium Sulfate/H2o IV 05/13/24 08:58 Not Given ONCE ONE Calcium Gluconate 2 gm in 100 mls @ 50 mls/hr 05/13/24 07:01 05/13/24 09:37 Calcium Gluconate IV 05/13/24 09:00 Infused ONCE ONE Infusion Potassium Chloride 10 meq in 100 mls @ 100 mls/hr 05/13/24 20:00 05/13/24 20:44 Potassium Chloride/H20 IV 05/13/24 21:59 100 mls/hr Q1H FRANKIE Administration Iohexol 85 ml 05/12/24 23:56 05/12/24 23:56 Iohexol 350 Mg/Ml 100 Ml Infus..Btl IV 05/12/24 23:57 85 ml ONCE ONE Administration Levetiracetam 1,000 mg 05/13/24 01:45 05/13/24 09:39 Levetiracetam 1,000 Mg Tablet PO Not Given BID FRANKIE Magnesium Oxide 400 mg 05/12/24 22:54 05/12/24 23:10 Magnesium Oxide 400 Mg Tablet PO 05/12/24 22:55 400 mg ONCE ONE Administration Midodrine 10 mg 05/13/24 02:10 05/13/24 02:29 Midodrine Hcl 10 Mg Tablet PO 05/13/24 02:11 10 mg ONCE ONE Administration Potassium Chloride 20 meq 05/12/24 22:54 05/12/24 23:10 Potassium Chloride Er 20 Meq Tab.Er.Prt PO 05/12/24 22:55 20 meq ONCE ONE Administration Medical Decision Making Medical Decision Making MDM Narrative: 58 male with history of TBI, epilepsy, vomiting and liquidy diarrhea yesterday no obvious sick contacts other than household? Influenza, patient has not had diarrhea today but spiked a fever per family. Mild dry cough associated with this. Otherwise he has been resting comfortably at baseline. Patient arrived flagging sepsis for sirs criteria is lactate turned 2.2 meeting severe sepsis criteria. We have initiated labs, manning culture, IV hydration IV antibiotics the patient may have viral gastroenteritis. Patient at this time unable to give stool sample as of yet other specimens per sepsis protocol obtained. No hypertension or lactate over 14 indicate 30 cc/kg bolus but I will aggressively hydrate given his fluid losses. Patient is mildly hypomagnesemic I will replete this and potassium. Differential Diagnosis Differential Diagnoses: The differential diagnosis associated with the presentation includes Viral gastroenteritis, pneumonia, viral syndrome such as influenza or COVID, pneumonia, UTI, aspiration Consult Healthcare Provider Management of the patient was discussed with: Hospitalist Lab Data MDM Lab Attestation statement: I reviewed the patient's lab results. 05/13/24 04:49 05/13/24 18:07 Labs: Lab Results 05/12/24 05/12/24 05/12/24 Range/Units 21:58 22:06 22:20 WBC 9.0 (4.8-10.8) X10*3/uL RBC 4.01 L (4.60-5.80) X10*6/uL Hgb 12.6 L (14.0-18.0) g/dl Hct 35.9 L (42.0-52.0) % MCV 89.5 (80.0-98.0) fL MCH 31.4 (27.0-33.0) pg MCHC 35.1 (31.0-36.0) g/dl RDW 12.4 (11.0-16.0) % Plt Count 134 L (160-400) X10*3/uL MPV 12.3 (9.4-12.4) fL Immature Gran % (Auto) 0.3 (0.0-0.4) % Neut % (Auto) 77.7 H (45-73) % Lymph % (Auto) 14.6 L (20-40) % [place] % (Auto) 7.2 (2-11) % Eos % (Auto) 0.0 (0-4) % Baso % (Auto) 0.2 (0-2) % Lymph # (Auto) 1.3 (1.2-4.9) X10*3/uL [place] # (Auto) 0.7 (0.1-1.2) X10*3/uL Eos # (Auto) 0.0 (0.0-0.4) X10*3/uL Baso # (Auto) 0.0 (0.0-0.2) X10*3/uL Abs Immat Gran (auto) 0.03 (0.00-0.03) X10*3/uL Absolute Neuts (auto) 7.0 (2.0-8.3) x10*3/uL Absolute Nucleated RBC 0.000 (0.0-0.012) X10*3/uL Nucleated RBC % (auto) 0.0 (0.0-0.2) /100WBC PT 12.8 H (10.9-12.4) SEC INR 1.1 (0.9-1.1) VBG pH 7.44 H (7.32-7.43) VBG pCO2 44 mmHg VBG pO2 31 mmHg VBG HCO3 31 H (22-26) mmol/L VBG O2 Saturation 56.0 % VBG Base Excess 6.4 mmol/L Sodium 140 (135-145) mmol/L Potassium 3.7 (3.3-5.1) mmol/L Chloride 106 (96-108) mmol/L Carbon Dioxide 25 (22-29) mmol/L Anion Gap 13 (12-20) BUN 13 (9-16) mg/dL Creatinine 0.70 (0.5-1.4) mg/dL Estim Creat Clear Calc 133.7 Estimated GFR > 60 Random Glucose 145 H (60-115) mg/dL Lactic Acid 2.2 H* (0.5-2.0) mmol/L Calcium 8.0 L D (8.4-10.2) mg/dL Magnesium 1.4 L* (1.6-2.6) mg/dL Total Bilirubin 0.4 (0.0-1.0) mg/dL AST 60 H (5-37) U/L ALT 45 H (0-40) U/L Alkaline Phosphatase 65 (39-117) U/L Troponin I High Sens 4.9 (<3.5-35.0) ng/L B-Natriuretic Peptide < 10 (<100) pg/mL Total Protein 6.0 L (6.5-8.0) g/dL Albumin 3.4 L (3.5-5.0) g/dL Urine Color Urine Appearance Urine pH (5.0-9.0) Ur Specific [place] (1.005-1.025) Urine Protein (Neg-Trace) mg/dL Urine Glucose (UA) (Negative) mg/dL Urine Ketones (Negative) mg/dL Urine Blood (Negative) Urine Nitrite (Negative) Ur Leukocyte Esterase (Negative) Urine RBC (0-2) /HPF Urine WBC (0-5) /HPF Ur Squamous Epith Cells (0-2) /HPF Urine Bacteria (None Seen) Hyaline Casts (0-2) /LPF Influenza Type A (PCR) NEGATIVE (Negative) Influenza Type B (PCR) NEGATIVE (Negative) RSV RNA Qual (PCR) NEGATIVE (Negative) SARS-CoV-2 RNA (RT-PCR) NEGATIVE (Negative) 05/13/24 05/13/24 Range/Units 00:05 00:25 WBC (4.8-10.8) X10*3/uL RBC (4.60-5.80) X10*6/uL Hgb (14.0-18.0) g/dl Hct (42.0-52.0) % MCV (80.0-98.0) fL MCH (27.0-33.0) pg MCHC (31.0-36.0) g/dl RDW (11.0-16.0) % Plt Count (160-400) X10*3/uL MPV (9.4-12.4) fL Immature Gran % (Auto) (0.0-0.4) % Neut % (Auto) (45-73) % Lymph % (Auto) (20-40) % [place] % (Auto) (2-11) % Eos % (Auto) (0-4) % Baso % (Auto) (0-2) % Lymph # (Auto) (1.2-4.9) X10*3/uL [place] # (Auto) (0.1-1.2) X10*3/uL Eos # (Auto) (0.0-0.4) X10*3/uL Baso # (Auto) (0.0-0.2) X10*3/uL Abs Immat Gran (auto) (0.00-0.03) X10*3/uL Absolute Neuts (auto) (2.0-8.3) x10*3/uL Absolute Nucleated RBC (0.0-0.012) X10*3/uL Nucleated RBC % (auto) (0.0-0.2) /100WBC PT (10.9-12.4) SEC INR (0.9-1.1) VBG pH (7.32-7.43) VBG pCO2 mmHg VBG pO2 mmHg VBG HCO3 (22-26) mmol/L VBG O2 Saturation % VBG Base Excess mmol/L Sodium (135-145) mmol/L Potassium (3.3-5.1) mmol/L Chloride (96-108) mmol/L Carbon Dioxide (22-29) mmol/L Anion Gap (12-20) BUN (9-16) mg/dL Creatinine (0.5-1.4) mg/dL Estim Creat Clear Calc Estimated GFR Random Glucose (60-115) mg/dL Lactic Acid 1.5 (0.5-2.0) mmol/L Calcium (8.4-10.2) mg/dL Magnesium (1.6-2.6) mg/dL Total Bilirubin (0.0-1.0) mg/dL AST (5-37) U/L ALT (0-40) U/L Alkaline Phosphatase (39-117) U/L Troponin I High Sens (<3.5-35.0) ng/L B-Natriuretic Peptide (<100) pg/mL Total Protein (6.5-8.0) g/dL Albumin (3.5-5.0) g/dL Urine Color Yellow Urine Appearance Clear Urine pH 7.5 (5.0-9.0) Ur Specific [place] 1.015 (1.005-1.025) Urine Protein Negative (Neg-Trace) mg/dL Urine Glucose (UA) Negative (Negative) mg/dL Urine Ketones Negative (Negative) mg/dL Urine Blood Negative (Negative) Urine Nitrite Negative (Negative) Ur Leukocyte Esterase Negative (Negative) Urine RBC 0-2 (0-2) /HPF Urine WBC 0-5 (0-5) /HPF Ur Squamous Epith Cells 0-2 (0-2) /HPF Urine Bacteria None Seen (None Seen) Hyaline Casts 0-2 (0-2) /LPF Influenza Type A (PCR) (Negative) Influenza Type B (PCR) (Negative) RSV RNA Qual (PCR) (Negative) SARS-CoV-2 RNA (RT-PCR) (Negative) Independent Historian Clinical information obtained from an independent historian. History obtained from or confirmed by: Other (brother at bedside) External Record Review External record reviewed: Office record Chronic Conditions Patient?s care impacted by: Diabetes Critical Care Time Critical Care Time Attestation: ED Critical Care: Authorized and Performed by: Ezequiel Hatch MD Total critical care time: Approximately 35 Due to a high probability of clinically significant, life threatening deterioration, the patient required my highest level of preparedness to intervene emergently and I personally spent this critical care time directly and personally managing the patient. This critical care time included obtaining a history; examining the patient; pulse oximetry; ordering and review of studies; arranging urgent treatment with development of a management plan; evaluation of patient's response to treatment; frequent reassessment; and, discussions with other providers. This critical care time was performed to assess and manage the high probability of imminent, life-threatening deterioration that could result in multi-organ failure. It was exclusive of separately billable procedures and treating other patients and teaching time. Discharge Plan Discharge Clinical Impression: Sepsis Patient Disposition: Admitted As Inpatient Interventions: Admission Worksheet (ED) Last Done: 05/13/24 09:31 Discharge Date/Time: 05/13/24 09:33
[2024-05-12 22:29] LABS: B Type Natriuretic Peptide < 10 pg/mL (<100); INTERNATIONAL NORM RATIO 1.1 (0.9-1.1); Prothrombin Time 12.8 SEC (10.9-12.4)
[2024-05-12 22:33] LABS: Troponin-I High Sensitivity 4.9 ng/L (<3.5-35.0)
[2024-05-12 22:39] LABS: Alanine Aminotransferase 45 U/L (0-40); Albumin Level 3.4 g/dL (3.5-5.0); Alkaline Phosphatase 65 U/L (39-117); Anion Gap 13 (12-20); Aspartate Amino Transferase 60 U/L (5-37); Bilirubin Total 0.4 mg/dL (0.0-1.0); Blood Urea Nitrogen 13 mg/dL (9-16); Carbon Dioxide 25 mmol/L (22-29); Chloride 106 mmol/L (96-108); Creatinine Clr Calc Pharmacy 133.7; Estimated Glomerular Filt Rate > 60; Glucose Random 145 mg/dL (60-115); Lactic Acid 2.2 mmol/L (0.5-2.0); Magnesium 1.4 mg/dL (1.6-2.6); Potassium 3.7 mmol/L (3.3-5.1); Sodium 140 mmol/L (135-145)
[2024-05-12] MEDS: 0.9 % Sodium Chloride 1,000 ML 999 ML IV ×2 (22:47→23:11)
[2024-05-12] MEDS: cefTRIAXone sodium 1 GM VIAL IVPUSH (22:47)
[2024-05-12 23:03] LABS: Influenza A PCR NEGATIVE (Negative); Influenza B PCR NEGATIVE (Negative); Resp Syncy Virus RNA Qual PCR NEGATIVE (Negative); SARS COV2 PCR INHOUSE NEGATIVE (Negative)
[2024-05-12 23:04] VITALS: BP 107/49; PULSE 109; RESP 14; TEMP 38.9; O2SAT 97
[2024-05-12] MEDS: Acetaminophen 325 MG TABLET 975 MG PO (23:10)
[2024-05-12] MEDS: Potassium Chloride ER 20 MEQ TAB.ER.PRT PO (23:10)
[2024-05-12] MEDS: Magnesium Oxide 400 MG TABLET PO (23:10)
--- NOTE | 2024-05-12 23:20 | PC.NURSE ---
mine deputy at bedside, pt medicated per mar, tolerated whole well with water.
[2024-05-12] MEDS: iohexoL 350 MG/ML 100 ML INFUS..BTL 85 ML IV (23:56)
[2024-05-13] VITALS (30 sets, daily range): BP systolic 86–128; BP diastolic 43–69; PULSE 56–100; RESP 12–18; TEMP 36.7–38.3; O2SAT 92–100
[2024-05-13 00:04] LABS: Reflex Lactate? Lactic Acid Added
[2024-05-13 00:25] LABS: Lactic Acid 1.5 mmol/L (0.5-2.0)
--- NOTE | 2024-05-13 00:32 | PC.NURSE ---
pt fluids administered and complete at this time, pt bp soft, see vs, provider aware.
[2024-05-13 00:35] LABS: Appearance Urine Clear; Color Urine Yellow; Glucose Urine UA Negative (Negative); Leukocyte Esterase Urine Negative (Negative); Nitrite Urine Negative (Negative); PH 7.5 (5.0-9.0); Specific Gravity - Urine 1.015 (1.005-1.025); Urine Blood Negative (Negative); Urine Ketones Negative (Negative); Urine Protein Negative (Neg-Trace)
[2024-05-13 00:40] LABS: Bacteria Urine None Seen (None Seen); Hyaline Casts Urine 0-2 /LPF (0-2); RBC Urine 0-2 /HPF (0-2); Squamous Epithelial Cell Urine 0-2 /HPF (0-2); WBC Urine 0-5 /HPF (0-5)
--- NOTE | 2024-05-13 00:53 | PM.IMHP ---
History of Present Illness Date of Service: 05/13/24 Chief Complaint: Cough, vomiting, diarrhea A 58 years old male with PMH of epilepsy, TBI , dysphagia, HLD among others who is presenting with 4 days of worsening cough and SOB. The patient is unable to provide much of history, EMS and ER reported that he presented from home with reported recurrent episodes of vomiting, diarrhea, cough and weakness. unable to tolerate much of PO. No chest pain, palpitations, or urinary symptoms. In ED found to have elevate Lactic acid, low Mg, CT chest showing bilateral pneumonia. not hypoxic. Noted to be hypotensive on repeat readings, received 30cc\kg IV bolus. Admitted for further evaluation and treatment. Review of Systems Review of Systems: Yes Unobtainable due to mental condition [facility] Medical History COVID-19 Impaired fasting glucose Mixed hyperlipidemia Postsurgical retinal scar of left eye Depression Anxiety Insomnia Vitamin D deficiency History of traumatic brain injury Primary osteoarthritis of left knee Left knee pain Epilepsy Pure hypercholesterolemia PAF (paroxysmal atrial fibrillation) Coronavirus infection TBI (traumatic brain injury) Family History Mother Seizures Other No significant past surgical history Surgical History History of cholecystectomy Social History Household Members: Unknown / Unable to assess Housing: Apartment Alcohol intake: current Alcohol intake frequency: does not drink Comment: PT SLEEPING Patient Tobacco Use Status: Current everyday Tobacco user Tobacco use type: Cigarette Cigarette Packs Per Day: 0.5 Cigarettes Per Day: 4 e-Cigarette/Vaping Use: Never Used Second Hand Smoke Exposure: Yes Advance Directives: No Advance Directives Information Provided: Yes Do you have a plan to hurt others: No Plan service: No Current occupational status: disabled Cognitive needs: Yes (wheelchair) Hearing needs: No Vision needs: Yes (glasses) Meds Allergies Allergy/AdvReac Type Severity Reaction Status Date / Time No Known Allergies Allergy Verified 05/12/24 21:52 Home Medications ?Medication ?Instructions ?Recorded ?Confirmed ?Last Taken ?Type divalproex 500 mg tablet,extended 500 mg PO DAILY 02/29/20 03/05/24 Unknown History release 24 hr levetiracetam 1,000 mg tablet 1,000 mg PO BID 02/29/20 03/05/24 Unknown History zolpidem 10 mg tablet 0.5 - 1 tab PO BEDTIME PRN Insomnia 02/29/20 03/05/24 Unknown History divalproex 500 mg tablet,extended 1,000 mg PO BEDTIME 08/22/21 03/05/24 Unknown History release 24 hr levetiracetam 250 mg tablet 500 mg PO DAILY 08/22/21 03/05/24 Unknown History pyridoxine (vitamin B6) 100 mg 100 mg PO DAILY 01/25/22 03/05/24 Unknown History tablet diazepam 2 mg tablet 2 mg PO TID 03/05/24 03/05/24 Unknown History risperidone 0.5 mg tablet mg PO 03/05/24 03/05/24 Unknown History zolpidem 5 mg tablet 5 mg PO BEDTIME PRN 03/05/24 03/05/24 Unknown History Physical Exam Vital Signs and Narrative: Vital Signs: Last Vital Signs Temp 100.9 F H 05/13/24 00:03 Pulse 98 05/13/24 00:32 Resp 17 05/13/24 00:23 BP 91/47 L 05/13/24 00:32 Pulse Ox 95 05/13/24 00:03 O2 Del Method Nasal Cannula 05/13/24 00:03 O2 Flow Rate 3 05/13/24 00:03 BMI result Body Mass Index 28.8 Const: Other: Constitutional : Alert, not in distress Neck : Normal inspection, Supple Cardiovascular : RRR, no JVP, no lower extremity edema Respiratory : fair bilateral air entry, no crackles, wheezes or rhonchi Gastrointestinal: soft, lax, Normal bowel sounds, Non tender Skin : Warm, Dry Neurological : Alert ,No focal deficit Results Labs 05/12/24 21:58 05/12/24 21:58 Labs: Laboratory Results - last 24 hr 05/12/24 05/12/24 05/12/24 21:58 22:06 22:20 MCV 89.5 MCH 31.4 MCHC 35.1 RDW 12.4 Plt Count 134 L MPV 12.3 Immature Gran % (Auto) 0.3 Neut % (Auto) 77.7 H Lymph % (Auto) 14.6 L [place] % (Auto) 7.2 Eos % (Auto) 0.0 Baso % (Auto) 0.2 Lymph # (Auto) 1.3 [place] # (Auto) 0.7 Eos # (Auto) 0.0 Baso # (Auto) 0.0 Abs Immat Gran (auto) 0.03 Absolute Neuts (auto) 7.0 Absolute Nucleated RBC 0.000 Nucleated RBC % (auto) 0.0 PT 12.8 H INR 1.1 VBG pH 7.44 H VBG pCO2 44 VBG pO2 31 VBG HCO3 31 H VBG O2 Saturation 56.0 VBG Base Excess 6.4 Anion Gap 13 Estim Creat Clear Calc 133.7 Estimated GFR > 60 Random Glucose 145 H Lactic Acid 2.2 H* Calcium 8.0 L D Magnesium 1.4 L* Total Bilirubin 0.4 AST 60 H ALT 45 H Alkaline Phosphatase 65 Troponin I High Sens 4.9 B-Natriuretic Peptide < 10 Total Protein 6.0 L Albumin 3.4 L Urine Color Urine Appearance Urine pH Ur Specific [place] Urine Protein Urine Glucose (UA) Urine Ketones Urine Blood Urine Nitrite Ur Leukocyte Esterase Urine RBC Urine WBC Ur Squamous Epith Cells Urine Bacteria Hyaline Casts Influenza Type A (PCR) NEGATIVE Influenza Type B (PCR) NEGATIVE RSV RNA Qual (PCR) NEGATIVE SARS-CoV-2 RNA (RT-PCR) NEGATIVE 05/13/24 05/13/24 00:05 00:25 MCV MCH MCHC RDW Plt Count MPV Immature Gran % (Auto) Neut % (Auto) Lymph % (Auto) [place] % (Auto) Eos % (Auto) Baso % (Auto) Lymph # (Auto) [place] # (Auto) Eos # (Auto) Baso # (Auto) Abs Immat Gran (auto) Absolute Neuts (auto) Absolute Nucleated RBC Nucleated RBC % (auto) PT INR VBG pH VBG pCO2 VBG pO2 VBG HCO3 VBG O2 Saturation VBG Base Excess Anion Gap Estim Creat Clear Calc Estimated GFR Random Glucose Lactic Acid 1.5 Calcium Magnesium Total Bilirubin AST ALT Alkaline Phosphatase Troponin I High Sens B-Natriuretic Peptide Total Protein Albumin Urine Color Yellow Urine Appearance Clear Urine pH 7.5 Ur Specific [place] 1.015 Urine Protein Negative Urine Glucose (UA) Negative Urine Ketones Negative Urine Blood Negative Urine Nitrite Negative Ur Leukocyte Esterase Negative Urine RBC 0-2 Urine WBC 0-5 Ur Squamous Epith Cells 0-2 Urine Bacteria None Seen Hyaline Casts 0-2 Influenza Type A (PCR) Influenza Type B (PCR) RSV RNA Qual (PCR) SARS-CoV-2 RNA (RT-PCR) Assessment and Plan (1) Sepsis: Status: Acute (2) Acute respiratory failure with hypoxia: Status: Acute (3) Pneumonia: Status: Acute Plan A 58 years old male with PMH of epilepsy, TBI , dysphagia, HLD among others who is presenting with 4 days of worsening cough and SOB. Sepsis 2/2 Pneumonia with acute lactic acidosis complicated with acute hypoxemia 30cc\kg IVF pending blood cultures repeat LA CT showing bilateral infiltrates more on right side. likely aspiration IV Zosyn modified diet , advance as tolerated Wean O2 down as tolerated Acute hypomagnesemia replacement given follow Mg level history of TBI complicated by epilepsy keppra, depakote HLD, statin Mood disorder citalopram DVT prophylaxis Lovenox full code TRhe patient will need 2 overnight stay for sepsis treatment with IV antibiotics pending final blood cultures Quality Stroke Does the patient have a stroke diagnosis?: No VTE Prior VTE?: No VTE Risk Level:: Medical - moderate - high VTE Device Contraindication: Treatment Not Indicated VTE Drug Contraindication: N/A - Med Ordered
[2024-05-13] MEDS: Piperacillin Sodium/Tazobactam 4.5 GM in 0.9 % Sodium Chloride 100 ML IV ×4 (01:23→19:40)
[2024-05-13] MEDS: SODIUM CHLORIDE 2733 ML IV (01:24)
--- NOTE | 2024-05-13 01:49 | PC.NURSE ---
hospitalist at bedside, new orders for fluids placed, confirmed with provider that all IV fluids will be administered per mar.
[2024-05-13] MEDS: Divalproex Sodium ER 500 MG TAB.ER.24H 1000 MG PO (02:24)
[2024-05-13] MEDS: levETIRAcetam 1,000 MG TABLET 1000 MG PO (02:24)
[2024-05-13] MEDS: Midodrine HCl 10 MG TABLET PO (02:29)
--- NOTE | 2024-05-13 02:30 | PC.NURSE ---
pt medicated per mare, pt tolerates whole well with water, needs assistance placing pills into mouth.
[2024-05-13 05:00] LABS: Hematocrit 31.9 % (42.0-52.0); Hemoglobin 10.9 g/dl (14.0-18.0); Mean Corpuscular HGB Conc 34.2 g/dl (31.0-36.0); Mean Corpuscular Hemoglobin 31.1 pg (27.0-33.0); Mean Corpuscular Volume 91.1 fL (80.0-98.0); PLT ABN DIST 1; Red Cell Distribution Width 12.8 % (11.0-16.0); White Blood Count 11.3 X10*3/uL (4.8-10.8)
[2024-05-13 05:52] LABS: Anion Gap 11 (12-20); Blood Urea Nitrogen 9 mg/dL (9-16); Calcium 7.4 mg/dL (8.4-10.2); Carbon Dioxide 21 mmol/L (22-29); Chloride 115 mmol/L (96-108); Creatinine Clr Calc Pharmacy 148.5; Estimated Glomerular Filt Rate > 60; Glucose Random 108 mg/dL (60-115); Magnesium 1.4 mg/dL (1.6-2.6); Potassium 3.8 mmol/L (3.3-5.1); Sodium 143 mmol/L (135-145)
[2024-05-13 05:55] LABS: Lactic Acid 1.4 mmol/L (0.5-2.0)
[2024-05-13] MEDS: Albumin Human 25 % 50 ML 100 ML IV ×4 (06:09→08:28)
--- NOTE | 2024-05-13 06:11 | PC.NURSE ---
Addendum entered by Sally Emery 05/13/24 06:24: provider called to bedside to assess pt. Original Note: provider aware of pt bp at this time, new orders followed per jun.
--- NOTE | 2024-05-13 06:39 | PC.NURSE ---
pt noted to de sat to 73% on 4L nc, pt fully awake at this time, NC removed, pt placed on 3L oxymax, pt 94%. Provider aware, plan for repeat chest xray.
[2024-05-13] MEDS: Magnesium Sulfate/H2O 2 GM/50 ML PIGGYBACK IV (06:57)
--- NOTE | 2024-05-13 06:59 | PC.NURSE ---
provider aware in pt change of condition, Renea Bliss from ICU called to bedside. plan for admit to ICU if accepted.
--- NOTE | 2024-05-13 07:00 | PC.NURSE ---
Report taken from Sally Otero RN
[2024-05-13 07:28] LABS: Venous Blood Gas Refer to POC result
[2024-05-13 07:29] LABS: VBG Base Excess 2.2 mmol/L; VBG HCO3 28 mmol/L (22-26); VBG pCO2 50 mmHg; VBG pH 7.35 (7.32-7.43); VBG pO2 41 mmHg
[2024-05-13] MEDS: Calcium Gluconate/NaCl,Iso-Osm 2 GM/100 ML PLAST..BAG IV (07:29)
[2024-05-13] MEDS: Furosemide 40 MG/4 ML VIAL IVPUSH (07:31)
--- NOTE | 2024-05-13 09:27 | PM.EVENT ---
Event Note Date of Service: 05/13/24 Event Note: Patient is a 58 Y M w/ TBI c/b epilepsy, dysphagia, presenting initially to emergency department on 05/12 w/ cough, dyspnea; work-up in emergency department suggestive of pnuemonia; ICU consulted on 05/13 AM d/t mild hypotension despite fluid resuscitation; plan to admit ICU, continue empiric antibiotics, judicious use of IVF and diuresis as tolerated, vasopressors as needed, and speech evaluation Time Spent With Patient Time: Total time managing care of this patient today ____ minutes.
--- NOTE | 2024-05-13 09:46 | PHA.MEDREC ---
Addendum entered by Lakia Cantor RPh 05/13/24 10:43: [facility] REVIEWED Original Note: Pharmacy Consult ? Medication Reconciliation Pharmacy has completed the medication reconciliation. Spoke with patient through an flange turner. He is not taking risperidone or zolpidem. He confirmed keppra is 1000 mg bid, depakote is 500 mg in the morning and 1000 mg at bedtime, diazepam is 2 mg tid. Vitamin D2 is on Wednesdays and he took it last Tuesday. He has not taken his medications in 3-4 days.
[2024-05-13] MEDS: Enoxaparin Sodium 40 MG/0.4 ML SYRINGE SUBCUT (09:47)
[2024-05-13] MEDS: diazePAM 10 MG/2 ML CARTRIDGE IVPUSH ×2 (10:51→18:03)
[2024-05-13] MEDS: levETIRAcetam in NaCl (iso-os) 1,000 MG/100 ML PIGGYBACK 400 MG IV ×2 (10:52→23:27)
[2024-05-13] MEDS: Norepinephrine Bitartrate/D5W 8 MG/250 ML PLAST..BAG 8.54 MG IVCONT (10:56)
[2024-05-13] MEDS: 0.9 % Sodium Chloride Flush 3 ML SYRINGE IVFLUSH ×2 (15:06→23:28)
[2024-05-13 18:41] LABS: Anion Gap 14 (12-20); Blood Urea Nitrogen 8 mg/dL (9-16); Calcium 8.6 mg/dL (8.4-10.2); Carbon Dioxide 23 mmol/L (22-29); Chloride 112 mmol/L (96-108); Creatinine Clr Calc Pharmacy 141.8; Estimated Glomerular Filt Rate > 60; Glucose Random 104 mg/dL (60-115); Phosphorus 3.1 mg/dL (2.7-4.5); Potassium 3.4 mmol/L (3.3-5.1); Sodium 146 mmol/L (135-145)
[2024-05-13] MEDS: Potassium Chloride/H20 10 MEQ/100 ML PIGGYBACK 100 MEQ IV ×2 (19:40→20:44)
[2024-05-13] MEDS: Valproic Acid (as Sodium Salt) 500 MG in Dextrose 5 % 50 ML 55 MG IV (20:48)
[2024-05-14] VITALS (16 sets, daily range): BP systolic 97–153; BP diastolic 47–66; PULSE 70–83; RESP 12–20; TEMP 36.6–37.4; O2SAT 92–96; BMI 28.8
[2024-05-14] MEDS: Piperacillin Sodium/Tazobactam 4.5 GM in 0.9 % Sodium Chloride 100 ML IV ×4 (02:06→19:23)
[2024-05-14] MEDS: diazePAM 10 MG/2 ML CARTRIDGE IVPUSH ×3 (02:06→17:26)
[2024-05-14 05:42] LABS: MANUAL DIFF FLAG NO
[2024-05-14 05:43] LABS: Basophils Percent Auto 0.4 % (0-2); Eosinophils Absolute Auto 0.1 X10*3/uL (0.0-0.4); Eosinophils Percent Auto 0.6 % (0-4); Hematocrit 32.9 % (42.0-52.0); Hemoglobin 11.5 g/dl (14.0-18.0); Imm Gran Abs Auto 0.02 X10*3/uL (0.00-0.03); Imm Gran Pct Auto 0.3 % (0.0-0.4); Lymphocytes Absolute Auto 3.2 X10*3/uL (1.2-4.9); Mean Corpuscular Hemoglobin 31.3 pg (27.0-33.0); Mean Corpuscular Volume 89.6 fL (80.0-98.0); Mean Platelet Volume 12.8 fL (9.4-12.4); Monocytes Absolute Auto 0.5 X10*3/uL (0.1-1.2); Monocytes Percent Auto 6.6 % (2-11); Neutrophils Absolute Auto 3.9 x10*3/uL (2.0-8.3); Neutrophils Percent Auto 50.1 % (45-73); Platelet Count 136 X10*3/uL (160-400); Red Blood Count 3.67 X10*6/uL (4.60-5.80); Red Cell Distribution Width 12.6 % (11.0-16.0); White Blood Count 7.7 X10*3/uL (4.8-10.8)
[2024-05-14 06:02] LABS: Anion Gap 12 (12-20); Blood Urea Nitrogen 12 mg/dL (9-16); Calcium 8.6 mg/dL (8.4-10.2); Carbon Dioxide 26 mmol/L (22-29); Chloride 112 mmol/L (96-108); Creatinine Clr Calc Pharmacy 133.7; Estimated Glomerular Filt Rate > 60; Glucose Random 81 mg/dL (60-115); Magnesium 1.9 mg/dL (1.6-2.6); Phosphorus 2.8 mg/dL (2.7-4.5); Potassium 3.7 mmol/L (3.3-5.1); Sodium 146 mmol/L (135-145)
[2024-05-14] MEDS: 0.9 % Sodium Chloride Flush 3 ML SYRINGE IVFLUSH ×2 (07:26→14:19)
[2024-05-14] MEDS: Valproic Acid (as Sodium Salt) 500 MG in Dextrose 5 % 50 ML 55 MG IV ×2 (08:50→21:34)
[2024-05-14] MEDS: Furosemide 40 MG/4 ML VIAL IVPUSH (08:51)
[2024-05-14] MEDS: Enoxaparin Sodium 40 MG/0.4 ML SYRINGE SUBCUT (08:51)
[2024-05-14] MEDS: levETIRAcetam in NaCl (iso-os) 1,000 MG/100 ML PIGGYBACK 400 MG IV ×2 (10:17→22:30)
--- NOTE | 2024-05-14 10:51 | P.PNCC_ITS ---
Subjective Subjective Date of Service: 05/14/24 Interval History: 62-year-old gentleman with underlying history of TBI, seizure disorder paroxysmal AFib,, dysphagia with recurrent aspirations admitted on 05/13/2024 with productive cough, dyspnea, hypoxia likely secondary to pulmonary aspiration and hypotension requiring pressor support. Patient admitted to intensive care unit and started on empiric antibiotics. His FiO2 requirements improved. He has been titrated off pressor support. No events overnight. Critical Care Time (minutes): 0 Physical Exam 2 Vital Signs: Vital Signs: Last Vital Signs Temp 98.6 F 05/14/24 09:00 Pulse 70 05/14/24 09:00 Resp 13 05/14/24 09:00 BP 109/64 05/14/24 09:00 Pulse Ox 96 05/14/24 09:00 O2 Del Method Room Air 05/14/24 09:00 O2 Flow Rate 2 05/13/24 08:27 BMI result Body Mass Index 28.8 Const: General: no acute distress and lethargic (Arousable) O rientation/consciousness: lethargic (Arousable) Eyes: Sclerae: sclerae normal EOM: EOMs intact bilaterally Neck: Neck: Yes no lymphadenopathy, Yes trachea midline and Yes supple Resp: Effort & Inspection: normal respiratory effort and no respiratory distress Auscultation: rales (Bibasilar) Cardio: Rate: regular rate Rhythm: regular rhythm Heart sounds: no gallops, no murmurs and no rubs GI: Palpation (GI): Soft to palpation and Other GI palpation findings present ( Nontender) Auscultation: normal bowel sounds Extrem: General: Yes no pedal edema, No clubbing and No cyanosis Objective Data Labs 05/14/24 05:24 05/14/24 05:25 Labs: Laboratory Results - last 24 hr 05/13/24 05/14/24 05/14/24 18:07 05:24 05:25 WBC 7.7 RBC 3.67 L Hgb 11.5 L Hct 32.9 L MCV 89.6 MCH 31.3 MCHC 35.0 RDW 12.6 Plt Count 136 L MPV 12.8 H Immature Gran % (Auto) 0.3 Neut % (Auto) 50.1 Lymph % (Auto) 42.0 H [place] % (Auto) 6.6 Eos % (Auto) 0.6 Baso % (Auto) 0.4 Lymph # (Auto) 3.2 [place] # (Auto) 0.5 Eos # (Auto) 0.1 Baso # (Auto) 0.0 Abs Immat Gran (auto) 0.02 Absolute Neuts (auto) 3.9 Absolute Nucleated RBC 0.000 Nucleated RBC % (auto) 0.0 Sodium 146 H 146 H Potassium 3.4 3.7 Chloride 112 H 112 H Carbon Dioxide 23 26 Anion Gap 14 12 BUN 8 L 12 Creatinine 0.66 0.70 Estim Creat Clear Calc 141.8 133.7 Estimated GFR > 60 > 60 Random Glucose 104 81 Calcium 8.6 D 8.6 Phosphorus 3.1 2.8 Magnesium 2.0 1.9 Microbiology Microbiology Results: Microbiology 05/12/24 22:15 Blood - Venous Blood Culture - Preliminary No growth after 24 hours. 05/12/24 21:58 Blood - Venous Blood Culture - Preliminary No growth after 24 hours. Progress Note: A&P Assessment and plan (1) Pulmonary aspiration: Status: Acute (2) Acute respiratory failure with hypoxia: Status: Acute (3) History of traumatic brain injury: Status: Acute (4) Epilepsy: Status: Acute Plan Assessment: 38-year-old gentleman traumatic brain injury, seizure disorder, recurrent aspirations admitted with aspiration pneumonia and hypotension Plan: Neuro: No acute issues. Underlying history of TBI and seizure disorder, continue on Keppra and valproic acid. Cardiac: Distributive shock resolved, titrated off pressor support. Pulmonary: Acute hypoxic respiratory failure secondary to pulmonary aspiration, improving. Continue to titrate off supplemental oxygen as tolerated. Renal: No acute issues. Endo: No acute issues. GI: No acute issues. ID: Pulmonary aspiration pneumonitis, improving. Continue empiric antibiotics next 48 hours Heme/Onc: No acute issues. Psych: No acute issues. Miscellaneous: No acute issues. Prophylaxis: Lovenox Diet: Pending swallow evaluation Quality Stroke Does the patient have a stroke diagnosis?: No VTE Prior VTE?: No VTE Risk Level:: Medical - moderate - high VTE Device Contraindication: Treatment Not Indicated VTE Drug Contraindication: N/A - Med Ordered
--- NOTE | 2024-05-14 11:06 | MHC.SLORD ---
Speech Language Pathology Order Status: BOX REPAIRER initiated bedside swallow evaluation while pt in ICU, pt has hx of dysphagia. Pt lethargic but verbal, able to elicit few words in response to BOX REPAIRER cues. BOX REPAIRER to evaluate when pt more alert. RONDA Arevalo consulted.
--- NOTE | 2024-05-14 14:36 | MHC.CM.PN ---
Addendum entered by Patricia Lora 05/14/24 14:41: Message left w/pt's brother Wilder requesting a call back. Original Note: Attempted to meet w/pt to review d/c planning needs: pt not a reliable historian: somewhat confused and not responding to questions. Message left for pt's HCPArely at the number listed on the form: pt has a brother Wilder listed as a contact: will attempt to contact for assistance w/d/c planning
--- NOTE | 2024-05-14 15:02 | MHC.SL.SWA ---
Speech Pathologist Impression: Mild oral dysphagia, moderate to significant pharyngeal dysphagia Risk of Aspiration Due to: History of Pneumonia Weak Cough Weak Voice Dysphasia Diet Status: Pt seen for dysphagia in prior hospitalizations over several years of time. Last April pt had MBSS to evaluate the extent of his dysphagia and to provide dietary recommendations. Liquid Consistency and Strategies for Safe Swallow: Liquid Intake Recommendation: Honey Thick Liquid Intake Strategies: Small Sips Solid Food Consistency: Dietary Recommendations: Pureed (NDD1) Additional Modifications to Solid Foods: Pt requires assistance during all meals Oral Medication Intake: Crushed with Puree Please contact the pharmacy regarding appropriate crushable or liquid drug formulations that are available whenever modified delivery is recommended. Compensatory Strategies and Precautions to be Taken for Safe Swallow: Sitting Upright (90 deg) Liquids from Wide Cup Small Bites and Sips Alternate Liquids/Solids Rate of Ingestion Change Oral Check Supervision While Eating and Drinking for Safe Swallow: Total Supervision (1:1) Foods to Avoid: Avoid mixed textures (i.e. thin broth soup with solid ingredients) and foods which are hard, dry, or sticky Swallowing Recommended Treatments: Pharyngeal Resistive Exercises, Skilled ST to address dysphagia management Recommendation for Speech: Modified Barium Swallow Study - Inpatient Comment: Recc NDD1 with HTL, repeat MBSS as indicated. Education as part of POC re:dysphagia management, TROMBONE SLIDE ASSEMBLER following Frequency/Duration: Date Range for Service Req: Timeline to reassess: Mannequin Mold Maker Clinican/Clinical Fellow: No Supervisory Statement: I have reviewed and agree with the student/clinical fellow's documentation: N/A Speech Language Pathologist: Marjan Dinero M.S., CCC-TROMBONE SLIDE ASSEMBLER
--- NOTE | 2024-05-14 17:17 | PM.EVENT ---
Event Note Date of Service: 05/14/24 Event Note: 58-year-old male with past medical history of epilepsy, TBI, dysphagia, HLD presented with 4 days of worsening cough , shortness of breaths, associated with vomiting diarrhea, weakness and unable to tolerate by mouth workup showed hypo magnesemia elevated lactic acid CT chest showed bilateral pneumonia patient diagnosed to have sepsis secondary to pneumonia placed on IV Zosyn, IV fluids initially admitted to medical floor later transferred to ICU for pressors, patient transferred to medical floor today after he was titrated off pressor support. Acute hypoxic respiratory failure secondary to aspiration pneumonia Continue IV Zosyn started on 05/13/24 Blood cultures x2 negative times 24 hours, WBC normalized Seen by speech therapy today they recommend pureed and honey thick liquids Continue IV medications for now and transitioned to by mouth meds when able to tolerate diet DC IV Lasix Follow BMP, CBC magnesium albumin and phosphorus at a.m. Acute hypomagnesemia repleted and normalized history of TBI complicated by epilepsy Continue IV keppra, and IV valproic acid HLD, statin on hold Mood disorder citalopram and BuSpar on hold, continue IV diazepam DVT prophylaxis Lovenox full code DVT prophylaxis with Lovenox Time Spent With Patient Time: Total time managing care of this patient today ____ minutes.
[2024-05-15] MEDS: Piperacillin Sodium/Tazobactam 4.5 GM in 0.9 % Sodium Chloride 100 ML IV ×4 (01:13→20:04)
[2024-05-15] MEDS: diazePAM 10 MG/2 ML CARTRIDGE IVPUSH ×3 (01:13→16:47)
[2024-05-15 04:00] VITALS: BP 120/61; PULSE 79; RESP 20; TEMP 37.3; O2SAT 92
[2024-05-15 06:00] VITALS: BMI 30.8
[2024-05-15 06:55] LABS: MANUAL DIFF FLAG NO
[2024-05-15 06:58] LABS: Basophils Percent Auto 0.3 % (0-2); Eosinophils Absolute Auto 0.1 X10*3/uL (0.0-0.4); Eosinophils Percent Auto 0.9 % (0-4); Hematocrit 36.4 % (42.0-52.0); Hemoglobin 12.7 g/dl (14.0-18.0); Imm Gran Abs Auto 0.02 X10*3/uL (0.00-0.03); Imm Gran Pct Auto 0.3 % (0.0-0.4); Lymphocytes Absolute Auto 3.2 X10*3/uL (1.2-4.9); Lymphocytes Percent Auto 49.5 % (20-40); Mean Corpuscular HGB Conc 34.9 g/dl (31.0-36.0); Mean Corpuscular Hemoglobin 31.1 pg (27.0-33.0); Mean Corpuscular Volume 89.2 fL (80.0-98.0); Mean Platelet Volume 12.7 fL (9.4-12.4); Monocytes Absolute Auto 0.7 X10*3/uL (0.1-1.2); Monocytes Percent Auto 10.7 % (2-11); Neutrophils Absolute Auto 2.5 x10*3/uL (2.0-8.3); Neutrophils Percent Auto 38.3 % (45-73); Platelet Count 164 X10*3/uL (160-400); Red Blood Count 4.08 X10*6/uL (4.60-5.80); Red Cell Distribution Width 12.4 % (11.0-16.0); White Blood Count 6.5 X10*3/uL (4.8-10.8)
[2024-05-15 07:13] VITALS: BP 92/53; PULSE 69; RESP 20; TEMP 36.7; O2SAT 94
[2024-05-15 07:17] LABS: Albumin Level 3.5 g/dL (3.5-5.0); Anion Gap 12 (12-20); Blood Urea Nitrogen 21 mg/dL (9-16); Calcium 8.9 mg/dL (8.4-10.2); Carbon Dioxide 28 mmol/L (22-29); Chloride 110 mmol/L (96-108); Creatinine Clr Calc Pharmacy 135.9; Estimated Glomerular Filt Rate > 60; Glucose Random 109 mg/dL (60-115); Phosphorus 3.7 mg/dL (2.7-4.5); Potassium 3.4 mmol/L (3.3-5.1); Sodium 147 mmol/L (135-145)
[2024-05-15] MEDS: Valproic Acid (as Sodium Salt) 500 MG in Dextrose 5 % 50 ML 55 MG IV ×2 (10:38→20:42)
--- NOTE | 2024-05-15 10:42 | HO.PM.IMPN ---
Subjective Subjective Date of Service: 05/15/24 Interval History: Being followed for bilateral pneumonia Patient unable to provide meaningful history with underlying history of TBI and epilepsy Patient transferred from ICU on 05/14 after requiring pressors for hypotension Seen by speech therapy they recommended pureed and honey thick liquids on will undergo modified barium swallow today due to concern for solids aspiration. Review of Systems Unable to obtain due to mental status. Physical Exam Vital Signs: Vital Signs: Last Vital Signs Temp 98.1 F 05/15/24 07:13 Pulse 69 05/15/24 07:13 Resp 20 05/15/24 07:13 BP 92/53 L 05/15/24 07:13 Pulse Ox 94 05/15/24 07:13 O2 Del Method Room Air 05/15/24 07:13 O2 Flow Rate 2 05/13/24 08:27 BMI result Body Mass Index 30.8 Const: Other: Constitutional : Alert, not in distress Neck : Supple, no JVD Cardiovascular : RRR, Respiratory : fair bilateral air entry, bilateral basilar crackles Gastrointestinal: soft, Normal bowel sounds, Non tender Skin : Warm, Dry Neurological : Alert , contraction deformity right hand Poor insight Objective Data Active Medications Diazepam (Diazepam 10 Mg/2 Ml Cartridge) 1 mg IVPUSH Q8H [facility] Last Admin: 05/15/24 01:13 Dose: 1 mg Documented By: ANASTASIA Enoxaparin Sodium (Enoxaparin Sodium 40 Mg/0.4 Ml Syringe) 40 mg SUBCUT DAILY [facility] Last Admin: 05/14/24 08:51 Dose: 40 mg Documented By: LILA Piperacillin Sod/Tazobactam (Sod 4.5 gm/ Sodium Chloride) 100 mls @ 200 mls/hr IV Q6H [facility] Last Infusion: 05/15/24 01:54 Dose: Infused Documented By: ANASTASIA Levetiracetam (Keppra) 1,000 mg in 100 mls @ 400 mls/hr IV Q12H [facility] Last Infusion: 05/14/24 23:05 Dose: Infused Documented By: ANASTASIA Valproic Acid 500 mg/ Dextrose 55 mls @ 55 mls/hr IV BID [facility] Last Infusion: 05/14/24 22:35 Dose: Infused Documented By: ANASTASIA Ondansetron HCl (Ondansetron Hcl 4 Mg/2 Ml Vial) 4 mg IVPUSH Q8H PRN PRN Reason: Nausea and Vomiting Sodium Chloride (0.9 % Sodium Chloride Flush 3 Ml Syringe) 3 ml IVFLUSH QSHIFT [facility] Last Admin: 05/14/24 22:35 Dose: Not Given Documented By: ANASTASIA Non-Admin Reason: IV Running Labs 05/15/24 06:42 05/15/24 06:42 Labs: Laboratory Results - last 24 hr 05/15/24 06:42 MCV 89.2 MCH 31.1 MCHC 34.9 RDW 12.4 Plt Count 164 MPV 12.7 H Immature Gran % (Auto) 0.3 Neut % (Auto) 38.3 L Lymph % (Auto) 49.5 H [place] % (Auto) 10.7 Eos % (Auto) 0.9 Baso % (Auto) 0.3 Lymph # (Auto) 3.2 [place] # (Auto) 0.7 Eos # (Auto) 0.1 Baso # (Auto) 0.0 Abs Immat Gran (auto) 0.02 Absolute Neuts (auto) 2.5 Absolute Nucleated RBC 0.000 Nucleated RBC % (auto) 0.0 Anion Gap 12 Estim Creat Clear Calc 135.9 Estimated GFR > 60 Random Glucose 109 Calcium 8.9 Phosphorus 3.7 Magnesium 2.0 Albumin 3.5 Microbiology Microbiology Results: Microbiology 05/12/24 22:15 Blood Culture - Preliminary Blood - Venous No growth after 48 hours. 05/12/24 21:58 Blood Culture - Preliminary Blood - Venous No growth after 48 hours. Assessment and Plan (1) Pulmonary aspiration: Status: Acute (2) Sepsis: Status: Acute (3) Pneumonia: Status: Acute (4) Dysphagia: Status: Acute Plan 58-year-old male with past medical history of epilepsy, TBI, dysphagia, HLD presented with 4 days of worsening cough , shortness of breaths, associated with vomiting diarrhea, weakness and unable to tolerate by mouth workup showed hypo magnesemia elevated lactic acid, CT chest showed bilateral pneumonia, patient diagnosed to have sepsis secondary to pneumonia placed on IV Zosyn, IV fluids initially admitted to medical floor later transferred to ICU for pressors, patient transferred to medical floor 2 after he was titrated off pressor support. Acute hypoxic respiratory failure secondary to aspiration pneumonia Continue IV Zosyn started on 05/13/24 Blood cultures x2 negative times 48 hours, WBC normalized Continue IV medications for now and transitioned to by mouth meds when able to tolerate diet Follow BMP, CBC magnesium albumin and phosphorus at a.m. Wean O2 as tolerated Dysphagia Seen by speech therapy they recommend pureed and honey thick liquids and MBSS Septic shock resolved titrated off pressure support Mild hypernatremia due to decreased by mouth intake will give IV D5W follow labs Acute hypomagnesemia repleted and normalized history of TBI complicated by epilepsy Continue IV keppra, and IV valproic acid HLD, statin on hold Mood disorder citalopram and BuSpar on hold, continue IV diazepam DVT prophylaxis Lovenox full code Quality Stroke Does the patient have a stroke diagnosis?: No VTE Prior VTE?: No VTE Risk Level:: Medical - moderate - high VTE Device Contraindication: Treatment Not Indicated VTE Drug Contraindication: N/A - Med Ordered
[2024-05-15] MEDS: Enoxaparin Sodium 40 MG/0.4 ML SYRINGE SUBCUT (10:52)
[2024-05-15] MEDS: 0.9 % Sodium Chloride Flush 3 ML SYRINGE IVFLUSH ×3 (10:53→20:04)
[2024-05-15] MEDS: levETIRAcetam in NaCl (iso-os) 1,000 MG/100 ML PIGGYBACK 400 MG IV ×2 (10:54→22:09)
[2024-05-15 10:59] VITALS: BP 99/54; PULSE 85; RESP 18; TEMP 36.6; O2SAT 93
[2024-05-15] MEDS: Dextrose 5 % 1,000 ML 80 ML IVCONT (12:54)
[2024-05-15 16:27] VITALS: BP 115/68; PULSE 82; RESP 16; TEMP 36.8; O2SAT 92
--- NOTE | 2024-05-15 18:38 | MHC.SL.IMP ---
Date of Plan of Treatment: 05/15/24 Onset of Symptoms/Illness: 05/13/24 Date Treatment Started: 05/15/24 Admitting Diagnosis: PNA Primary Speech & Language Diagnosis: R13.12 Oropharyngeal Phase Dysphagia Secondary Speech & Language Diagnosis: R47.1 Dysarthria Reason for Today's Visit: 56733 Modified Barium Swallow Study Pre-evaluation Dietary Consistencies: Pureed (NDD1) Pre-evaluation Liquid Consistency: Honey Thick Pre-evaluation Medication Administration: Crushed with Puree Medical History: Modified Barium Swallow Study Fluoroscopic Evaluation of Swallowing Function CPT Code 05757 Evaluation Year: 2024 Reason for Study: Hx silent aspiration Referring Physician: Johanna Chow MD Evaluating Clinician: Laurita Fitzpatrick MA, CCC-CARVING MACHINE OPERATOR Study Number: 1 Patient Name: Louis Wagoner Status: Inpatient, Stretcher Age: 59 Gender: Male Medical History Medical History COVID-19 Impaired fasting glucose Mixed hyperlipidemia Postsurgical retinal scar of left eye Depression Anxiety Insomnia Vitamin D deficiency History of traumatic brain injury Primary osteoarthritis of left knee Left knee pain Epilepsy Pure hypercholesterolemia PAF (paroxysmal atrial fibrillation) Coronavirus infection TBI (traumatic brain injury) Surgical History History of cholecystectomy Current (pre-evaluation) Intake/Diet: Route: PO Diet Grade: Puree Liquid Consistencies: Honey Pre-Study Functional Oral Intake Scale (FOIS): 5- Total oral intake of multiple consistencies requiring special preparation SUBJECTIVE: Patient is a 58 year old male with history of epilepsy, TBI, paroxysmal atrial fibrillation, and mixed hyperlipidemia admitted for sepsis secondary to bilateral PNA. Patient was previously seen for MBSS in April 2023 showing silent aspiration and was subsequently recommended chopped/advanced diet (NDD3) and honey thick liquids. Patient is now referred for a repeat-MBSS to further evaluate swallow mechanism and identify safest, least restrictive textures and compensatory strategies. Food and Liquid Trials: Oral Impairment: Lip Closure: Did not test Oral Impairment: Tongue Control During Bolus Hold: Did not test Oral Impairment: Bolus Preparation/Mastication: 2=Disorganized chewing/mashing with solid pieces of bolus Oral Impairment: Bolus Transport/Lingual Motion: 2=Slowed tongue motion Oral Impairment: Oral Residue: 1=Trace residue lining oral structures Oral Impairment:Initiation of Pharyngeal Swallow: 3=Bolus head in pyriforms Pharyngeal Impairment: Soft Palate Elevation: 0=No bolus between soft palate (SP)/pharyngeal wall (PW) Pharyngeal Impairment: Laryngeal Elevation: 1=Partial thyroid cartilage/arytenoids to epiglottic petiole movement Pharyngeal Impairment: Anterior Hyoid Excursion: 1=Partial anterior movement Pharyngeal Impairment: Epiglottic Movement: 1=Partial inversion Pharyngeal Impairment: Laryngeal Vestibular Closure:: 1=Incomplete: narrow column air/contrast in laryngeal vestibule Pharyngeal Impairment: Pharyngeal Stripping Wave: 0=Present: complete Pharyngeal Impairment: Pharyngeal Contraction: Did not test Pharyngeal Impairment: Pharyngoesophageal Segment Openin=Partial distention/partial duration: partial obstruction of flow Pharyngeal Impairment: Tongue Base (TB) Retraction: 1=Trace column of contrast/air between TB and posterior PW Pharyngeal Impairment: Pharyngeal Residue: 2=Collection of residue within or on pharyngeal structures Pharyngeal Impairment: Esophageal Clearance Upright Position: Did not test Impressions and Recommendations OBJECTIVE: Time-out: performed at 14:30 Evaluation Start: 14:00; Stop: 14:15 Patient Positioning: Seated 70-90 degrees Viewing Planes: LATERAL ONLY Contrast: MBSImP? Standardized Protocol using commercially prepared, standardized Barium viscosities, including: Varibar? THIN LIQUID (40% w/v, <15 cps) , Varibar? NECTAR (40% w/v, <150-450 cps) , Varibar? THIN HONEY (40% w/v, <800-1800 cps) , Varibar? PUDDING (40% w/v, <9409-1056 cps) [facility] [id number] [facility] Results: Lip closure for intraoral bolus containment could not be assessed due to logistical reasons not related to physiologic impairment. Tongue control during bolus hold could not be assessed due to logistical reasons not related to physiologic impairment. Bolus preparation and mastication demonstrated disorganized chewing/mashing with solid pieces of the bolus unchewed. Bolus transport/lingual motion was with slowed tongue motion. Oral residue was a trace, lining oral structures. Initiation of the pharyngeal swallow occurred when the bolus head was in the pyriform sinuses. Soft palate elevation resulted in no bolus between the soft palate and the pharyngeal wall. Laryngeal elevation was decreased, with partial superior movement of the thyroid cartilage/partial approximation of the arytenoids to the epiglottic petiole. Anterior hyoid excursion demonstrated partial anterior movement. Epiglottic movement resulted in partial inversion. Laryngeal vestibular closure was incomplete, with a narrow column of air/contrast noted within the laryngeal vestibule at the height of the swallow. Pharyngeal stripping wave was present and complete. Pharyngeal contraction could not be determined due to logistical reasons not related to physiologic impairment. Pharyngoesophageal segment opening demonstrated partial distension/partial duration, with partial obstruction of bolus flow. Tongue base retraction allowed a trace column of contrast or air between the retracted tongue base and the posterior pharyngeal wall. Pharyngeal residue was a collection of residue within or on pharyngeal structures. Esophageal clearance in the upright position could not be assessed due to logistical reasons not related to physiologic impairment. Oral Impairment Score: 7 (absence of score, component 1component 2) Pharyngeal Impairment Score: 7 (absence of score, component 13) Esophageal Impairment Score: --- (absence of score, component 17) Laryngeal Penetration and Aspiration: Both Penetration and Aspiration were observed in today's study. Puree, Honey-thick, [place]-thick Contrast entered the airway, remained above the vocal folds, and were ejected from the airway. Thin Contrast entered the airway, passed below the vocal folds, and no effort was made to eject. ASSESSMENT: This exam was conducted by the speech pathologist and the radiologist. Patient was seated upright at 90 degrees for lateral view only. He was fed with 1:1 assistance, trialing thin (via teaspoon, individual straw sip), nectar thick (via teaspoon), honey thick (via teaspoon), puree, and ground consistencies. Patient presented with slowed and disorganized mastication pattern, with piece meal deglutition and clearing of the oral cavity with multiple swallows (2-3). Posterior lingual motion was slowed and delayed, with increased premature posterior escape of thinner consistencies. Pharyngeal swallow trigger was significantly delayed, initiated as the bolus head reached the pyriform sinuses. No evidence of nasopharyngeal reflux. Partial laryngeal elevation with partial epiglottic inversion and incomplete laryngeal vestibular closure. Pharyngeal retention seen on the tongue base, in the valleculae and pyriforms, and on the posterior pharyngeal wall. Mild retention seen with honey thick, nectar thick, and thin consistencies. Mild to moderate retention seen with trials of puree, which mostly cleared on secondary swallows. Significant retention with ground consistency, reduced, but not entirely cleared with dry swallows. There was penetration above the vocal folds intermittently with trials of honey thick liquid, which spontaneously ejected from the airway. There was increased penetration above the vocal folds consistently with trials of nectar thick liquid, which spontaneously ejected. Also note increased premature posterior spilling with trials of nectar thick liquid as well. There was qian aspiration with singular sip of thin liquid via straw. A narrow column of contrast entered the airway and passed below the vocal folds during the swallow. Patient did not produce a protective cough or throat clear. There was penetration above the vocal folds on ground consistency and mixed media with puree, which ejected from the airway. Liquid Intake Recommendation: Honey Thick Liquid Intake Strategies: Small Sips, No Straws, Double Swallow Dietary Recommendations: Pureed (NDD1) Medication Administration: Crushed with Puree Please contact the pharmacy regarding appropriate crushable or liquid drug formulations that are available whenever modified delivery is recommended. Compensatory Strategies Recommended: Sitting Upright (90 deg), Double Swallow, No Straw, Small Bites and Sips, Rate of Ingestion Change, Avoid Specific Foods Supervision during eating and or drinking: Total Assistance (1:1) Recommended Treatments: Base of Tongue Exercises Pharyngeal Resistive Exer Compens. Strategy Educat. Recommendation for Speech Therapy: Inpatient Speech Therapy Speech Therapy through [facility] through [facility] Text Comment: Intake Recommendations: Route: PO Diet Grade: Puree Liquid Consistencies: Honey Post-Study Functional Oral Intake Scale (FOIS): 5- Total oral intake of multiple consistencies requiring special preparation Patient presents with moderate to severe oropharyngeal dysphagia. Oral phase marked by disorganized chewing, delayed AP transport, premature posterior escape especially with thin consistencies, and delayed pharyngeal swallow trigger. Compromised airway protection with incomplete laryngeal vestibular closure. This exam revealed penetration intermittently with solids and liquids, which cleared from the airway. Silent aspiration with trial of thin liquid. Mild pooling with liquids and significant retention with more advanced solids. Recommend CONTINUE on current diet, PUREE (NDD1) and HONEY THICK with strict aspiration precautions: -Daily oral care -Upright position (approx. 90 degrees) during and for at least 30 minutes after meals -Individual sips of liquid via teaspoon (or controlled cup) -NO STRAWS -Administer small bites and allow time for secondary swallows -Dry swallow between bites/sips to promote clearance -Avoid mixed consistencies Suggested Referrals: The patient might benefit from a referral to: Nutrition Services Indication for Referral: Hydration/nutritional needs Therapy Recommendations: Therapy will be continued daily while inpatient for PO trials, patient and family/caregiver education RE: MBSS results and recommended diet/strategies; and pharyngeal strengthening exercises. Patient will need continued services after discharge for dysphagia treatment (VNA versus rehab). Halfway Goals: ? The patient will tolerate the least restrictive diet with a safe/efficient swallow to maintain adequate nutrition and hydration. ? The patient will demonstrate improved swallowing function via repeat clinical evaluation, videoendoscopy/videofluoroscopy and/or patient self-rating scores. ? The patient and/or family will participate in further education for swallowing goals. Short Term Goals: ? Diet - The patient will tolerate a pureed diet with honey thick liquids without signs or symptoms of penetration/aspiration 100% of the time. - The patient will participate in therapeutic PO trials with the CARVING MACHINE OPERATOR. ? Guidelines - The patient will comply with/recall the following guidelines/strategies 100% of the time with minimal cuing: Bolus Volume Change, Rate of Ingestion Change, Additional Swallow(s) per Bolus, No Straws. ? Independent Home Exercise - The patient will perform 10 repetitions of the Effortful Swallow, Heather Maneuver, Esthela Maneuver 3 times a day with 100% accuracy and minimal cuing as part of a home exercise program. ? Education - The patient, family, caregiver will verbalize/demonstrate understanding of the results of this evaluation, the above recommendations, and the swallowing guidelines. Frequency/Duration: M-F Date Range for Service Requested: Timeline to reassess: PRN Clinician - Supplemental, Miscellaneous Communication: It is important to note MBSS objective studies are snapshots in time and Patient function might vary with factors such as time of day or concomitant medical conditions. For this reason, the final treatment plan for this patient should rest with their medical care team. Additional recommendations should be considered with the totality of the Patient in mind. Thank for the opportunity to participate in the care of this patient. If you have any questions about the content of this report, please contact the [facility] at [facility]. Education: Education regarding findings from today's study and plans for therapy were provided to Patient only through Verbal Instruction. Understanding was expressed by the Patient only. Financial Systems Analyst Clinician/Clinical Fellow: No Supervisory Statement: N/A Speech Language Pathologist: Laurita Fitzpatrick M.A., [facility]-CARVING MACHINE OPERATOR
[2024-05-15 19:40] VITALS: BP 111/68; PULSE 85; RESP 16; TEMP 36.4; O2SAT 92
[2024-05-15 23:53] VITALS: BP 120/60; PULSE 71; RESP 16; TEMP 36.4; O2SAT 93
[2024-05-16] MEDS: Piperacillin Sodium/Tazobactam 4.5 GM in 0.9 % Sodium Chloride 100 ML IV ×4 (01:06→22:48)
[2024-05-16] MEDS: diazePAM 10 MG/2 ML CARTRIDGE IVPUSH ×2 (01:06→12:04)
[2024-05-16 04:00] VITALS: BP 122/68; PULSE 69; RESP 16; TEMP 36.1; O2SAT 92
[2024-05-16 06:00] VITALS: BMI 31.0
[2024-05-16 07:03] VITALS: BP 102/59; PULSE 70; RESP 18; TEMP 37.2; O2SAT 93
[2024-05-16 08:11] LABS: Anion Gap 12 (12-20); Blood Urea Nitrogen 15 mg/dL (9-16); Calcium 8.5 mg/dL (8.4-10.2); Carbon Dioxide 24 mmol/L (22-29); Chloride 110 mmol/L (96-108); Creatinine Clr Calc Pharmacy 158.7; Estimated Glomerular Filt Rate > 60; Glucose Random 104 mg/dL (60-115); Potassium 3.2 mmol/L (3.3-5.1); Sodium 143 mmol/L (135-145)
--- NOTE | 2024-05-16 09:10 | MHC.SL.SWA ---
Speech Pathologist Impression: Moderate to significant oropharyngeal dysphagia Risk of Aspiration Due to: Neurological Condition History of Pneumonia Dysphasia Diet Status: Patient is a 58 year old male with history of epilepsy, TBI, paroxysmal atrial fibrillation, and mixed hyperlipidemia admitted for sepsis secondary to bilateral PNA. Patient was previously seen for MBSS in April 2023 showing silent aspiration. Patient seen for a repeat-MBSS 05/15/24 to further evaluate swallow mechanism and identify safest, least restrictive textures and compensatory strategies. Recc NDD1 with HTL. See 05/15/24 MBSS report. Liquid Consistency and Strategies for Safe Swallow: Liquid Intake Recommendation: Honey Thick Liquid Intake Strategies: Small Sips No Straws Double Swallow Solid Food Consistency: Dietary Recommendations: Pureed (NDD1) Additional Modifications to Solid Foods: Pt requires assistance during all meals, monitor Pt for impulsivity if drinking from straw. Do not leave Pt with straw and drinks due to impulsivity, risk of aspiration. Oral Medication Intake: Crushed with Puree Please contact the pharmacy regarding appropriate crushable or liquid drug formulations that are available whenever modified delivery is recommended. Compensatory Strategies and Precautions to be Taken for Safe Swallow: Sitting Upright (90 deg) Double Swallow No Straw Small Bites and Sips Rate of Ingestion Change Avoid Specific Foods Supervision While Eating and Drinking for Safe Swallow: Total Assistance (1:1) Foods to Avoid: Mixed consistencies Swallowing Recommended Treatments: Base of Tongue Exercises Pharyngeal Resistive Exer Compens. Strategy Educat. Recommendation for Speech: Inpatient Speech Therapy Speech Therapy through [facility] Comment: Intake Recommendations: Route: PO Diet Grade: Puree Liquid Consistencies: Honey Post-Study Functional Oral Intake Scale (FOIS): 5- Total oral intake of multiple consistencies requiring special preparation Patient presents with moderate to severe oropharyngeal dysphagia. Oral phase marked by disorganized chewing, delayed AP transport, premature posterior escape especially with thin consistencies, and delayed pharyngeal swallow trigger. Compromised airway protection with incomplete laryngeal vestibular closure. This exam revealed penetration intermittently with solids and liquids, which cleared from the airway. Silent aspiration with trial of thin liquid. Mild pooling with liquids and significant retention with more advanced solids. Recommend CONTINUE on current diet, PUREE (NDD1) and HONEY THICK with strict aspiration precautions: -Daily oral care -Upright position (approx. 90 degrees) during and for at least 30 minutes after meals -Individual sips of liquid via teaspoon (or controlled cup) -NO STRAWS -Administer small bites and allow time for secondary swallows -Dry swallow between bites/sips to promote clearance -Avoid mixed consistencies Suggested Referrals: The patient might benefit from a referral to: Nutrition Services Indication for Referral: Hydration/nutritional needs Therapy Recommendations: Therapy will be continued daily while inpatient for PO trials, patient and family/caregiver education RE: MBSS results and recommended diet/strategies; and pharyngeal strengthening exercises. Patient will need continued services after discharge for dysphagia treatment (VNA versus rehab). Half-Way Goals: ? The patient will tolerate the least restrictive diet with a safe/efficient swallow to maintain adequate nutrition and hydration. ? The patient will demonstrate improved swallowing function via repeat clinical evaluation, videoendoscopy/videofluoroscopy and/or patient self-rating scores. ? The patient and/or family will participate in further education for swallowing goals. Short Term Goals: ? Diet - The patient will tolerate a pureed diet with honey thick liquids without signs or symptoms of penetration/aspiration 100% of the time. - The patient will participate in therapeutic PO trials with the SAW OPERATOR. ? Guidelines - The patient will comply with/recall the following guidelines/strategies 100% of the time with minimal cuing: Bolus Volume Change, Rate of Ingestion Change, Additional Swallow(s) per Bolus, No Straws. ? Independent Home Exercise - The patient will perform 10 repetitions of the Effortful Swallow, Heather Maneuver, Esthela Maneuver 3 times a day with 100% accuracy and minimal cuing as part of a home exercise program. ? Education - The patient, family, caregiver will verbalize/demonstrate understanding of the results of this evaluation, the above recommendations, and the swallowing guidelines. Frequency/Duration: M-F Date Range for Service Req: Timeline to reassess: PRN Sonoscope Operator Clinican/Clinical Fellow: No Supervisory Statement: I have reviewed and agree with the student/clinical fellow's documentation: N/A Speech Language Pathologist: Marjan Dinero M.S., CCC-SAW OPERATOR
[2024-05-16 11:05] VITALS: BP 103/62; PULSE 73; RESP 20; TEMP 36.9; O2SAT 93
[2024-05-16] MEDS: levETIRAcetam in NaCl (iso-os) 1,000 MG/100 ML PIGGYBACK 400 MG IV (12:04)
[2024-05-16] MEDS: 0.9 % Sodium Chloride Flush 3 ML SYRINGE IVFLUSH ×3 (12:05→22:49)
[2024-05-16] MEDS: Enoxaparin Sodium 40 MG/0.4 ML SYRINGE SUBCUT (12:36)
[2024-05-16] MEDS: Valproic Acid (as Sodium Salt) 500 MG in Dextrose 5 % 50 ML 55 MG IV (12:37)
--- NOTE | 2024-05-16 12:47 | P.PNIM_ITS ---
Subjective Subjective Date of Service: 05/16/24 Interval History: Being followed for bilateral pneumonia, Denies acute symptoms of pain, no headache, has underlying history of TBI and epilepsy unable to provide detailed history Underwent MBSS study yesterday and noted to have moderate to significant oropharyngeal dysphagia currently on honey thick liquids and pureed diet Meds crushed in puree Review of Systems All other system reviewed and are negative, although limited Physical Exam 2 Vital Signs: Vital Signs: Last Vital Signs Temp 98.5 F 05/16/24 11:05 Pulse 73 05/16/24 11:05 Resp 20 05/16/24 11:05 BP 103/62 05/16/24 11:05 Pulse Ox 93 05/16/24 11:05 O2 Del Method Room Air 05/16/24 11:05 O2 Flow Rate 2 05/13/24 08:27 BMI result Body Mass Index 31.0 Const: Other: Constitutional : Alert, not in distress Neck : Supple, no JVD Cardiovascular : RRR, Respiratory : fair bilateral air entry, coarse breath sounds, bilateral basilar crackles Gastrointestinal: soft, Normal bowel sounds, Non tender Skin : Warm, Dry Neurological : Alert , contraction deformity right hand Poor insight Objective Data Active Medications Diazepam (Diazepam 10 Mg/2 Ml Cartridge) 1 mg IVPUSH Q8H ON LICENSE OF [facility] Last Admin: 05/16/24 12:04 Dose: 1 mg Documented By: JOSH Enoxaparin Sodium (Enoxaparin Sodium 40 Mg/0.4 Ml Syringe) 40 mg SUBCUT DAILY ON LICENSE OF [facility] Last Admin: 05/16/24 12:36 Dose: 40 mg Documented By: JOSH Piperacillin Sod/Tazobactam (Sod 4.5 gm/ Sodium Chloride) 100 mls @ 200 mls/hr IV Q6H ON LICENSE OF [facility] Last Admin: 05/16/24 12:05 Dose: 200 mls/hr Documented By: JOSH Levetiracetam (Keppra) 1,000 mg in 100 mls @ 400 mls/hr IV Q12H ON LICENSE OF [facility] Last Admin: 05/16/24 12:04 Dose: 400 mls/hr Documented By: JOSH Valproic Acid 500 mg/ Dextrose 55 mls @ 55 mls/hr IV BID ON LICENSE OF [facility] Last Admin: 05/16/24 12:37 Dose: 55 mls/hr Documented By: JOSH Ondansetron HCl (Ondansetron Hcl 4 Mg/2 Ml Vial) 4 mg IVPUSH Q8H PRN PRN Reason: Nausea and Vomiting Sodium Chloride (0.9 % Sodium Chloride Flush 3 Ml Syringe) 3 ml IVFLUSH QSHIFT FRANKIE Last Admin: 05/16/24 12:05 Dose: 3 ml Documented By: JOSH Labs 05/15/24 06:42 05/16/24 07:35 Labs: Laboratory Results - last 24 hr 05/16/24 07:35 Hold Purple Top SEE NOTE Anion Gap 12 Estim Creat Clear Calc 158.7 Estimated GFR > 60 Random Glucose 104 Calcium 8.5 Assessment and Plan (1) Pulmonary aspiration: Status: Acute (2) Sepsis: Status: Acute (3) Pneumonia: Status: Acute Plan 58-year-old male with past medical history of epilepsy, TBI, dysphagia, HLD presented with 4 days of worsening cough , shortness of breaths, associated with vomiting diarrhea, weakness and unable to tolerate by mouth workup showed hypo magnesemia elevated lactic acid, CT chest showed bilateral pneumonia, patient diagnosed to have sepsis secondary to pneumonia placed on IV Zosyn, IV fluids initially admitted to medical floor later transferred to ICU for pressors, patient transferred to medical floor 05/14 after he was titrated off pressor support. Acute hypoxic respiratory failure secondary to aspiration pneumonia Continue IV Zosyn started on 05/13/24 , transitioned to by mouth Augmentin upon discharge Blood cultures x2 negative times 48 hours, WBC normalized on IV medications , will transition all meds by mouth crushed in puree Follow BMP Weaned off O2 , finger oximetry 93 on room air Dysphagia Seen by speech therapy they recommend pureed and honey thick liquids /MBSs showed [id number] oropharyngeal dysphagia. Will obtain nutrition consult for nutritional needs and hydration Mild hypokalemia replace and follow labs. Septic shock resolved titrated off pressure support Mild hypernatremia due to decreased by mouth intake , resolved with IV fluids by mouth Acute hypomagnesemia repleted and normalized history of TBI complicated by epilepsy Con IV keppra, and IV valproic acid, transitioned to by mouth HLD, statin Mood disorder Resume citalopram , diazepam and BuSpar DVT prophylaxis Lovenox full code Returned back to rehab once medically stable Quality Stroke Does the patient have a stroke diagnosis?: No VTE Prior VTE?: No VTE Risk Level:: Medical - moderate - high VTE Device Contraindication: Treatment Not Indicated VTE Drug Contraindication: N/A - Med Ordered
--- NOTE | 2024-05-16 14:00 | MHC.CM.PN ---
CM spoke with pt.'s brother / HCP Wilder along with impregnating machine operator. He said that Pt. 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 and DME of hospital bed and W/C. CM let HCP know that pt. will go home with ST rec. of a modified diet, and asked if family can accommodate this, and he said yes that they can. CM asked HCP what preference for VNA is and he said that [facility] is good, they took care of his mother in the past. CM to follow, referral into [facility] to include ST.
[2024-05-16 15:21] VITALS: BP 108/65; PULSE 85; RESP 23; TEMP 36.2; O2SAT 93
--- NOTE | 2024-05-16 15:24 | MHC.CLN ---
RE: CONSULT PT IS EATING 100% X5 MEALS WITH 1:1 FEED DIET RX: PUREED WITH HT LIQUID-APPROPRIATE PT IS S/P MBS AND BISQUE CLEANER FOLLOWING PREVIOUS WT HX FOLLOWS: 98KG (05/16/24) 95.2KG (12/07/23) PT HAS MAINTAINED WT X 6 MONTHS AND OBESE FOR HT NO NEW ORDERS AT THIS TIME IF PO INTAKE <25% X 3 DAYS, RECOMMEND ADDING NUTRITION SUPPLEMENT CONTINUE CURRENT CARE PLAN
[2024-05-16] MEDS: Potassium Chloride Packet 20 MEQ PACKET 40 MEQ PO (17:57)
[2024-05-16] MEDS: diazePAM 2 MG TABLET PO ×2 (17:57→22:47)
[2024-05-16 19:44] VITALS: BP 108/59; PULSE 78; RESP 18; TEMP 37; O2SAT 91
[2024-05-16] MEDS: Atorvastatin Calcium 40 MG TABLET PO (22:47)
[2024-05-16] MEDS: levETIRAcetam 1,000 MG TABLET 1000 MG PO (22:48)
[2024-05-16] MEDS: traZODone HCL 50 MG TABLET PO (22:48)
[2024-05-16] MEDS: Divalproex Sodium ER 500 MG TAB.ER.24H 1000 MG PO (22:48)
[2024-05-16] MEDS: busPIRone HCl 5 MG TABLET PO (22:48)
[2024-05-17] VITALS: BP 107/63; PULSE 80; RESP 18; TEMP 36.9; O2SAT 93
[2024-05-17 04:00] VITALS: BP 111/60; PULSE 73; RESP 18; TEMP 36.6; O2SAT 93
[2024-05-17] MEDS: Piperacillin Sodium/Tazobactam 4.5 GM in 0.9 % Sodium Chloride 100 ML IV ×2 (04:00→09:39)
[2024-05-17 07:12] VITALS: BP 107/65; PULSE 62; RESP 20; TEMP 37.1; O2SAT 95
[2024-05-17 07:32] LABS: Anion Gap 9 (12-20); Blood Urea Nitrogen 15 mg/dL (9-16); Calcium 8.3 mg/dL (8.4-10.2); Carbon Dioxide 25 mmol/L (22-29); Chloride 113 mmol/L (96-108); Creatinine Clr Calc Pharmacy 151.3; Estimated Glomerular Filt Rate > 60; Glucose Random 114 mg/dL (60-115); Potassium 3.3 mmol/L (3.3-5.1); Sodium 144 mmol/L (135-145)
[2024-05-17] MEDS: Pyridoxine HCl (Vitamin B6) 50 MG TABLET 100 MG PO (09:27)
[2024-05-17] MEDS: Escitalopram Oxalate 10 MG TABLET PO (09:27)
[2024-05-17] MEDS: Divalproex Sodium ER 500 MG TAB.ER.24H PO (09:27)
[2024-05-17] MEDS: diazePAM 2 MG TABLET PO (09:27)
[2024-05-17] MEDS: Enoxaparin Sodium 40 MG/0.4 ML SYRINGE SUBCUT (09:27)
[2024-05-17] MEDS: busPIRone HCl 5 MG TABLET PO (09:27)
[2024-05-17] MEDS: levETIRAcetam 1,000 MG TABLET 1000 MG PO (09:27)
[2024-05-17] MEDS: 0.9 % Sodium Chloride Flush 3 ML SYRINGE IVFLUSH (09:40)
[2024-05-17 11:10] VITALS: BP 106/60; PULSE 67; RESP 18; TEMP 36.3; O2SAT 97
--- NOTE | 2024-05-17 11:11 | PM.DS ---
DS: Providers Provider Date of Service: 05/17/24 Date of admission: 05/13/24 01:44 Date of discharge: 05/17/24 Primary care physician: Juan Garcia MD Attending physician on discharge: Archie Cedeño Discharging clinician: Debbie Vides DS: Diagnosis Discharge Diagnosis (1) Pulmonary aspiration: Status: Acute (2) Sepsis: Status: Acute (3) Pneumonia: Status: Acute DS: Summary Hospital Course Hospital Course: From H&P on the day of admission A 58 years old male with PMH of epilepsy, TBI , dysphagia, HLD among others who is presenting with 4 days of worsening cough and SOB. The patient is unable to provide much of history, EMS and ER reported that he presented from home with reported recurrent episodes of vomiting, diarrhea, cough and weakness. unable to tolerate much of PO. No chest pain, palpitations, or urinary symptoms. In ED found to have elevate Lactic acid, low Mg, CT chest showing bilateral pneumonia. not hypoxic. Noted to be hypotensive on repeat readings, received 30cc\kg IV bolus. initially admitted to medical floor later transferred to ICU for pressors, patient transferred back to medical floor 05/14 after he was titrated off pressor support. Acute hypoxic respiratory failure secondary to aspiration pneumonia Treated with IV Zosyn started on 05/13/24. Blood cultures x2 negative to date, WBC normalized. He was weaned off of supplemental oxygen and is saturating in the mid 90s on room air. He has been transitioned to oral medications in his tolerating the same. will transition to by mouth Augmentin upon discharge Dysphagia Seen by speech therapy they recommend pureed and honey thick liquids /MBSs showed [id number] oropharyngeal dysphagia. 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 Initially treated with IV keppra, and IV valproic acid, transitioned to by mouth and tolerating Time Attestation Discharge Coordination Time (in mins): 36 Quality: Safe Use of Opioids Does Pt have an Active Cancer Diagnosis on the Problem List?: No Quality: Stroke Does the patient have a stroke diagnosis?: No Physical Exam Vital Signs: Vital Signs: Last Vital Signs Temp 98.8 F 05/17/24 07:12 Pulse 62 05/17/24 07:12 Resp 20 05/17/24 07:12 BP 107/65 05/17/24 07:12 Pulse Ox 95 05/17/24 07:12 O2 Del Method Room Air 05/17/24 07:12 O2 Flow Rate 2 05/13/24 08:27 BMI result Body Mass Index 31.0 Const: General: cooperative, comfortable, no acute distress, alert and awake Resp: Effort & Inspection: normal respiratory effort, no respiratory distress and no use of accessory muscles DS: Data Data Completed and Pending Completed studies during hospitalization [Text1]: Procedures Introduction of Remdesivir Anti-infective into Peripheral Vein, Percutaneous Approach, [employer] (08/21/21) Transfusion of Nonautologous Frozen Plasma into Peripheral Vein, Percutaneous Approach (03/01/20) Labs on day of discharge: Laboratory Results - last 24 hr 05/17/24 07:10 Sodium 144 Potassium 3.3 Chloride 113 H Carbon Dioxide 25 Anion Gap 9 L BUN 15 Creatinine 0.64 Estim Creat Clear Calc 151.3 Estimated GFR > 60 Random Glucose 114 Calcium 8.3 L Preliminary micro results at discharge 05/12/24 22:15 Blood Culture - Preliminary Blood - Venous No growth after 48 hours. 05/12/24 21:58 Blood Culture - Preliminary Blood - Venous No growth after 48 hours. Discharge Plan Discharge Anticipated Discharge Date/Time: 05/17/24 11:22 Patient Disposition: Home Health Service Discharge Diagnosis: aspiration pneumonia, respiratory failure with hypoxia, sepsis, dysphagia Referrals: Juan Garcia MD [Primary Care Provider] - 1 Week Discharge Medications: New amoxicillin-pot clavulanate 400-57 mg tablet,chewable 2 tab PO Q12H 3 Days Qty: 12 0RF Continued (DME) WHEELCHAIR See Rx Instructions .Route .MEDSUPPLY Qty: 1 0RF Rx Instructions: As directed (DME) Electric Hospital Bed See Rx Instructions .Route .MEDSUPPLY Qty: 1 0RF Rx Instructions: As directed (DME) Wheel chair Kit See Rx Instructions .Route Qty: 1 0RF Rx Instructions: As directed; needs large 20' wheel chair, put on 20 lbs. atorvastatin 40 mg tablet 40 mg PO BEDTIME 90 Days Qty: 90 1RF loratadine 10 mg tablet 10 mg PO DAILY PRN (Reason: Allergy Symptoms) Qty: 90 1RF divalproex 500 mg tablet extended release 24 hr 500 mg PO DAILY levetiracetam 1,000 mg tablet 1,000 mg PO BID divalproex 500 mg tablet extended release 24 hr 1,000 mg PO BEDTIME buspirone 5 mg tablet 5 mg PO BID trazodone 50 mg tablet 50 mg PO BEDTIME PRN (Reason: Sleep) ergocalciferol (vitamin D2) 1,250 mcg (50,000 unit) capsule 1,250 mcg PO WE@0900 citalopram 20 mg tablet 20 mg PO DAILY (DME) WHEELCHAIR large See Rx Instructions .Route .MEDSUPPLY Qty: 1 0RF Rx Instructions: As directed pyridoxine (vitamin B6) 100 mg tablet 100 mg PO DAILY sennosides [Senna Lax] 8.6 mg tablet 8.6 mg PO BEDTIME PRN (Reason: constipation) 90 Days Qty: 90 3RF (DME) MANUAL WHEELCHAIR (large) See Rx Instructions .Route .MEDSUPPLY Qty: 1 0RF Rx Instructions: As directed diazepam 2 mg tablet 2 mg PO TID Discharge Orders: Discharge Order (Routine); Ordered 05/17/24 Ordered By: Debbie Vides Activity on Discharge: As tolerated Stand Alone Forms: Patient Portal Discharge page Print Language: Bhutanese Care Plan Goals: see below Health Concerns: respiratory failure/aspiration pneumonia sepsis dysphagia Plan of Treatment: dysphagia - Recommend pureed diet with honey thick liquids; Pt requires assistance during all meals, monitor Pt for impulsivity if drinking from straw. Do not leave Pt with straw and drinks due to impulsively risk of aspiration Continue 3 more days of oral antibiotics Call to schedule follow-up appointment with PCP as needed Assessment: see discharge summary
--- NOTE | 2024-05-17 11:46 | W.MHC.F2F ---
Service Date Service Date: 05/17/24 Encounter Date of encounter: 05/17/24 Reasons for Services Signs and symptoms assessed: needs longterm and speech therapy for dysphagia, recent aspiration pneumonia Reason for longterm: CV/CP assess and/or care Reason for speech therapy: swallowing impairment Overseeing Care: Juan Garcia Homebound: Leaving the home is medically contraindicated at this time without the asist of a device and/or another person due th the listed conditions above and below. Reason homebound: unsteady gait / fall risk Certification: Based on the above findings, I certify that this patient is confined to the home and needs intermittent longterm care, physical therapy and/or speech therapy, or continues to need occupational therapy. The patient is under my care, and I have initiated the establishment of the plan of care. The patient will be followed by a physician who will periodically review the plan of care. Time Spent With Patient Time: Total time managing care of this patient today ____ minutes.
--- NOTE | 2024-05-17 11:52 | MHC.CM.PN ---
Second IMM in [place], discussed with an kickboxing instructor via telephone with HCP, Javon and itzel left in room for him. Pt has been medically cleared for DC, he will go home via family transport and have home care services from [facility].
== END 2024-05-17 13:12 | disposition home health service (06) | DRG 871 ==
LOC: HO.ED 22:11 → HO.EDOVER 05-13 01:49 → HO.ICU 05-13 07:17 → HO.IMC 05-14 10:19
PROVIDERS: Hospitalist; Internal Medicine Critical Care Medicine; Internal Medicine Pulmonary Disease; Admitting Provider Student in an Organized Health Care Education/Training Program; Emergency Provider Emergency Medicine; PCP Internal Medicine; Visit Provider Physician Assistant Medical
DX: A41.9 Sepsis, unspecified organism (principal); J69.0 Pneumonitis due to inhalation of food and vomit; R65.21 Severe sepsis with septic shock; J96.01 Acute respiratory failure with hypoxia; R57.8 Other shock; E87.0 Hyperosmolality and hypernatremia; R13.12 Dysphagia, oropharyngeal phase; G40.909 Epilepsy, unspecified, not intractable, without status epilepticus; I48.0 Paroxysmal atrial fibrillation; E83.42 Hypomagnesemia; E78.5 Hyperlipidemia, unspecified; F39 Unspecified mood [affective] disorder; Z87.820 Personal history of traumatic brain injury; Z20.822 Contact with and (suspected) exposure to COVID-19; Z79.899 Other long term (current) drug therapy
CPT/HCPCS: 0241U; 36415; 71045; 71260; 74177; 74230; 80048; 80053; 81001; 82040; 82803; 83605; 83735; 83880; 84100; 84484; 85025; 85027; 85610; 87040; 92526; 92610; 92611; 93005; 93971; 99285; J0613; J0696; J1650; J1940; J1953; J2543; J3360; J3475; J3480; P9047; Q9967

== ENCOUNTER → 2024-05-12 21:48 | Outpatient (BNV) | payer OTHER, SELFPAY | PROVIDERS: Admitting Provider Student in an Organized Health Care Education/Training Program; Emergency Provider Emergency Medicine; Visit Provider Internal Medicine | DX: R94.31 Abnormal electrocardiogram [ECG] [EKG] (principal) | CPT/HCPCS: 93010 ==

== ENCOUNTER → 2024-05-12 22:09 | Outpatient (BNV) | payer OTHER, SELFPAY | PROVIDERS: Emergency Provider Emergency Medicine; Visit Provider Student in an Organized Health Care Education/Training Program | DX: A41.9 Sepsis, unspecified organism (principal); J96.01 Acute respiratory failure with hypoxia; J18.9 Pneumonia, unspecified organism | CPT/HCPCS: 99223; 99499 ==

== ENCOUNTER → 2024-05-12 23:01 | Outpatient (BNV) | payer OTHER, SELFPAY | PROVIDERS: Emergency Provider Emergency Medicine; Visit Provider Radiology Diagnostic Radiology | DX: J18.9 Pneumonia, unspecified organism (principal) | CPT/HCPCS: 71260; 74177 ==

== ENCOUNTER 2024-05-13 01:44 | Outpatient (BNV) | payer OTHER, SELFPAY | END 2024-05-13 06:45 | PROVIDERS: Admitting Provider Student in an Organized Health Care Education/Training Program; Emergency Provider Emergency Medicine; Visit Provider Specialist | DX: R91.8 Other nonspecific abnormal finding of lung field (principal) | CPT/HCPCS: 71045 ==

== ENCOUNTER 2024-05-13 01:44 | Outpatient (BNV) | payer OTHER, SELFPAY | END 2024-05-14 07:00 | PROVIDERS: Admitting Provider Student in an Organized Health Care Education/Training Program; Emergency Provider Emergency Medicine; PCP Internal Medicine; Visit Provider Radiology Diagnostic Radiology | DX: R22.42 Localized swelling, mass and lump, left lower limb (principal) | CPT/HCPCS: 93971 ==

== ENCOUNTER 2024-05-13 01:44 | Outpatient (BNV) | payer OTHER, SELFPAY | END 2024-05-15 09:41 | PROVIDERS: Admitting Provider Student in an Organized Health Care Education/Training Program; Emergency Provider Emergency Medicine; PCP Internal Medicine; Visit Provider Physician Assistant Surgical | DX: T17.390A Other foreign object in larynx causing asphyxiation, initial encounter (principal) | CPT/HCPCS: 74230; 74250 ==

== ENCOUNTER 2024-06-01 11:21 | Outpatient (REF) | payer OTHER, SELFPAY ==
--- OUTSIDE RECORDS SUMMARY | 2024-06-01 12:59 | XMS_ITS | Clinical Summary ---
Author Organization [facility] ity Address [address] [place] [address] Care Team Providers Care Furniture Upholsterer Apprentice Name Role Phone Unavailable Primary Care Provider [...]
== END 2024-06-01 11:22 | disposition home or self-care (01) ==
LOC: HO.LAB 11:21
PROVIDERS: PCP Internal Medicine; Visit Provider Physician Assistant Medical
DX: J69.0 Pneumonitis due to inhalation of food and vomit (principal); S09.90XA Unspecified injury of head, initial encounter; G40.909 Epilepsy, unspecified, not intractable, without status epilepticus; I10 Essential (primary) hypertension; Z79.899 Other long term (current) drug therapy; W19.XXXA Unspecified fall, initial encounter; Y93.9 Activity, unspecified; Y92.9 Unspecified place or not applicable; Y99.9 Unspecified external cause status
CPT/HCPCS: 96127; 99212

== ENCOUNTER 2024-06-01 11:21 | Outpatient (AMB) | payer OTHER, SELFPAY ==
--- NOTE | 2024-06-01 11:31 | A.OFFPC_ITS ---
Vital Signs 06/01/24 11:33 Height 5 ft 10 in BMI Reason not done Patient refused/unable BP 110/60 Blood Pressure Location Lt brachial Position Sitting Pulse 58 Pulse Source Pulse Oximeter Temp 97.1 F Temp Source Temporal Artery Scan Pulse Oximetry (%) 94 Oxygen Delivery Method Room Air Intake Visit Reasons: [facility] [place] [facility] FLU d/c 05/10 Intake Note: Patient is here for hospital discharge follow up. Patient was discharged from [facility] [place] [facility] on 05/10/24. Baked And Graphite Inspector Required: Yes Baked And Graphite Inspector Language: Manufacturing Chief Engineer Name: Minor([id number]); Daisy HEALY Information Interpreted: non-clinical & clinical Water Rights Specialist: Present Accompanied by: Mother Allergies No Known Allergies Allergy (Verified 06/01/24 11:44) Medication List - Last Reconciled 06/01/24 by Daisy Swift PA-C atorvastatin 40 mg PO BEDTIME 90 days buspirone 5 mg PO BID chair, wheel (Wheel chair) As directed; needs large 20' wheel chair, put on 20 lbs. citalopram 20 mg PO DAILY diazepam 2 mg PO TID divalproex ER 500 mg PO DAILY divalproex ER 1,000 mg PO BEDTIME [Electric Hospital Bed As directed] ergocalciferol (vitamin D2) 1,250 mcg PO WE@0900 levetiracetam 1,000 mg PO BID loratadine 10 mg PO DAILY PRN [MANUAL WHEELCHAIR (large) As directed] pyridoxine (vitamin B6) 100 mg PO DAILY sennosides (Senna Lax) 8.6 mg PO BEDTIME PRN 90 days trazodone 50 mg PO BEDTIME PRN [WHEELCHAIR As directed] [WHEELCHAIR As directed] Tobacco use date assessed: 06/01/24 Dental Screening Dental Screen Date: 06/01/24 Did you have a dental visit in the last 12 months?: Yes Did you have a dental problem in the last 6 months where you did not have access to dental care?: No Was dental information given to patient?: Patient has dentist [facility] Medical History (Updated 06/01/24 @ 12:30 by Daisy Swift PA-C) Epilepsy Aspiration pneumonia Hospital discharge follow-up Head injury Fall COVID-19 Impaired fasting glucose Mixed hyperlipidemia Postsurgical retinal scar of left eye Depression Anxiety Insomnia Vitamin D deficiency History of traumatic brain injury Primary osteoarthritis of left knee Left knee pain Pure hypercholesterolemia PAF (paroxysmal atrial fibrillation) Coronavirus infection TBI (traumatic brain injury) Surgical History History of cholecystectomy Family History Mother Seizures Other No significant past surgical history Social History Household Members: Family Housing: House Alcohol intake: current Alcohol intake frequency: does not drink Comment: PT SLEEPING Patient Tobacco Use Status: Never used Tobacco Tobacco use type: Cigarette Cigarette Packs Per Day: 0.5 Cigarettes Per Day: 4 e-Cigarette/Vaping Use: Never Used Second Hand Smoke Exposure: Yes service: No Current occupational status: disabled Cognitive needs: Yes (wheelchair) Hearing needs: No Vision needs: Yes (glasses) Questionnaire PHQ-9 Over the last 2 weeks, how often have you been bothered by any of the following problems? 1. Little interest or pleasure in doing things: not at all 2. Feeling down, depressed, or hopeless: not at all 3. Trouble falling or staying asleep, or sleeping too much: not at all 4. Feeling tired or having little energy: not at all 5. Poor appetite or overeating: not at all 6. Feeling bad about yourself - or that you are a failure or have let yourself or your family down: not at all 7. Trouble concentrating on things, such as reading the newspaper or watching television: not at all 8. Moving or speaking so slowly that other people could have noticed. Or the opposite - being so fidgety or restless that you have been moving around a lot more than usual: not at all 9. Thoughts that you would be better off or of hurting yourself in some way: not at all Total score: 0 Depression Screening Interpretation: Negative Depression Screening Done: Yes 64345 - PHQ-9 Billing: Yes Source: Developed by Drs. Nelson Krueger, Aida Lance, Bernardo Palma and colleagues, with an educational farida from [employer]. Thrive Questionnaire Date Thrive assessed: 06/01/24 I am a: Patient What is your living situation today?: I have a steady place to live Within the past 12 months, did the food you bought not last and you didn't have the money to get more?: Never true Within the past 12 months, did you worry whether your food would run out before you got money to buy more?: Never true Do you have trouble paying for medicines?: No Do you have trouble getting transportation to medical appointments?: No Do you have trouble paying your heating and electricity bill?: No Do you have trouble taking care of your child, family member or friend?: No Do you have trouble with day-to-day activities such as bathing, preparing meals, shopping, managing finances, etc.?: No Are you currently unemployed and looking for a job?: No Are you interested in more education?: No Please select the resources that you would like help with: None Currently or been in a relationship where the following occur: No concerns reported THRIVE Score: 0 AUDIT C Alcohol Use Questionnaire (AUDIT-C) 1. How often do you have a drink containing alcohol?: Never Total Score: 0 Score Reviewed/Action Taken: Yes GIBRAN-7 AMB Questionnaire GIBRAN-7 Date GIBRAN - 7 assessed: 06/01/24 Feeling nervous, anxious, or on edge: 0 = Not at all Not being able to stop or control worryin = Not at all Worrying too much about different things: 0 = Not at all Trouble relaxin = Not at all Being so restless that it is hard to sit still: 0 = Not at all Becoming easily annoyed or irritable: 0 = Not at all Feeling afraid as if something awful might happen: 0 = Not at all Total GIBRAN-7 score (0-4 normal; 5-9 mild; 10-14 moderate; 15-21 severe): 0 Source: Developed by Drs. Nelson Krueger, Aida Lance, Bernardo Palma and colleagues, with an educational farida from [employer]. GIBRAN-7 Assessment Billing GIBRAN-7 Assessment Tool: GIBRAN-7 Assessment 33531 Physical exam (Primary Care) Vital Signs: Last Vital Signs Temp 97.1 F 06/01/24 11:33 Pulse 58 06/01/24 11:33 BP 110/60 06/01/24 11:33 Pulse Ox 94 06/01/24 11:33 Oxygen Delivery Method Room Air 06/01/24 11:33 Care Plan Goal for BP management: 130/80 BMI Assessment/Plan discussion: High BMI High, discussed plan: lifestyle, weight reduction, dietary, physical activity and alcohol moderation Tobacco/Smoking Status: Tobacco use Status Tobacco use date assessed 06/01/24 06/01/24 11:41 Patient Tobacco Use Status Never used Tobacco 06/01/24 11:41 Tobacco use type Cigarette 06/01/24 11:41 e-Cigarette/Vaping Use Never Used 06/01/24 11:41 PHQ-9: PHQ-9 Score PHQ-9: Total score 0 06/01/24 11:45 Depression Screening Interpretation: Negative Thrive Assessment: Date of Thrive Assessment Date Thrive assessed 06/01/24 06/01/24 11:41 Currently or been in a relationship where the following occur: No concerns reported Coding Level of Care Code Est Pt Level 4 (67127) Complex EM visit Add On G2211 Diagnoses Fall W19.XXXA Head injury S09.90XA Hospital discharge follow-up Z09 Aspiration pneumonia J69.0 Nonintractable epilepsy without status epilepticus, unspecified epilepsy type G40.909 Epilepsy type: unspecified Intractability: not intractable Status epilepticus: without status epilepticus Additional Codes GIBRAN-7 Assessment Billing - GIBRAN-7 Assessment Tool: GIBRAN-7 Assessment 05611 ([id number]) PHQ-9 - 02901 - PHQ-9 Billing: Yes ([id number]) Assessment & Plan Assessment & Plan (1) Fall: Code(s): W19.XXXA - Unspecified fall, initial encounter Category: Medical Plan: Patient has a normal neuro exam at baseline per mother at bedside. Will order outpatient CT scan. Will continue to monitor. (2) Head injury: Code(s): S09.90XA - Unspecified injury of head, initial encounter Category: Medical Plan: Patient has a normal neuro exam at baseline per mother at bedside. Will order outpatient CT scan. Will continue to monitor. (3) Hospital discharge follow-up: Code(s): Z09 - Encounter for follow-up examination after completed treatment for conditions other than malignant neoplasm Category: Medical Plan: Will send patient for repeat blood work to ensure that his potassium and sodium are normal range. Will continue to monitor. (4) Aspiration pneumonia: Code(s): J69.0 - Pneumonitis due to inhalation of food and vomit Category: Medical Plan: 3. Aspiration Pneumonia The patient recently completed a hospitalization course of treatment for aspiration pneumonia. Since initial improvement, no further interventions are currently planned. (5) Epilepsy: Code(s): G40.909 - Epilepsy, unspecified, not intractable, without status epilepticus Category: Medical Qualifiers: Epilepsy type: unspecified Intractability: not intractable Status epilepticus: without status epilepticus Qualified Code(s): G40.909 - Epilepsy, unspecified, not intractable, without status epilepticus Plan: Continue Keppra 250 mg b.i.d. and 1000 mg b.i.d.. Refilled the patient's Keppra of the 250 mg b.i.d. as mother requested. Condition is chronic and stable continue to monitor. Plan Plan Patient was informed and verbally consented to the use of an ambient scribe for clinic note documentation during this visit. 1. Seizure Disorder Refill of the missed Levetiracetam 250 mg dosage is necessary. Current regimen includes 1000 mg by day and 250 mg bid. 2. Hypertension Blood pressure management to continue with outpatient monitoring, though specific treatment adjustments were not discussed. 3. Aspiration Pneumonia The patient recently completed a hospitalization course of treatment for aspiration pneumonia. Since initial improvement, no further interventions are currently planned. 4. Headache A CT of the head was ordered to evaluate for any trauma from the recent fall. Pain management and follow-up with neurologist are recommended for ongoing headache assessment. Orders: Orders Complete Blood Count Auto Diff Today Z00.00 - Encounter for general adult medical examination without abnormal findings CT head/brain wo IV con Today S09.90XA - Unspecified injury of head, initial encounter, W19.XXXA - Unspecified fall, initial encounter Comprehensive Met. Panel Today Z00.00 - Encounter for general adult medical examination without abnormal findings Magnesium Today Z00.00 - Encounter for general adult medical examination without abnormal findings Medications: New levetiracetam (Keppra) 250 mg PO BID 180 tabs 1RF polyethylene glycol 400 1% (Dry Eye Relief (PEG 400)) 1 drp ophthalmic (eye) TID-QID PRN 15 mL 6RF dry eye(s) Patient Instructions: Patient Instructions - Continue all current medications as prescribed. - Obtain a refill for Levetiracetam 250 mg to avoid skipping doses. - Monitor for any new symptoms, such as worsening headaches or changes in neurological status, and seek immediate care if these occur. - Attend scheduled follow-up appointments with healthcare providers for comprehensive care management. - Use thickened liquids as advised, and follow the diet plan to ensure adequate nutrition while recovering. - Follow-up imaging is recommended to assess for any complications from the fall, such as a head CT scan. Scribe Plan - Not visible on output: History of Present Illness The patient is a 58-year-old male presenting for hospital discharge follow-up. Patient was admitted at [facility] on 05/13/2024 and discharged on 05/16/2024. The patient was diagnosed with aspiration pneumonia, which led to hospitalization from May 13 to May 17, characterized by vomiting and subsequent aspirations into the lungs. The condition required ICU admission for oxygen, pressor support due to elevated lactate levels and low magnesium, and the condition improved with IV treatment Zosyn and IV fluids. He was then transferred back to the medical floor and titrated off pressor support. Blood cultures returned negative, white blood cell count normalized, and he was weaned off oxygen. The patient started on Augmentin and transitioned to thickened liquids post-discharge. Mother reports since he has been discharged from the hospital he has not have any coughing episodes. He has been utilizing thickened liquids. He has not had any fevers. He does not have any shortness of breath and he has not been confused. Additionally, his potassium levels were observed to have been low and his sodium was also high although was normalized during hospitalization. Mother reports he has epilepsy and is usually prescribed Keppra and normally takes 1000 mg b.i.d.. She reports he also takes 250 mg of Keppra b.i.d. as well although that prescription ran out and she would like a refill on that prescription. The patient reports a headache on the frontal aspect of his head. The patient?s concerns include headaches that began after discharge from the hospital and persistently sleep issues, including insomnia. He reports he suffered a head injury from a fall approximately three or four days ago, resulting in a noticeable bump on his head but no loss of consciousness. These headaches are new since his hospital discharge. Social History - Lives with his mother who is his primary caregiver. - Receives assistance from a Molding Associate (FINISHING OPERATOR) for daily activities including bathing, dressing, and meal preparation. - Current diet includes pureed foods for easier consumption. - Regular medications are administered at home. Review of Systems - Neurological: Reports headaches and insomnia. Physical Exam Appearance: Alert. Oriented X3. No acute distress. Head: Normal external exam. Normocephalic. Atraumatic. Noted to have a bump at the frontal aspect of the forehead, possibly from a fall. Eyes: Pupils are equal, round, and reactive to light. Extraocular movements intact. Conjunctiva and sclera normal. Eyelids normal. Reports of itching in the eyes. Ears: External auditory canal normal. Tympanic membranes normal. Throat: Pharynx normal. Uvula midline. Moist mucous membranes. Neck: Normal inspection. Neck supple. Full range of motion. No adenopathy. No meningeal signs. No neck mass noted. Cardiovascular: Normal heart rate and rhythm. Heart sound normal. No murmurs noted. Pulses normal throughout. Respiratory: No respiratory distress. Painless inspiration. Breath sounds normal. No wheezes/rales/rhonchi noted. Chest nontender. No accessory muscle usage noted or decreased air movement noted. Back: Full range of motion noted. Skin: Skin warm and dry. Normal skin color. Normal skin turgor. No rashes/lesions/lacerations noted. Neuro: Oriented. At baseline per mother. Sitting in wheelchair. Able to move all extremities. Able to tried to speak and mother able to understand patient. No focal deficits are noted. Reports of new onset headaches. Results - Labs: Blood cultures were negative, white blood cell count normalized during hospitalization. - Imaging: CT chest from prior hospitalization indicated bilateral pneumonia, unrelated to visit. Plan Patient was informed and verbally consented to the use of an ambient scribe for clinic note documentation during this visit. 1. Seizure Disorder Refill of the missed Levetiracetam 250 mg dosage is necessary. Current regimen includes 1000 mg by day and 250 mg bid. 2. Hypertension Blood pressure management to continue with outpatient monitoring, though specific treatment adjustments were not discussed. 3. Aspiration Pneumonia The patient recently completed a hospitalization course of treatment for aspiration pneumonia. Since initial improvement, no further interventions are currently planned. 4. Headache A CT of the head was ordered to evaluate for any trauma from the recent fall. Pain management and follow-up with neurologist are recommended for ongoing headache assessment. Discussion Notes I discussed with the patient the importance of continuing his medication regimen for seizure control, including obtaining a refill for the Levetiracetam to prevent seizure activity. We reviewed the recent head trauma and the need for further imaging to rule out any intracranial injury. I also emphasized the need for follow-up with his primary care physician and neurologist to address his persistent headaches and manage his health conditions, including hypertension and potential adjustments to his current medication plan. The risks of medication discontinuation and the benefits of adherence were explained to the patient and caregiver. Patient Instructions - Continue all current medications as prescribed. - Obtain a refill for Levetiracetam 250 mg to avoid skipping doses. - Monitor for any new symptoms, such as worsening headaches or changes in neurological status, and seek immediate care if these occur. - Attend scheduled follow-up appointments with healthcare providers for comprehensive care management. - Use thickened liquids as advised, and follow the diet plan to ensure adequate nutrition while recovering. - Follow-up imaging is recommended to assess for any complications from the fall, such as a head CT scan.
[2024-06-01 11:33] VITALS: BP 110/60; PULSE 58; TEMP 36.2; O2SAT 94
--- OUTSIDE RECORDS SUMMARY | 2024-06-01 12:28 | XMS_ITS | Continuity of Care Document ---
Author Organization [place] SaludFÁCIL Chandler, [place] in [facility] Address [address] [place] [id number] Care Team Providers Care Salt Washer Harvesting Station Name Role Phone HIM CCA OTHER Assessment No assessment recorded. Plan of Treatment Reminders Order Date Submit Date Provider Last Modified By Organization Details Last Modified Time Details Appointments None recorded. Lab rapid SARS CoV 2 Ag, QL IA, respiratory specimen 2024 025 [facility], [address] [place] [address], [phone], 21:10:31 rapid flu (A+B) 2024 025 [facility], [address] [place] [address], [phone], 21:10:31 Referral None recorded. Procedures None recorded. Surgeries None recorded. Imaging None recorded. Medication Orders None recorded. Patient TargetsNo targets recorded. Patient InstructionsNo instructions recorded. Reason for Referral None Reported. Results Created Date Observation Date Name Description Value Unit Range Abnormal Flag Note LastModifiedBy Organization Detail LastModifiedTime 05/12/1905/12/2024 rapid flu (A+B) Flu negati ve Not Available [facility] ed [address] [place] [address], [phone], 05/12/2024 21:09:41 05/12/19 25 05/12/2024 rapid SARS CoV 2 Ag, QL IA, respi rator y speci men rapid SARS CoV 2 Ag, QL IA, respiratory specimen negati ve Not Available [facility] ed [address] [place] [address], [phone], 05/12/2024 21:09:32 Result Notes None recorded. Medical Equipment None Reported. Allergies No known drug allergies Medications Name Sig Start Date Stop Date Status Note LastModified by Organization Details LastModified Time atorvastatin 40 mg tablet TAKE 1 TABLET BY MOUTH EVERYDAY AT BEDTIME active Not Available Not Available N ot Available buspirone 5 mg tablet TAKE 1 TABLET BY MOUTH TWICE A DAY FOR SYMPTOMS OF ANXIETY. active Not Available Not Available No t Available trazodone 50 mg tablet TAKE 1 TABLET BY MOUTH EVERY DAY NEEDED active Not Available Not Available No t Available citalopram 20 mg tablet TAKE 1 TABLET BY MOUTH EVERY DAY IN THE MORNING active Not Available Not Available No t Available levetiracetam 250 mg tablet TAKE 2 TABLETS BY MOUTH TWICE A DAY WITH 1000 MG TABS FOR TOTAL OF 1500 MG TWICE A DAY active Not Available Not Available No t Available diazepam 2 mg tablet TAKE 1 TABLET BY MOUTH THREE TIMES A DAY NEEDED active Not Available Not Available No t Available divalproex ER 500 mg tablet,extend ed release 24 hr TAKE 1 TABLET BY MOUTH EVERY MORNING TAKE 2 TABLETS EVERY EVENING active Not Available Not Available No t Available zolpidem 5 mg tablet TAKE 1 TABLET BY MOUTH EVERY NIGHT AT BEDTIME NEEDED active Not Available Not Available No t Available pyridoxine (vitamin B6) 100 mg tablet TAKE 1 TABLET BY MOUTH EVERY DAY active Not Available Not Available No t Available ergocalcifero l (vitamin D2) 1,250 mcg (50,000 unit) capsule TAKE 1 CAPSULE BY MOUTH ONCE A WEEK active Not Available Not Available No t Available loratadine 10 mg tablet TAKE 1 TABLET ORALLY DAILY NEEDED FOR FOR ALLERGIES active Not Available Not Available No t Available risperidone 0.5 mg tablet TAKE 1 TABLET BY MOUTH EVERYDAY AT BEDTIME active Not Available Not Available N ot Available levetiracetam 1,000 mg tablet TAKE 1 TABLET BY MOUTH 2 TIMES A DAY WITH 250MG TABS FOR TOTAL DAILY OF 1500MG TWICE DAILY active Not Available Not Available No t Available Vitals Date Recorded Oxygen saturation Oxygen saturation in Arterial blood by Pulse oximetry Body temperature Body height Heart rate Respiratory rate Body weight Systolic blood pressure Diastolic blood pressure Provider Name and Address Organization Details Last Updated DateTime 5 91 % 91 % 102.9 [degF] 180.34 cm 138 /min 20 /min 37953.4 g 106 mm[Hg] 60 mm[Hg] Not Available [facility] - production 5 20:53:17 Social History None recorded. Functional Status None recorded. Mental Status None recorded. Family History Nothing Reported. Medical History No medical history recorded. Past Encounters Encounter ID Performer Location Encounter Start Date Encounter Closed Date Diagnosis/Indication Diagnosis SNOMED-CT Code Diagnosis ICD10 Code Diagnosis Note [id number] DAKOTA JIMENEZ MD Main - [address] [address] 05/12/2024 20:46:56 05/15/2024 16:36:55 Hypoxia 701036201 R09.02 Evaluation in the field was performed by my laundry or dry cleaners counter clerk colleague, as noted above, I provided real-time direction and supervisio n for this visit. The evaluation revealed 58-year-ol d male with a history of TBI, baseline neurologic al deficits, essential tremor, and seizures. Armenian-sp eaking only. History obtained from family, who report a 2-day history of nausea, vomiting, diarrhea, and abdominal pain. Today, he spiked a fever, and his mother administer ed 1g of Tylenol approximat roman 30-45 minutes prior to our visit. The patient has a known history of COVID (3 times) and kidney stones, but the family reports it has been a few years since his last stone. He ate some soup earlier this afternoon and seemed to tolerate it well. He complains of abdominal pain and chest pain from coughing but denies sputum production . VS: BP 106/60, HR 138 bpm, RR 20, SpO2 91%, Temperatur e 102.9? ? ?FExam: Mildly agitated, tachycardi c. Lungs clear to auscultati on bilaterall y . Abdomen diffusely tender to palpation. Flu and COVID tests negative.A llergies reviewed. Impression :Fever and hypoxia, concerning for a pulmonary process (SIRS 2/4). Plan:-Give n the negative flu and COVID tests, bacterial pneumonia remains high in the differenti al due to fever and hypoxia. Intraabdom inal infection or UTI is also a possibilit y but does not fully explain the hypoxia.-P er discussion with the family, given his presentati on, a decision was made to transfer the patient to the ED for further evaluation , including blood cultures, aggressive intravenou s fluids, and imaging. Primary care, consider__ _ Dispositio n:We discussed the situation and I recommende d referral to the emergency department . Health Concerns Section Related Observation LastModified by Organization Detai ls LastModified Time None Recorded Concern Status LastModified by Organization Details LastModified Time None Recorded Payers Encounter Date Sequence Insurance Name Policy Number Policy Vásquez Covered Member ID Vásquez Member ID Guarantor Name 05/12/2024 1 [facility] - DOS ON OR AFTER 2022 - DUAL ELIGIBLE - SKILLED NURSING OPTIONS AND ONE CARE (MEDICARE REPLACEMENT/ADV ANTAGE - HMO) Louis Wagoner [id number] Louis Wagoner Notes Date Note Type Note Provider Name and Address Organization Details Recorded Time 05/12/2024 text/html [facility] Nurse Triage Notes (Valentin Hoang - RN): Reason For Request: Patient has vomiting for 2 days, and Dirrhea, and now has a fever. Patient Reports: Sharp focal or diffuse abdominal pain ; Nausea and vomiting greater than 2 hours with abdominal pain; Tearing pain that radiates to back; Vague abdominal pain greater than 24 hours; Diarrhea ? no blood in stool; Nausea with or without vomiting; Inability to tolerate foods, fluids or daily medications Denies: Vomiting blood/coffee ground material Bloating, jaundice new onset with pain Food Impaction Constipation Chief Complaints: Vomiting PMH: Epilepsy/Seizure Disorder PMH Reviewed at 05/12/2024:52 Allergies Reviewed at 05/12/2024 - :52 Comments: Weekend Anchor verified the Pt.'s name//address and phone number. Education provided on the response time and the Pt. was advised to monitor reported s/s and seek emergency treatment if needed. CG reports the Pt is feeling unwell - Nausea/Vomiting and Diarrhea - Fever 101.9 - Abdominal pain -Pain is 5/10 -Decreased PO intake - S/S for 2 days - Reports taking Tylenol with n some relief - Declined ER treatment - Wellness check requested. School Guidance Counselor Organization Information for Hardy Mota Business Legal Name: [employer]? Address: [address] [place] [address], X Ray Examiner Of Aircraft: Sudhir Rodriguez MD CLIA No.: [id number] School Guidance Counselor POC Test Results from [facility] Hardy WONG Blood Glucose Measurement (21:00:40) Blood Glucose: 200 mg/dL Rapid COVID antigen (21:00:50) COVID: - Rapid influenza antigen (21:00:51) Flu: - .................. .................. .................. .................. .................. .................. .................. ............... School Guidance Counselor Note From Hardy Mota: [facility] makes pt contact. He is found laying supine in his hospital bed. He is conscious and alert and appears to be uncomfortable. He is not in respiratory distress, no s/s of acute stroke are observed, and he is not bleeding anywhere. Pt has TBI deficits at baseline w/ essential tremor, hx of seizures, and is Armenian-speaking only. Family is on scene to provide hx and translate. Pt has had n/v/d for two days. Today he spiked a fever and mom (CG) administered 1G Tylenol around 3970-6372. Pt has known hx of COVID 3x and kidney stones, but family reports it has been a few years since his last stone. He did eat some soup earlier this afternoon and seemed to tolerate it well. Pt c/o abd pain and cp from coughing. No sputum production is reported. Family and pt consent to evaluation and treatment today. [facility] obtains pt consent and uploads. Vital signs are gathered and pt is swabbed for COVID/flu and assessed. His skin is hot and dry and he appears to be agitated. Lung sounds are clear and abdomen is diffusely tender to palpation. Pt is found to be tachycardic and hypoxic w/ high fever. [facility] contacts [facility] and [facility] recommends pt be transported to the ED to r/o pneumosepsis. Family is amendable and pt is transported to [facility] by [facility]. [facility] is clear. Report completed by CHACHA Mota [id number]. [facility] Lab Orders: rapid SARS CoV 2 Ag, QL IA, respiratory specimen: Performed rapid flu (A+B): Performed .................. .................. .................. .................. .................. .................. .................. ............... [facility] Consulted: Dakota Jimenez .................. .................. .................. .................. .................. .................. .................. ............... Disposition: Fulfilled DAKOTA JIMENEZ MD [address] [facility],[address], [place], [address], KRISTEL WELLER 05/13/2024 00:02:45
--- OUTSIDE RECORDS SUMMARY | 2024-06-01 12:28 | XMS_ITS | Data Portability ---
Author Organization [place] [employer] [place], [place] in [facility] Address [address] [place] [phone] Care Team Providers Care Law Office Receptionist Name Role Phone HIM CCA OTHER Assessment No assessment recorded. Plan of Treatment Reminders Order Date Submit Date Provider Last Modified By Organization Details Last Modified Time Details Appointments None recorded. Lab rapid SARS CoV 2 Ag, QL IA, respiratory specimen 2024 025 [facility], [address] [place] [address], [phone], 21:10:31 rapid flu (A+B) 2024 025 [facility], [address] [place] [address], [phone], 21:10:31 Referral None recorded. Procedures None recorded. Surgeries None recorded. Imaging None recorded. Medication Orders None recorded. Patient TargetsNo targets recorded. Patient InstructionsNo instructions recorded. Reason for Referral None Reported. Results Created Date Observation Date Name Description Value Unit Range Abnormal Flag Note LastModifiedBy Organization Detail LastModifiedTime 05/12/1905/12/2024 rapid flu (A+B) Flu negati ve Not Available [facility] ed [address] [place] [address], [phone], 05/12/2024 21:09:41 05/12/19 25 05/12/2024 rapid SARS CoV 2 Ag, QL IA, respi rator y speci men rapid SARS CoV 2 Ag, QL IA, respiratory specimen negati ve Not Available [facility] ed [address] [place] [address], [phone], 05/12/2024 21:09:32 Result Notes None recorded. Medical [...] [degF] 180.34 cm 138 /min 20 /min 25075.4 g 106 mm[Hg] 60 mm[Hg] Not Available [facility] - production 5 20:53:17 Social History None recorded. Functional Status None recorded. Mental Status None recorded. Family History Nothing Reported. Medical History No medical history recorded. Past Encounters Encounter ID Performer Location Encounter Start Date Encounter Closed Date Diagnosis/Indication Diagnosis SNOMED-CT Code Diagnosis ICD10 Code Diagnosis Note [id number] DAKOTA JIMENEZ MD Main - [address] [address] 05/12/2024 20:46:56 05/15/2024 16:36:55 Hypoxia 740840165 R09.02 Evaluation in the field was performed by my editor index colleague, as noted above, I provided real-time direction and supervisio n for this visit. The evaluation revealed 58-year-ol d male with a history of TBI, baseline neurologic al deficits, essential tremor, and seizures. Bangladeshi-sp eaking only. History obtained from family, who [...] by Organization Details LastModified Time None Recorded Advance Directives Directive None Recorded Payers Encounter Date Sequence Insurance Name Policy Number Policy Vásquez Covered Member ID Vásquez Member ID Guarantor Name 05/12/2024 1 [facility] - DOS ON OR AFTER 2022 - DUAL ELIGIBLE - USP OPTIONS AND ONE CARE (MEDICARE REPLACEMENT/ADV ANTAGE - HMO) Louis Wagoner [id number] Louis Wagoner Notes Date Note Type Note [...] Vomiting PMH: Epilepsy/Seizure Disorder PMH Reviewed at 05/12/2024 - :52 Allergies Reviewed at 05/12/2024 - :52 Comments: Business Objects Architect verified the Pt.'s name//address and phone number. [...] Declined ER treatment - Wellness check requested. Criminal Defense Lawyer Organization Information for Hardy Mota Business Legal Name: [employer] Address: [address] [place] [address], Plant Buyer: Sudhir Rodriguez MD CLIA No.: [id number] Criminal Defense Lawyer POC Test Results from [facility] Blood Glucose Measurement (21:00:40) Blood Glucose: 200 mg/dL Rapid COVID antigen (21:00:50) COVID: - Rapid influenza antigen (21:00:51) Flu: - .................. .................. .................. .................. .................. .................. .................. ............... Criminal Defense Lawyer Note From Hardy Mota: [facility] makes pt contact. He is found laying supine in his hospital bed. He is conscious and alert and appears to be uncomfortable. He is not in respiratory distress, no s/s of acute stroke are observed, and he is not bleeding anywhere. Pt has TBI deficits at baseline w/ essential tremor, hx of seizures, and is Bangladeshi-speaking only. Family is on scene to provide hx and translate. Pt has had n/v/d for two days. Today he spiked a fever and mom (CG) administered 1G Tylenol around 7492-1306. Pt has known hx of COVID 3x and kidney stones, but family reports it has been a few years since his last stone. He did eat some soup earlier this afternoon and seemed to tolerate it well. Pt c/o abd pain and cp from coughing. No sputum production is reported. Family and pt consent to evaluation and treatment today. [facility] obtains pt consent and uploads. Vital signs are gathered and pt is swabbed for COVID/flu and assessed. His skin is hot and dry and he appears to be agitated. Lung sounds are clear and abdomen is diffusely tender to palpation. Pt is found to be tachycardic and hypoxic w/ high fever. [facility] contacts [facility] and [facility] recommends pt be transported to the ED to r/o pneumosepsis. Family is amendable and pt is transported to [facility] by [facility]. [facility] is clear. Report completed by CHACHA Mota [id number]. [facility] Lab Orders: rapid SARS CoV 2 Ag, QL IA, respiratory specimen: Performed rapid flu (A+B): Performed .................. .................. .................. .................. .................. .................. .................. ............... [facility] Consulted: Dakota Jimenez .................. .................. .................. .................. .................. .................. .................. ............... Disposition: Ran JIMENEZ MD [address] [facility],[address], [place], [phone], KRISTEL WELLER 05/13/2024 00:02:45
--- OUTSIDE RECORDS SUMMARY | 2024-06-01 12:28 | XMS_ITS | Clinical Summary ---
Author Organization [facility] ity Address [address] [place] [address] Care Team Providers Care President & Founder Name Role Phone Unavailable Primary Care Provider Unavailabl e Social History Tobacco Use Types Packs/Day Years Used Date Smoking Tobacco: Never Assessed Sex and Gender Information Value Date Recorded Sex Assigned at Not on file Legal Sex Male 4:38 AM EST Gender Identity Not on file Sexual Orientation Not on file Plan of Treatment Health Maintenance Due Date Last Done Comments DTaP,Tdap,and Td Vaccines (1 - Tdap) 12/12/1986 Hepatitis B Vaccines (1 of 3 - 19+ 3-dose series) 12/12/1986 Pneumococcal Vaccine: 50+ Ye ars (1 of 1 - PCV) 12/12/2017 Zoster Vaccines (1 of 2) 12/12/2017 Cholesterol Screening (Lipid Panel) 03/14/2022 Colorectal Cancer Screening: Colonoscopy 03/14/2022 Depression Screening 03/14/2022 HIV Screening 03/14/2022 Hepatitis C Screening 03/14/2022 Social Influencers of Health Screening 03/14/2022 COVID-19 Vaccine ( - 2023-2 5 season) 2023 Influenza Vaccine (#1) 2023 HIB Vaccines Aged Out No longer eligi ble based on patient's age to complete this topic HPV Vaccines Aged Out No longer eligi ble based on patient's age to complete this topic Hepatitis A Vaccines Aged Out No long er eligible based on patient's age to complete this topic IPV Vaccines Aged Out No longer eligi ble based on patient's age to complete this topic MMR Vaccines Aged Out No longer eligi ble based on patient's age to complete this topic Meningococcal ACWY Vaccine Aged Out N o longer eligible based on patient's age to complete this topic Meningococcal B Vacine Aged Out No lo nger eligible based on patient's age to complete this topic Pneumococcal Vaccine: Pediat rics (0 to 5 Years) and At-Risk Patients (6 to 64 Years) Aged Out No longer eligible b ased on patient's age to complete this topic RSV Immunization Patients Un tay 20 months Aged Out No longer eligible b ased on patient's age to complete this topic Varicella Vaccines Aged Out No longer eligible based on patient's age to complete this topic
== END 2024-06-01 16:49 | disposition home or self-care (01) ==
PROVIDERS: PCP Internal Medicine; Visit Provider Physician Assistant Medical
DX: J69.0 Pneumonitis due to inhalation of food and vomit (principal); G40.909 Epilepsy, unspecified, not intractable, without status epilepticus; S09.90XA Unspecified injury of head, initial encounter; W19.XXXA Unspecified fall, initial encounter; Z09 Encounter for follow-up examination after completed treatment for conditions other than malignant neoplasm

== ENCOUNTER 2024-07-02 11:35 | Outpatient (REF) | payer OTHER, SELFPAY ==
[2024-07-02 11:58] LABS: MANUAL DIFF FLAG NO
[2024-07-02 12:29] LABS: Basophils Percent Auto 0.7 % (0-2); Eosinophils Absolute Auto 0.1 X10*3/uL (0.0-0.4); Eosinophils Percent Auto 1.7 % (0-4); Hematocrit 42.2 % (42.0-52.0); Hemoglobin 14.3 g/dl (14.0-18.0); Imm Gran Abs Auto 0.01 X10*3/uL (0.00-0.03); Imm Gran Pct Auto 0.2 % (0.0-0.4); Lymphocytes Absolute Auto 3.3 X10*3/uL (1.2-4.9); Lymphocytes Percent Auto 54.1 % (20-40); Mean Corpuscular HGB Conc 33.9 g/dl (31.0-36.0); Mean Corpuscular Hemoglobin 31.1 pg (27.0-33.0); Mean Corpuscular Volume 91.7 fL (80.0-98.0); Mean Platelet Volume 12.2 fL (9.4-12.4); Monocytes Absolute Auto 0.5 X10*3/uL (0.1-1.2); Monocytes Percent Auto 8.4 % (2-11); Neutrophils Absolute Auto 2.1 x10*3/uL (2.0-8.3); Neutrophils Percent Auto 34.9 % (45-73); Platelet Count 188 X10*3/uL (160-400); Red Cell Distribution Width 12.4 % (11.0-16.0); White Blood Count 6.1 X10*3/uL (4.8-10.8)
[2024-07-02 13:02] LABS: Alanine Aminotransferase 15 U/L (0-40); Albumin Level 3.7 g/dL (3.5-5.0); Alkaline Phosphatase 66 U/L (39-117); Anion Gap 9 (12-20); Aspartate Amino Transferase 18 U/L (5-37); Bilirubin Total 0.4 mg/dL (0.0-1.0); Blood Urea Nitrogen 14 mg/dL (9-16); Calcium 9.1 mg/dL (8.4-10.2); Carbon Dioxide 31 mmol/L (22-29); Chloride 108 mmol/L (96-108); Cholesterol 138 mg/dL (<200); Estimated Glomerular Filt Rate > 60; Glucose Fasting 82 mg/dL (60-99); Glucose Random 81 mg/dL (60-115); HDL Cholesterol 38 mg/dL (>40); LDL Cholesterol Calculated 59 mg/dL (<100); Magnesium 1.8 mg/dL (1.6-2.6); Sodium 144 mmol/L (135-145); Total Protein 6.6 g/dL (6.5-8.0); Triglycerides 206 mg/dL (<150)
[2024-07-05 12:48] LABS: Levetiracetam Keppra 25.8 mcg/mL (6.0-46.0)
== END 2024-07-02 11:36 | disposition home or self-care (01) ==
LOC: HO.LAB 11:35
PROVIDERS: Absent Provider Internal Medicine; PCP Internal Medicine; Visit Provider Physician Assistant Medical
DX: Z00.00 Encounter for general adult medical examination without abnormal findings (principal); D64.9 Anemia, unspecified; G40.909 Epilepsy, unspecified, not intractable, without status epilepticus; E78.00 Pure hypercholesterolemia, unspecified; R30.0 Dysuria; E11.9 Type 2 diabetes mellitus without complications
CPT/HCPCS: 36415; 80053; 80061; 80177; 83735; 85025

== ENCOUNTER 2024-07-05 10:54 | Outpatient (AMB) | payer OTHER, SELFPAY ==
[2024-07-05 10:57] VITALS: BP 116/62; PULSE 89; O2SAT 96
--- NOTE | 2024-07-05 10:57 | MHC.PC.OV ---
Vital Signs 07/05/24 10:57 Height 5 ft 10 in BMI Reason not done Patient refused/unable BP 116/62 Blood Pressure Location Lt brachial Position Sitting Pulse 89 Pulse Source Pulse Oximeter Pulse Oximetry (%) 96 Oxygen Delivery Method Room Air Intake Visit Reasons: epilepsy, hyperlipidemia Drainage Inspector Required: No Accompanied by: Self / Same As Patient Allergies No Known Allergies Allergy (Verified 07/05/24 11:21) Medication List - Last Reconciled 07/05/24 by Juan Garcia MD atorvastatin 40 mg PO BEDTIME 90 days buspirone 5 mg PO BID chair, wheel (Wheel chair) As directed; needs large 20' wheel chair, put on 20 lbs. citalopram 20 mg PO DAILY diazepam 2 mg PO TID divalproex ER 500 mg PO DAILY divalproex ER 1,000 mg PO BEDTIME [[facility] Hospital Bed As directed] ergocalciferol (vitamin D2) 1,250 mcg PO WE@0900 levetiracetam 1,000 mg PO BID levetiracetam (Keppra) 250 mg PO BID loratadine 10 mg PO DAILY PRN [MANUAL WHEELCHAIR (large) As directed] polyethylene glycol 400 1% (Dry Eye Relief (PEG 400)) 1 drp ophthalmic (eye) TID-QID PRN pyridoxine (vitamin B6) 100 mg PO DAILY sennosides (Senna Lax) 8.6 mg PO BEDTIME PRN 90 days trazodone 50 mg PO BEDTIME PRN [WHEELCHAIR As directed] [WHEELCHAIR As directed] Tobacco use date assessed: 07/05/24 Dental Screening Dental Screen Date: 07/05/24 Did you have a dental visit in the last 12 months?: No Did you have a dental problem in the last 6 months where you did not have access to dental care?: No Was dental information given to patient?: Patient has dentist HPI epilepsy, hyperlipidemia HPI Details Patient comes in today for his follow up visit - he is again accompanied by his mother, who states that patient has been experiencing frequent itching and redness of his eyes lately States that he could hardly see anything a few days ago due to his eye symptoms and increased tearing of his eyes Patient also has been breaking out in a scattered itchy rash on his back and over his groin areas for over a week now and his mother would like to have something prescribed for him to help clear these up He was admitted to [facility] last month for aspiration pneumonia and he has mostly recovered from his bout with pneumonia currently Patient otherwise denies any headaches or dizziness Denies any chest pains, no increased SOB No nausea/vomiting, no abdominal pain No change in bowel habits noted He is reportedly still experiencing on and off seizures He was seeing and following up with neurology at [facility] previously but as his neurologist recently moved out of [facility], he was referred to neurology here at [facility] and will now be following up with neurology here locally He had his follow up labs done a few days ago - to discuss his results [facility] Medical History Epilepsy Aspiration pneumonia Hospital discharge follow-up Head injury Fall COVID-19 Impaired fasting glucose Mixed hyperlipidemia Postsurgical retinal scar of left eye Depression Anxiety Insomnia Vitamin D deficiency History of traumatic brain injury Primary osteoarthritis of left knee Left knee pain Pure hypercholesterolemia PAF (paroxysmal atrial fibrillation) Coronavirus infection TBI (traumatic brain injury) Surgical History History of cholecystectomy Family History Mother Seizures Other No significant past surgical history Social History Household Members: Family Housing: House Alcohol intake: current Alcohol intake frequency: does not drink Comment: PT SLEEPING Patient Tobacco Use Status: Never used Tobacco Tobacco use type: Cigarette Cigarette Packs Per Day: 0.5 Cigarettes Per Day: 4 e-Cigarette/Vaping Use: Never Used Second Hand Smoke Exposure: Yes service: No Current occupational status: disabled Cognitive needs: Yes (wheelchair) Hearing needs: No Vision needs: Yes (glasses) Questionnaire PHQ-9 Over the last 2 weeks, how often have you been bothered by any of the following problems? 1. Little interest or pleasure in doing things: not at all 2. Feeling down, depressed, or hopeless: not at all 3. Trouble falling or staying asleep, or sleeping too much: not at all 4. Feeling tired or having little energy: not at all 5. Poor appetite or overeating: not at all 6. Feeling bad about yourself - or that you are a failure or have let yourself or your family down: not at all 7. Trouble concentrating on things, such as reading the newspaper or watching television: not at all 8. Moving or speaking so slowly that other people could have noticed. Or the opposite - being so fidgety or restless that you have been moving around a lot more than usual: not at all 9. Thoughts that you would be better off or of hurting yourself in some way: not at all Total score: 0 Depression Screening Interpretation: Negative Depression Screening Done: Yes 74445 - PHQ-9 Billing: Yes Source: Developed by Drs. Nelson Krueger, Aida Lance, Bernardo Palma and colleagues, with an educational farida from [employer]. Thrive Questionnaire Date Thrive assessed: 07/05/24 I am a: Patient What is your living situation today?: I have a steady place to live Within the past 12 months, did the food you bought not last and you didn't have the money to get more?: Never true Within the past 12 months, did you worry whether your food would run out before you got money to buy more?: Never true Do you have trouble paying for medicines?: No Do you have trouble getting transportation to medical appointments?: No Do you have trouble paying your heating and electricity bill?: No Do you have trouble taking care of your child, family member or friend?: No Do you have trouble with day-to-day activities such as bathing, preparing meals, shopping, managing finances, etc.?: No Are you currently unemployed and looking for a job?: No Are you interested in more education?: No Please select the resources that you would like help with: None Currently or been in a relationship where the following occur: No concerns reported THRIVE Score: 0 AUDIT C Alcohol Use Questionnaire (AUDIT-C) 1. How often do you have a drink containing alcohol?: Never 3. How often do you have six or more drinks on one occasion?: Never Total Score: 0 Score Reviewed/Action Taken: Yes GIBRAN-7 AMB Questionnaire GIBRAN-7 Date GIBRAN - 7 assessed: 07/05/24 Feeling nervous, anxious, or on edge: 0 = Not at all Not being able to stop or control worryin = Not at all Worrying too much about different things: 0 = Not at all Trouble relaxin = Not at all Being so restless that it is hard to sit still: 0 = Not at all Becoming easily annoyed or irritable: 0 = Not at all Feeling afraid as if something awful might happen: 0 = Not at all Total GIBRAN-7 score (0-4 normal; 5-9 mild; 10-14 moderate; 15-21 severe): 0 Source: Developed by Drs. Nelson Krueger, Aida Lance, Bernardo Palma and colleagues, with an educational farida from [employer]. Review of Systems Const Details: ROS is obtained mostly from patient's mother/family as he is unable to communicate or verbalize properly due to his neurologic deficits Denies chills, Denies fatigue, Denies fever(s) and Denies headache(s) Eyes Reports as per HPI and Reports itchy eyes ENT Denies dysphagia, Denies dizziness, Denies otalgia, Denies headache(s), Denies neck pain, Denies odynophagia and Denies sore throat Card Denies chest pain, Denies palpitations and Denies dyspnea Resp Denies chest congestion, Denies cough and Denies dyspnea GI Denies abdominal pain, Reports constipation (on and off), Denies dysphagia, Denies heartburn, Denies diarrhea, Denies nausea, Denies odynophagia and Denies vomiting Denies dysuria, Denies nocturia and Denies urinary frequency Musc Denies back pain, Denies arthralgias and Denies neck pain Skin/Breast Denies rash Neuro Denies dizziness, Denies headache(s), Reports convulsions (recurrent ) and Denies seizure-like activity Endo Denies fatigue and Denies palpitations Aller/Immun Reports itchy eyes Physical exam (Primary Care) Vital Signs: Last Vital Signs Pulse 89 07/05/24 10:57 BP 116/62 07/05/24 10:57 Pulse Ox 96 07/05/24 10:57 Oxygen Delivery Method Room Air 07/05/24 10:57 Tobacco/Smoking Status: Tobacco use Status Tobacco use date assessed 07/05/24 07/05/24 11:06 Patient Tobacco Use Status Never used Tobacco 07/05/24 11:06 Tobacco use type Cigarette 07/05/24 11:06 e-Cigarette/Vaping Use Never Used 07/05/24 11:06 PHQ-9: PHQ-9 Score PHQ-9: Total score 0 07/05/24 11:22 Depression Screening Interpretation: Negative Thrive Assessment: Date of Thrive Assessment Date Thrive assessed 07/05/24 07/05/24 11:06 Currently or been in a relationship where the following occur: No concerns reported Const General: no acute distress and alert Limitations: wheelchair HENMT Ears: TM's normal bilaterally and EAC's normal Throat: Yes posterior oropharynx normal and Yes tonsils normal (no TP congestion noted) Neck Neck: Yes supple and No lymphadenopathy Thyroid: Thyroid normal Resp Auscultation: clear to auscultation bilaterally, no rales and no wheezes Cardio Rate: regular rate Rhythm: regular rhythm Heart sounds: no murmurs GI Palpation (GI): Soft to palpation and nontender Auscultation: normal bowel sounds General: Yes no CVA tenderness Back/Spine/Pelvis Back: no CVA tenderness Thoracic/Lumbar Spine: No lumbar spinal tenderness Skin Rashes: no rashes Neuro Other: (+) 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; speech slurred (baseline) Extrem General: Yes no clubbing, cyanosis or edema Results Reviewed Results Reviewed: Laboratory Tests 07/02/24 11:57 WBC 6.1 Hgb 14.3 Hct 42.2 Plt Count 188 Sodium 144 Potassium 4.0 D Creatinine 0.64 Estimated GFR > 60 Fasting Glucose 82 Calcium 9.1 D Magnesium 1.8 AST 18 ALT 15 Triglycerides 206 H Cholesterol 138 LDL Cholesterol, Calc 59 HDL Cholesterol 38 L Coding Level of Care Code Est Pt Level 4 (35125) Complex EM visit Add On G2211 Diagnoses Nonintractable epilepsy without status epilepticus, unspecified epilepsy type G40.909 Epilepsy type: unspecified Intractability: not intractable Status epilepticus: without status epilepticus History of traumatic brain injury Z87.820 Mixed hyperlipidemia E78.2 Impaired fasting glucose R73.01 Vitamin D deficiency E55.9 Dysphagia, unspecified type R13.10 Dysphagia type: unspecified Allergic conjunctivitis of both eyes H10.13 Laterality: bilateral Pruritic erythematous rash L29.89 Primary osteoarthritis of left knee M17.12 Constipation, unspecified constipation type K59.00 Constipation type: unspecified constipation type Insomnia, unspecified type G47.00 Insomnia type: unspecified Anxiety F41.9 Depression, unspecified depression type F32.9 Depression Type: unspecified Additional Codes PHQ-9 - 47164 - PHQ-9 Billing: Yes ([id number]) Assessment & Plan Assessment & Plan (1) Epilepsy: Code(s): G40.909 - Epilepsy, unspecified, not intractable, without status epilepticus Category: Medical Qualifiers: Epilepsy type: unspecified Intractability: not intractable Status epilepticus: without status epilepticus Qualified Code(s): G40.909 - Epilepsy, unspecified, not intractable, without status epilepticus Plan: Recurrent Continue Levetiracetam 1500 mg BID and Divalproex ER 500 mg in AM and 1000 mg Q HS He used to see neurology at [facility] for his epilepsy but as his neurologist recently moved out of [facility], he is now seeing neurology here at [facility] locally for continuing follow up and management of his epilepsy (2) History of traumatic brain injury: Code(s): Z87.820 - Personal history of traumatic brain injury Category: Medical Plan: His TBI occurred years ago, with residual neurologic deficits (hemiparesis) and slurred speech (3) Mixed hyperlipidemia: Code(s): E78.2 - Mixed hyperlipidemia Category: Medical Plan: Results of his labs done a few days ago reviewed and discussed with patient and his mother Reinforced low cholesterol diet Continue Atorvastatin 40 mg QD Will recheck his labs and fasting lipids in 4 months for follow up (4) Impaired fasting glucose: Code(s): R73.01 - Impaired fasting glucose Category: Medical Plan: His HgbA1c was at 6.1% when last checked a few months ago; in-office HgbA1c was previously also at 6.1% Reinforced low calorie/low carb diet He has been advised that he needs to keep his HgbA1c at 6.0% or less if he wishes to avoid being started on Rx for his blood sugar (5) Vitamin D deficiency: Code(s): E55.9 - Vitamin D deficiency, unspecified Category: Medical Plan: Continue Vitamin D2 38623 units once a week (6) Dysphagia: Code(s): R13.10 - Dysphagia, unspecified Category: Medical Qualifiers: Dysphagia type: unspecified Qualified Code(s): R13.10 - Dysphagia, unspecified Plan: His modified barium swallow done in April 2023 revealed (+) aspiration was seen with thin and nectar thick liquids. No aspiration or penetration was seen with honey thick liquid and regular texture solids He is following up with Speech and Hearing for further recommendations regarding this (7) Allergic conjunctivitis: Code(s): H10.10 - Acute atopic conjunctivitis, unspecified eye Category: Medical Qualifiers: Laterality: bilateral Qualified Code(s): H10.13 - Acute atopic conjunctivitis, bilateral Plan: Will start patient on Ketotifen 0.025% to apply 1 drop into each eye Q 12 hours PRN If symptoms persist, he may need to see ophthalmology for further evaluation and management (8) Pruritic erythematous rash: Code(s): L29.89 - Other pruritus Category: Medical Plan: Will start patient empirically on Diphenhydramine 25 mg TID PRN for symptomatic relief Will start him as well on Triamcinolone acetonide 0.025% to apply to rash TID PRN (9) Primary osteoarthritis of left knee: Code(s): M17.12 - Unilateral primary osteoarthritis, left knee Category: Medical Plan: X-rays of the left knee done back in September 2018 revealed tricompartmental degenerative arthrosis primarily involving the medial and lateral compartments Follow up with orthopedics as scheduled (10) Constipation: Code(s): K59.00 - Constipation, unspecified Category: Medical Qualifiers: Constipation type: unspecified constipation type Qualified Code(s): K59.00 - Constipation, unspecified Plan: He is encouraged again on increased oral fluids and dietary fiber Continue Senna 8.6 mg 1 to 2 tablets Q HS PRN (11) Insomnia: Code(s): G47.00 - Insomnia, unspecified Category: Medical Qualifiers: Insomnia type: unspecified Qualified Code(s): G47.00 - Insomnia, unspecified Plan: Sleep hygiene reinforced Continue Zolpidem 10 mg 1/2 to 1 tablet Q HS PRN (12) Anxiety: Code(s): F41.9 - Anxiety disorder, unspecified Category: Medical Plan: He was on Lorazepam in the past but this was discontinued by psychiatry He is also on Citalopram 20 mg QD, which also helps with his anxiety (13) Depression: Code(s): F32.9 - Major depressive disorder, single episode, unspecified Category: Medical Qualifiers: Depression Type: unspecified Qualified Code(s): F32.9 - Major depressive disorder, single episode, unspecified Plan: Continue Citalopram 20 mg QD and Divalproex ER 500 mg BID Follow up with psychiatry as scheduled Plan Follow up in 4 months Orders: Orders Complete Blood Count Auto Diff 4 Months D64.9 - Anemia, unspecified Lipid Panel 4 Months E78.00 - Pure hypercholesterolemia, unspecified TSH reflex Free T4 4 Months E78.00 - Pure hypercholesterolemia, unspecified Comprehensive [place]. Panel Fast 4 Months E78.00 - Pure hypercholesterolemia, unspecified UA CC w/rflx Micro + Cult 4 Months R30.0 - Dysuria Levetiracetam Keppra 4 Months G40.909 - Epilepsy, unspecified, not intractable, without status epilepticus Valproate 4 Months G40.909 - Epilepsy, unspecified, not intractable, without status epilepticus Vitamin D 25-OH Total 4 Months E55.9 - Vitamin D deficiency, unspecified Medications: New triamcinolone acetonide 0.025% 1 appl topical TID PRN 60 mL 0RF rash ketotifen fumarate 0.025%(0.035%) (Allergy Eye (ketotifen)) 1 drp ophthalmic (eye) Q12H PRN 5 mL 0RF allergy symptoms diphenhydramine HCl 25 mg PO TID PRN 90 caps 0RF itching/rash
== END 2024-07-05 11:42 | disposition home or self-care (01) ==
LOC: HO.HMCH 10:55
PROVIDERS: PCP Internal Medicine; Visit Provider Internal Medicine
DX: G40.909 Epilepsy, unspecified, not intractable, without status epilepticus (principal); Z87.820 Personal history of traumatic brain injury; E78.2 Mixed hyperlipidemia; R73.01 Impaired fasting glucose; E55.9 Vitamin D deficiency, unspecified; R13.10 Dysphagia, unspecified; H10.13 Acute atopic conjunctivitis, bilateral; L29.89 Other pruritus; M17.12 Unilateral primary osteoarthritis, left knee; K59.00 Constipation, unspecified; G47.00 Insomnia, unspecified; F41.9 Anxiety disorder, unspecified; F32.9 Major depressive disorder, single episode, unspecified

== ENCOUNTER → 2024-07-05 10:54 | Outpatient (BNVA) | payer OTHER, SELFPAY | PROVIDERS: PCP Internal Medicine; Visit Provider Internal Medicine | DX: G40.909 Epilepsy, unspecified, not intractable, without status epilepticus (principal); E78.2 Mixed hyperlipidemia; R73.01 Impaired fasting glucose; E55.9 Vitamin D deficiency, unspecified; R13.10 Dysphagia, unspecified; H10.13 Acute atopic conjunctivitis, bilateral; L29.89 Other pruritus; M17.12 Unilateral primary osteoarthritis, left knee; K59.00 Constipation, unspecified; G47.00 Insomnia, unspecified; F41.9 Anxiety disorder, unspecified; F32.9 Major depressive disorder, single episode, unspecified; Z87.820 Personal history of traumatic brain injury | CPT/HCPCS: 96127; 99212 ==

== ENCOUNTER → 2024-07-10 13:31 | Outpatient (BNV) | payer OTHER, SELFPAY | PROVIDERS: Visit Provider Radiology Diagnostic Radiology | DX: R13.10 Dysphagia, unspecified (principal) | CPT/HCPCS: 74230 ==

== ENCOUNTER 2024-07-10 14:28 | Outpatient (REF) | payer OTHER, SELFPAY ==
--- NOTE | ~2024-07-10 | FL_ITS ---
EXAMINATION: Modified Barium Swallow CLINICAL INFORMATION: Dysphagia COMPARISON: 05/15/2024. TECHNIQUE: Modified barium swallow was performed under lateral fluoroscopy with patient in standing position. Different consistency of barium was administered by the speech therapist. FINDINGS: There was repeated transient/flash laryngeal penetration on thickened liquids. There was no gross subglottic aspiration. There was early pooling in the vallecula and piriform sinuses. There was transient penetration to level of the true cords on thin liquids. FLUOROSCOPY TIME: 3 minutes 42 seconds. Number of Spot Images: N/A DOSE AREA PRODUCT: 1650 uGy-m2 (microgray-meter squared) FL/FL Modified Barium Swallow IMPRESSION: 1. Persistent transient laryngeal penetration on multiple consistencies. 2. There is no gross subglottic aspiration identified. Refer to the full speech therapy report for further detail. Electronically signed by: Krishna Roberts MD 07/11/2024 04:19 PM EDT
--- OUTSIDE RECORDS SUMMARY | 2024-07-10 17:19 | XMS_ITS | Clinical Summary ---
Author Organization [facility] ity Address [address] [place] [address] Care Team Providers Care Fish Flipper Name Role Phone Unavailable Primary Care Provider [...]
--- OUTSIDE RECORDS SUMMARY | 2024-07-10 17:19 | XMS_ITS | Data Portability ---
Author Organization [place] [employer] [employer], [place] in [facility] Address [address] [place] [id number] Care Team Providers Care Coating Machine Helper Name Role Phone HIM CCA OTHER Assessment No assessment recorded. Plan of Treatment Reminders Order Date Submit Date Provider Last Modified By Organization Details Last Modified Time Details Appointments None recorded. Lab rapid SARS CoV 2 Ag, QL IA, respiratory specimen 2024 025 [facility], [address] [place] [address], [id number], 21:10:31 rapid flu (A+B) 2024 025 [facility], [address] [place] [address], [phone], 21:10:31 Referral None recorded. Procedures None recorded. Surgeries None recorded. Imaging None recorded. Medication Orders None recorded. Patient TargetsNo targets recorded. Patient InstructionsNo instructions recorded. Reason for Referral None Reported. Results Created Date Observation Date Name Description Value Unit Range Abnormal Flag Note LastModifiedBy Organization Detail LastModifiedTime 05/12/1905/12/2024 rapid flu (A+B) Flu negati ve Not Available [facility] ed [address] [place] [address], [phone], 05/12/2024 21:09:41 05/12/19 25 05/12/2024 rapid SARS CoV 2 Ag, QL IA, respi rator y speci men rapid SARS CoV 2 Ag, QL IA, respiratory specimen negati ve Not Available [facility] ed [address] [place] [address], [phone], 05/12/2024 21:09:32 Result Notes None recorded. Medical [...] [degF] 180.34 cm 138 /min 20 /min 21256.4 g 106 mm[Hg] 60 mm[Hg] Not Available [facility] - production 5 20:53:17 Social History None recorded. Functional Status None recorded. Mental Status None recorded. Family History Nothing Reported. Medical History No medical history recorded. Past Encounters Encounter ID Performer Location Encounter Start Date Encounter Closed Date Diagnosis/Indication Diagnosis SNOMED-CT Code Diagnosis ICD10 Code Diagnosis Note [id number] DAKOTA JIMENEZ MD Main - [address] [phone] 05/12/2024 20:46:56 05/15/2024 16:36:55 Hypoxia [id number] R09.02 Evaluation in the field was performed by my grinder hand colleague, as noted above, I provided real-time direction and supervisio n for this visit. The evaluation revealed 58-year-ol d male with a history of TBI, baseline neurologic al deficits, essential tremor, and seizures. Barbadian-sp eaking only. History obtained from family, who [...] Vásquez Member ID Guarantor Name 05/12/2024 1 [facility] - DOS ON OR AFTER 2022 - DUAL ELIGIBLE - [facility] OPTIONS AND ONE CARE (MEDICARE REPLACEMENT/ADV ANTAGE - HMO) Louis Wagoner [id number] Louis Wagoner Notes Date Note Type Note [...] Allergies Reviewed at 05/12/2024 - :52 Comments: Harbor Boat Pilot verified the Pt.'s name//address and phone number. [...] Declined ER treatment - Wellness check requested. Crap Game Box Person Organization Information for Hardy [employer] Business Legal Name: [employer].? Address: [address] [place] [id number], Permit Coordinator: Sudhir Rodriguez MD CLIA No.: [id number] Crap Game Box Person POC Test Results from [facility]ONG Blood Glucose Measurement (21:00:40) Blood Glucose: 200 mg/dL Rapid COVID antigen (21:00:50) COVID: - Rapid influenza antigen (21:00:51) Flu: - .................. .................. .................. .................. .................. .................. .................. ............... Crap Game Box Person Note From Hardy Mota: [facility] makes pt contact. He is found laying supine in his hospital bed. He is conscious and alert and appears to be uncomfortable. He is not in respiratory distress, no s/s of acute stroke are observed, and he is not bleeding anywhere. Pt has TBI deficits at baseline w/ essential tremor, hx of seizures, and is Barbadian-speaking only. Family is on scene to provide hx and translate. Pt has had n/v/d for two days. Today he spiked a fever and mom (CG) administered 1G Tylenol around 0941-7764. Pt has known hx of COVID 3x and kidney stones, but family reports it has been a few years since his last stone. He did eat some soup earlier this afternoon and seemed to tolerate it well. Pt c/o abd pain and cp from coughing. No sputum production is reported. Family and pt consent to evaluation and treatment today. [facility] obtains pt consent and uploads. Vital signs are gathered and pt is swabbed for COVID/flu and assessed. His skin is hot and dry and he appears to be agitated. Lung sounds are clear and abdomen is diffusely tender to palpation. Pt is found to be tachycardic and hypoxic w/ high fever. [facility] contacts [facility] and [facility] recommends pt be transported to the ED to r/o pneumosepsis. Family is amendable and pt is transported to [facility] by [facility]. [facility] is clear. Report completed by CHACHA Mota [id number]. [facility] Lab Orders: rapid SARS CoV 2 Ag, QL IA, respiratory specimen: Performed rapid flu (A+B): Performed .................. .................. .................. .................. .................. .................. .................. ............... [facility] Consulted: Dakota Jimenez .................. .................. .................. .................. .................. .................. .................. ............... Disposition: Ran JIMENEZ MD [address] [facility],[address], [place], [phone], KRISTEL WELLER 05/13/2024 00:02:45
--- NOTE | 2024-07-12 09:55 | MHC.SL.IMP ---
Date of Plan of Treatment: 07/10/24 Onset of Symptoms/Illness: 04/27/14 Date Treatment Started: 07/10/24 Admitting Diagnosis: Hx TBI Primary Speech & Language Diagnosis: R13.12 Oropharyngeal Phase Dysphagia Reason for Today's Visit: 04759 Modified Barium Swallow Study Pre-evaluation Dietary Consistencies: Grnd/Mech Altered (NDD2) Pre-evaluation Liquid Consistency: Honey Thick Pre-evaluation Medication Administration: Crushed with Puree Medical History: Modified Barium Swallow Study Fluoroscopic Evaluation of Swallowing Function CPT Code 54477 Evaluation Year: 2024 Reason for Study: Difficulty swallowing Referring Physician: Juan Garcia MD Evaluating Clinician: Laurita Fitzpatrick MA, [facility]-MARKETING DATA SPECIALIST Study Number: 1 Patient Name: Louis Wagoner Status: Outpatient, Wheelchair Age: 58 Gender: Male Medical History Medical History COVID-19 Impaired fasting glucose Mixed hyperlipidemia Postsurgical retinal scar of left eye Depression Anxiety Insomnia Vitamin D deficiency History of traumatic brain injury Primary osteoarthritis of left knee Left knee pain Epilepsy Pure hypercholesterolemia PAF (paroxysmal atrial fibrillation) Coronavirus infection TBI (traumatic brain injury) Surgical History History of cholecystectomy Current (pre-evaluation) Intake/Diet: Route: PO Diet Grade: Mechanical Soft Liquid Consistencies: Honey Pre-Study Functional Oral Intake Scale (FOIS): 5- Total oral intake of multiple consistencies requiring special preparation Pain: None reported at time of study SUBJECTIVE: Patient is a 58 year old male with past medical history significant for traumatic brain injury, mixed hyperlipidemia, paroxysmal atrial fibrillation, and epilepsy. Patient has documented history of dysphagia and has had multiple prior exams, with most recent modified barium swallow study (MBSS) done during his hospitalization at [facility] in May. Patient was hospitalized for sepsis secondary to bilateral pneumonia and was followed by the speech pathology team during his hospitalization. His MBSS on 05/15/24 showed penetration with solids and liquids, and silent aspiration on thin liquid. Mild pooling also noted with liquids and significant retention on trials of more advanced solids. Patient was subsequently recommended a pureed diet (NDD1) and honey thick liquid at discharge. Patient was seen by visiting MARKETING DATA SPECIALIST through [facility] after discharge and continued working on pharyngeal strengthening. Goals also targeted patient and family education and well as training of compensatory strategies. Patient is here today accompanied by his audit clerks supervisor/CULINARY ARTIST, Mandeep, for a repeat-MBSS post-treatment. Food and Liquid Trials: Oral Impairment: Lip Closure: 2=Escape @ interlabial space/lat juncture; not beyond vermilion border Oral Impairment: Tongue Control During Bolus Hold: 3=Posterior escape of greater than half of bolus Oral Impairment: Bolus Preparation/Mastication: 2=Disorganized chewing/mashing with solid pieces of bolus Oral Impairment: Bolus Transport/Lingual Motion: 3=Repetitive/disorganized tongue motion Oral Impairment: Oral Residue: 2=Residue collection on oral structures Oral Impairment:Initiation of Pharyngeal Swallow: 3=Bolus head in pyriforms Pharyngeal Impairment: Soft Palate Elevation: 0=No bolus between soft palate (SP)/pharyngeal wall (PW) Pharyngeal Impairment: Laryngeal Elevation: 1=Partial thyroid cartilage/arytenoids to epiglottic petiole movement Pharyngeal Impairment: Anterior Hyoid Excursion: 1=Partial anterior movement Pharyngeal Impairment: Epiglottic Movement: 1=Partial inversion Pharyngeal Impairment: Laryngeal Vestibular Closure:: 1=Incomplete: narrow column air/contrast in laryngeal vestibule Pharyngeal Impairment: Pharyngeal Stripping Wave: 1=Present: diminished Pharyngeal Impairment: Pharyngeal Contraction: Did not test Pharyngeal Impairment: Pharyngoesophageal Segment Openin=Partial distention/partial duration: partial obstruction of flow Pharyngeal Impairment: Tongue Base (TB) Retraction: 2=Narrow column of contrast/air between TB and posterior PW Pharyngeal Impairment: Pharyngeal Residue: 2=Collection of residue within or on pharyngeal structures Pharyngeal Impairment: Esophageal Clearance Upright Position: Did not test Impressions and Recommendations OBJECTIVE: Time-out: performed at 15:00 Evaluation Start: 14:30; Stop: 14:40 Patient Positioning: Seated 70-90 degrees Viewing Planes: LATERAL ONLY Contrast: MBSImP? Standardized Protocol using commercially prepared, standardized Barium viscosities, including: Varibar? THIN LIQUID (40% w/v, <15 cps) , Varibar? NECTAR (40% w/v, <150-450 cps) , Varibar? THIN HONEY (40% w/v, <800-1800 cps) , Varibar? PUDDING (40% w/v, <5832-3414 cps) MBSImP ID: [id number] [facility] Results: Lip closure for intraoral bolus containment resulted in bolus escape from the interlabial space or lateral juncture, but no extension beyond the vermilion border. Tongue control during bolus hold allowed posterior escape of greater than half of the bolus. Bolus preparation and mastication demonstrated disorganized chewing/mashing with solid pieces of the bolus unchewed. Bolus transport/lingual motion was with repetitive/disorganized motion of the tongue. Oral residue was a collection on oral structures. Initiation of the pharyngeal swallow occurred when the bolus head was in the pyriform sinuses. Soft palate elevation resulted in no bolus between the soft palate and the pharyngeal wall. Laryngeal elevation was decreased, with partial superior movement of the thyroid cartilage/partial approximation of the arytenoids to the epiglottic petiole. Anterior hyoid excursion demonstrated partial anterior movement. Epiglottic movement resulted in partial inversion. Laryngeal vestibular closure was incomplete, with a narrow column of air/contrast noted within the laryngeal vestibule at the height of the swallow. Pharyngeal stripping wave was present, but diminished. Pharyngeal contraction could not be determined due to logistical reasons not related to physiologic impairment. Pharyngoesophageal segment opening demonstrated partial distension/partial duration, with partial obstruction of bolus flow. Tongue base retraction allowed a narrow column of contrast or air between the retracted tongue base and the posterior pharyngeal wall. Pharyngeal residue was a collection of residue within or on pharyngeal structures. Esophageal clearance in the upright position could not be assessed due to logistical reasons not related to physiologic impairment. Oral Impairment Score: 15 Pharyngeal Impairment Score: 10 (absence of score, component 13) Esophageal Impairment Score: --- (absence of score, component 17) Laryngeal Penetration and Aspiration: Neither penetration nor aspiration was observed in today's study with Pudding-thick, Ground. Both Penetration and Aspiration were observed in today's study. Honey-thick Contrast entered the airway, remained above the vocal folds, and was ejected from the airway. [place]-thick Contrast entered the airway, contacted the vocal folds, and was ejected from the airway. Thin Contrast entered the airway, passed below the vocal folds, and no effort was made to eject. ASSESSMENT: This exam was conducted by the radiologist and the speech pathologist. Patient was seated upright at 90 degrees for lateral view only. He required 1:1 assistance feeding and consumed the following consistencies: honey thick (via teaspoon, straw), nectar thick (via straw), thin (via teaspoon, straw), puree, and ground. A trace amount of liquid escaped from the interlabial space, but did not progress beyond the ishaan border. Poor lingual control with premature posterior escape of greater than 50% of the bolus prior to pharyngeal swallow initiation. Mastication was slowed and disorganized. Repetitive tongue pumping noted. Pharyngeal swallow trigger was delayed, initiated as the bolus head reached the pyriform sinuses. Post-swallow, there was minimal residue coating the tongue and palate, which cleared with secondary swallows. No evidence of nasopharyngeal reflux. Partial laryngeal elevation with partial anterior hyoid excursion and partial epiglottic inversion. Incomplete laryngeal vestibular closure. There was trace penetration above the vocal folds when patient sipped honey thick liquid by spoon and by straw, which spontaneously cleared from the airway. Increased penetration on trials of nectar thick liquid by straw, to the vocal folds, which cleared with subsequent swallows. There was silent aspiration on thin liquid. A trace amount of contrast entered the airway resulting in subglottic aspiration. No aspiration or penetration with trials of puree and ground consistencies. Mild pharyngeal residue on the tongue base, in the valleculae, in the pyriforms, and on the posterior pharyngeal wall with trials of liquids and puree, moderately increased with trials of ground consistency. Patient was cued for multiple swallows which reduced pharyngeal residue. Liquid Intake Recommendation: Honey Thick Liquid Intake Strategies: Small Sips Dietary Recommendations: Grnd/Mech Altered (NDD2) Medication Administration: Crushed with Puree Please contact the pharmacy regarding appropriate crushable or liquid drug formulations that are available whenever modified delivery is recommended. Compensatory Strategies Recommended: Sitting Upright (90 deg), Double Swallow, Small Bites and Sips, Rate of Ingestion Change, Avoid Specific Foods Supervision during eating and or drinking: Total Assistance (1:1) Recommended Treatments: Pharyngeal Resistive Exer, Compens. Strategy Educat. Recommendation for Speech Therapy: Speech Therapy through [facility] Text Comment: Intake Recommendations: Route: PO Diet Grade: Mechanical Soft Liquid Consistencies: Honey Post-Study Functional Oral Intake Scale (FOIS): 5- Total oral intake of multiple consistencies requiring special preparation Patient displays moderate to severe oropharyngeal dysphagia. Delayed oral phase characterized by disorganized chewing, repetitive tongue pumping, and premature posterior spilling to the valleculae and pyriforms. Compromised airway protection with incomplete laryngeal vestibular closure and partial epiglottic inversion. There was transient penetration with all liquids, which spontaneously cleared. Episode of subglottic aspiration on a trace amount of thin liquid with no reflexive cough elicited. Moderate pharyngeal retention with more advanced solids, which mostly cleared with multiple dry swallows. Patient does have history of silent aspiration on prior exams (with thin and nectar thick consistencies). Recommend patient continue on current diet of GROUND/MECHANICALLY ALTERED (NDD2) solids with HONEY THICK LIQUIDS. The following strategies are recommended to minimize the risk of aspiration and to promote oral and pharyngeal clearance: -Avoid mixed textures (i.e. thin broth soup with solid ingredients) and foods which are hard, dry, or sticky -Moisten and soften food with sauces/gravies which are at least honey thick in consistency and blended in well with the food -Take small bites of food, chew food well -Follow each bite and sip with 1-2 dry swallows to promote oral and pharyngeal clearance -Clear oral cavity before taking more bites -Maintain upright 90 degree position while eating and drinking and for at least 30 minutes afterwards -Take small, individual sips of liquid -Avoid taking quick, sequential sips Recommend continue dysphagia treatment with visiting MARKETING DATA SPECIALIST for 2-4 visits for continued education regarding MBSS findings and recommended diet and strategies. MARKETING DATA SPECIALIST discussed findings with patient and caregiver, Mandeep, after the exam. Mandeep says they recently ran out of thickening powder, but had purchased more. Mandeep reports he prepares food as recommended per MARKETING DATA SPECIALIST, with all foods softened and ground up and liquids thickened. They deny having any questions at this time. Therapy Recommendations: Therapy will be continued (2-4 additional f/u w/ MARKETING DATA SPECIALIST through [facility]) The following compensatory strategies and/or therapeutic exercises will be part of the upcoming therapy/management plan: Additional Swallow(s) per Bolus Care Home Goals: ? The patient will tolerate the least restrictive diet with a safe/efficient swallow to maintain adequate nutrition and hydration. ? The patient and/or family will participate in further education for swallowing goals. Short Term Goals: ? Diet - The patient will tolerate a mechanical soft diet with honey thick liquids without signs or symptoms of penetration/aspiration 100% of the time. - The patient will participate in therapeutic PO trials with the MARKETING DATA SPECIALIST. ? Guidelines - The patient will comply with/recall the following guidelines/strategies 100% of the time with minimal cuing: Honey-thick Liquid, Bolus Volume Change, Rate of Ingestion Change, Additional Swallow(s) per Bolus, Throat Clear. ? Independent Home Exercise - The patient will perform 10 repetitions of the Effortful Swallow, Heather Maneuver, Esthela Maneuver 3 times a day with 100% accuracy and moderate cuing as part of a home exercise program. ? Education - The patient, family, caregiver will verbalize/demonstrate understanding of the results of this evaluation, the above recommendations, and the swallowing guidelines. Frequency/Duration: 2-4 f/u Date Range for Service Requested: Timeline to reassess: PRN Clinician - Supplemental, Miscellaneous Communication: It is important to note MBSS objective studies are snapshots in time and Patient function might vary with factors such as time of day or concomitant medical conditions. For this reason, the final treatment plan for this patient should rest with their medical care team. Additional recommendations should be considered with the totality of the Patient in mind. Thank for the opportunity to participate in the care of this patient. If you have any questions about the content of this report, please contact the [facility] at [facility]. Education: Education regarding findings from today's study and plans for therapy were provided to Patient and family/caregiver through Verbal Instruction. Understanding was expressed by the Patient and family/caregiver Officer Captain Clinician/Clinical Fellow: No Supervisory Statement: N/A Speech Language Pathologist: Laurita Fitzpatrick M.A., CCC-MARKETING DATA SPECIALIST
== END 2024-07-10 14:29 | disposition home or self-care (01) ==
LOC: HO.XRAY 14:28
PROVIDERS: Visit Provider Internal Medicine
DX: R13.10 Dysphagia, unspecified (principal)
CPT/HCPCS: 74230; 92611

== ENCOUNTER 2024-07-24 08:53 | Outpatient (REF) | payer OTHER, SELFPAY ==
--- NOTE | ~2024-07-24 | CT_ITS ---
EXAMINATION: CT HEAD WITHOUT CONTRAST CLINICAL INFORMATION: Unspecified fall. COMPARISON: None available. TECHNIQUE: Contiguous axial imaging was performed from the skull base to vertex without intravenous administration of contrast. This CT examination was performed using dose optimization techniques as appropriate, variously including the following: *Automated exposure control *Adjustment of mA and/or kV according to patient size (this includes techniques or standardized protocols for targeted exams where dose is matched to indication/reason for exam; i.e. extremities or head) *Use of iterative reconstruction technique DLP: 959 mGy/cm. FINDINGS: There is no acute intra-axial, extra-axial bleed, masses or midline shift. There is no acute infarction evolution. There is no edema. The silva to white matter differentiation is maintained normal. The lateral ventricles are symmetrical but moderately enlarged. There is prominent fatty bilateral sulci as well. Bone windows reveal no calvarial abnormality. There is no scalp soft tissue abnormality. Bilateral paranasal sinuses and mastoid air cells are well-aerated. CT/CT head/brain wo IV con IMPRESSION: No acute intracranial process seen. Mild cerebral and cerebellar atrophy. Electronically signed by: Andrea Dorantes MD 07/24/2024 10:52 AM EDT
--- OUTSIDE RECORDS SUMMARY | 2024-07-24 09:20 | XMS_ITS | Clinical Summary ---
Author Organization [facility] ity Address [address] [place] [address] Care Team Providers Care Recruitment Manager Name Role Phone Unavailable Primary Care Provider [...] - 2023-2 5 season) 2023 Influenza Vaccine (Season Ended) 2024 HIB Vaccines Aged Out No longer eligi [...] age to complete this topic Meningococcal B Vaccine Aged Out No l onger eligible based on patient's age to complete [...]
--- OUTSIDE RECORDS SUMMARY | 2024-07-24 09:20 | XMS_ITS | Data Portability ---
Author Organization [employer] [place], [place] in - [facility] Address [address] [place] [phone] Care Team Providers Care Lastex Operator Name Role Phone HIM CCA OTHER Assessment No assessment recorded. Plan of Treatment Reminders Order Date Submit Date Provider Last Modified By Organization Details Last Modified Time Details Appointments None recorded. Lab rapid SARS CoV 2 Ag, QL IA, respiratory specimen [address] [place] [address], [phone] 21:10:31 rapid flu (A+B) [address] [place] [address], [phone] 21:10:31 Referral None recorded. Procedures None recorded. Surgeries None recorded. Imaging None recorded. Medication Orders None recorded. Patient TargetsNo targets recorded. Patient InstructionsNo instructions recorded. Reason for Referral None Reported. Results Created Date Observation Date Name Description Value Unit Range Abnormal Flag Note LastModifiedBy Organization Detail LastModifiedTime 05/12/1905/12/2024 rapid flu (A+B) Flu negati ve Not Available [facility] ed [address] [place] [address], [phone] 05/12/2024 21:09:41 05/12/19 25 05/12/2024 rapid SARS CoV 2 Ag, QL IA, respi rator y speci men rapid SARS CoV 2 Ag, QL IA, respiratory specimen negati ve Not Available [facility] ed [address] [place] [address], [phone] 05/12/2024 21:09:32 Result Notes None recorded. Medical [...] [degF] 180.34 cm 138 /min 20 /min 42175.4 g 106 mm[Hg] 60 mm[Hg] Not Available [facility] - production 5 20:53:17 Social History None recorded. Functional Status None recorded. Mental Status None recorded. Family History Nothing Reported. Medical History No medical history recorded. Past Encounters Encounter ID Performer Location Encounter Start Date Encounter Closed Date Diagnosis/Indication Diagnosis SNOMED-CT Code Diagnosis ICD10 Code Diagnosis Note [id number] DAKOTA JIMENEZ MD Main - [facility] [address] [place] [phone] 05/12/2024 20:46:56 05/15/2024 16:36:55 Hypoxia [id number] R09.02 Evaluation in the field was performed by my engineer/conductor colleague, as noted above, I provided real-time direction and supervisio n for this visit. The evaluation revealed 58-year-ol d male with a history of TBI, baseline neurologic al deficits, essential tremor, and seizures. Nicaraguan-sp eaking only. History obtained from family, who [...] Vásquez Member ID Guarantor Name 05/12/[address] [facility] - DOS ON OR AFTER 2022 - DUAL ELIGIBLE - USP OPTIONS AND ONE CARE (MEDICARE REPLACEMENT/ADV ANTAGE - HMO) Louis Wagoner [id number] Louis Wagoner Notes Date Note Type Note [...] Vomiting PMH: Epilepsy/Seizure Disorder PMH Reviewed at 05/12/202452 Allergies Reviewed at 05/12/2024:52 Comments: Dental Hygiene Instructor verified the Pt.'s name//address and phone number. [...] Declined ER treatment - Wellness check requested. Chair Pad Maker Organization Information for Hardy [employer] Legal Name: Remember The Member? Address: [address] [place] [id number], Casting Chipper: Sudhir Rodriguez MD CLIA No.: [id number] Chair Pad Maker POC Test Results from [email or web address] Blood Glucose Measurement (21:00:40) Blood Glucose: 200 mg/dL Rapid COVID antigen (21:00:50) COVID: - Rapid influenza antigen (21:00:51) Flu: - .................. .................. .................. .................. .................. .................. .................. ............... Chair Pad Maker Note From Hardy Mota: [facility] makes pt contact. He is found laying supine in his hospital bed. He is conscious and alert and appears to be uncomfortable. He is not in respiratory distress, no s/s of acute stroke are observed, and he is not bleeding anywhere. Pt has TBI deficits at baseline w/ essential tremor, hx of seizures, and is Nicaraguan-speaking only. Family is on scene to provide hx and translate. Pt has had n/v/d for two days. Today he spiked a fever and mom (CG) administered 1G Tylenol around 7865-4521. Pt has known hx of COVID 3x and kidney stones, but family reports it has been a few years since his last stone. He did eat some soup earlier this afternoon and seemed to tolerate it well. Pt c/o abd pain and cp from coughing. No sputum production is reported. Family and pt consent to evaluation and treatment today. [facility] obtains pt consent and uploads. Vital signs are gathered and pt is swabbed for COVID/flu and assessed. His skin is hot and dry and he appears to be agitated. Lung sounds are clear and abdomen is diffusely tender to palpation. Pt is found to be tachycardic and hypoxic w/ high fever. [facility] contacts [facility] and [facility] recommends pt be transported to the ED to r/o pneumosepsis. Family is amendable and pt is transported to [facility] by [facility]. [facility] is clear. Report completed by CHACHA Mota [id number]. [facility] Lab Orders: rapid SARS CoV 2 Ag, QL IA, respiratory specimen: Performed rapid flu (A+B): Performed .................. .................. .................. .................. .................. .................. .................. ............... [facility] Consulted: Dakota Jimenez .................. .................. .................. .................. .................. .................. .................. ............... Disposition: Fulfilled DAKOTA JIMENEZ MD [address] [facility],[address], [place], [phone], [place] - KRISTEL LOPEZ 05/13/2024 00:02:45
== END 2024-07-24 08:54 | disposition home or self-care (01) ==
LOC: HO.CT 08:53
PROVIDERS: PCP Internal Medicine; Visit Provider Physician Assistant Medical
DX: S09.90XA Unspecified injury of head, initial encounter (principal); W19.XXXA Unspecified fall, initial encounter
CPT/HCPCS: 70450

== ENCOUNTER → 2024-07-24 08:55 | Outpatient (BNV) | payer OTHER, SELFPAY | PROVIDERS: PCP Internal Medicine; Visit Provider Radiology Diagnostic Radiology | DX: S09.90XA Unspecified injury of head, initial encounter (principal); W19.XXXA Unspecified fall, initial encounter | CPT/HCPCS: 70450 ==

== ENCOUNTER 2024-11-02 09:54 | Outpatient (REF) | payer OTHER, SELFPAY ==
--- OUTSIDE RECORDS SUMMARY | 2024-11-02 10:09 | XMS_ITS | Data Portability ---
Author Organization [place] - [facility], Allergy Address [address] [place] [address] [place] [phone] Assessment Encounter Date Assessment Date Assessment LastModified by Organization Details LastModified Time 09/20/2024 09/20/2024 1. Otalgia 2. Temporomandibular joint tenderness Differential diagnosis: temporomandibular joint dysfunction, migraine/headache syndrome. PLAN: - TMJ lifestyle modifications- nightguard, motrin, warm compresses, jaw exercises, physical therapy - follow-up as needed-- if symptoms persist and continue to suspect TMJ, can consider Botox injections 3. Subjective hearing change 4. Sensorineural hearing loss mild high frequency hearing loss No hearing aids recommended at this time Follow-up for repeat test in 1-2y [email or web address] Not available 09/20/2024 12:57:08 Plan of Treatment Reminders Order Date Submit Date Provider Last Modified By Organization Details Last Modified Time Details Appointments None record ed. Lab None record ed. Referral None record ed. Procedures None record ed. Surgeries None record ed. Imaging None record ed. Medication Orders None record ed. Patient TargetsNo targets recorded. Patient InstructionsNo instructions recorded. Reason for Referral None Reported. Results Created Date Observation Date Name Description Value Unit Range Abnormal Flag Note LastModifiedBy Organization Detail LastModifiedTime 09/21/19 25 audio gram No observ ation record ed. BARCODE Not Available 2024 13:15:40 Result Notes None recorded. Problems Name Problem SNOMED Code Status Onset Date Resolution Date Notes Provider Name and Address Organization Details Recorded Time Sensorineur al hearing loss of bilateral ears 868213108 Active 2024 JUAN RAY [place], [facility] [place] [address] [facility], [place], [phone], [place] - [facility] 10:24:02 Perception of hearing loss [id number] 4101 Active 2024 GURJIT HERNÁNDEZ MD [address] [address], [place], [phone], [facility] - [facility] 12:57:15 Otalgia of left ear 2305784777 Active 2024 GURJIT HERNÁNDEZ MD [address] [address], [place], [phone], [facility] - [facility] 12:57:20 Temporomand ibular joint disorder 41612763 Active 2024 GURJIT HERNÁNDEZ MD [address] [address], [place], [address], [facility] 12:57:24 Problem Notes None recorded. Procedures Surgical History Date Name Laterality Status Provider Name and Address Organization Details Recorded Time 09/21/19 25 otomicroscopy completed GURJIT HERNÁNDEZ MD [address] [facility],[address] [address], [place], [address], [facility] 09/20/2024 12:57:42 09/21/19 25 Tympanometry - 66166 completed JUAN RAY [place], [facility] [place] [address] [facility],[address] [address], [place], [address], [facility] 09/20/2024 10:25:57 09/21/19 25 Air & Bone Audio - 07937 completed JUAN RAY [place], [facility] [place] [address] [facility],[address] [address], [place], [phone], [facility] 09/20/2024 10:25:44 Imaging Results None recorded. Procedure Notes None recorded. Medical Equipment None Reported. Medications Name Sig Start Date Stop Date [...] Not Available Not Available No t Available ketotifen 0.025 % (0.035 %) eye drops INSTILL 1 DRP INTO THE EYE(S) EVERY 12 HOURS NEEDED FOR ALLERGY SYMPTOMS active Not Available Not Available No t Available triamcinolone acetonide 0.025 % lotion APPLY TOPICALLY 3 TIMES A DAY NEEDED FOR RASH active Not Available Not Available No t Available citalopram 20 mg tablet TAKE 1 TABLET BY MOUTH EVERY DAY active Not Available Not Available No t Available levetiracetam 250 mg tablet TAKE 1 TABLET BY MOUTH TWICE A DAY active Not Available Not Available No t Available diazepam 2 mg tablet TAKE 1 TABLET BY MOUTH THREE TIMES A DAY NEEDED active Not Available Not Available No t Available divalproex ER 500 mg tablet,extend ed release 24 hr TAKE 1 TABLET BY MOUTH EVERY MORNING TAKE 2 TABLETS EVERY EVENING active Not Available Not Available No t Available amoxicillin 400 mg-potassium clavulanate 57 mg chewable tablet TAKE 2 TAB ORALLY EVERY 12 HOURS FOR 3 DAYS active Not Available Not Available No t Available Banophen 25 mg capsule TAKE 1 CAPSULE BY MOUTH THREE TIMES A DAY NEEDED FOR ITCHING/RA SH active Not Available Not Available No t [...] Available Not Available No t Available Vitals None Recorded Social History None recorded. Functional Status None recorded. Mental Status None recorded. Family History Nothing Reported. Medical History Condition Response Bleeding Disorder Anxiety Y Depression Y Past Encounters Encounter ID Performer Location Encounter Start Date Encounter Closed Date Diagnosis/Indication Diagnosis SNOMED-CT Code Diagnosis ICD10 Code Diagnosis Note [id number] GURJIT HERNÁNDEZ MD [facility] [address] [address] 09/20/2024 09:34:45 09/20/2024 10:58:44 Sensorineural hearing loss of bilateral ears 980323028 H90.3 Audiologic al evaluation results:Ri ght & Left ears:Ekaterina l hearing thru 2000Hz sloping to a mild-moder ate SNHL Tympanomet ry:Right Ear:Type AdLeft Ear:Type Ad Perception of hearing loss [id number] 5035837 H91.90 Otalgia of left ear 1010 112870 H92.02 Temporoman dibular joint disorder 50877108 M26.609 Health Concerns Section Related Observation LastModified by Organization Detai ls LastModified Time None Recorded Concern Status LastModified by Organization Details LastModified Time None Recorded Advance Directives Directive None Recorded Payers Insurance Date Sequence Insurance Name Policy Number Policy Vásquez Covered Member ID Vásquez Member ID Guarantor Name 10/24/2024 1 [employer] - [facility] [place] ([place]IC[place]PLAC[place]/ADV ANTAGE - HMO) Louis Wagoner [id number] Louis Wagoner 10/24/2024 1 [facility] - DOS ON OR AFTER 2022 - DUAL ELIGIBLE - MEDICARE ADVANTAGE [place] (MEDICARE REPLACEMENT/ADV ANTAGE - HMO) Louis Wagoner [id number] Louis Wagoner Notes Date Note Type Note Provider Name and Address Organization Details Recorded Time 09/20/2024 text/html ROS as noted in the HPI 58yo who presents today with left ear pain.Ongoing x 2 monthsComes and goesHe has had not had it for some time He denies any change in hearing, otorrhea, dizziness, vertigo, otologic infections, otologic surgeries. Audiogram was reviewed and interpreted independently today, which shows high frequency mild hearing loss. GURJIT HERNÁNDEZ MD [address] [place] [address], [place], [address], [facility] - [facility] 09/20/2024 12:57:57
--- OUTSIDE RECORDS SUMMARY | 2024-11-02 10:09 | XMS_ITS | Clinical Summary ---
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
[2024-11-02 10:41] LABS: Hematocrit 40.0 % (42.0-52.0); Hemoglobin 13.5 g/dl (14.0-18.0); Imm Gran Abs Auto 0.03 X10*3/uL (0.00-0.03); Imm Gran Pct Auto 0.4 % (0.0-0.4); Lymphocytes Absolute Auto 4.3 X10*3/uL (1.2-4.9); MANUAL DIFF FLAG SCAN; Mean Corpuscular HGB Conc 33.8 g/dl (31.0-36.0); Mean Corpuscular Hemoglobin 31.0 pg (27.0-33.0); Mean Corpuscular Volume 91.7 fL (80.0-98.0); NRBC Abs Auto 0.000 X10*3/uL (0.0-0.012); NRBC Pct Auto 0.0 /100WBC (0.0-0.2); Platelet Count 153 X10*3/uL (160-400); Red Blood Count 4.36 X10*6/uL (4.60-5.80); SCAN SMEAR FLAG 1; White Blood Count 7.1 X10*3/uL (4.8-10.8)
[2024-11-02 11:04] LABS: Appearance Urine Clear; Glucose Urine UA Negative (Negative); PH 5.5 (5.0-9.0); Specific Gravity - Urine 1.015 (1.005-1.025)
[2024-11-02 11:16] LABS: Alanine Aminotransferase 16 U/L (0-40); Albumin Level 3.9 g/dL (3.5-5.0); Alkaline Phosphatase 67 U/L (39-117); Anion Gap 10 (12-20); Aspartate Amino Transferase 22 U/L (5-37); Blood Urea Nitrogen 14 mg/dL (9-16); Calcium 9.1 mg/dL (8.4-10.2); Carbon Dioxide 30 mmol/L (22-29); Chloride 108 mmol/L (96-108); Cholesterol 154 mg/dL (<200); Estimated Glomerular Filt Rate > 60; HDL Cholesterol 43 mg/dL (>40); Potassium 4.4 mmol/L (3.3-5.1); Sodium 144 mmol/L (135-145); Total Protein 6.4 g/dL (6.5-8.0); Triglycerides 203 mg/dL (<150)
[2024-11-02 11:53] LABS: Microalbum/Creatinine Ratio Ur 10.4 ug/mg cr (<30)
[2024-11-05 20:33] LABS: Levetiracetam Keppra 22.5 mcg/mL (6.0-46.0)
== END 2024-11-02 09:55 | disposition home or self-care (01) ==
LOC: HO.LAB 09:54
PROVIDERS: PCP Internal Medicine; Visit Provider Internal Medicine
DX: E11.9 Type 2 diabetes mellitus without complications (principal); R30.0 Dysuria; E78.00 Pure hypercholesterolemia, unspecified; G40.909 Epilepsy, unspecified, not intractable, without status epilepticus; D64.9 Anemia, unspecified; E55.9 Vitamin D deficiency, unspecified
CPT/HCPCS: 36415; 80053; 80061; 80164; 80177; 81003; 82043; 82306; 82570; 84443; 85025

== ENCOUNTER 2024-11-07 12:34 | Outpatient (AMB) | payer OTHER, SELFPAY ==
[2024-11-07 12:36] VITALS: BP 124/78; PULSE 92; O2SAT 96
--- NOTE | 2024-11-07 12:36 | A.OFFPC_ITS ---
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 citalopram 20 mg PO DAILY diazepam 2 mg PO TID diphenhydramine HCl 25 mg PO TID PRN [Disposable bed pads As directed] divalproex ER 500 mg PO DAILY divalproex ER 1,000 mg PO BEDTIME [Electric Hospital Bed As directed] ergocalciferol (vitamin D2) 1,250 mcg PO QWEEK ketotifen fumarate 0.025%(0.035%) (Allergy Eye (ketotifen)) 1 drp ophthalmic (eye) Q12H PRN levetiracetam 1,000 mg PO BID levetiracetam (Keppra) 250 mg PO BID loratadine 10 mg PO DAILY PRN [MANUAL WHEELCHAIR (large) As directed] polyethylene glycol 400 1% (Dry Eye Relief (PEG 400)) 1 drp ophthalmic (eye) TID-QID PRN pyridoxine (vitamin B6) 100 mg PO DAILY sennosides (Senna Lax) 8.6 mg PO BEDTIME PRN 90 days trazodone 50 mg PO BEDTIME PRN triamcinolone acetonide 0.025% 1 appl topical TID PRN [WHEELCHAIR As directed] [WHEELCHAIR As directed] [Wheelchair with leg rests As directed] Tobacco use date assessed: 11/07/24 Dental Screening Dental Screen Date: 11/07/24 Did you have a dental visit in the last 12 months?: No Did you have a dental problem in the last 6 months where you did not have access to dental care?: No Was dental information given to patient?: Patient has dentist HPI 4 month f/u- A1C needed HPI Details Patient comes in today for his follow up visit - he is again accompanied by his mother He continues to have recurrent eye itching - states that his current eyedrops helps a lot He has reportedly been doing well lately without any acute issues Patient denies any headaches or dizziness Denies any chest pains, no increased SOB No nausea/vomiting, no abdominal pain No change in bowel habits noted He is reportedly still experiencing on and off seizures and is now following up with [facility] for his seizures He had his follow up labs done a few days ago - to discuss his results COUNTS INCLUDE 234 BEDS AT [facility] Medical History Epilepsy Aspiration pneumonia Hospital discharge follow-up Head injury Fall COVID-19 Impaired fasting glucose Mixed hyperlipidemia Postsurgical retinal scar of left eye Depression Anxiety Insomnia Vitamin D deficiency History of traumatic brain injury Primary osteoarthritis of left knee Left knee pain Pure hypercholesterolemia PAF (paroxysmal atrial fibrillation) Coronavirus infection TBI (traumatic brain injury) Surgical History History of cholecystectomy Family History Mother Seizures Other No significant past surgical history Social History Household Members: Family Housing: House Alcohol intake: current Alcohol intake frequency: does not drink Comment: PT SLEEPING Patient Tobacco Use Status: Never used Tobacco Tobacco use type: Cigarette Cigarette Packs Per Day: 0.5 Cigarettes Per Day: 4 e-Cigarette/Vaping Use: Never Used Second Hand Smoke Exposure: Yes service: No Current occupational status: disabled Cognitive needs: Yes (wheelchair) Hearing needs: No Vision needs: Yes (glasses) Questionnaire PHQ-9 Over the last 2 weeks, how often have you been bothered by any of the following problems? 1. Little interest or pleasure in doing things: not at all 2. Feeling down, depressed, or hopeless: not at all 3. Trouble falling or staying asleep, or sleeping too much: not at all 4. Feeling tired or having little energy: not at all 5. Poor appetite or overeating: not at all 6. Feeling bad about yourself - or that you are a failure or have let yourself or your family down: not at all 7. Trouble concentrating on things, such as reading the newspaper or watching television: not at all 8. Moving or speaking so slowly that other people could have noticed. Or the opposite - being so fidgety or restless that you have been moving around a lot more than usual: not at all 9. Thoughts that you would be better off or of hurting yourself in some way: not at all Total score: 0 Depression Screening Interpretation: Negative Depression Screening Done: Yes 60438 - PHQ-9 Billing: Yes Source: Developed by Drs. Nelson Krueger, Aida Lance, Bernardo Palma and colleagues, with an educational farida from [employer]. Thrive Questionnaire Date Thrive assessed: 11/07/24 I am a: Patient What is your living situation today?: I do not have a steady places to live I choose not to answer this question Within the past 12 months, did the food you bought not last and you didn't have the money to get more?: Often true Within the past 12 months, did you worry whether your food would run out before you got money to buy more?: Often true Do you have trouble paying for medicines?: No Do you have trouble getting transportation to medical appointments?: No Do you have trouble paying your heating and electricity bill?: No Do you have trouble taking care of your child, family member or friend?: No Do you have trouble with day-to-day activities such as bathing, preparing meals, shopping, managing finances, etc.?: No Are you currently unemployed and looking for a job?: No Are you interested in more education?: No Please select the resources that you would like help with: None Currently or been in a relationship where the following occur: I choose not to answer THRIVE Score: 3 AUDIT C Alcohol Use Questionnaire (AUDIT-C) 1. How often do you have a drink containing alcohol?: Never 3. How often do you have six or more drinks on one occasion?: Never Total Score: 0 Score Reviewed/Action Taken: Yes GIBRAN-7 AMB Questionnaire GIBRAN-7 Date GIBRAN - 7 assessed: 11/07/24 Feeling nervous, anxious, or on edge: 0 = Not at all Not being able to stop or control worryin = Not at all Worrying too much about different things: 0 = Not at all Trouble relaxin = Not at all Being so restless that it is hard to sit still: 0 = Not at all Becoming easily annoyed or irritable: 0 = Not at all Feeling afraid as if something awful might happen: 0 = Not at all Total GIBRAN-7 score (0-4 normal; 5-9 mild; 10-14 moderate; 15-21 severe): 0 Source: Developed by Drs. Nelson Krueger, Aida Lance, Bernardo Palma and colleagues, with an educational farida from [employer]. Review of Systems Const Details: ROS is obtained mostly from patient's mother/family as he is unable to communicate or verbalize properly due to his neurologic deficits Denies chills, Denies fatigue, Denies fever(s) and Denies headache(s) Eyes Reports itchy eyes (on and off) ENT Denies dysphagia, Denies dizziness, Denies otalgia, Denies headache(s), Denies neck pain, Denies odynophagia and Denies sore throat Card Denies chest pain, Denies palpitations and Denies dyspnea Resp Denies chest congestion, Denies cough and Denies dyspnea GI Denies abdominal pain, Reports constipation (on and off), Denies dysphagia, Denies heartburn, Denies diarrhea, Denies nausea, Denies odynophagia and Denies vomiting Denies dysuria, Denies nocturia and Denies urinary frequency Musc Denies back pain, Denies arthralgias and Denies neck pain Skin/Breast Denies rash Neuro Denies dizziness, Denies headache(s), Reports convulsions (recurrent ) and Denies seizure-like activity Endo Denies fatigue and Denies palpitations Aller/Immun Reports itchy eyes (on and off) Physical exam (Primary Care) Vital Signs: Last Vital Signs Pulse 92 11/07/24 12:36 BP 124/78 11/07/24 12:36 Pulse Ox 96 11/07/24 12:36 Oxygen Delivery Method Room Air 11/07/24 12:36 Tobacco/Smoking Status: Tobacco use Status Tobacco use date assessed 11/07/24 11/07/24 12:38 Patient Tobacco Use Status Never used Tobacco 11/07/24 12:38 Tobacco use type Cigarette 11/07/24 12:38 e-Cigarette/Vaping Use Never Used 11/07/24 12:38 PHQ-9: PHQ-9 Score PHQ-9: Total score 0 11/07/24 12:38 Depression Screening Interpretation: Negative Thrive Assessment: Date of Thrive Assessment Date Thrive assessed 11/07/24 11/07/24 12:38 Currently or been in a relationship where the following occur: I choose not to answer Const General: no acute distress and alert Limitations: wheelchair HENMT Ears: TM's normal bilaterally and EAC's normal Throat: Yes posterior oropharynx normal and Yes tonsils normal (no TP congestion noted) Neck Neck: Yes supple and No lymphadenopathy Thyroid: Thyroid normal Resp Auscultation: clear to auscultation bilaterally, no rales and no wheezes Cardio Rate: regular rate Rhythm: regular rhythm Heart sounds: no murmurs GI Palpation (GI): Soft to palpation and nontender Auscultation: normal bowel sounds General: Yes no CVA tenderness Back/Spine/Pelvis Back: no CVA tenderness Thoracic/Lumbar Spine: No lumbar spinal tenderness Skin Rashes: no rashes Neuro Other: (+) 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; speech slurred (baseline) Extrem General: Yes no clubbing, cyanosis or edema Results Reviewed Results Reviewed: Laboratory Tests 11/02/24 11/02/24 10:05 10:09 WBC 7.1 Hgb 13.5 L Hct 40.0 L Plt Count 153 L Sodium 144 Potassium 4.4 Creatinine 0.61 Estimated GFR > 60 Fasting Glucose 116 H Calcium 9.1 AST 22 ALT 16 Triglycerides 203 H Cholesterol 154 LDL Cholesterol, Calc 71 HDL Cholesterol 43 25-OH Vitamin D Total 36.1 TSH 2.68 Ur Specific South Heart 1.015 Urine Protein Negative Urine Glucose (UA) Negative Urine Blood Negative Urine Nitrite Negative Ur Leukocyte Esterase Negative Microalb/Creat Ratio 10.4 Valproic Acid 86.4 Levetiracetam 22.5 Coding Level of Care Code Est Pt Level 4 (95547) Diagnoses Nonintractable epilepsy without status epilepticus, unspecified epilepsy type G40.909 Epilepsy type: unspecified Intractability: not intractable Status epilepticus: without status epilepticus History of traumatic brain injury Z87.820 Mixed hyperlipidemia E78.2 Impaired fasting glucose R73.01 Vitamin D deficiency E55.9 Dysphagia, unspecified type R13.10 Dysphagia type: unspecified Allergic conjunctivitis of both eyes H10.13 Laterality: bilateral Primary osteoarthritis of left knee M17.12 Constipation, unspecified constipation type K59.00 Constipation type: unspecified constipation type Insomnia, unspecified type G47.00 Insomnia type: unspecified Anxiety F41.9 Depression, unspecified depression type F32.9 Depression Type: unspecified Additional Codes PHQ-9 - 91161 - PHQ-9 Billing: Yes ([id number]) Assessment & Plan Assessment & Plan (1) Epilepsy: Code(s): G40.909 - Epilepsy, unspecified, not intractable, without status epilepticus Category: Medical Qualifiers: Epilepsy type: unspecified Intractability: not intractable Status epilepticus: without status epilepticus Qualified Code(s): G40.909 - Epilepsy, unspecified, not intractable, without status epilepticus Plan: Recurrent Continue Levetiracetam 1500 mg BID and Divalproex ER 500 mg in AM and 1000 mg Q HS He is now seeing [facility] for continuing follow up and management of his epilepsy (2) History of traumatic brain injury: Code(s): Z87.820 - Personal history of traumatic brain injury Category: Medical Plan: His TBI occurred years ago, with residual neurologic deficits (hemiparesis) and slurred speech (3) Mixed hyperlipidemia: Code(s): E78.2 - Mixed hyperlipidemia Category: Medical Plan: Results of his labs done a few days ago reviewed and discussed with patient and his mother Reinforced low cholesterol diet Continue Atorvastatin 40 mg QD Will recheck his labs and fasting lipids in 4 months for follow up (4) Impaired fasting glucose: Code(s): R73.01 - Impaired fasting glucose Category: Medical Plan: His HgbA1c was at 6.7% when last checked on 03/19/2024; in-office HgbA1c done today is at 6.3% Reinforced low calorie/low carb diet He has been advised that he needs to keep his HgbA1c at 6.0% or less if he wishes to avoid being started on Rx for his blood sugar (5) Vitamin D deficiency: Code(s): E55.9 - Vitamin D deficiency, unspecified Category: Medical Plan: Continue Vitamin D2 15529 units once a week (6) Dysphagia: Code(s): R13.10 - Dysphagia, unspecified Category: Medical Qualifiers: Dysphagia type: unspecified Qualified Code(s): R13.10 - Dysphagia, unspecified Plan: His modified barium swallow done in April 2023 revealed (+) aspiration was seen with thin and nectar thick liquids. No aspiration or penetration was seen with honey thick liquid and regular texture solids He is following up with [facility] for further recommendations and continuing management (7) Allergic conjunctivitis: Code(s): H10.10 - Acute atopic conjunctivitis, unspecified eye Category: Medical Qualifiers: Laterality: bilateral Qualified Code(s): H10.13 - Acute atopic conjunctivitis, bilateral Plan: Continue Ketotifen 0.025% to apply 1 drop into each eye Q 12 hours PRN (8) Primary osteoarthritis of left knee: Code(s): M17.12 - Unilateral primary osteoarthritis, left knee Category: Medical Plan: X-rays of the left knee done back in September 2018 revealed tricompartmental degenerative arthrosis primarily involving the medial and lateral compartments Follow up with orthopedics as scheduled or as needed (9) Constipation: Code(s): K59.00 - Constipation, unspecified Category: Medical Qualifiers: Constipation type: unspecified constipation type Qualified Code(s): K59.00 - Constipation, unspecified Plan: He is encouraged again on increased oral fluids and dietary fiber Continue Senna 8.6 mg 1 to 2 tablets Q HS PRN (10) Insomnia: Code(s): G47.00 - Insomnia, unspecified Category: Medical Qualifiers: Insomnia type: unspecified Qualified Code(s): G47.00 - Insomnia, unspecified Plan: Sleep hygiene reinforced Continue Zolpidem 10 mg 1/2 to 1 tablet Q HS PRN (11) Anxiety: Code(s): F41.9 - Anxiety disorder, unspecified Category: Medical Plan: He was on Lorazepam in the past but this was discontinued by psychiatry He is on Citalopram 20 mg QD, which also helps with his anxiety (12) Depression: Code(s): F32.9 - Major depressive disorder, single episode, unspecified Category: Medical Qualifiers: Depression Type: unspecified Qualified Code(s): F32.9 - Major depressive disorder, single episode, unspecified Plan: Continue Citalopram 20 mg QD and Divalproex ER 500 mg BID Follow up with psychiatry as scheduled Plan Follow up in 4 months Orders: Orders Valproate 4 Months G40.909 - Epilepsy, unspecified, not intractable, without status epilepticus Comprehensive [place]. Panel Fast 4 Months E78.00 - Pure hypercholesterolemia, unspecified TSH reflex Free T4 4 Months E78.00 - Pure hypercholesterolemia, unspecified UA CC w/rflx Micro + Cult 4 Months R30.0 - Dysuria Lipid Panel 4 Months E78.00 - Pure hypercholesterolemia, unspecified Hemoglobin A1c 4 Months R73.01 - Impaired fasting glucose Levetiracetam Keppra 4 Months G40.909 - Epilepsy, unspecified, not intractable, without status epilepticus Complete Blood Count Auto Diff 4 Months D64.9 - Anemia, unspecified Medications: Refilled [Wheelchair with leg rests] As directed 1 ea 0RF S09.90XA - Unspecified injury of head, initial encounter, Z91.81 - History of falling
--- OUTSIDE RECORDS SUMMARY | 2024-11-07 13:10 | XMS_ITS | Clinical Summary ---
Author Organization [facility] ity Address [address] [place] [address] Care Team Providers Care Application Infrastructure Engineer Name Role Phone Unavailable Primary Care Provider [...]
== END 2024-11-07 13:20 | disposition home or self-care (01) ==
LOC: HO.HMCH 12:35
PROVIDERS: PCP Internal Medicine; Visit Provider Internal Medicine
DX: G40.909 Epilepsy, unspecified, not intractable, without status epilepticus (principal); Z87.820 Personal history of traumatic brain injury; E78.2 Mixed hyperlipidemia; R73.01 Impaired fasting glucose; E55.9 Vitamin D deficiency, unspecified; R13.10 Dysphagia, unspecified; H10.13 Acute atopic conjunctivitis, bilateral; M17.12 Unilateral primary osteoarthritis, left knee; K59.00 Constipation, unspecified; G47.00 Insomnia, unspecified; F41.9 Anxiety disorder, unspecified; F32.9 Major depressive disorder, single episode, unspecified

== ENCOUNTER → 2024-11-07 12:34 | Outpatient (BNVA) | payer OTHER, SELFPAY | PROVIDERS: PCP Internal Medicine; Visit Provider Internal Medicine | DX: E78.2 Mixed hyperlipidemia (principal); G40.909 Epilepsy, unspecified, not intractable, without status epilepticus; R73.01 Impaired fasting glucose; E55.9 Vitamin D deficiency, unspecified; R13.10 Dysphagia, unspecified; H10.10 Acute atopic conjunctivitis, unspecified eye; H10.13 Acute atopic conjunctivitis, bilateral; M17.12 Unilateral primary osteoarthritis, left knee; K59.00 Constipation, unspecified; G47.00 Insomnia, unspecified; F41.9 Anxiety disorder, unspecified; F32.9 Major depressive disorder, single episode, unspecified; S09.90XD Unspecified injury of head, subsequent encounter; X58.XXXD Exposure to other specified factors, subsequent encounter; Z91.81 History of falling; Z87.820 Personal history of traumatic brain injury | CPT/HCPCS: 96127; 99212 ==

== ENCOUNTER 2025-01-23 13:02 | Outpatient (AMB) | payer OTHER, SELFPAY ==
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
--- OUTSIDE RECORDS SUMMARY | 2025-01-23 16:46 | XMS_ITS | Clinical Summary ---
Author Organization [facility] ity Address [address] [place] [address] Care Team Providers Care Applications Architect Name Role Phone Unavailable Primary Care Provider [...] 12/12/2017 Zoster Vaccines (1 of 2) 12/12/2017 Depression Screening 04/11/2024 COVID-19 Vaccine (1 - 2023-2 5 season) 2024 Influenza Vaccine (#1) 2024 RSV Immunization Adult Patie nts (1 - 1-dose 75+ series) 12/12/2042 HIB Vaccines Aged Out No longer eligi [...]
== END 2025-01-23 13:22 | disposition home or self-care (01) ==
LOC: HO.HSM 13:03
PROVIDERS: PCP Internal Medicine; Referring Provider Internal Medicine; Visit Provider Registered Nurse
DX: G40.909 Epilepsy, unspecified, not intractable, without status epilepticus (principal); Z87.820 Personal history of traumatic brain injury
CPT/HCPCS: 99214

== ENCOUNTER → 2025-01-23 13:02 | Outpatient (BNVA) | payer OTHER, SELFPAY | PROVIDERS: PCP Internal Medicine; Referring Provider Internal Medicine; Visit Provider Registered Nurse | DX: R56.1 Post traumatic seizures (principal); Z79.899 Other long term (current) drug therapy; R68.89 Other general symptoms and signs; Z87.820 Personal history of traumatic brain injury | CPT/HCPCS: 99212 ==

== ENCOUNTER 2025-03-06 10:19 | Outpatient (REF) | payer OTHER, SELFPAY ==
[2025-03-06 10:45] LABS: MANUAL DIFF FLAG NO
[2025-03-06 11:12] LABS: Hematocrit 41.9 % (42.0-52.0); Hemoglobin 14.2 g/dl (14.0-18.0); Imm Gran Abs Auto 0.02 X10*3/uL (0.00-0.03); Imm Gran Pct Auto 0.3 % (0.0-0.4); Lymphocytes Absolute Auto 3.5 X10*3/uL (1.2-4.9); Mean Corpuscular HGB Conc 33.9 g/dl (31.0-36.0); Mean Corpuscular Hemoglobin 31.1 pg (27.0-33.0); Mean Corpuscular Volume 91.9 fL (80.0-98.0); NRBC Abs Auto 0.000 X10*3/uL (0.0-0.012); NRBC Pct Auto 0.0 /100WBC (0.0-0.2); Platelet Count 159 X10*3/uL (160-400); Red Blood Count 4.56 X10*6/uL (4.60-5.80); White Blood Count 6.5 X10*3/uL (4.8-10.8)
[2025-03-06 12:06] LABS: Alanine Aminotransferase 13 U/L (0-40); Albumin Level 4.0 g/dL (3.5-5.0); Alkaline Phosphatase 73 U/L (39-117); Anion Gap 10 (12-20); Aspartate Amino Transferase 20 U/L (5-37); Blood Urea Nitrogen 15 mg/dL (9-16); Calcium 9.1 mg/dL (8.4-10.2); Carbon Dioxide 31 mmol/L (22-29); Chloride 106 mmol/L (96-108); Cholesterol 151 mg/dL (<200); Estimated Glomerular Filt Rate > 60; HDL Cholesterol 43 mg/dL (>40); Potassium 3.9 mmol/L (3.3-5.1); Sodium 143 mmol/L (135-145); Total Protein 6.5 g/dL (6.5-8.0); Triglycerides 203 mg/dL (<150)
--- OUTSIDE RECORDS SUMMARY | 2025-03-06 12:11 | XMS_ITS | Data Portability ---
Author Organization [facility] Address [address] [place] [id number] Care Team Providers Care Administration Internship Name Role Phone HIM CCA OTHER Assessment No assessment recorded. Plan of Treatment Reminders Order Date Submit Date Provider Last Modified By Organization Details Last Modified Time Details Appointments None recorded. Lab rapid SARS CoV 2 Ag, QL IA, respiratory specimen [address] [place] [address], [id number] 21:10:31 rapid flu (A+B) [address] [place] [address], [id number] 21:10:31 Referral None recorded. Procedures None recorded. Surgeries None recorded. Imaging None recorded. Medication Orders None recorded. Patient TargetsNo targets recorded. Patient InstructionsNo instructions recorded. Reason for Referral None Reported. Results Created Date Observation Date Name Description Value Unit Range Abnormal Flag Note LastModifiedBy Organization Detail LastModifiedTime 05/12/1905/12/2024 rapid flu (A+B) Flu negati ve Not Available [facility] ed [address] [place] [address], [id number] 05/12/2024 21:09:41 05/12/1905/12/2024 rapid SARS CoV 2 Ag, QL IA, respi rator y speci men rapid SARS CoV 2 Ag, QL IA, respiratory specimen negati ve Not Available [facility] ed [address] [place] [address], [id number] 05/12/2024 21:09:32 Result Notes None recorded. Medical [...] t Available Vitals Date Recorded Oxygen saturation Body temperature Body height Heart rate Respiratory rate Body weight Systolic And Diastolic Provider Name and Address Organization Details Last Updated DateTime 5 91 % 102.9 [degF] 180.34 cm 138 /min 20 /min 97237.4 g 106/60 mm[Hg] Not Available [email or web address] - production 5 20:53:17 Social History None recorded. Functional Status None recorded. Mental Status None recorded. Family History Nothing Reported. Medical History No medical history recorded. Past Encounters Encounter ID Performer Location Encounter Start Date Encounter Closed Date Diagnosis/Indication Diagnosis SNOMED-CT Code Diagnosis ICD10 Code Diagnosis IMO Codes Diagnosis Note [id number] DAKOTA JIMENEZ MD Main - [address] [phone] 05/12/2024 20:46:56 05/15/2024 16:36:55 Hypoxia [id number] R09.02 Evaluation in the field was performed by my corporate bond trader colleague, as noted above, I provided real-time direction and supervisio n for this visit. The evaluation revealed 58-year-ol d male with a history of TBI, baseline neurologic al deficits, essential tremor, and seizures. [place] Citizen-sp eaking only. History obtained from family, who report a 2-day history of nausea, vomiting, diarrhea, and abdominal pain. Today, he spiked a fever, and his mother administer ed 1g of Tylenol approximat rmoan 30-45 minutes prior to our visit. The [...] bpm, RR 20, SpO2 91%, Temperatur e 102.9 FExam: Mildly agitated, tachycardi c. Lungs clear to [...] Member ID Vásquez Member ID Guarantor Name 05/15/2024 1 [facility] - DOS ON OR AFTER 2022 - DUAL ELIGIBLE - CORRECTION OPTIONS AND ONE CARE (MEDICARE REPLACEMENT/ADV ANTAGE - HMO) Louis Wagoner [id number] Louis Wagoner Notes Date Note Type Note Provider Name and Address Organization Details Recorded Time 05/12/2024 text/html ROS as noted in the [facility] Nurse Triage Notes (Valentin Hoang - RN): Reason For Request: Patient has vomiting for 2 days, and Dirrhea, and now has a fever. Patient Reports: Sharp focal or diffuse abdominal pain ; Nausea and vomiting greater than 2 hours with abdominal pain; Tearing pain that radiates to back; Vague abdominal pain greater than 24 hours; Diarrhea no blood in stool; Nausea with or without vomiting; Inability to tolerate foods, fluids or daily medications Denies: Vomiting blood/coffee ground material Bloating, jaundice new onset with pain Food Impaction Constipation Chief Complaints: Vomiting PMH: Epilepsy/Seizure Disorder PMH Reviewed at 05/12/2024:52 Allergies Reviewed at 05/12/2024:52 Comments: Prop And Effects Designer verified the Pt.'s name//address and phone number. [...] Declined ER treatment - Wellness check requested. Er Registrar Organization Information for Hardy Mota [facility] [place] Business Legal Name: [employer]. Address: [address] [place] [id number], Outdoor Education Teacher: Sudhir Rodriguez MD CLIA No.: [id number] Er Registrar POC Test Results from [facility] Blood Glucose Measurement (21:00:40) Blood Glucose: 200 mg/dL Rapid COVID antigen (21:00:50) COVID: - Rapid influenza antigen (21:00:51) Flu: - .................. .................. .................. .................. .................. .................. .................. ............... Er Registrar Note From Hardy Mota: COJung makes pt contact. He is found laying supine in his hospital bed. He is conscious and alert and appears to be uncomfortable. He is not in respiratory distress, no s/s of acute stroke are observed, and he is not bleeding anywhere. Pt has TBI deficits at baseline w/ essential tremor, hx of seizures, and is [place] Citizen-speaking only. Family is on scene to provide hx and translate. Pt has had n/v/d for two days. Today he spiked a fever and mom (CG) administered 1G Tylenol around 6492-9074. Pt has known hx of COVID 3x and kidney stones, but family reports it has been a few years since his last stone. He did eat some soup earlier this afternoon and seemed to tolerate it well. Pt c/o abd pain and cp from coughing. No sputum production is reported. Family and pt consent to evaluation and treatment today. [facility] obtains pt consent and uploads. Vital signs are gathered and pt is swabbed for COVID/flu and assessed. His skin is hot and dry and he appears to be agitated. Lung sounds are clear and abdomen is diffusely tender to palpation. Pt is found to be tachycardic and hypoxic w/ high fever. [facility] contacts [facility] and [facility] recommends pt be transported to the ED to r/o pneumosepsis. Family is amendable and pt is transported to [facility] by [facility]. [facility] is clear. Report completed by CHACHA Mota [id number]. [facility] Lab Orders: rapid SARS CoV 2 Ag, QL IA, respiratory specimen: Performed rapid flu (A+B): Performed .................. .................. .................. .................. .................. .................. .................. ............... [facility] Consulted: Dakota Jimenez .................. .................. .................. .................. .................. .................. .................. ............... Disposition: Fulfilled DAKOTA JIMENEZ MD [address], [place], [phone], [employer], KRISTEL 05/13/2024 00:02:45
--- OUTSIDE RECORDS SUMMARY | 2025-03-06 12:11 | XMS_ITS | Clinical Summary ---
Author Organization [facility] ity Address [address] [place] [address] Care Team Providers Care Harness Cleaner Name Role Phone Unavailable Primary Care Provider [...] Depression Screening 04/11/2024 COVID-19 Vaccine (1 - 2024-2 6 season) 2024 Influenza Vaccine (#1) 2024 RSV [...]
[2025-03-09 00:08] LABS: Levetiracetam Keppra 28.6 mcg/mL (10.0-40.0)
== END 2025-03-06 10:20 | disposition home or self-care (01) ==
LOC: HO.LAB 10:19
PROVIDERS: PCP Internal Medicine; Visit Provider Internal Medicine
DX: R73.01 Impaired fasting glucose (principal); G40.909 Epilepsy, unspecified, not intractable, without status epilepticus; E78.00 Pure hypercholesterolemia, unspecified; D64.9 Anemia, unspecified
CPT/HCPCS: 36415; 80053; 80061; 80164; 80177; 83036; 84443; 85025

== ENCOUNTER 2025-03-11 12:47 | Outpatient (AMB) | payer OTHER, SELFPAY ==
--- NOTE | 2025-03-11 12:51 | A.OFFPC_ITS ---
Vital Signs 03/11/25 12:52 Height 5 ft 10 in BMI Reason not done Patient refused/unable BP 108/70 Blood Pressure Location Lt brachial Position Sitting Pulse 62 Pulse Source Pulse Oximeter Pulse Oximetry (%) 94 Oxygen Delivery Method Room Air Intake Visit Reasons: epilepsy, hyperlipidemia, vitamin D deficiency/A1C Pediatric Physician Required: No Accompanied by: Self / Same As Patient Allergies No Known Allergies Allergy (Verified 03/11/25 13:28) Medication List - Last Reconciled 03/11/25 by Juan Garcia MD [Adult pull ups As directed] atorvastatin 40 mg PO BEDTIME 90 days buspirone 5 mg PO BID chair, wheel (Wheel chair) As directed; needs large 20' wheel chair, put on 20 lbs. citalopram 20 mg PO DAILY diazepam 2 mg PO TID diphenhydramine HCl 25 mg PO TID PRN [Disposable bed pads As directed] divalproex ER (Depakote ER) 500 mg orally 1 tablet in the morning and 2 tablets at bedtime; 90 days [Electric Hospital Bed As directed] ergocalciferol (vitamin D2) 1,250 mcg PO QWEEK ketotifen fumarate 0.025%(0.035%) (Allergy Eye (ketotifen)) 1 drp ophthalmic (eye) Q12H PRN levetiracetam 1,000 mg PO BID 90 days levetiracetam (Keppra) 250 mg PO BID loratadine 10 mg PO DAILY PRN [MANUAL WHEELCHAIR (large) As directed] polyethylene glycol 400 1% (Dry Eye Relief (PEG 400)) 1 drp ophthalmic (eye) TID-QID PRN pyridoxine (vitamin B6) 100 mg PO DAILY sennosides (Senna Lax) 8.6 mg PO BEDTIME PRN 90 days trazodone 50 mg PO BEDTIME PRN triamcinolone acetonide 0.025% 1 appl topical TID PRN [WHEELCHAIR As directed] [WHEELCHAIR As directed] [Wheelchair with leg rests As directed] Tobacco use date assessed: 03/11/25 Dental Screening Dental Screen Date: 03/11/25 Did you have a dental visit in the last 12 months?: Yes Did you have a dental problem in the last 6 months where you did not have access to dental care?: No Was dental information given to patient?: Patient has dentist HPI epilepsy, hyperlipidemia, vitamin D deficiency/A1C HPI Details - The patient is a 59 year old individua l presenting for a follow-up visit and evaluation of a new cough and nocturnal enuresis. - Cough: The patient has had a cough for approximately one week without fever or significant phlegm production. - Nocturnal Enuresis: For the past month , the patient has been urinating in the bed every night. - Neurological History: A neurology repo rt from the previous month was good, and the patient reports no seizures. - Lab History: Recent blood tests were o guilherme, showing no anemia. The HbA1c has improved to 6.5 from 6.7 last year. Cholesterol, thyroid, liver, and kidney function tests were also reported as okay. He denies any headaches or dizziness Denies any chest pains, no increased SOB No nausea/vomiting, no abdominal pain No change in bowel habits noted He had his follow up labs done a few days ago - to discuss his results [facility] Medical History History of traumatic brain injury Epilepsy Aspiration pneumonia Hospital discharge follow-up Head injury Fall COVID-19 Impaired fasting glucose Mixed hyperlipidemia Postsurgical retinal scar of left eye Depression Anxiety Insomnia Vitamin D deficiency Primary osteoarthritis of left knee Left knee pain Pure hypercholesterolemia PAF (paroxysmal atrial fibrillation) Coronavirus infection TBI (traumatic brain injury) Surgical History History of cholecystectomy Family History Mother Seizures Other No significant past surgical history Social History Household Members: Family Housing: House Alcohol intake: current Alcohol intake frequency: does not drink Comment: PT SLEEPING Patient Tobacco Use Status: Never used Tobacco Tobacco use type: Cigarette Cigarette Packs Per Day: 0.5 Cigarettes Per Day: 4 e-Cigarette/Vaping Use: Never Used Second Hand Smoke Exposure: Yes service: No Current occupational status: disabled Cognitive needs: Yes (wheelchair) Hearing needs: No Vision needs: Yes (glasses) Questionnaire PHQ-9 Over the last 2 weeks, how often have you been bothered by any of the following problems? 1. Little interest or pleasure in doing things: not at all 2. Feeling down, depressed, or hopeless: not at all 3. Trouble falling or staying asleep, or sleeping too much: not at all 4. Feeling tired or having little energy: not at all 5. Poor appetite or overeating: not at all 6. Feeling bad about yourself - or that you are a failure or have let yourself or your family down: not at all 7. Trouble concentrating on things, such as reading the newspaper or watching television: not at all 8. Moving or speaking so slowly that other people could have noticed. Or the opposite - being so fidgety or restless that you have been moving around a lot more than usual: not at all 9. Thoughts that you would be better off or of hurting yourself in some way: not at all Total score: 0 Depression Screening Interpretation: Negative Depression Screening Done: Yes 87313 - PHQ-9 Billing: Yes Source: Developed by Drs. Nelson Krueger, Aida Lance, Bernardo Palma and colleagues, with an educational farida from [employer]. Thrive Questionnaire Date Thrive assessed: 03/11/25 I am a: Patient What is your living situation today?: I do not have a steady places to live I choose not to answer this question Within the past 12 months, did the food you bought not last and you didn't have the money to get more?: Often true Within the past 12 months, did you worry whether your food would run out before you got money to buy more?: Often true Do you have trouble paying for medicines?: No Do you have trouble getting transportation to medical appointments?: No Do you have trouble paying your heating and electricity bill?: No Do you have trouble taking care of your child, family member or friend?: No Do you have trouble with day-to-day activities such as bathing, preparing meals, shopping, managing finances, etc.?: No Are you currently unemployed and looking for a job?: No Are you interested in more education?: No Please select the resources that you would like help with: None Currently or been in a relationship where the following occur: I choose not to answer THRIVE Score: 3 AUDIT C Alcohol Use Questionnaire (AUDIT-C) 1. How often do you have a drink containing alcohol?: Never 3. How often do you have six or more drinks on one occasion?: Never Total Score: 0 Score Reviewed/Action Taken: Yes GIBRAN-7 AMB Questionnaire GIBRAN-7 Date GIBRAN - 7 assessed: 03/11/25 Feeling nervous, anxious, or on edge: 0 = Not at all Not being able to stop or control worryin = Not at all Worrying too much about different things: 0 = Not at all Trouble relaxin = Not at all Being so restless that it is hard to sit still: 0 = Not at all Becoming easily annoyed or irritable: 0 = Not at all Feeling afraid as if something awful might happen: 0 = Not at all Total GIBRAN-7 score (0-4 normal; 5-9 mild; 10-14 moderate; 15-21 severe): 0 Source: Developed by Drs. Nelson Krueger, Aida Lance, Bernardo Palma and colleagues, with an educational farida from [employer]. Review of Systems Const Details: ROS is obtained mostly from patient's mother/family as he is unable to communicate or verbalize properly due to his neurologic deficits Denies chills, Denies fatigue, Denies fever(s) and Denies headache(s) ENT Denies dysphagia, Denies dizziness, Denies otalgia, Denies headache(s), Denies neck pain, Denies odynophagia and Denies sore throat Card Denies chest pain, Denies palpitations and Denies dyspnea Resp Denies chest congestion, Reports cough (on and off; non-productive), Denies dyspnea and Denies wheezing GI Denies abdominal pain, Reports constipation (on and off), Denies dysphagia, Denies heartburn, Denies diarrhea, Denies nausea, Denies odynophagia and Denies vomiting Details: Patient has reportedly been wetting his bed at times lately Denies dysuria, Denies nocturia and Denies urinary frequency Musc Denies back pain, Denies arthralgias and Denies neck pain Skin/Breast Denies rash Neuro Denies dizziness, Denies headache(s) and Reports convulsions (recurrent ) Endo Denies fatigue and Denies palpitations Aller/Immun Denies wheezing Physical exam (Primary Care) Vital Signs: Last Vital Signs Pulse 62 03/11/25 12:52 BP 108/70 03/11/25 12:52 Pulse Ox 94 03/11/25 12:52 Oxygen Delivery Method Room Air 03/11/25 12:52 Tobacco/Smoking Status: Tobacco use Status Tobacco use date assessed 03/11/25 03/11/25 12:59 Patient Tobacco Use Status Never used Tobacco 03/11/25 12:59 Tobacco use type Cigarette 03/11/25 12:59 e-Cigarette/Vaping Use Never Used 03/11/25 12:59 PHQ-9: PHQ-9 Score PHQ-9: Total score 0 03/11/25 14:48 Depression Screening Interpretation: Negative Thrive Assessment: Date of Thrive Assessment Date Thrive assessed 03/11/25 03/11/25 12:59 Currently or been in a relationship where the following occur: I choose not to answer Const General: no acute distress and alert Limitations: wheelchair HENMT Ears: TM's normal bilaterally and EAC's normal Throat: Yes posterior oropharynx normal and Yes tonsils normal (no TP congestion noted) Neck Neck: Yes supple and No lymphadenopathy Thyroid: Thyroid normal Resp Auscultation: clear to auscultation bilaterally, no rales and no wheezes Cardio Rate: regular rate Rhythm: regular rhythm Heart sounds: no murmurs GI Palpation (GI): Soft to palpation and nontender Auscultation: normal bowel sounds General: Yes no CVA tenderness Back/Spine/Pelvis Back: no CVA tenderness Thoracic/Lumbar Spine: No lumbar spinal tenderness Skin Rashes: no rashes Neuro Other: (+) 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; speech slurred (baseline) Extrem General: Yes no clubbing, cyanosis or edema Results Reviewed Results Reviewed: Laboratory Tests 03/06/25 10:43 WBC 6.5 Hgb 14.2 Hct 41.9 L Plt Count 159 L Sodium 143 Potassium 3.9 Creatinine 0.62 Estimated GFR > 60 Fasting Glucose 117 H Hemoglobin A1c % 6.5 H Calcium 9.1 AST 20 ALT 13 Triglycerides 203 H Cholesterol 151 LDL Cholesterol, Calc 68 HDL Cholesterol 43 TSH 2.06 Valproic Acid 87.1 Levetiracetam 28.6 Coding Level of Care Code Est Pt Level 4 (63133) Diagnoses Nonintractable epilepsy without status epilepticus, unspecified epilepsy type G40.909 Epilepsy type: unspecified Intractability: not intractable Status epilepticus: without status epilepticus History of traumatic brain injury Z87.820 Mixed hyperlipidemia E78.2 Impaired fasting glucose R73.01 Vitamin D deficiency E55.9 Dysphagia, unspecified type R13.10 Dysphagia type: unspecified Cough, unspecified type R05.9 Cough type: unspecified Allergic conjunctivitis of both eyes H10.13 Laterality: bilateral Primary osteoarthritis of left knee M17.12 Constipation, unspecified constipation type K59.00 Constipation type: unspecified constipation type Insomnia, unspecified type G47.00 Insomnia type: unspecified Anxiety F41.9 Depression, unspecified depression type F32.9 Depression Type: unspecified Additional Codes PHQ-9 - 53755 - PHQ-9 Billing: Yes ([id number]) Assessment & Plan Assessment & Plan (1) Epilepsy: Code(s): G40.909 - Epilepsy, unspecified, not intractable, without status epilepticus Category: Medical Qualifiers: Epilepsy type: unspecified Intractability: not intractable Status epilepticus: without status epilepticus Qualified Code(s): G40.909 - Epilepsy, unspecified, not intractable, without status epilepticus Plan: Recurrent Continue Levetiracetam 1500 mg BID and Divalproex ER 500 mg in AM and 1000 mg Q HS Follow up with [facility]rology as scheduled (2) History of traumatic brain injury: Code(s): Z87.820 - Personal history of traumatic brain injury Category: Medical Plan: His TBI occurred years ago, with residual neurologic deficits (hemiparesis) and slurred speech (3) Mixed hyperlipidemia: Code(s): E78.2 - Mixed hyperlipidemia Category: Medical Plan: Results of his labs done a few days ago reviewed and discussed with patient and his mother Reinforced low cholesterol diet Continue Atorvastatin 40 mg QD Will recheck his labs and fasting lipids in 4 months for follow up (4) Impaired fasting glucose: Code(s): R73.01 - Impaired fasting glucose Category: Medical Plan: His HgbA1c was at 6.5% on his recent labs; his in-office HgbA1c was at 6.3% a few months ago and was at 6.7% back on 03/19/2024 Reinforced low calorie/low carb diet He has been advised that he needs to keep his HgbA1c at 6.0% or less if he wishes to avoid being started on Rx for his blood sugar (5) Vitamin D deficiency: Code(s): E55.9 - Vitamin D deficiency, unspecified Category: Medical Plan: Continue Vitamin D2 67313 units once a week (6) Dysphagia: Code(s): R13.10 - Dysphagia, unspecified Category: Medical Qualifiers: Dysphagia type: unspecified Qualified Code(s): R13.10 - Dysphagia, unspecified Plan: His modified barium swallow done in April 2023 revealed (+) aspiration was seen with thin and nectar thick liquids. No aspiration or penetration was seen with honey thick liquid and regular texture solids He is following up with Speech and Hearing for further recommendations and continuing management (7) Cough: Code(s): R05.9 - Cough, unspecified Category: Medical Qualifiers: Cough type: unspecified Qualified Code(s): R05.9 - Cough, unspecified Plan: Patient's family is reassured that his lungs sound clear on exam today and that his cough is likely due to allergies (vasomotor) due to the cold weather/dry climate in the winter Have advised them to call if his cough persists or gets worse at any time (8) Allergic conjunctivitis: Code(s): H10.10 - Acute atopic conjunctivitis, unspecified eye Category: Medical Qualifiers: Laterality: bilateral Qualified Code(s): H10.13 - Acute atopic conjunctivitis, bilateral Plan: Continue Ketotifen 0.025% to apply 1 drop into each eye Q 12 hours PRN (9) Primary osteoarthritis of left knee: Code(s): M17.12 - Unilateral primary osteoarthritis, left knee Category: Medical Plan: X-rays of the left knee done back in September 2018 revealed tricompartmental degenerative arthrosis primarily involving the medial and lateral compartments Follow up with orthopedics as scheduled or as needed (10) Constipation: Code(s): K59.00 - Constipation, unspecified Category: Medical Qualifiers: Constipation type: unspecified constipation type Qualified Code(s): K59.00 - Constipation, unspecified Plan: He is encouraged again on increased oral fluids and dietary fiber intake Continue Senna 8.6 mg 1 to 2 tablets Q HS PRN (11) Insomnia: Code(s): G47.00 - Insomnia, unspecified Category: Medical Qualifiers: Insomnia type: unspecified Qualified Code(s): G47.00 - Insomnia, unspecified Plan: Sleep hygiene reinforced Continue Zolpidem 10 mg 1/2 to 1 tablet Q HS PRN (12) Anxiety: Code(s): F41.9 - Anxiety disorder, unspecified Category: Medical Plan: He was on Lorazepam in the past but this was discontinued by psychiatry He is on Citalopram 20 mg QD, which also helps with his anxiety (13) Depression: Code(s): F32.9 - Major depressive disorder, single episode, unspecified Category: Medical Qualifiers: Depression Type: unspecified Qualified Code(s): F32.9 - Major depressive disorder, single episode, unspecified Plan: Continue Citalopram 20 mg QD and Divalproex ER 500 mg BID Follow up with psychiatry as scheduled Plan Follow up in 4 months Orders: Orders Complete Blood Count Auto Diff 4 Months D64.9 - Anemia, unspecified Comprehensive [place]. Panel Fast 4 Months E78.00 - Pure hypercholesterolemia, unspecified Lipid Panel 4 Months E78.00 - Pure hypercholesterolemia, unspecified TSH reflex Free T4 4 Months E78.00 - Pure hypercholesterolemia, unspecified UA CC w/rflx Micro + Cult 4 Months R30.0 - Dysuria Microalbumin, Random (w Creat) 4 Months E11.9 - Type 2 diabetes mellitus without complications Hemoglobin A1c 4 Months E11.9 - Type 2 diabetes mellitus without complications Vitamin D 25-OH Total 4 Months E55.9 - Vitamin D deficiency, unspecified
[2025-03-11 12:52] VITALS: BP 108/70; PULSE 62; O2SAT 94
--- OUTSIDE RECORDS SUMMARY | 2025-03-11 16:24 | XMS_ITS | Clinical Summary ---
Author Organization [facility] ity Address [address] [place] [address] Care Team Providers Care Body Hanger Name Role Phone Unavailable Primary Care Provider [...]
--- OUTSIDE RECORDS SUMMARY | 2025-03-11 16:24 | XMS_ITS | Data Portability ---
Author Organization [facility] Address [address] [place] [phone] Care Team Providers Care Survey Operations Director Name Role Phone HIM CCA OTHER Assessment No assessment recorded. Plan of Treatment Reminders Order Date Submit Date Provider Last Modified By Organization Details Last Modified Time Details Appointments None recorded. Lab rapid SARS CoV 2 Ag, QL IA, respiratory specimen [address] [place] [address], [id number] 21:10:31 rapid flu (A+B) [address] [place] [address], [phone] 21:10:31 Referral None recorded. Procedures None recorded. Surgeries None recorded. Imaging None recorded. Medication Orders None recorded. Patient TargetsNo targets recorded. Patient InstructionsNo instructions recorded. Reason for Referral None Reported. Results Created Date Observation Date Name Description Value Unit Range Abnormal Flag Note LastModifiedBy Organization Detail LastModifiedTime 05/12/1905/12/2024 rapid flu (A+B) Flu negati ve Not Available [facility] ed [address] [place] [address], [phone] 05/12/2024 21:09:41 05/12/19 25 05/12/2024 rapid SARS CoV 2 Ag, QL IA, respi rator y speci men rapid SARS CoV 2 Ag, QL IA, respiratory specimen negati ve Not Available [facility] ed [address] [place] [address], [phone] 05/12/2024 21:09:32 Result Notes None recorded. Medical [...] [degF] 180.34 cm 138 /min 20 /min 72266.4 g 106/60 mm[Hg] Not Available [employer] - production 5 20:53:17 Social History None recorded. Functional Status None recorded. Mental Status None recorded. Family History Nothing Reported. Medical History No medical history recorded. Past Encounters Encounter ID Performer Location Encounter Start Date Encounter Closed Date Diagnosis/Indication Diagnosis SNOMED-CT Code Diagnosis ICD10 Code Diagnosis IMO Codes Diagnosis Note [id number] DAKOTA JIMENEZ MD Main - [address] [phone] 05/12/2024 20:46:56 05/15/2024 16:36:55 Hypoxia [id number] R09.02 Evaluation in the field was performed by my engineering technologist colleague, as noted above, I provided real-time direction and supervisio n for this visit. The evaluation revealed 58-year-ol d male with a history of TBI, baseline neurologic al deficits, essential tremor, and seizures. Yi-sp eaking only. History obtained from family, who [...] Vásquez Member ID Guarantor Name 05/15/2024 1 [facility] - DOS ON OR AFTER 2022 - DUAL ELIGIBLE - ALF OPTIONS AND ONE CARE (MEDICARE REPLACEMENT/ADV ANTAGE - HMO) Louis Wagoner [id number] Louis Wagoner Notes Date Note Type Note Provider Name and Address Organization Details Recorded Time 05/12/2024 text/html ROS as noted in the [facility] Nurse Triage Notes (Valentin Hoang [...] at 05/12/2024:52 Allergies Reviewed at 05/12/2024:52 Comments: General Accounting Clerk verified the Pt.'s name//address and phone number. [...] Declined ER treatment - Wellness check requested. Competency Evaluated Nurse Aide Organization Information for Hardy Mota [employer]os[employer] Business Legal Name: [employer] Address: [address] [place] [id number], Odd Job Laborer: Sudhir Rodriguez MD CLIA No.: [id number] Competency Evaluated Nurse Aide POC Test Results from [facility] Blood Glucose Measurement (21:00:40) Blood Glucose: 200 mg/dL Rapid COVID antigen (21:00:50) COVID: - Rapid influenza antigen (21:00:51) Flu: - .................. .................. .................. .................. .................. .................. .................. ............... Competency Evaluated Nurse Aide Note From Hardy Mota: MOJung makes pt contact. He is found laying supine in his hospital bed. He is conscious and alert and appears to be uncomfortable. He is not in respiratory distress, no s/s of acute stroke are observed, and he is not bleeding anywhere. Pt has TBI deficits at baseline w/ essential tremor, hx of seizures, and is Yi-speaking only. Family is on scene to provide hx and translate. Pt has had n/v/d for two days. Today he spiked a fever and mom (CG) administered 1G Tylenol around 1362-1085. Pt has known hx of COVID 3x and kidney stones, but family reports it has been a few years since his last stone. He did eat some soup earlier this afternoon and seemed to tolerate it well. Pt c/o abd pain and cp from coughing. No sputum production is reported. Family and pt consent to evaluation and treatment today. [facility] obtains pt consent and uploads. Vital signs are gathered and pt is swabbed for COVID/flu and assessed. His skin is hot and dry and he appears to be agitated. Lung sounds are clear and abdomen is diffusely tender to palpation. Pt is found to be tachycardic and hypoxic w/ high fever. [facility] contacts [facility] and [facility] recommends pt be transported to the ED to r/o pneumosepsis. Family is amendable and pt is transported to [facility] by [facility]. [facility] is clear. Report completed by CHACHA Mota [id number]. [facility] Lab Orders: rapid SARS CoV 2 Ag, QL IA, respiratory specimen: Performed rapid flu (A+B): Performed .................. .................. .................. .................. .................. .................. .................. ............... [facility] Consulted: Daokta Jimenez .................. .................. .................. .................. .................. .................. .................. ............... Disposition: Fulfilled DAKOTA JIMENEZ MD [address] [facility],[address], [place], [phone], [employer] KRISTEL 05/13/2024 00:02:45
--- OUTSIDE RECORDS SUMMARY | 2025-03-11 16:24 | XMS_ITS | Data Portability ---
Author Organization [place] - [facility], Allergy Address [address] [place] [address] [place] [id number] Assessment Encounter Date Assessment Date Assessment LastModified [...] Sensorineur al hearing loss of bilateral ears [id number] Active 2024 JUAN RAY [place], [facility] [address], [place], [address], [place] - [facility] 10:24:02 Perception of hearing loss [id number] 4101 Active 2024 GURJIT HERNÁNDEZ MD [address] [address], [place], [address], [facility] - [facility] 12:57:15 Otalgia of left ear [id number] Active 2024 GURJIT HERNÁNDEZ MD [address] [address], [place], [address], [facility] - [facility] 12:57:20 Temporomand ibular joint disorder 41321799 Active 2024 GURJIT HERNÁNDEZ MD [address] [address], [place], [address], [facility] 12:57:24 Problem Notes None recorded. Procedures Surgical History Date Name Laterality Status Provider Name and Address Organization Details Recorded Time 09/21/19 25 otomicroscopy completed GURJIT HERNÁNDEZ MD [address] [address], [place], [address], [facility] 09/20/2024 12:57:42 09/21/19 25 Tympanometry - 15752 completed JUAN RAY [place], [facility] [address] [address], [place], [address], [facility] 09/20/2024 10:25:57 09/21/19 25 [employer] - 53397 completed JUAN RAY [place], [facility] [address] [address], [place], [address], [facility] 09/20/2024 10:25:44 Imaging Results None recorded. Procedure [...] ICD10 Code Diagnosis IMO Codes Diagnosis Note [id number] GURJIT HERNÁNDEZ MD [facility] [address] [place] [address] 09/20/2024 09:34:45 09/20/2024 10:58:44 Sensorineural hearing loss of bilateral ears [id number] H90.3 [id number] Audiologic al evaluation results:Ri ght & Left ears:Ekaterina l hearing thru 2000Hz sloping to a mild-moder ate SNHL Tympanomet ry:Right Ear:Type AdLeft Ear:Type Ad Perception of hearing loss [id number] 7427882 H91.90 [id number] Otalgia of left ear 1010 557488 H92.02 2152737 Temporoman dibular joint disorder 61070914 M26.609 [id number] Health Concerns Section Related Observation LastModified by Organization Detai ls LastModified Time None Recorded Concern Status LastModified by Organization Details LastModified Time None Recorded Advance Directives Directive None Recorded Payers Insurance Date Sequence Insurance Name Policy Number Policy Vásquez Covered Member ID Vásquez Member ID Guarantor Name 10/24/2024 1 [employer] - [facility] [place] ([place]PLAC[place] VANTAGE - HMO) Louis Wagoner [id number] Louis Wagoner 01/10/2025 1 [facility] - DOS ON OR AFTER 2022 - DUAL ELIGIBLE - MEDICARE ADVANTAGE [place]ARE [place]PLACEMENT/AD VANTAGE - HMO) Louis Wagoner [id number] Louis Wagoner 01/24/2025 2 [place] [facility] Louis Wagoner [id number] Louis Wagoner Notes Date Note Type Note [...] frequency mild hearing loss. GURJIT HERNÁNDEZ MD [address] [address], [place], [address], [facility] - [facility] 09/20/2024 12:57:57
== END 2025-03-11 13:35 | disposition home or self-care (01) ==
LOC: HO.HMCH 12:47
PROVIDERS: PCP Internal Medicine; Visit Provider Internal Medicine
DX: G40.909 Epilepsy, unspecified, not intractable, without status epilepticus (principal); Z87.820 Personal history of traumatic brain injury; E78.2 Mixed hyperlipidemia; R73.01 Impaired fasting glucose; E55.9 Vitamin D deficiency, unspecified; R13.10 Dysphagia, unspecified; R05.9 Cough, unspecified; H10.13 Acute atopic conjunctivitis, bilateral; M17.12 Unilateral primary osteoarthritis, left knee; K59.00 Constipation, unspecified; G47.00 Insomnia, unspecified; F41.9 Anxiety disorder, unspecified; F32.9 Major depressive disorder, single episode, unspecified

== ENCOUNTER → 2025-03-11 12:47 | Outpatient (BNVA) | payer OTHER, SELFPAY | PROVIDERS: PCP Internal Medicine; Visit Provider Internal Medicine | DX: N39.44 Nocturnal enuresis (principal); R50.9 Fever, unspecified; G40.909 Epilepsy, unspecified, not intractable, without status epilepticus; E78.2 Mixed hyperlipidemia; R73.01 Impaired fasting glucose; E55.9 Vitamin D deficiency, unspecified; R13.10 Dysphagia, unspecified; R05.9 Cough, unspecified; H10.13 Acute atopic conjunctivitis, bilateral; M17.12 Unilateral primary osteoarthritis, left knee; K59.00 Constipation, unspecified; G47.00 Insomnia, unspecified; F41.9 Anxiety disorder, unspecified; F32.9 Major depressive disorder, single episode, unspecified; Z87.820 Personal history of traumatic brain injury | CPT/HCPCS: 96127; 99212 ==